=== PATIENT | female | born 1945 | race Caucasian/White ===

== ENCOUNTER 2020-09-12 11:38 | Observation (INO) | payer MEDICARE, SELFPAY ==
[2020-09-12] VITALS (39 sets, daily range): BP systolic 146–207; BP diastolic 48–81; PULSE 54–68; RESP 14–31; TEMP 36.2–36.6; O2SAT 92–100; BMI 24.4
--- NOTE | ~2020-09-12 | XR_ITS ---
EXAMINATION: XR chest 2V DATE: 09/12/2020 12:24 INDICATION: Dizziness. TECHNIQUE: Frontal and lateral views of the chest were obtained. COMPARISON: None. FINDINGS: The chest demonstrates clear lungs without pneumonia, pleural effusion, or pneumothorax. Th e heart size is normal. IMPRESSION: 1. No acute cardiopulmonary disease. Reviewed, dictated and finalized at location A. NE MONITOR
--- NOTE | 2020-09-12 12:01 | ECG_ITS ---
Measurements Intervals [place] Rate: 52 P: 42 PA: 177 QRS: 32 QRSD: 92 T: 125 QT: 430 QTc: 402 Interpretive Statements SINUS BRADYCARDIA ST-T WAVE ABNORMALITY IN HIGH LATERAL LEADS- CONSIDER ISCHEMIA BASELINE ARTIFACT- I, II, III, AVR, AVL, AVF, V2, V4-V6 ABNORMAL ECG Electronically Signed On 09-12-2020 12:40:43 HEARING AID DISPENSER by Petr Cole D.O.
[2020-09-12] MEDS: MECLIZINE HCL 25 MG TABLET PO (12:11)
--- NOTE | 2020-09-12 12:59 | ED.DIZZY ---
HPI - Dizziness General Chief Complaint: Dizziness Stated Complaint: DIZZY Time Seen by Provider: 09/12/20 11:46 History of Present Illness HPI Narrative: Patient is a 75-year-old female who presents ER with dizziness. Reports she woke from a nap and felt very hot and flushed. She left her living room and was walking. She reports she felt very dizzy and nauseated. She then had an episode of emesis. Because of her dizziness/unsteadiness her daughter helped her to the couch. Patient reports symptoms are resolved at this point. She reports chronic sinus issues but they are not particularly worse than usual. No ear pain. She had no functional weakness or numbness to an arm or leg when this is occurring. Blood pressure noted to be elevated upon arrival. Patient reports compliance with medications. She reports she is still mildly nauseated. Related Data Home Medications Medication Instructions Recorded Confirmed clonidine HCl 0.2 mg PO BID 09/12/20 09/12/20 glipizide 5 mg PO DAILY 09/12/20 09/12/20 hydrochlorothiazide 12.5 mg PO DAILY 09/12/20 09/12/20 insulin glargine [Lantus U-100 40 unit SUBCUT HS 09/12/20 09/12/20 Insulin] lisinopril 10 mg PO DAILY 09/12/20 09/12/20 prednisone 10 mg PO DAILY 09/12/20 09/12/20 sitagliptin [Januvia] 100 mg PO DAILY 09/12/20 09/12/20 zolpidem 10 mg PO HS PRN 09/12/20 09/12/20 Allergies Allergy/AdvReac Type Severity Reaction Status Date / Time codeine Allergy Unknown Verified 09/12/20 18:47 Review of Systems Review of Systems: All systems reviewed & are unremarkable except as noted in HPI and below Constitutional: Constitutional: Denies chills, Reports fatigue, Denies fever(s) and Reports weakness ENT: Denies nasal congestion and Denies sore throat Cardiovascular: Cardiovascular: Denies chest pain and Denies radiating jaw, neck or arm pain Respiratory: Respiratory: Denies cough, Denies dyspnea and Denies wheezing Gastrointestinal: Gastrointestinal: Denies abdominal pain, Reports nausea and Denies vomiting Neurologic: Reports dizziness, Denies syncope, Denies focal weakness and Denies numbness PMFSH Past Medical History Medical History (Updated 09/12/20 @ 21:15 by Brian Metzger MD) Diabetes Hypertension Family History Family History (Updated 09/12/20 @ 17:24 by Michaelle Evans RN) Mother Cerebrovascular accident Social History Social History Years smoked: 30 Alcohol intake: never Substance use: never Substance use type: does not use Gender identity (if verbalized by the patient): Female Spiritual care concerns: No Exam Narrative: Exam Narrative: GENERAL: Well-appearing, well-nourished, and in no acute distress. HEAD: Normocephalic, atraumatic. EYES: PERRL and EOMI. CHEST: Clear to auscultation. No respiratory distress. HEART: Regular rate and rhythm. Normal peripheral pulses. ABDOMEN: Soft, nontender, nondistended. EXTREMITIES: Normal range of motion. No edema. SKIN: Warm, dry, no rash. NEURO: No focal deficits. Alert and oriented x3. PSYCH: Normal mood and affect. Course Course Emergency Course: Patient with difficulty ambulating. Significant leukocytosis with UTI. Ceftriaxone ordered. Admit to hospitalist service. Vital Signs Vital signs: Vital Signs Pulse Rate 56 L 09/12/20 11:42 Respiratory Rate 23 H 09/12/20 11:42 Blood Pressure 207/56 H 09/12/20 11:42 Pulse Oximetry 97 09/12/20 11:42 Temperature 97.7 F 09/12/20 18:00 Pulse Rate 68 09/12/20 18:00 Respiratory Rate 20 09/12/20 18:00 Blood Pressure 196/51 H 09/12/20 18:00 Pulse Oximetry 97 09/12/20 18:00 MDM - Dizziness Lab Data Result diagrams: 09/12/20 12:59 09/12/20 12:59 Labs: Lab Results 09/12/20 09/12/20 09/12/20 Range/Units 12:43 12:59 12:59 WBC 22.2 H (4.5-10.0) K/mm3 RBC 5.31 (4.2-5.4) M/mm3 Hgb 15.6 H (12.0-15.0) g/dL Hct 47.0 (37.0-47.0) % MCV 88.5 (80-100) fl
[2020-09-12 13:04] LABS: Add Urine Microscopic? YES; Appearance Urine Clear (Clear); Bacteria Urine Trace /hpf; Bilirubin Urine Negative (Negative); Blood Urine 1+ (Negative); Color Urine Yellow (Yellow); Glucose Urine UA Negative (Negative); Ketones Urine Negative (Negative); Leukocyte Esterase Ur Trace LEU/UL (Negative); Mucus Urine Rare /lpf; Nitrate Urine Positive (Negative); Protein Urine 1+ mg/dL (Negative); RBC Urine 0-2 /hpf (0-2); Specific Grav Ur 1.025 (1.001-1.035); Squamous Epithelial Cell Urine Few /hpf (Few); Urobilinogen Urine Negative mg/dL (<2.0); WBC Urine 31-50 /hpf
[2020-09-12 13:06] LABS: Hemoglobin 15.6 g/dL (12.0-15.0); Mean Corpuscular HGB Conc 33.2 g/dl (32-36); Mean Corpuscular Hemoglobin 29.4 pg (26-34); Mean Corpuscular Volume 88.5 fl (80-100); Mean Platelet Volume 10.5 fl (7.4-10.4); Platelet Count Result 300 k/mm3 (150-375); Red Blood Count 5.31 M/mm3 (4.2-5.4); Red Cell Distribution Width 14.2 % (11.5-14.5); White Blood Count 22.2 K/mm3 (4.5-10.0)
[2020-09-12 13:13] LABS: Band Neutrophils Percent 3 % (0-6); Lymphocytes Absolute Manual 3.55 K/mm3 (1.1-4.5); Monocytes Absolute Manual 1.33 K/mm3 (0.1-0.90); Monocytes Percent Manual 6 % (3-9); Neutrophils Absolute Manual 17.31 K/mm3 (1.7-7.2); Neutrophils Percent Manual 75 % (46-73); Total Cells Counted 100
[2020-09-12 13:14] LABS: Platelet Estimate Adequate (Adequate)
[2020-09-12 13:17] LABS: Anion Gap 7 mmol/L (8-16); Blood Urea Nitrogen 17 mg/dL (7-17); Calcium 9.8 mg/dL (8.4-10.2); Carbon Dioxide 32 mmol/L (22-30); Chloride 98 mmol/L (98-107); Estimated CRCL calculation 52 ml/min; Estimated Glomerular Filt Rate > 60; Glucose 198 mg/dL (65-105); Potassium 3.5 mmol/L (3.4-5.0); Sodium 137 mmol/L (137-145)
[2020-09-12 15:02] LABS: Lactic Acid Reflex 1.2 mmol/L (0.7-2.1)
--- NOTE | 2020-09-12 17:05 | ADMGEN ---
This patient, Trudi Veliz, was admitted to Medical Room 257-01. Patient/family oriented to hospital policies and general routines including ID bracelet, bed and alarms, visiting hours, pain management, procedures, bathroom and other care routines, personal items, smoking policy, room service/diet, and visiting hours. Information on how to activate the Rapid Response Team has been discussed. Patient/Family are encouraged to report perceived risks to care and to ask questions if they do not understand what they are told or what they should do.
[2020-09-12] MEDS: SODIUM CHLORIDE 0.9% IV 1,000 ML 125 ML IV CONT (17:10)
[2020-09-12] MEDS: HYDROcodone/acetaminophen (*CRX) 5-325 MG TABLET 1 TAB PO (18:45)
[2020-09-12 20:45] LABS: Glucose Point of Care 287 (65-105)
--- NOTE | 2020-09-12 21:15 | PM.IMHP ---
H&P: HPI History of Present Illness Date/Time: 09/12/20 21:15 Chief Complaint: Dizziness Narrative: Trudi Veliz is a 75 year old female who lives with her daughter. She came to the emergency room with complaints of dizziness. The patient has hypertension and stated she did take her clonidine today because it makes her feel sleepy. The patient got up from a nap today and felt very dizzy and nauseated. She had 1 episode of emesis there was no blood noted in the emesis. She felt dizzy and unsteady for just a minute. The daughter helped her get back to the couch. This resolved quickly. She also has history of sinus drainage and sinus issues. In her sinuses have been worse than normal recently. With the drainage. She has no weakness or numbness no focal weakness. The patient was mildly nauseated when she came to the emergency room. She had not taken her blood pressure medicine this morning. She was found have a slight UTI and was started on Rocephin. She was given Antivert 1 time and was feeling better. Neutrophils 75%. Blood sugar 198 and then 287. Blood pressure was noted to be 196/51. Patient is being admitted observation overnight on the date of service of 09/12/2020. Review of Systems Review of Systems: All systems reviewed & are unremarkable except as noted in HPI and below Constitutional: Constitutional: Reports as per HPI and Reports no additional constitutional complaints Eyes: Eyes: Reports as per HPI and Reports no additional eye complaints ENT: Reports system reviewed and no additional complaints, except as documented and Reports Normal hearing present Cardiovascular: Cardiovascular: Reports no additional cardiovascular complaints Respiratory: Respiratory: Reports no additional respiratory complaints and Reports no additional respiratory complaints Gastrointestinal: Gastrointestinal: Reports as per HPI and Reports no additional gastrointestinal complaints Musculoskeletal: Musculoskeletal: Reports no additional musculoskeletal complaints Integumentary/Breasts: Skin/Breast: Reports system reviewed and no additional complaints, except as docu and Reports as per HPI Neurologic: Reports system reviewed and no additional complaints, except as documented, Reports as per HPI and Reports Normal hearing present Psychiatric: Psychiatric: Reports no additional psychiatric complaints and Reports as per HPI Endocrine: Endocrine: Reports no additional endocrine complaints Hematologic/Lymphatic: Hematologic/Lymphatic: Reports no additional hematologic/lymphatic complaints Allergic/Immunologic: Allergic/Immunologic: Reports no additional allergic/immunologic complaints [facility] Past Medical History Medical History (Updated 09/12/20 @ 21:25 by Michelle Cordova NP) Diabetes Hypertension Lipoma Left thigh Rheumatoid arthritis Surgical History Surgical History (Updated 09/12/20 @ 21:21 by Michelle Cordova NP) H/O tubal ligation History of appendectomy History of back surgery L4-L5 Hx of cholecystectomy Total knee replacement status Family History Family History (Updated 09/12/20 @ 21:21 by Michelle Cordova NP) Mother Cerebrovascular accident Sibling Diabetes mellitus Social History Social History (Updated 09/12/20 @ 21:23 by Michelle Cordova NP) Social History: The patient still smokes about 6 or 7 cigarettes a day. 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 She has 3 daughters. She is . She desires to be a full code does not have any durable power traffic law attorney for healthcare. She denies any alcohol because it makes her sick and no illicit drugs. She likes wine but it makes her sick when she drinks it. Years smoked: 30 Alcohol intake: never Substance use: never Substance use type: does not use Gender identity (if verbalized by the patient): Female Spiritual care concerns: No Meds Home Medications and Allergies Home Medications Med
[2020-09-12] MEDS: ZOLPIDEM TARTRATE (*CRX) 5 MG TABLET 10 MG PO (21:54)
[2020-09-12] MEDS: INSULIN GLARGINE (*BKC) 100 UNITS/ML 40 UNITS SUB-Q (21:54)
[2020-09-13 00:42] VITALS: BP 156/60; PULSE 60; RESP 16; TEMP 36.1; O2SAT 97
[2020-09-13] MEDS: SODIUM CHLORIDE 0.9% IV 1,000 ML 125 ML IV CONT (03:35)
[2020-09-13 04:29] LABS: Glucose Point of Care 74 (65-105)
[2020-09-13] MEDS: hydrALAZINE HCL 20 MG/ML VIAL 10 MG IV PUSH (04:48)
[2020-09-13 06:00] VITALS: BP 189/70; PULSE 60; RESP 20; TEMP 36.2; O2SAT 97
[2020-09-13 06:20] LABS: Alanine Aminotransferase 17 U/L (4-35); Albumin Level 3.7 g/dL (3.5-5.1); Alkaline Phosphatase 71 U/L (38-126); Anion Gap 4 mmol/L (8-16); Aspartate Amino Transferase 18 U/L (14-36); Bilirubin,Total 0.4 mg/dL (0.2-1.3); Blood Urea Nitrogen 16 mg/dL (7-17); Calcium 9.1 mg/dL (8.4-10.2); Carbon Dioxide 34 mmol/L (22-30); Chloride 102 mmol/L (98-107); Estimated CRCL calculation 52 ml/min; Estimated Glomerular Filt Rate > 60; Glucose 118 mg/dL (65-105); Magnesium 1.8 mg/dL (1.6-2.3); Potassium 3.5 mmol/L (3.4-5.0); Sodium 140 mmol/L (137-145)
[2020-09-13 06:32] LABS: Basophils Percent Auto 0.3 % (0.2-1.2); Eosinophils Absolute Auto 0.1 K/mm3 (0-0.3); Eosinophils Percent Auto 0.7 % (0-4.4); Hematocrit 45.1 % (37.0-47.0); Immature Granulocyte Absolute 0.09 K/mm3 (0.00-0.031); Immature Granulocyte Percent A 0.8 % (0-0.5); Lymphocytes Absolute Auto 2.11 K/mm3 (0.9-3.2); Lymphocytes Percent Auto 19.2 % (18.3-44.2); Mean Corpuscular HGB Conc 33.3 g/dl (32-36); Mean Corpuscular Hemoglobin 29.1 pg (26-34); Mean Corpuscular Volume 87.4 fl (80-100); Mean Platelet Volume 11.1 fl (7.4-10.4); Monocytes Absolute Auto 0.6 K/mm3 (0.1-0.6); Monocytes Percent Auto 5.2 % (2.6-8.5); Neutrophils Absolute Auto 8.1 K/mm3 (1.3-6.7); Neutrophils Percent Auto 73.8 % (45.5-73.1); Platelet Count Result 281 k/mm3 (150-375); Red Blood Count 5.16 M/mm3 (4.2-5.4); Red Cell Distribution Width 14.2 % (11.5-14.5)
[2020-09-13 06:34] LABS: Hemoglobin A1C 8.4 % (<5.7)
[2020-09-13 07:29] LABS: Glucose Point of Care 141 (65-105)
[2020-09-13] MEDS: hydroCHLOROthiazide 12.5 MG CAPSULE PO (08:13)
[2020-09-13] MEDS: glipiZIDE 5 MG TABLET PO (08:13)
[2020-09-13] MEDS: lisinopriL 10 MG TABLET PO (08:13)
[2020-09-13] MEDS: cloNIDine HCL 0.2 MG TABLET PO (08:13)
[2020-09-13] MEDS: predniSONE 10 MG TABLET PO (08:14)
[2020-09-13] MEDS: HYDROcodone/acetaminophen (*CRX) 5-325 MG TABLET 1 TAB PO (08:30)
[2020-09-13 09:37] LABS: Free T4 Free Thyroxine Reflex 1.36 ng/dL (0.78-2.19)
[2020-09-13 10:05] VITALS: BP 147/40; PULSE 64; RESP 17; TEMP 36.6; O2SAT 98
[2020-09-13 10:31] VITALS: BP 170/78; BP 192/68; PULSE 61; PULSE 70; RESP 15; RESP 17; O2SAT 98; O2SAT 99
--- NOTE | 2020-09-13 11:16 | PM.DS ---
DS: Admitting Diagnosis Admitting Diagnosis Admitting Diagnosis: dizziness DS: Discharge Diagnosis Discharge Diagnosis (1) UTI (urinary tract infection): Code(s): N39.0 - Urinary tract infection, site not specified Status: Acute Assessment and Plan: Urinalysis was grossly abnormal upon presentation. She had marked leukocytosis. She was afebrile and denied urinary symptoms. She did have some nausea. She was started on IV Rocephin and her leukocytosis significantly improved. Urine culture grew >100,000 CFU E coli. she will continue p.o. cefdinir to complete a total of 7 days antibiotic therapy. Preliminary blood culture showed NGTD and final cultures will be monitored. (2) Vertigo: Code(s): R42 - Dizziness and giddiness Status: Acute Assessment and Plan: patient reports waking up from a nap and feeling very dizzy as if the room was spinning. She denied unsteadiness, lightheadedness, weakness, numbness, or tingling. she had associated nausea and 1 episode of emesis. The episode resolved, however she reported her daughter wanted her to be evaluated. she noted that she had not really drink any water that day And has had similar episodes to this when she has been dehydrated. She was not orthostatic. She was rehydrated with IV fluids. She received 1 dose of meclizine. I encouraged her to stay well hydrated. She will continue p.r.n. meclizine And follow-up with PCP. She may benefit from neurology referral if episodes persist. (3) Hypertension: Code(s): I10 - Essential (primary) hypertension Status: Chronic Assessment and Plan: Blood pressure was elevated above target in the 160-170s. She was not orthostatic. Continue with her hydrochlorothiazide, clonidine and lisinopril. I encouraged her to monitor her blood pressure at home and record readings were review by PCP. (4) Diabetes: Code(s): E11.9 - Type 2 diabetes mellitus without complications Status: Chronic Assessment and Plan: A1c was 8.4 (09/13/2020). she did not have any episodes of hypoglycemia. Continue glipizide, Lantus, and Januvia. (5) Rheumatoid arthritis: Code(s): M06.9 - Rheumatoid arthritis, unspecified Status: Chronic Assessment and Plan: Managed on daily low-dose prednisone. She was asymptomatic. DS: Summary Hospital Course Reason for hospitalization: dizziness Hospital Course: date of admission: 09/12/2020 date of discharge: 09/13/2020 Trudi Veliz is a 75-year-old female with a history of diabetes, hypertension, and rheumatoid arthritis who presented to the emergency department on on 09/12/2020 after having episode of dizziness upon waking from a nap. The episode resolved, however her daughter encouraged her to seek medical evaluation although the patient did not really want to. Upon presentation to the emergency department , her blood pressure was elevated with additional vital signs stable, she had marked leukocytosis, electrolytes stable, glucose 198, lactic acid 1.2, urinalysis grossly abnormal, and chest x-ray showed no acute cardiopulmonary disease. She was admitted to the hospitalist service for further evaluation management. Please see above for further details. She was treated for urinary tract infection will continue p.o. antibiotics as an outpatient. Her dizziness resolved entirely. She will continue meclizine as needed. I suspect most of her symptoms were due to dehydration and I discussed with her the importance of proper oral intake. She was evaluated by PT /OT and no ongoing therapy requirements were identified. She will need to follow-up with her primary care provider, which was discussed with her and she agrees. She was extremely eager for discharge home. Given her overall improvement, she was determined to no longer require inpatient care and was felt to be stable for discharge. We discussed worrisome signs and symptoms for wh
[2020-09-13 11:32] LABS: Glucose Point of Care 176 (65-105)
[2020-09-13 11:33] LABS: Total Triiodothyronine (T3) 1.23 NG/ML (0.97-1.69)
== END 2020-09-13 11:54 | disposition home or self-care (01) ==
LOC: ANHED 11:46 → ANH2MED 15:56
PROVIDERS: Nurse Practitioner; Physician Assistant; Admitting Provider Internal Medicine; Emergency Provider Emergency Medicine; PCP Nurse Practitioner Family; Visit Provider Family Medicine
DX: N39.0 Urinary tract infection, site not specified (principal); R42 Dizziness and giddiness; R11.2 Nausea with vomiting, unspecified; I10 Essential (primary) hypertension; E11.9 Type 2 diabetes mellitus without complications; D17.24 Benign lipomatous neoplasm of skin and subcutaneous tissue of left leg; M06.9 Rheumatoid arthritis, unspecified; Z79.4 Long term (current) use of insulin
CPT/HCPCS: 36415; 71046; 80048; 80053; 81001; 82728; 83036; 83605; 83735; 84439; 84443; 84480; 85025; 87040; 87077; 87086; 87088; 87186; 93005; 96361; 96365; 96366; 96375; 96376; 97161; 97165; 99285; A9270; G0378; J0360; J0696; J1815; J7030; J7512

== ENCOUNTER 2020-10-25 14:24 | Outpatient (CLI) | payer MEDICARE, SELFPAY ==
--- NOTE | ~2020-10-25 | MR_ITS ---
EXAMINATION: MR brain/brain stem wo con DATE: 10/25/2020 16:29 INDICATION: Memory deficits. Dizziness. Confusion. TECHNIQUE: Magnetic resonance imaging (MRI) of the brain and brainstem was performed without intraven ous contrast. Sequences included sagittal and axial T1-weighted FSE, axial diffusion-weighted FS EPI, axial T2*-weighted GRE, axial T2-weighted FLAIR Propeller, and axial T2-weighted Propeller. Apparent diffusion coefficient (ADC) maps were created. COMPARISON: None. 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 There is no intracranial hemorrhage, acute infarction, or abnormal intracranial mass lesion. There are sca ttered areas of nonspecific increased T2-weighted signal intensity in the cerebral white matter, whic h is within normal limits for the patient's age. There is ex vacuo dilatation of body of right latera l ventricle. There is mucosal thickening in the paranasal sinuses. There is an old blowout fracture o f medial wall of right orbit. There are likely changes of ocular lens replacement surgeries. The mast oid air cells are normal. IMPRESSION: 1. 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 Reviewed, dictated and finalized at location A. OL CHILDCARE ATTENDANT
== END 2020-10-25 14:25 | disposition home or self-care (01) ==
PROVIDERS: PCP Nurse Practitioner Family; Visit Provider Nurse Practitioner Family
DX: Z78.0 Asymptomatic menopausal state (principal); R41.3 Other amnesia; R42 Dizziness and giddiness; R53.1 Weakness
CPT/HCPCS: 70551

== ENCOUNTER 2020-12-01 15:36 | Observation (INO) | payer MEDICARE, SELFPAY ==
[2020-12-01] VITALS (7 sets, daily range): BP systolic 148–173; BP diastolic 53–95; PULSE 75–88; RESP 16–20; TEMP 36.2–37.3; O2SAT 94–99; BMI 24.0
--- NOTE | ~2020-12-01 | CT_ITS ---
EXAMINATION: CT abdomen pelvis w con DATE: 12/01/2020 17:04 INDICATION: Generalized abdominal pain TECHNIQUE: Computed tomography (CT) of the abdomen and pelvis was performed with 100 cc Omnipaque 350 intravenous contrast. The dose-length product was 367.31 mGy-cm. Automated exposure control and iter ative reconstruction technique were employed. COMPARISON: None. FINDINGS: There is dependent atelectasis. Heart size is normal. There is atherosclerosis of the aorta . No aneurysm. No lymphadenopathy. There is a 12 mm low-density lesion right hepatic lobe inferiorly extending to the capsular surface. Gallbladder not identified, likely surgically absent. Mild dilation of the common bile duct, likely r elated to prior cholecystectomy and patient's age. The spleen, pancreas, adrenal glands and right kid magaly are unremarkable. There are low-density lesions in the left kidney, likely cysts. No free air or free fluid. Nonobstructive bowel gas pattern. Uterus is atrophic. Small fat-containing umbilical brittney ia. Severe lumbar spondylosis. Moderate osteoarthritis of the hips. Levoscoliosis of the lumbar spine . IMPRESSION: 1. Low-density lesion right hepatic lobe inferiorly measuring 12 mm, likely benign cyst or hemangioma . Follow-up CT abdomen in 6 months recommended. 2: No acute abdominal abnormality. Reviewed, dictated and finalized at location A. TR[employer] [address] IMPRESSION: 1. Low-density lesion right hepatic lobe inferiorly measuring 12 mm, likely paul ign cyst or hemangioma. Follow-up CT abdomen in 6 months recommended. 2: No acute abdominal abnormality.
--- NOTE | ~2020-12-01 | XR_ITS ---
EXAMINATION: XR chest 2V 12/01/2020 16:12 INDICATION: Nausea and vomiting PROCEDURE: 2 view chest COMPARISON: 09/12/2020 FINDINGS: The lungs are clear. The cardiomediastinal silhouette is within normal limits. There are no pleural effusions. There is no pneumothorax suspected. Mild dextroscoliosis of the thoracic spin e. Osteopenia. IMPRESSION: 1: NO ACUTE CARDIOPULMONARY DISEASE. Reviewed, dictated and finalized at location A. [employer]ROPOLOGY DIRECTOR
--- NOTE | ~2020-12-01 | XR_ITS ---
EXAMINATION: XR hip RT 2V w AP pelvis DATE: 12/02/2020 10:03 INDICATION: Right hip pain. TECHNIQUE: An anteroposterior view pelvis and 2 views of right hip were obtained. COMPARISON: CT abdomen and pelvis 12/01/2020 FINDINGS: There is lumbar levoscoliosis and severe spondylosis. No fracture. There is mild osteoarthr itis of hips. IMPRESSION: 1. Mild osteoarthritis of the hips. Reviewed, dictated and finalized at location A.
--- NOTE | ~2020-12-01 | XR_ITS ---
EXAMINATION: XR lumbar spine 2-3V DATE: 12/02/2020 10:03 INDICATION: Low back pain. TECHNIQUE: 3 views of lumbar spine were obtained. COMPARISON: None. FINDINGS: There is 18 degrees levoscoliosis of lumbar spine. There is 5 mm retrolisthesis of L2 on L3 and L3 on L4. Vertebral body heights are normal. There is severely decreased disc height from L2-L3 through L4-L5. There is multilevel severe facet joint osteoarthritis. IMPRESSION: 1. Severe lumbar spondylosis. 2. Lumbar levoscoliosis. Reviewed, dictated and finalized at location A.
--- NOTE | ~2020-12-01 | US_ITS ---
EXAMINATION: US venous doppler [facility] DATE: 12/02/2020 14:23 INDICATION: Lower limb swelling. TECHNIQUE: Grayscale ultrasound images without and with compression and Doppler ultrasound images of the bilateral lower extremity veins were obtained. COMPARISON: None. FINDINGS: The visualized portions of right common femoral vein, profunda (deep) femoral vein, femoral vein, pop liteal vein, peroneal veins, posterior tibial veins, and greater saphenous vein outflow are patent. The visualized portions of left common femoral vein, profunda femoral vein, femoral vein, popliteal v ein, peroneal veins, posterior tibial veins, and greater saphenous vein outflow are patent. IMPRESSION: 1. No deep venous thrombosis. Reviewed, dictated and finalized at location A.
--- NOTE | 2020-12-01 15:53 | ECG_ITS ---
Measurements Intervals [place] Rate: 89 P: 48 ME: 162 QRS: 26 QRSD: 89 T: 118 QT: 340 QTc: 415 Interpretive Statements SINUS RHYTHM BORDERLINE ST-T WAVE ABNORMALITY- LAT/HIGH LAT LEADS BASELINE WANDER- I, II, III, AVR, AVL, AVF, V1 BORDERLINE ECG Electronically Signed On 12-01-2020 18:05:36 DOSIER OPERATOR by Petr Cole D.O.
--- NOTE | 2020-12-01 15:56 | ED.WEAKNESS ---
HPI - Weakness General Chief complaint: Weakness Stated complaint: i am very weak Time Seen by Provider: 12/01/20 15:56 History of Present Illness HPI Narrative: Generalized weakness for the past weak. Associated with nausea and dizziness on standing. Daughter noted dark urine a few days ago and PCP started antibiotic for UTI. SInce then she has begun vomiting. Daughter also noticed that the skin on all of her extremities appeared red and warm. No fever, CP, SOB, cough. Related Data Home Medications Medication Instructions Recorded Confirmed Januvia 100 mg PO DAILY 09/12/20 09/12/20 Lantus U-100 Insulin 40 unit SUBCUT HS 09/12/20 09/12/20 clonidine HCl 0.2 mg PO BID 09/12/20 09/12/20 glipizide 5 mg PO DAILY 09/12/20 09/12/20 hydrochlorothiazide 12.5 mg PO DAILY 09/12/20 09/12/20 lisinopril 10 mg PO DAILY 09/12/20 09/12/20 prednisone 10 mg PO DAILY 09/12/20 09/12/20 zolpidem 10 mg PO HS PRN 09/12/20 09/12/20 Allergies Allergy/AdvReac Type Severity Reaction Status Date / Time codeine Allergy Unknown Verified 09/12/20 18:47 Review of Systems Review of Systems: All systems reviewed & are unremarkable except as noted in HPI and below Constitutional: Constitutional: Reports fatigue, Denies fever(s) and Reports weakness ENT: Reports system reviewed and no additional complaints, except as documented Cardiovascular: Cardiovascular: Denies chest pain Respiratory: Respiratory: Denies dyspnea Gastrointestinal: Gastrointestinal: Denies abdominal pain, Reports nausea and Reports vomiting Genitourinary: Genitourinary: Reports nocturia and Denies dysuria Musculoskeletal: Musculoskeletal: Denies back pain Neurologic: Reports dizziness and Reports weakness [facility] Past Medical History Medical History Diabetes Hypertension Lipoma Left thigh Rheumatoid arthritis Surgical History Surgical History H/O tubal ligation History of appendectomy History of back surgery L4-L5 Hx of cholecystectomy Total knee replacement status Family History Family History Mother Cerebrovascular accident Sibling Diabetes mellitus Social History Social History Social History: The patient still smokes about 6 or 7 cigarettes a day. 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 She has 3 daughters. She is . She desires to be a full code does not have any durable power fill manager for healthcare. She denies any alcohol because it makes her sick and no illicit drugs. She likes wine but it makes her sick when she drinks it. Years smoked: 30 Alcohol intake: never Substance use: never Substance use type: does not use Gender identity (if verbalized by the patient): Female Spiritual care concerns: No Exam Const: General: no acute distress and alert Nutritional Appearance: well nourished Orientation/consciousness: patient oriented x3 HENMT: Mouth: Yes dry mucous membranes Resp: Effort & Inspection: normal respiratory effort Auscultation: clear to auscultation bilaterally Cardio: Rate: regular rate Rhythm: regular rhythm GI: GI Palp: Yes Soft to palpation and No Tenderness to palpation present (GI) Skin: Other: Extremities hyperemic and warm to touch, nontender. Neuro: General: patient oriented x3, moves all extremities, no focal motor deficits and CN's II-XI intact bilaterally Speech: normal speech Extrem: General: edema bilateral (mild) Course Vital Signs Vital signs: Vital Signs Temperature 36.2 C L 12/01/20 15:42 Pulse Rate 85 12/01/20 15:42 Respiratory Rate 18 12/01/20 15:42 Blood Pressure 148/53 H 12/01/20 15:42 Pulse Oximetry 94 12/01/20 15:42 Temperature 36.2 C L 12/01/20 15:48 Pulse Rate 78 12/01/20 17:22
[2020-12-01 16:07] LABS: Basophils Percent Auto 0.2 % (0.2-1.2); Eosinophils Absolute Auto 0.2 K/mm3 (0-0.3); Eosinophils Percent Auto 1.3 % (0-4.4); Hematocrit 41.7 % (37.0-47.0); Hemoglobin 14.1 g/dL (12.0-15.0); Immature Granulocyte Absolute 0.11 K/mm3 (0.00-0.031); Immature Granulocyte Percent A 0.6 % (0-0.5); Lymphocytes Absolute Auto 0.58 K/mm3 (0.9-3.2); Mean Corpuscular HGB Conc 33.8 g/dl (32-36); Mean Corpuscular Hemoglobin 28.7 pg (26-34); Mean Corpuscular Volume 84.8 fl (80-100); Mean Platelet Volume 10.1 fl (7.4-10.4); Monocytes Absolute Auto 0.7 K/mm3 (0.1-0.6); Monocytes Percent Auto 3.8 % (2.6-8.5); Neutrophils Absolute Auto 17.4 K/mm3 (1.3-6.7); Neutrophils Percent Auto 91.1 % (45.5-73.1); Platelet Count Result 487 k/mm3 (150-375); Red Blood Count 4.92 M/mm3 (4.2-5.4); Red Cell Distribution Width 12.9 % (11.5-14.5); White Blood Count 19.1 K/mm3 (4.5-10.0)
[2020-12-01 16:18] LABS: Add Urine Microscopic? YES; Appearance Urine Cloudy (Clear); Bacteria Urine Trace /hpf; Bilirubin Urine Negative (Negative); Blood Urine 1+ (Negative); Color Urine Yellow (Yellow); Glucose Urine UA 3+ mg/dL (Negative); Hyaline Casts Urine 20-29 /lpf; Ketones Urine 2+ mg/dL (Negative); Leukocyte Esterase Ur Trace LEU/UL (Negative); Mucus Urine Rare /lpf; Nitrate Urine Negative (Negative); Protein Urine 2+ mg/dL (Negative); Specific Grav Ur 1.017 (1.001-1.035); Squamous Epithelial Cell Urine Occasional /hpf (Few); Urobilinogen Urine Negative mg/dL (<2.0)
[2020-12-01 16:20] LABS: Alanine Aminotransferase 13 U/L (4-35); Albumin Level 3.9 g/dL (3.5-5.1); Alkaline Phosphatase 107 U/L (38-126); Anion Gap 7 mmol/L (8-16); Aspartate Amino Transferase 21 U/L (14-36); Bilirubin,Total 0.6 mg/dL (0.2-1.3); Blood Urea Nitrogen 21 mg/dL (7-17); Calcium 9.8 mg/dL (8.4-10.2); Carbon Dioxide 29 mmol/L (22-30); Chloride 92 mmol/L (98-107); Estimated CRCL calculation 44 ml/min; Estimated Glomerular Filt Rate > 60; Glucose 412 mg/dL (65-105); Potassium 4.2 mmol/L (3.4-5.0); Sodium 128 mmol/L (137-145)
[2020-12-01] MEDS: ONDANSETRON INJ 4 MG/2 ML VIAL IV PUSH ×2 (17:07→22:58)
--- NOTE | 2020-12-01 21:20 | ADMGEN ---
12/01/2020 @ 2100 This patient, Trudi Veliz, was admitted to 3 Med Surg Room 322-01. Patient/family oriented to hospital policies and general routines including ID bracelet, bed and alarms, visiting hours, pain management, procedures, bathroom and other care routines, personal items, smoking policy, room service/diet, and visiting hours. Information on how to activate the Rapid Response Team has been discussed. Patient/Family are encouraged to report perceived risks to care and to ask questions if they do not understand what they are told or what they should do.
[2020-12-01] MEDS: LACTATED RINGERS 1,000 ML 100 ML IV CONT (22:58)
--- NOTE | 2020-12-01 23:30 | PM.IMHP ---
H&P: HPI History of Present Illness Date/Time: 12/01/20 23:30 this is a 75-year-old female patient who is also diabetic. She lives with her daughter now since she has been weak. The patient tells me that she has been weak this past several days. She denies any peripheral neuropathy. She states that her blood sugars have been high recently. She states that she will walk and her legs will start to give out. Has not been on any antibiotics recently. Sodium 128. Her blood sugar was found to be 412. Patient's leukocyte esterase was trace in her urine and wbc's 4-6. Trace of bacteria. Patient was started on antibiotics for UTI. And she was started on ceftriaxone and vancomycin. The patient has rheumatoid arthritis and has stopped taking her prednisone. The patient was complaining of some right hip pain but has not had any falls. Walking short distances. The patient did have a lipoma removed on 09/25/2020 to the left thigh. As low density lesion right hepatic lobe inferiorly [facility] room is likely benign cyst or hemangioma. Follow-up CT abdomen in 6 months is recommended. Nothing acute. Chest x-ray was read as no acute cardiopulmonary disease. The patient is being admitted as observation status on 12/01/2020. Chief Complaint: Weakness Review of Systems Review of Systems: All systems reviewed & are unremarkable except as noted in HPI and below Constitutional: Constitutional: Reports as per HPI and Reports no additional constitutional complaints Eyes: Eyes: Reports as per HPI and Reports no additional eye complaints ENT: Reports system reviewed and no additional complaints, except as documented and Reports Normal hearing present Cardiovascular: Cardiovascular: Reports no additional cardiovascular complaints Respiratory: Respiratory: Reports no additional respiratory complaints and Reports no additional respiratory complaints Gastrointestinal: Gastrointestinal: Reports as per HPI and Reports no additional gastrointestinal complaints Musculoskeletal: Musculoskeletal: Reports no additional musculoskeletal complaints Integumentary/Breasts: Skin/Breast: Reports system reviewed and no additional complaints, except as docu and Reports as per HPI Neurologic: Reports system reviewed and no additional complaints, except as documented, Reports as per HPI and Reports Normal hearing present Psychiatric: Psychiatric: Reports no additional psychiatric complaints and Reports as per HPI Endocrine: Endocrine: Reports no additional endocrine complaints Hematologic/Lymphatic: Hematologic/Lymphatic: Reports no additional hematologic/lymphatic complaints Allergic/Immunologic: Allergic/Immunologic: Reports no additional allergic/immunologic complaints [facility] Past Medical History Medical History (Updated 12/01/20 @ 23:56 by Michelle Cordova NP) Diabetes Hypertension Lipoma Left thigh Rheumatoid arthritis Surgical History Surgical History Cataract extraction status Bilaterally H/O tubal ligation History of appendectomy History of back surgery L4-L5 Hx of cholecystectomy Total knee replacement status Left knee Family History Family History Mother Cerebrovascular accident Sibling Diabetes mellitus Social History Social History (Updated 12/01/20 @ 23:47 by Michelle Cordova NP) Social History: The patient still smokes about 6 or 7 cigarettes a day. 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 She has 3 daughters. She is . She denies any alcohol because it makes her sick and no illicit drugs. She likes wine but it makes her sick when she drinks it. The patient tells me that she is a DNR. Smoking packs per day: 0.3 Smoking cigarettes per day: 6.0 Years smoked: 30 Smoking pack-years: 9.00 Smoking status: Current every day smoker Tobacco type: cigarettes [place]
[2020-12-02] VITALS (8 sets, daily range): BP systolic 129–206; BP diastolic 36–62; PULSE 53–83; RESP 16–18; TEMP 36.2–37.1; O2SAT 94–96
[2020-12-02 00:15] LABS: Hemoglobin A1C 8.9 % (<5.7)
[2020-12-02 00:48] LABS: Anion Gap 3 mmol/L (8-16); Blood Urea Nitrogen 22 mg/dL (7-17); Calcium 9.3 mg/dL (8.4-10.2); Carbon Dioxide 34 mmol/L (22-30); Chloride 92 mmol/L (98-107); Estimated CRCL calculation 46 ml/min; Estimated Glomerular Filt Rate > 60; Glucose 437 mg/dL (65-105); Potassium 3.9 mmol/L (3.4-5.0); Sodium 129 mmol/L (137-145)
--- NOTE | 2020-12-02 03:20 | PC.NURSE ---
Daylight Savings Time For Daylight Savings Time Ending in the Fall - Clocks are moved back. For Daylight Savings Time Beginning in the Spring - Clocks are moved ahead. For [facility], the time of change occurs at 0200 hrs. Time is taken from the linux server engineer. This entry on the patient's chart recognizes the change in time reflected during documentation. Example: 2 entries for vital signs may be charted for 0200 hrs.
[2020-12-02 06:32] LABS: Alanine Aminotransferase 14 U/L (4-35); Albumin Level 3.4 g/dL (3.5-5.1); Alkaline Phosphatase 88 U/L (38-126); Anion Gap 2 mmol/L (8-16); Aspartate Amino Transferase 23 U/L (14-36); Bilirubin,Total 0.3 mg/dL (0.2-1.3); Blood Urea Nitrogen 21 mg/dL (7-17); Calcium 9.1 mg/dL (8.4-10.2); Carbon Dioxide 33 mmol/L (22-30); Chloride 95 mmol/L (98-107); Estimated CRCL calculation 46 ml/min; Estimated Glomerular Filt Rate > 60; Glucose 337 mg/dL (65-105); Magnesium 1.5 mg/dL (1.6-2.3); Potassium 3.8 mmol/L (3.4-5.0); Sodium 130 mmol/L (137-145)
[2020-12-02] MEDS: NAPROXEN SODIUM 220 MG TABLET 440 MG PO ×2 (06:40→16:53)
[2020-12-02] MEDS: cloNIDine HCL 0.2 MG TABLET PO ×2 (06:40→16:54)
[2020-12-02 06:46] LABS: Basophils Percent Auto 0.2 % (0.2-1.2); Eosinophils Absolute Auto 0.6 K/mm3 (0-0.3); Eosinophils Percent Auto 4.8 % (0-4.4); Hematocrit 39.4 % (37.0-47.0); Hemoglobin 13.4 g/dL (12.0-15.0); Immature Granulocyte Absolute 0.05 K/mm3 (0.00-0.031); Immature Granulocyte Percent A 0.4 % (0-0.5); Lymphocytes Absolute Auto 0.94 K/mm3 (0.9-3.2); Lymphocytes Percent Auto 8.3 % (18.3-44.2); Mean Corpuscular Hemoglobin 28.8 pg (26-34); Mean Corpuscular Volume 84.7 fl (80-100); Mean Platelet Volume 10.4 fl (7.4-10.4); Monocytes Absolute Auto 0.6 K/mm3 (0.1-0.6); Monocytes Percent Auto 5.3 % (2.6-8.5); Neutrophils Absolute Auto 9.2 K/mm3 (1.3-6.7); Platelet Count Result 420 k/mm3 (150-375); Red Blood Count 4.65 M/mm3 (4.2-5.4); White Blood Count 11.4 K/mm3 (4.5-10.0)
[2020-12-02 08:14] LABS: Glucose Point of Care 360 (65-105)
[2020-12-02] MEDS: glipiZIDE 5 MG TABLET PO (08:36)
[2020-12-02] MEDS: amLODIPine BESYLATE 5 MG TABLET PO (08:38)
[2020-12-02] MEDS: ENOXAPARIN 40 MG/0.4 ML SYRINGE SUB-Q (08:39)
[2020-12-02] MEDS: CEFDINIR 300 MG CAPSULE PO ×2 (08:39→20:44)
[2020-12-02] MEDS: lisinopriL 10 MG TABLET PO (08:40)
[2020-12-02] MEDS: INSULIN ASPART (*BKC) 100 UNITS/ML SUB-Q ×3 (08:50→17:24)
[2020-12-02] MEDS: LACTATED RINGERS 1,000 ML 100 ML IV CONT (10:58)
[2020-12-02 12:19] LABS: Glucose Point of Care 239 (65-105)
--- NOTE | 2020-12-02 12:29 | P.PNIM_ITS ---
Progress Note: A&P Assessment and Plan (1) UTI (urinary tract infection): Code(s): N39.0 - Urinary tract infection, site not specified Status: Acute Assessment and Plan: Patient started on Macrobid as an outpatient on 11/29. UA suspicious of possible UTI, although not entirely suggestive but this is likely due to partial treatment. No UCx obtained and will not attempt to obtain as this is likely going to be negative due to initiation of antibiotics. Macrobid may be causing recent rash? (see below); this has been held. She was started on Rocephin in ED; transitioned to PO cefdinir today as she has grown E. coli sensitive to this in the past. * Obtain records from PCP * Stop Macrobid * Monitor CBC * Monitor for clinical improvement (2) Hypertension: Code(s): I10 - Essential (primary) hypertension Status: Chronic Assessment and Plan: BP uncontrolled. BP 160s sys * Continue with clonidine; will resume at BID dosing to help with rebound HTN (recently decreased to just taking clinidine in the evening) * HCTZ held given hyponatremia * Continue lisinopril for now, but will consider d/c if continued rash * Added amlodipine 5 mg for now; consider increasing * PRN hydralazine with parameters * Will consider adding beta nia but would have to monitor for bradycardia (3) Diabetes: Code(s): E11.9 - Type 2 diabetes mellitus without complications Status: Chronic Assessment and Plan: A1c 8.9. Poorly controlled. BGL better today but still in 200s * Accuchecks ACHS, hypoglycemia protocol, correctional insulin, diabetic diet * Continue home sitagliptin and glipizide * Continue home lantus * May consider meal time bolus * Consult DM educator * Monitor (4) Rheumatoid arthritis: Code(s): M06.9 - Rheumatoid arthritis, unspecified Status: Chronic Assessment and Plan: The patient is no longer on prednisone per daughter * F/u with PCP (5) Hyponatremia: Code(s): E87.1 - Hypo-osmolality and hyponatremia Status: Acute Assessment and Plan: Na improved to 130. Possibly 2/2 HCTZ * Continue hold HCTZ and/or d/c this med] * Monitor (6) Weakness: Code(s): R53.1 - Weakness Status: Acute Assessment and Plan: Possibly secondary to hyponatremia vs UTI or multifactorial * PT/OT eval appreciated * Monitor (7) Rash: Code(s): R21 - Rash and other nonspecific skin eruption Status: Acute Assessment and Plan: As above, erythematous, nonpalpable rash on distal extremities. Possibly medication induced. Macrobid is the most recent medication initiated. Lisinopril and HCTZ also possible meds. She has had cephalosporins from previous hospitalization without issue * Will do prednisone 40 mg PO now * Benadryl 50 mg PO now * Stop Macrobid * Monitor * will consider prednisone burst Subjective Date/time seen: 12/02/20 12:29 Interval history: Patient is a 75 yo F with poorly controlled DMII, uncontrolled HTN, RA (recently d/c prednisone), chornic back pain, among other comorbid conditions who is seen in follow up for evaluation for generalized weakness, possible UTI, and rash. Patient states she feels okay today. Weakness is about the same if not a bit better. She denies any orthopnea. Patient also note her SONG has been
--- NOTE | 2020-12-02 12:29 | PM.IMPN ---
Progress Note: A&P Assessment and Plan (1) UTI (urinary tract infection): Code(s): N39.0 - Urinary tract infection, site not specified Status: Acute Assessment and Plan: Patient started on Macrobid as an outpatient on 11/29. UA suspicious of possible UTI, although not entirely suggestive but this is likely due to partial treatment. No UCx obtained and will not attempt to obtain as this is likely going to be negative due to initiation of antibiotics. Macrobid may be causing recent rash? (see below); this has been held. She was started on Rocephin in ED; transitioned to PO cefdinir today as she has grown E. coli sensitive to this in the past. Obtain records from PCP Stop Macrobid Monitor CBC Monitor for clinical improvement (2) Hypertension: Code(s): I10 - Essential (primary) hypertension Status: Chronic Assessment and Plan: BP uncontrolled. BP 160s sys Continue with clonidine; will resume at BID dosing to help with rebound HTN (recently decreased to just taking clinidine in the evening) HCTZ held given hyponatremia Continue lisinopril for now, but will consider d/c if continued rash Added amlodipine 5 mg for now; consider increasing PRN hydralazine with parameters Will consider adding beta nia but would have to monitor for bradycardia (3) Diabetes: Code(s): E11.9 - Type 2 diabetes mellitus without complications Status: Chronic Assessment and Plan: A1c 8.9. Poorly controlled. BGL better today but still in 200s Accuchecks ACHS, hypoglycemia protocol, correctional insulin, diabetic diet Continue home sitagliptin and glipizide Continue home lantus May consider meal time bolus Consult DM educator Monitor (4) Rheumatoid arthritis: Code(s): M06.9 - Rheumatoid arthritis, unspecified Status: Chronic Assessment and Plan: The patient is no longer on prednisone per daughter F/u with PCP (5) Hyponatremia: Code(s): E87.1 - Hypo-osmolality and hyponatremia Status: Acute Assessment and Plan: Na improved to 130. Possibly 2/2 HCTZ Continue hold HCTZ and/or d/c this med] Monitor (6) Weakness: Code(s): R53.1 - Weakness Status: Acute Assessment and Plan: Possibly secondary to hyponatremia vs UTI or multifactorial PT/OT eval appreciated Monitor (7) Rash: Code(s): R21 - Rash and other nonspecific skin eruption Status: Acute Assessment and Plan: As above, erythematous, nonpalpable rash on distal extremities. Possibly medication induced. Macrobid is the most recent medication initiated. Lisinopril and HCTZ also possible meds. She has had cephalosporins from previous hospitalization without issue Will do prednisone 40 mg PO now Benadryl 50 mg PO now Stop Macrobid Monitor will consider prednisone burst Subjective Date/time seen: 12/02/20 12:29 Interval history: Patient is a 75 yo F with poorly controlled DMII, uncontrolled HTN, RA (recently d/c prednisone), chornic back pain, among other comorbid conditions who is seen in follow up for evaluation for generalized weakness, possible UTI, and rash. Patient states she feels okay today. Weakness is about the same if not a bit better. She denies any orthopnea. Patient also note her SONG has been going on for several weeks and her PCP is aware. She does note LE swelling. Her back pain is chronic and plans to follow up with her PCP for possible referral. No other complaints at the moment. Notes her N/V has improved and dizziness a bit better. Denies f/c/s, cp/palpitations particularly when ambulating, current sob/cough, abd pain, changes in BMs, dysuria, hematuria, cloudy urine, calf
[2020-12-02] MEDS: predniSONE 20 MG TABLET 40 MG PO (12:49)
[2020-12-02] MEDS: diphenhydrAMINE HCl CAP 25 MG CAPSULE 50 MG PO (12:49)
[2020-12-02 17:13] LABS: Glucose Point of Care 350 (65-105)
[2020-12-02] MEDS: INSULIN GLARGINE (*BKC) 100 UNITS/ML 40 UNITS SUB-Q (22:03)
[2020-12-02 22:27] LABS: Glucose Point of Care 421 (65-105)
[2020-12-02 23:51] LABS: Glucose Point of Care 482 (65-105)
--- NOTE | 2020-12-03 | ECHO_ITS ---
Patient Info Name: Trudi Veliz Age: 75 years : 1945 Gender: Female Ht: 64 in Wt: 140 lbs BSA: 1.70 m2 HR: 53 bpm BP: 124 / 52 mmHg Heart Rhythm: Bradycardia Technical Quality: Good Exam Date: 12/03/2020 10:33 AM Exam Location: [facility] Patient Status: Outpatient Admit Date: 12/01/2020 Staff Ordering Physician: Michelle Cordova NP Chief Medical Physicist: Walter Gil RDCS, RT Attending Provider: Jose Valentin PA-C Referring Physician: Tasha JEAN BAPTISTE; Exam Type: CA echo doppler color flow Study Info Indications R06.02 - Shortness of breath Complete two-dimensional, color flow and Doppler transthoracic echocardiogram is performed. Strain analysis performed. Summary 1. Complete two-dimensional, color flow and Doppler transthoracic echocardiogram is performed. 2. Left ventricular systolic function is normal, estimated at 65-70%. 3. There is mildly increased left ventricular wall thickness. 4. The left ventricular diastolic function is grade I diastolic dysfunction. 5. Aneurysmal septal motion. 6. There is no aortic valve stenosis. 7. There is trace mitral valve regurgitation. 8. There is mild tricuspid valve regurgitation. 9. No pulmonary hypertension, estimated pulmonary arterial systolic pressure is 23 mmHg. 10. There is small pericardial effusion. Left Ventricle Left ventricular chamber dimension is normal. Left ventricular systolic function is normal, estimated at 65-70%. There is mildly increased left ventricular wall thickness. The left ventricular diastolic function is grade I diastolic dysfunction. Global longitudinal strain is mildly elevated at -17 %. Right Ventricle Right ventricular chamber dimension is normal. Right ventricular systolic function is normal. Left Atria Left atrial chamber dimension is mildly enlarged. Right Atria Right atrial chamber dimension is normal. Atrial Septum Aneurysmal septal motion. Aortic Valve The aortic valve is trileaflet. There is no aortic valve stenosis. There is no aortic valve regurgitation. Pulmonic Valve The pulmonic valve is normal. There is trace pulmonic regurgitation. Mitral Valve The mitral valve has normal leaflets. There is trace mitral valve regurgitation. The mitral valve annulus is mildly calcified. Tricuspid Valve The tricuspid valve leaflets are normal. There is mild tricuspid valve regurgitation. No pulmonary hypertension, estimated pulmonary arterial systolic pressure is 23 mmHg. Pericardium/Pleural The pericardium appears normal. There is small pericardial effusion. Inferior Vena Cava Normal inferior vena cava with >50% collapse upon inspiration consistent with normal right atrial pressure, 5 mmHg. Aorta The aortic root size at the sinus of Valsalva is normal. There is mild aortic atherosclerosis. Left Ventricular Outflow Tract Name Value Normal LVOT 2D LVOT Diameter 1.9 cm LVOT Doppler LVOT Peak Gradient 5 mmHg LVOT Mean Gradient 3 mmHg LVOT VTI 27 cm LVOT VTI/AV V
[2020-12-03] MEDS: INSULIN ASPART (*BKC) 100 UNITS/ML 11 UNITS SUB-Q (00:14)
[2020-12-03 02:11] LABS: Glucose Point of Care 316 (65-105)
[2020-12-03 05:44] LABS: Basophils Percent Auto 0.1 % (0.2-1.2); Eosinophils Percent Auto 0.1 % (0-4.4); Hematocrit 34.3 % (37.0-47.0); Hemoglobin 11.7 g/dL (12.0-15.0); Immature Granulocyte Absolute 0.07 K/mm3 (0.00-0.031); Immature Granulocyte Percent A 0.6 % (0-0.5); Lymphocytes Absolute Auto 1.08 K/mm3 (0.9-3.2); Lymphocytes Percent Auto 9.2 % (18.3-44.2); Mean Corpuscular HGB Conc 34.1 g/dl (32-36); Mean Corpuscular Hemoglobin 28.5 pg (26-34); Mean Corpuscular Volume 83.5 fl (80-100); Monocytes Absolute Auto 0.4 K/mm3 (0.1-0.6); Monocytes Percent Auto 3.1 % (2.6-8.5); Neutrophils Absolute Auto 10.2 K/mm3 (1.3-6.7); Neutrophils Percent Auto 86.9 % (45.5-73.1); Platelet Count Result 384 k/mm3 (150-375); Red Blood Count 4.11 M/mm3 (4.2-5.4); Red Cell Distribution Width 12.7 % (11.5-14.5); White Blood Count 11.7 K/mm3 (4.5-10.0)
[2020-12-03 05:55] LABS: Anion Gap 4 mmol/L (8-16); Blood Urea Nitrogen 30 mg/dL (7-17); Calcium 9.4 mg/dL (8.4-10.2); Carbon Dioxide 32 mmol/L (22-30); Chloride 97 mmol/L (98-107); Estimated CRCL calculation 46 ml/min; Estimated Glomerular Filt Rate > 60; Glucose 265 mg/dL (65-105); Magnesium 1.7 mg/dL (1.6-2.3); Sodium 133 mmol/L (137-145)
[2020-12-03 06:00] VITALS: BP 124/52; PULSE 56; RESP 16; TEMP 36.6; O2SAT 94
[2020-12-03] MEDS: glipiZIDE 5 MG TABLET PO (06:44)
[2020-12-03 07:10] LABS: Folic Acid 6.2 ng/mL (2.76->20); Vitamin B12 > 1000.0 pg/mL (239-931)
[2020-12-03 07:52] LABS: Glucose Point of Care 259 (65-105)
[2020-12-03 08:36] LABS: Eosinophil Urine None Seen % (None Seen)
--- NOTE | 2020-12-03 08:39 | P.PNIM_ITS ---
Progress Note: A&P Assessment and Plan (1) UTI (urinary tract infection): Code(s): N39.0 - Urinary tract infection, site not specified Status: Acute Assessment and Plan: Patient started on Macrobid as an outpatient on evening of 11/29. UA suspicious of possible UTI, although not entirely suggestive but this is likely due to partial treatment. No UCx reflexed in ED and will not attempt to obtain as this is likely going to be negative due several days of antibiotics. Macrobid may be causing recent rash? (see below); this has been held. She was started on Rocephin in ED (1 dose); transitioned to PO cefdinir on 12/02 as she has grown E. coli sensitive to this in the past. She has no symptoms for me today. Afebrile, VSS, leukocytosis improved * Obtain records from PCP * Stop Macrobid * Continue cefdinir, likely through 12/04 or 12/06 to treat 5-7 days total of antibiotics * Monitor CBC * Monitor for clinical improvement (2) Rash: Code(s): R21 - Rash and other nonspecific skin eruption Status: Acute Assessment and Plan: As above, erythematous, nonpalpable rash on distal extremities. This has clinically improved, although still significant on left hand/forearm. Possibly medication induced. Macrobid is the most recent medication initiated. Lisinopril and HCTZ also possible meds. She has had cephalosporins from previous hospitalization without issue. Only allergy is to codeine; no other known allergies * Prednisone 40 mg started on 12/02; will consider prednisone burst * Benadryl 50 mg PO now * Stop Macrobid * Monitor * will consider prednisone burst (3) Diabetes: Code(s): E11.9 - Type 2 diabetes mellitus without complications Status: Chronic Assessment and Plan: A1c 8.9. Poorly controlled. BGL elevated yesterday evening into 400s; more reasonable today at 200s * Accuchecks ACHS, hypoglycemia protocol, correctional insulin, diabetic diet * Continue home sitagliptin and glipizide * Continue home lantus 40 u Qhs; consider lowering dose if sugars improve * Add mealtime bolus with 6 u Novolog TIDWM today but will need to watch for hypoglycemia as she reports this has happened in the past * Consult DM educator * Will need f/u with PCP * Monitor (4) Hypertension: Code(s): I10 - Essential (primary) hypertension Status: Chronic Assessment and Plan: BP more reasonable today. BP 120s sys. Patient now tells me she has been taking amlodipine at home, as well. * Continue with clonidine; will continue at BID dosing to help prevent rebound HTN (recently decreased clonidine in the evening by her PCP due to side effects) * HCTZ held given hyponatremia; will likely d/c * Continue lisinopril for now, but will consider d/c if rash worsens * Continue amlodipine 10 mg * PRN hydralazine with parameters (5) Hyponatremia: Code(s): E87.1 - Hypo-osmolality and hyponatremia Status: Acute Assessment and Plan: Na improved to 133. Possibly 2/2 HCTZ. Possibly contributing to her weakness * Continue hold HCTZ and/or d/c this med] * Monitor (6) Weakness: Code(s): R53.1 - Weakness Status: Acute Assessment and Plan: Possibly secondary to hyponatremia vs UTI or multifactorial * PT/OT eval appreciated * Monitor (7) Leukocytosis: Code(s): D72.829 - Elevated white blood cell count, unspecified
--- NOTE | 2020-12-03 08:39 | PM.IMPN ---
Progress Note: A&P Assessment and Plan (1) UTI (urinary tract infection): Code(s): N39.0 - Urinary tract infection, site not specified Status: Acute Assessment and Plan: Patient started on Macrobid as an outpatient on evening of 11/29. UA suspicious of possible UTI, although not entirely suggestive but this is likely due to partial treatment. No UCx reflexed in ED and will not attempt to obtain as this is likely going to be negative due several days of antibiotics. Macrobid may be causing recent rash? (see below); this has been held. She was started on Rocephin in ED (1 dose); transitioned to PO cefdinir on 12/02 as she has grown E. coli sensitive to this in the past. She has no symptoms for me today. Afebrile, VSS, leukocytosis improved Obtain records from PCP Stop Macrobid Continue cefdinir, likely through 12/04 or 12/06 to treat 5-7 days total of antibiotics Monitor CBC Monitor for clinical improvement (2) Rash: Code(s): R21 - Rash and other nonspecific skin eruption Status: Acute Assessment and Plan: As above, erythematous, nonpalpable rash on distal extremities. This has clinically improved, although still significant on left hand/forearm. Possibly medication induced. Macrobid is the most recent medication initiated. Lisinopril and HCTZ also possible meds. She has had cephalosporins from previous hospitalization without issue. Only allergy is to codeine; no other known allergies Prednisone 40 mg started on 12/02; will consider prednisone burst Benadryl 50 mg PO now Stop Macrobid Monitor will consider prednisone burst (3) Diabetes: Code(s): E11.9 - Type 2 diabetes mellitus without complications Status: Chronic Assessment and Plan: A1c 8.9. Poorly controlled. BGL elevated yesterday evening into 400s; more reasonable today at 200s Accuchecks ACHS, hypoglycemia protocol, correctional insulin, diabetic diet Continue home sitagliptin and glipizide Continue home lantus 40 u Qhs; consider lowering dose if sugars improve Add mealtime bolus with 6 u Novolog TIDWM today but will need to watch for hypoglycemia as she reports this has happened in the past Consult DM educator Will need f/u with PCP Monitor (4) Hypertension: Code(s): I10 - Essential (primary) hypertension Status: Chronic Assessment and Plan: BP more reasonable today. BP 120s sys. Patient now tells me she has been taking amlodipine at home, as well. Continue with clonidine; will continue at BID dosing to help prevent rebound HTN (recently decreased clonidine in the evening by her PCP due to side effects) HCTZ held given hyponatremia; will likely d/c Continue lisinopril for now, but will consider d/c if rash worsens Continue amlodipine 10 mg PRN hydralazine with parameters (5) Hyponatremia: Code(s): E87.1 - Hypo-osmolality and hyponatremia Status: Acute Assessment and Plan: Na improved to 133. Possibly 2/2 HCTZ. Possibly contributing to her weakness Continue hold HCTZ and/or d/c this med] Monitor (6) Weakness: Code(s): R53.1 - Weakness Status: Acute Assessment and Plan: Possibly secondary to hyponatremia vs UTI or multifactorial PT/OT eval appreciated Monitor (7) Leukocytosis: Code(s): D72.829 - Elevated white blood cell count, unspecified Status: Acute Assessment and Plan: May be multifactorial; possibly secondary to UTI vs reactive from N/V and now likely elevated due to steroid use. Continue treatment of UTI as noted above Trend tomorrow (8) SONG (dyspnea on exertion): Code(s): R06.00 - Dyspnea, unspecified Status: Acute Assessment and
[2020-12-03] MEDS: cloNIDine HCL 0.2 MG TABLET PO (08:44)
[2020-12-03] MEDS: lisinopriL 10 MG TABLET PO (08:44)
[2020-12-03] MEDS: amLODIPine BESYLATE 5 MG TABLET 10 MG PO (08:44)
[2020-12-03] MEDS: NAPROXEN SODIUM 220 MG TABLET 440 MG PO (08:44)
[2020-12-03] MEDS: CEFDINIR 300 MG CAPSULE PO (08:44)
[2020-12-03] MEDS: ENOXAPARIN 40 MG/0.4 ML SYRINGE SUB-Q (08:44)
[2020-12-03] MEDS: INSULIN ASPART (*BKC) 100 UNITS/ML SUB-Q (08:44)
[2020-12-03] MEDS: predniSONE 20 MG TABLET 40 MG PO (08:44)
[2020-12-03] MEDS: INSULIN ASPART (*BKC) 100 UNITS/ML 6 UNITS SUB-Q ×2 (08:46→11:47)
--- NOTE | 2020-12-03 09:41 | PM.DS ---
DS: Admitting Diagnosis Admitting Diagnosis Admitting Diagnosis: UTI, hyponatremia, weakness DS: Discharge Diagnosis Discharge Diagnosis (1) UTI (urinary tract infection): Code(s): N39.0 - Urinary tract infection, site not specified Status: Acute Assessment and Plan: Patient started on Macrobid as an outpatient on evening of 11/29. UA suspicious of possible UTI, although not entirely suggestive but this is likely due to partial treatment. No UCx reflexed in ED and will not attempt to obtain as this is likely going to be negative due several days of antibiotics. Macrobid may be causing recent rash? (see below); this has been d/c. She was started on Rocephin in ED (1 dose); transitioned to PO cefdinir on 12/02 as she has grown E. coli sensitive to this in the past. She has no symptoms for me today. Afebrile, VSS, leukocytosis improved Attempted to obtain records from PCP Stop Macrobid Continue cefdinir, likely through 12/06 to treat 7 days total of antibiotics Monitor CBC later this week f/u with PCP (2) Rash: Code(s): R21 - Rash and other nonspecific skin eruption Status: Acute Assessment and Plan: As above, erythematous, nonpalpable rash on distal extremities. This has clinically improved, although still significant on left hand/forearm. Discussed with my supervising physician who visited patient at bedside with me today; patient has thrombocytosis and past elevated Hgb - possibly secondary to thrombocythemia? Medication induced is on differential but less likely. Suspect this is chronic in nature. In any regard, Macrobid is the most recent medication initiated and has been held. Lisinopril and HCTZ also possible meds. She has had cephalosporins from previous hospitalization without issue. Only allergy is to codeine; no other known allergies. Patient notes improvement when revisited this afternoon Prednisone 40 mg started on 12/02 (received two doses). will d/c on discharge Benadryl 50 mg PO on 12/02 Stop Macrobid F/u with PCP (3) Diabetes: Code(s): E11.9 - Type 2 diabetes mellitus without complications Status: Chronic Assessment and Plan: A1c 8.9. Poorly controlled. BGL elevated yesterday evening into 400s; more reasonable today at 200s Accuchecks ACHS, hypoglycemia protocol, correctional insulin, diabetic diet during stay Continue home sitagliptin. Will increase glipizide to 7.5 mg daily Continue home lantus 40 u Qhs Consult DM educator; information provided Instructed patient to follow check sugars 4-5 times daily for next PCP appointment; she understands Will need prompt f/u with PCP (4) Hypertension: Code(s): I10 - Essential (primary) hypertension Status: Chronic Assessment and Plan: BP more reasonable today. BP 120s sys. Patient now tells me she has been taking amlodipine at home, as well. Continue with clonidine; will continue at BID dosing to help prevent rebound HTN (recently decreased clonidine in the evening by her PCP due to side effects) HCTZ held given hyponatremia; will likely d/c given hyponatremia Continue lisinopril Continue amlodipine 10 mg PRN hydralazine with parameters (5) Hyponatremia: Code(s): E87.1 - Hypo-osmolality and hyponatremia Status: Acute Assessment and Plan: Na improved to 133. Possibly 2/2 HCTZ. Possibly contributing to her weakness Hold HCTZ at discharge Monitor (6) Weakness: Code(s): R53.1 - Weakness Status: Acute Assessment and Plan: Possibly secondary to hyponatremia vs UTI or multifactorial. Improved today PT/OT eval appreciated Monitor (7) Leukocytosis: Code(s): D72.829 - Elevated white blood cell count, unspecified Status
[2020-12-03 11:55] LABS: Glucose Point of Care 186 (65-105)
[2020-12-03 14:00] VITALS: BP 139/47; PULSE 63; RESP 18; TEMP 37.1; O2SAT 97
== END 2020-12-03 16:20 | disposition home health service (06) ==
LOC: ANHED 16:08 → ANH3MEDSUR 19:10
PROVIDERS: Nurse Practitioner; Physician Assistant; Admitting Provider Internal Medicine; Emergency Provider Emergency Medicine; PCP Nurse Practitioner Family; Visit Provider Internal Medicine
DX: N39.0 Urinary tract infection, site not specified (principal); R53.1 Weakness; E87.1 Hypo-osmolality and hyponatremia; R21 Rash and other nonspecific skin eruption; E11.65 Type 2 diabetes mellitus with hyperglycemia; I10 Essential (primary) hypertension; D72.829 Elevated white blood cell count, unspecified; F17.210 Nicotine dependence, cigarettes, uncomplicated; R06.00 Dyspnea, unspecified; M06.9 Rheumatoid arthritis, unspecified; M79.89 Other specified soft tissue disorders; Z96.652 Presence of left artificial knee joint; Z66 Do not resuscitate; Z79.4 Long term (current) use of insulin
CPT/HCPCS: 36415; 51701; 71046; 72100; 73502; 74177; 80048; 80053; 81001; 82607; 82746; 82948; 83036; 83735; 84443; 85025; 85999; 93005; 93306; 93970; 96361; 96365; 96367; 96372; 96375; 96376; 97110; 97116; 97161; 97165; 97530; 99285; A9270; G0378; G0379; J0696; J1650; J1815; J2405; J3370; J7120; J7512; Q9967

== ENCOUNTER 2020-12-06 12:08 | Outpatient (NON) | payer MEDICARE, SELFPAY ==
[2020-12-06 12:18] LABS: Basophils Absolute Auto 0.1 K/mm3 (0.0-0.1); Basophils Percent Auto 0.3 % (0.2-1.2); Eosinophils Absolute Auto 0.4 K/mm3 (0-0.3); Eosinophils Percent Auto 2.6 % (0-4.4); Hematocrit 40.1 % (37.0-47.0); Hemoglobin 13.3 g/dL (12.0-15.0); Immature Granulocyte Percent A 0.7 % (0-0.5); Lymphocytes Absolute Auto 2.43 K/mm3 (0.9-3.2); Mean Corpuscular HGB Conc 33.2 g/dl (32-36); Mean Corpuscular Hemoglobin 28.2 pg (26-34); Mean Corpuscular Volume 85.1 fl (80-100); Monocytes Percent Auto 6.7 % (2.6-8.5); Neutrophils Absolute Auto 10.4 K/mm3 (1.3-6.7); Neutrophils Percent Auto 72.7 % (45.5-73.1); Platelet Count Result 458 k/mm3 (150-375); Red Blood Count 4.71 M/mm3 (4.2-5.4); White Blood Count 14.3 K/mm3 (4.5-10.0)
[2020-12-06 12:33] LABS: Anion Gap 3 mmol/L (8-16); Blood Urea Nitrogen 18 mg/dL (7-17); Calcium 9.1 mg/dL (8.4-10.2); Carbon Dioxide 33 mmol/L (22-30); Chloride 95 mmol/L (98-107); Estimated Glomerular Filt Rate > 60; Glucose 269 mg/dL (65-105); Potassium 3.8 mmol/L (3.4-5.0); Sodium 131 mmol/L (137-145)
== END 2020-12-06 12:09 ==
PROVIDERS: PCP Nurse Practitioner Family; Visit Provider Nurse Practitioner Family
DX: N39.0 Urinary tract infection, site not specified (principal); E11.9 Type 2 diabetes mellitus without complications; I10 Essential (primary) hypertension; R21 Rash and other nonspecific skin eruption
CPT/HCPCS: 80048; 85025

== ENCOUNTER 2021-09-27 11:36 | Inpatient (IN) | payer MEDICARE, SELFPAY ==
[2021-09-27] VITALS (8 sets, daily range): BP systolic 117–152; BP diastolic 54–100; PULSE 63–82; RESP 18–21; TEMP 36.1–37.2; O2SAT 91–99; BMI 26.9
--- NOTE | ~2021-09-27 | CT_ITS ---
EXAMINATION: CTA chest PE protocol DATE: 09/27/2021 15:29 INDICATION: COVID-19 pneumonia. Hypoxia. TECHNIQUE: Computed tomography angiography (CTA) of the chest was performed with 100 mL Omnipaque-350 intravenous contrast timed to evaluate the pulmonary arteries. Coronal maximum intensity projection 3D-reconstructions were created by the technologist. Automated exposure control and iterative reconst ruction technique were employed. The dose-length product was 511.02 mGy-cm. COMPARISON: CT abdomen and pelvis 09/27/21 FINDINGS: There are patchy airspace and groundglass opacities in all lobes with a posterior and lower lobe predominance with volume loss in the lower lobes. No pleural effusion. The heart size is normal . There are coronary artery calcifications. No pericardial effusion. There is no pulmonary embolus. T here is a small sliding hiatal hernia. There is mild thoracic spondylosis. There is a benign bone isl and in T6 vertebral body. IMPRESSION: 1. No pulmonary embolus. 2. Multifocal lung disease with a posterior and lower lung predominance, consistent with pneumonia. 3. Small sliding hiatal hernia. Reviewed, dictated and finalized at location A. [employer] IMPRESSION: 1. No pulmonary embolus. 2. Multifocal lung disease with a posterior and lower lung predominance, consis tent with pneumonia. 3. Small sliding hiatal hernia.
--- NOTE | ~2021-09-27 | XR_ITS ---
EXAMINATION: XR chest 1V portable INDICATION: Cough, near syncope TECHNIQUE: Portable AP chest at 1243 hours COMPARISON: 12/01/2020 FINDINGS: The lungs are free of acute opacities. There is no pleural effusion or pneumothorax. The ca rdiomediastinal silhouette is normal. IMPRESSION: 1. No acute cardiopulmonary abnormality. Reviewed, dictated and finalized at location A. ER OPERATOR
--- NOTE | 2021-09-27 12:12 | PC.NURSE ---
pt sating 89-90% on room air. placed pt on 2L via nasal cannula pt now at 98%. pt states she does not wear oxygen at home.
--- NOTE | 2021-09-27 12:37 | ECG_ITS ---
Measurements Intervals [place] Rate: 67 P: 33 IN: 165 QRS: 57 QRSD: 98 T: 111 QT: 362 QTc: 384 Interpretive Statements SINUS RHYTHM ST-T WAVE ABNORMALITY IN HIGH LATERAL LEADS- CONSIDER ISCHEMIA BASELINE ARTIFACT- I, II, III, AVR, AVL, AVF, V1-V6 ABNORMAL ECG Electronically Signed On 09-27-2021 13:11:02 [employer] SALESPERSON by Petr Cole D.O.
--- NOTE | 2021-09-27 12:37 | ED.GENADULT ---
HPI - General Adult General Chief complaint: Weakness Stated complaint: WEAKNESS Time Seen by Provider: 09/27/21 12:12 Source: patient Mode of arrival: ambulatory Limitations: no limitations History of Present Illness HPI narrative: Patient is a 76-year-old female complaining of not feeling well described as loss of appetite, fatigue, generalized weakness, nausea, diarrhea for the past 3 to 4 days. Per EMS patient's family tested positive for Covid. Patient denies any chest pain, shortness of breath, abdominal pain, urinary symptoms, fever or chills. Related Data Home Medications Medication Instructions Recorded Confirmed Januvia 100 mg PO DAILY 09/12/20 12/01/20 Lantus U-100 Insulin 40 unit SUBCUT HS 09/12/20 12/01/20 clonidine HCl 0.2 mg PO BID 09/12/20 12/01/20 hydrochlorothiazide 12.5 mg PO DAILY 09/12/20 12/01/20 lisinopril 10 mg PO DAILY 09/12/20 12/01/20 naproxen sodium [Aleve] 440 mg PO BID 12/01/20 12/01/20 amlodipine [Norvasc] 10 mg PO DAILY 12/02/20 12/02/20 tramadol 50 mg PO Q6H PRN 12/02/20 12/02/20 Allergies Allergy/AdvReac Type Severity Reaction Status Date / Time codeine Allergy Unknown Verified 09/27/21 11:58 Review of Systems Review of Systems: All systems reviewed & are unremarkable except as noted in HPI and below Constitutional: Constitutional: Denies body ache(s), Denies chills, Denies excessive sweating, Denies fever(s), Denies headache(s), Denies lethargy and Denies weight loss Eyes: Eyes: Denies blurry vision, Denies change in vision and Denies loss of vision ENT: Denies dizziness, Denies ear discharge, Denies headache(s), Denies lip swelling, Denies epistaxis, Denies nasal congestion, Denies neck pain, Denies throat swelling and Denies tongue swelling Cardiovascular: Cardiovascular: Denies chest pain, Denies chest pain at rest, Denies chest pain with activity, Denies diaphoresis, Denies rapid heart rate, Denies edema, Denies irregular heart rhythm, Denies lightheadedness, Denies palpitations, Denies dyspnea and Denies dyspnea on exertion Respiratory: Respiratory: Denies chest congestion, Denies cough, Denies hemoptysis, Denies dyspnea and Denies dyspnea on exertion Gastrointestinal: Gastrointestinal: Denies abdominal pain, Denies melena, Denies hematochezia, Denies vomiting and Denies hematemesis Musculoskeletal: Musculoskeletal: Denies abnormal gait, Denies deformity, Denies joint swelling, Denies limited range of motion, Denies neck pain and Denies numbness Neurologic: Denies Abnormal speech present, Denies abnormal gait, Denies confusion, Denies dizziness, Denies headache(s), Denies focal weakness, Denies loss of vision, Denies numbness, Denies Other visual disturbances and Denies Sensory deficit (Neuro) Psychiatric: Psychiatric: Denies confusion, Denies depression, Denies auditory hallucinations, Denies homicidal ideation and Denies suicidal ideation Endocrine: Endocrine: Denies cold intolerance, Denies excessive sweating, Denies fatigue, Denies heat intolerance and Denies palpitations Hematologic/Lymphatic: Hematologic/Lymphatic: Denies easy bleeding and Denies easy bruising Allergic/Immunologic: Allergic/Immunologic: Denies lip swelling, Denies throat swelling and Denies tongue swelling PMFSH Past Medical History Medical History Diabetes Hypertension Lipoma Left thigh Rheumatoid arthritis Surgical History Surgical History Cataract extraction status Bilaterally H/O tubal ligation History of appendectomy History of back surgery L4-L5 Hx of cholecystectomy Total knee replacement status Left knee Family History Family History Mother Cerebrovascular accident Sibling Diabetes mellitus Social History Social History Social History: The patient still sm
[2021-09-27] MEDS: LACTATED RINGERS 1,000 ML 999 ML IV CONT (13:26)
--- NOTE | 2021-09-27 13:31 | PC.NURSE ---
multiple attempts tried for blood draw with no success. [facility] coming to draw blood from pt.
[2021-09-27 14:00] LABS: Basophils Percent Auto 0.2 % (0.2-1.2); Hematocrit 41.6 % (37.0-47.0); Hemoglobin 13.8 g/dL (12.0-15.0); Immature Granulocyte Absolute 0.07 K/mm3 (0.00-0.031); Immature Granulocyte Percent A 0.6 % (0-0.5); Lymphocytes Absolute Auto 1.19 K/mm3 (0.9-3.2); Lymphocytes Percent Auto 10.7 % (18.3-44.2); Mean Corpuscular HGB Conc 33.2 g/dl (32-36); Mean Corpuscular Hemoglobin 29.6 pg (26-34); Mean Corpuscular Volume 89.1 fl (80-100); Mean Platelet Volume 10.2 fl (7.4-10.4); Monocytes Absolute Auto 0.7 K/mm3 (0.1-0.6); Monocytes Percent Auto 6.1 % (2.6-8.5); Neutrophils Absolute Auto 9.1 K/mm3 (1.3-6.7); Neutrophils Percent Auto 82.4 % (45.5-73.1); Platelet Count Result 245 k/mm3 (150-375); Red Blood Count 4.67 M/mm3 (4.2-5.4); Red Cell Distribution Width 13.6 % (11.5-14.5); White Blood Count 11.1 K/mm3 (4.5-10.0)
[2021-09-27 14:13] LABS: Prothrombin Time 12.6 Seconds (11.1-14.7)
[2021-09-27 14:14] LABS: Partial Thromboplastin Time 26.8 SECONDS (22.3-36.8)
[2021-09-27 14:16] LABS: D Dimer 0.77 ug/mL (<0.48)
[2021-09-27 14:20] LABS: Alanine Aminotransferase 18 U/L (4-35); Alkaline Phosphatase 78 U/L (38-126); Anion Gap 6 mmol/L (8-16); Aspartate Amino Transferase 26 U/L (14-36); Bilirubin,Total 0.5 mg/dL (0.2-1.3); Blood Urea Nitrogen 21 mg/dL (7-17); Calcium 9.5 mg/dL (8.4-10.2); Carbon Dioxide 32 mmol/L (22-30); Chloride 94 mmol/L (98-107); Estimated CRCL calculation 39 ml/min; Estimated Glomerular Filt Rate > 60; Glucose 142 mg/dL (65-110); Lipase 129 U/L (23-300); Sodium 132 mmol/L (137-145)
[2021-09-27 14:31] LABS: Troponin I 0.015 ng/mL (0.000-0.034)
[2021-09-27 16:50] LABS: EDCOVIDSCREEN Positive (Negative)
[2021-09-27] MEDS: DEXAMETHASONE SOD PHOS INJ 4 MG/ML VIAL 10 MG IV PUSH (17:01)
--- NOTE | 2021-09-27 17:25 | PM.IMHP ---
H&P: HPI History of Present Illness Date/Time: 09/27/21 17:25 Chief Complaint: Weakness. Narrative: This is a pleasant 76-year-old smoker with diabetes, hypertension, and rheumatoid arthritis who presented to the emergency department earlier today from home for evaluation of weakness. She has not been feeling well since Sebastian with numerous symptoms including sinus congestion, weakness, fatigue, nausea, decreased taste, decreased appetite, diarrhea, sore throat, and cough occasionally productive of clear to wick colored phlegm. She has been taking ibuprofen at home for generalized aches but she has not tried taking any other medications. Over the past couple of days she has gotten progressively more weak and today she felt as though she might fall due to her weakness and her daughter made her come in for evaluation. On arrival to the emergency department her pulse ox was in the low 90s however she did desaturate into the 80s with ambulation. Her COVID test did come back positive and a chest CT showed evidence of multifocal lung consistent with pneumonia. She is being admitted in this setting. She has no specific complaints at the time my evaluation and she is resting comfortably. She did not receive a COVID vaccination. Review of Systems Review of Systems: Twelve systems were reviewed. No headache or neck ache. She denies fever. No chest pain or pleuritic pain. She denies syncope and near-syncope. No vomiting. Glucose has been reasonable. She denies blurry vision, polydipsia, and polyuria. Except as documented, all other systems were reviewed and are negative. [facility] Past Medical History Medical History (Updated 09/27/21 @ 23:19 by Eli Dillard PA-C) Hypertension Rheumatoid arthritis Type 2 diabetes mellitus Surgical History Surgical History (Updated 09/27/21 @ 23:15 by Eli Dillard PA-C) History of appendectomy History of arthroplasty of left knee History of bilateral cataract extraction History of cholecystectomy History of lumbar surgery History of tubal ligation Family History Family History Mother Cerebrovascular accident Sibling Diabetes mellitus Social History Social History (Updated 09/27/21 @ 23:16 by Eli Dillard PA-C) Social History: The patient is originally from [facility]. She lives with her daughter, son-in-law, and grandchildren. 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 She has smoked for many years though has typically smokes less than half a pack a day. No alcohol or illicit substance abuse. She designates her daughter Surekha Camara as her surrogate decision maker. Code status: Full code. Meds Home Medications and Allergies Home Medications Medication Instructions Recorded Confirmed Type Januvia 100 mg PO DAILY 09/12/20 09/27/21 History Lantus U-100 Insulin 40 unit SUBCUT HS 09/12/20 09/27/21 History clonidine HCl 0.2 mg PO BID 09/12/20 09/27/21 History hydrochlorothiazide 12.5 mg PO DAILY 09/12/20 09/27/21 History lisinopril 10 mg PO DAILY 09/12/20 09/27/21 History meclizine 6.25 mg PO BID PRN #20 tablet 09/13/20 09/27/21 Rx naproxen sodium [Aleve] 440 mg PO BID 12/01/20 09/27/21 History amlodipine [Norvasc] 10 mg PO DAILY 12/02/20 09/27/21 History tramadol 50 mg PO Q6H PRN 12/02/20 09/27/21 History glipizide 7.5 mg PO DAILY #60 tablet 12/03/20 09/27/21 Rx Allergies Allergy/AdvReac Type Severity Reaction Status Date / Time codeine Allergy Unknown Verified 09/27/21 17:54 Vital Signs Vital Signs - 24 hr 09/27/21 11:50 09/27/21 12:12 09/27/21 13:25 Temperature 99 F Pulse Rate 81 74 Respiratory Rate 20 19 Blood Pressure 138/73 141/100 H Pulse Oximetry 91 99 99 09/27/21 15:18 Temperature Pulse Rate 78 Respiratory Rate 21 H Blood Pressure 137/82 Pulse Oximetry 98 Exam Narrative: General: Mildly ill-appearing elderly female supine in bed. Weight: 69 kg. BMI: 26.9
[2021-09-27] MEDS: LACTATED RINGERS 1,000 ML 100 ML IV CONT (18:42)
[2021-09-28] VITALS: BP 126/64; PULSE 78; RESP 18; TEMP 35.8; O2SAT 100
[2021-09-28 00:03] LABS: Glucose Point of Care 420 mg/dl (65-105)
[2021-09-28] MEDS: INSULIN GLARGINE (*BKC) 100 UNITS/ML 40 UNITS SUB-Q ×2 (00:04→20:44)
[2021-09-28] MEDS: INSULIN ASPART (*BKC) 100 UNITS/ML 12 UNITS SUB-Q (00:37)
[2021-09-28] MEDS: REMDESIVIR 200 MG/NS 250 ML 200 MG/250 ML BAG 250 MG IVPB (02:10)
[2021-09-28 04:00] VITALS: BP 152/48; PULSE 70; RESP 20; TEMP 36.1; O2SAT 97
[2021-09-28 08:00] VITALS: BP 155/82; PULSE 64; RESP 16; TEMP 36.3; O2SAT 97
[2021-09-28 09:08] LABS: Hematocrit 40.6 % (37.0-47.0); Hemoglobin 13.9 g/dL (12.0-15.0); Mean Corpuscular HGB Conc 34.2 g/dl (32-36); Mean Corpuscular Hemoglobin 29.5 pg (26-34); Mean Corpuscular Volume 86.2 fl (80-100); Platelet Count Result 270 k/mm3 (150-375); Red Blood Count 4.71 M/mm3 (4.2-5.4); Red Cell Distribution Width 13.2 % (11.5-14.5)
[2021-09-28 09:24] LABS: Prothrombin Time 12.6 Seconds (11.1-14.7)
[2021-09-28 09:28] LABS: Alanine Aminotransferase 22 U/L (4-35); Albumin Level 4.2 g/dL (3.5-5.1); Alkaline Phosphatase 73 U/L (38-126); Anion Gap 7 mmol/L (8-16); Aspartate Amino Transferase 28 U/L (14-36); Bilirubin,Total 0.4 mg/dL (0.2-1.3); Blood Urea Nitrogen 17 mg/dL (7-17); Calcium 9.1 mg/dL (8.4-10.2); Carbon Dioxide 31 mmol/L (22-30); Chloride 96 mmol/L (98-107); Estimated CRCL calculation 56 ml/min; Estimated Glomerular Filt Rate > 60; Glucose 232 mg/dL (65-110); Lactate Dehydrogenase 409 U/L (313-618); Magnesium 1.8 mg/dL (1.6-2.3); Sodium 134 mmol/L (137-145)
[2021-09-28 09:55] LABS: Procalcitonin 0.3 ng/mL
--- NOTE | 2021-09-28 10:08 | WPDPN ---
Progress Note: A&P Assessment and Plan (1) Pneumonia due to COVID-19 virus: Code(s): U07.1 - COVID-19; J12.82 - Pneumonia due to coronavirus disease 2019 Status: Acute Assessment and Plan: Continue remdesivir and dexamethasone day 2 Continue Rocephin and azithromycin day 2 Sputum culture pending WBCs 8.0 pending sputum culture and procalcitonin. CTA indicates pneumonia Lactic acid for the a.m. CRP 14.0 elevated (2) Acute respiratory failure with hypoxia: Code(s): J96.01 - Acute respiratory failure with hypoxia Status: Acute Assessment and Plan: Refer to COVID pneumonia Secondary to pneumonia. Wean oxygen as tolerated. (3) Type 2 diabetes mellitus: Code(s): E11.9 - Type 2 diabetes mellitus without complications Status: Acute Assessment and Plan: Continue basal insulin. Hold Januvia and glipizide given poor oral intake. Continue sliding scale insulin, Accu-Cheks, and hypoglycemic protocol. Increase sliding scale from low to moderate hemoglobin A1c 9.0 232 (4) Hypertension: Code(s): I10 - Essential (primary) hypertension Status: Chronic Assessment and Plan: Blood pressures elevated. Continue amlodipine 10 mg daily, lisinopril 10 mg daily Vital signs is ordered Will adjust medication as needed (5) Rheumatoid arthritis: Code(s): M06.9 - Rheumatoid arthritis, unspecified Status: Chronic Assessment and Plan: Prednisone 10 mg daily discontinue for now (6) Mild dehydration: Code(s): E86.0 - Dehydration Status: Acute Assessment and Plan: IV fluid received and discontinue Patient consuming fluids (7) Elevated d-dimer: Code(s): R79.89 - Other specified abnormal findings of blood chemistry Status: Acute Assessment and Plan: Elevated D-dimer CTA does not indicate PE Subjective Date/time seen: 09/28/21 10:08 Patient states that her situation is improved she still is experiencing fatigue and weakness. Will do a PT OT consult. Will also complete a home O2 eval to determine whether she needs oxygen with activity. Patient denies cp, sob, palpitation, diarrhea, constipation, lightheadness, headache, dizziness or chills and fevers. Patient does not feel strong enough to return home. Patient will discharged tomorrow in the a.m. Review of Systems Review of Systems: A 14 organ system Review of Systems was performed and pertinent positives included in the HPI, otherwise Exam Narrative: GENERAL: This is a well-nourished, well-developed patient, in no apparent distress. HEAD: normocephalic, atraumatic. EYES: PERRL. Sclera clear/white. Vision is grossly intact. EARS: External ears normal, auditory canals clear and without drainage, TMs normal without perforation. Hearing grossly intact. NOSE: External nose normal with no obvious nasal discharge, nares without redness, no rhinorrhea. THROAT: Mucous membranes moist, posterior pharynx clear. NECK: Neck supple, non-tender without lymphadenopathy, masses or thyromegaly. CARDIOVASCULAR: Regular rate and rhythm without murmurs, gallops, or rubs. RESPIRATORY: Coarse throughout GASTROINTESTINAL: Abdomen soft, non-tender, nondistended. Bowel sounds are active. No hepato-splenomegaly, or palpable masses. No guarding. SKIN: warm, intact with no suspicious lesions or rash, good texture and turgor. NEURO: awake, alert, and oriented to person, place and time. There were no obvious focal neurologic abnormalities. EXTREMITIES: Normal range of motion. No edema. No calf tenderness. Negative Homans sign bilaterally. BACK: Nontender without deformity or crepitance. No flank tenderness. Objective Data Vital Signs Vital Signs: Vital Signs - 24 hr 09/27/21 11:50 09/27/21 12:12 09/27/21 13:25 Temperature 99 F Pulse Rate 81 74 Respiratory Rate 20 19 Blood Pressure 138/73 141/100 H Pulse Oximetry 91 99 99 09/27/21 15:18 01
[2021-09-28 10:09] LABS: Thyroid Stimulating Hormone Reflex 0.411 uIU/mL (0.465-4.68)
[2021-09-28] MEDS: lisinopriL 10 MG TABLET PO (10:20)
[2021-09-28] MEDS: amLODIPine BESYLATE 5 MG TABLET 10 MG PO (10:20)
[2021-09-28] MEDS: cloNIDine HCL 0.2 MG TABLET PO ×2 (10:20→16:32)
[2021-09-28 10:22] LABS: Glucose Point of Care 310 mg/dl (65-105)
[2021-09-28] MEDS: LACTATED RINGERS 1,000 ML 100 ML IV CONT (10:23)
[2021-09-28 11:25] LABS: Free T4 Free Thyroxine Reflex 1.26 ng/dL (0.78-2.19)
[2021-09-28 11:48] LABS: Glucose Point of Care 330 mg/dl (65-105)
[2021-09-28 12:00] VITALS: BP 151/58; PULSE 63; RESP 14; TEMP 36.6; O2SAT 97
[2021-09-28] MEDS: INSULIN ASPART (*BKC) 100 UNITS/ML SUB-Q ×2 (13:01→16:33)
[2021-09-28 16:00] VITALS: BP 162/71; PULSE 65; RESP 16; TEMP 36.5; O2SAT 97
[2021-09-28 16:43] LABS: Glucose Point of Care 305 mg/dl (65-105)
[2021-09-28 20:00] VITALS: BP 131/58; PULSE 55; RESP 22; TEMP 36.2; O2SAT 94
[2021-09-28 20:32] LABS: Total Triiodothyronine (T3) 0.64 NG/ML (0.97-1.69)
[2021-09-28 20:42] LABS: Glucose Point of Care 255 mg/dl (65-105)
[2021-09-28] MEDS: ZOLPIDEM TARTRATE (*CRX) 5 MG TABLET PO (20:44)
[2021-09-28] MEDS: REMDESIVIR 100 MG/NS 250 ML 100 MG/250 ML BAG 250 MG IVPB (22:30)
[2021-09-29] VITALS: BP 134/8; PULSE 61; RESP 22; TEMP 36.4; O2SAT 99
[2021-09-29 04:00] VITALS: BP 147/67; PULSE 72; RESP 24; TEMP 37.6; O2SAT 94
[2021-09-29 07:23] LABS: Hematocrit 39.8 % (37.0-47.0); Hemoglobin 13.4 g/dL (12.0-15.0); Mean Corpuscular HGB Conc 33.7 g/dl (32-36); Mean Corpuscular Hemoglobin 30.5 pg (26-34); Mean Corpuscular Volume 90.5 fl (80-100); Mean Platelet Volume 10.1 fl (7.4-10.4); Platelet Count Result 269 k/mm3 (150-375); Red Cell Distribution Width 13.3 % (11.5-14.5)
[2021-09-29 08:00] VITALS: BP 137/66; PULSE 70; RESP 16; TEMP 36.9; O2SAT 91
[2021-09-29] MEDS: DEXTROSE 50% 25 GM/50 ML SYRINGE IV PUSH ×3 (08:15→17:01)
[2021-09-29 08:42] LABS: Glucose Point of Care 104 mg/dl (65-105)
[2021-09-29 08:42] LABS: Glucose Point of Care 42 mg/dl (65-105)
--- NOTE | 2021-09-29 10:44 | PCOTNOTE ---
Attempted OT evaluation, pt refused. Pt stated that she was feeling weak and tired and would participate at a later date. Will re-attempt evaluation at later time.
--- NOTE | 2021-09-29 10:49 | PM.DS ---
DS: Admitting Diagnosis Discharge Date 09/29/2021 Admitting Diagnosis COVID pneumonia DS: Discharge Diagnosis Discharge Diagnosis (1) Pneumonia due to COVID-19 virus: Code(s): U07.1 - COVID-19; J12.82 - Pneumonia due to coronavirus disease 2018 Status: Acute Assessment and Plan: remdesivir and dexamethasone day 3, will continue dexamethasone for an additional 7 days Rocephin and azithromycin day 3. Will discharge with cefdinir and azithromycin for 7 days Sputum culture pending WBCs 8.0>15, possibly secondary to steroid use Sputum sample collected on day of discharge CTA indicates pneumonia Lactic acid still pending CRP 14.0 elevated (2) Acute respiratory failure with hypoxia: Code(s): J96.01 - Acute respiratory failure with hypoxia Status: Acute Assessment and Plan: Refer to COVID pneumonia Secondary to pneumonia. Wean oxygen as tolerated. (3) Type 2 diabetes mellitus: Code(s): E11.9 - Type 2 diabetes mellitus without complications Status: Acute Assessment and Plan: Continue basal insulin. Hold Januvia and glipizide given poor oral intake. Continue sliding scale insulin, Accu-Cheks, and hypoglycemic protocol. Increase sliding scale from low to moderate hemoglobin A1c 9.0 232 Patient was hypoglycemic episode this a.m. hypoglycemic protocol implemented (4) Hypertension: Code(s): I10 - Essential (primary) hypertension Status: Chronic Assessment and Plan: Blood pressures elevated. Continue amlodipine 10 mg daily, lisinopril 10 mg daily Vital signs is ordered Will adjust medication as needed (5) Rheumatoid arthritis: Code(s): M06.9 - Rheumatoid arthritis, unspecified Status: Chronic Assessment and Plan: Prednisone 10 mg daily discontinue for now (6) Mild dehydration: Code(s): E86.0 - Dehydration Status: Acute Assessment and Plan: IV fluid received and discontinue Patient consuming fluids (7) Elevated d-dimer: Code(s): R79.89 - Other specified abnormal findings of blood chemistry Status: Acute Assessment and Plan: Elevated D-dimer CTA does not indicate PE (8) Weakness: Code(s): R53.1 - Weakness Status: Acute Assessment and Plan: PT as outpatient (9) Hypoglycemia: Code(s): E16.2 - Hypoglycemia, unspecified Status: Acute Assessment and Plan: Patient with 2 hypoglycemic episodes this hospital stay Patient admits to not being diabetic possible cause hypoglycemic episode is change in diet Patient instructed to records blood sugar readings give results to care physician for possible medication adjustment. DS: Summary Hospital Course Reason for hospitalization: Weakness Hospital Course: This is a 76-year-old smoker with diabetes, hypertension, and rheumatoid arthritis who presented to the emergency department earlier today from home for evaluation of weakness. She has not been feeling well since Sebastian with numerous symptoms including sinus congestion, weakness, fatigue, nausea, decreased taste, decreased appetite, diarrhea, sore throat, and cough occasionally productive of clear to wick colored phlegm. She has been taking ibuprofen at home for generalized aches but she has not tried taking any other medications. Over the past couple of days she has gotten progressively more weak and she felt as though she might fall due to her weakness and her daughter made her come in for evaluation. On arrival to the emergency department her pulse ox was in the low 90s however she did desaturate into the 80s with ambulation. Her COVID test did come back positive and a chest CT showed evidence of multifocal lung consistent with pneumonia. During this hospital stay patient was treated with remdesivir and dex along with daptomycin Rocephin. Home O2 evaluation will be completed on discharge along a PT evaluation. PT has determined patient
[2021-09-29] MEDS: lisinopriL 10 MG TABLET PO (11:13)
[2021-09-29] MEDS: cloNIDine HCL 0.2 MG TABLET PO ×2 (11:13→17:52)
[2021-09-29] MEDS: amLODIPine BESYLATE 5 MG TABLET 10 MG PO (11:13)
[2021-09-29] MEDS: GLUCOSE ORAL GEL 15 GM OF GLUCSE IN 37.5 GM TUBE PO ×2 (11:28→21:43)
[2021-09-29 11:50] LABS: Glucose Point of Care 57 mg/dl (65-105)
[2021-09-29 11:50] LABS: Glucose Point of Care 64 mg/dl (65-105)
[2021-09-29 12:20] LABS: Glucose Point of Care 131 mg/dl (65-105)
[2021-09-29 12:20] LABS: Glucose Point of Care 69 mg/dl (65-105)
[2021-09-29 17:32] LABS: Glucose Point of Care 140 mg/dl (65-105)
[2021-09-29 18:39] LABS: Glucose Point of Care 54 mg/dl (65-105)
[2021-09-29 20:00] VITALS: BP 114/47; PULSE 54; RESP 18; TEMP 37.7; O2SAT 89
[2021-09-29 22:53] LABS: Glucose Point of Care 40 mg/dl (65-105)
[2021-09-29 22:53] LABS: Glucose Point of Care 42 mg/dl (65-105)
[2021-09-29 22:53] LABS: Glucose Point of Care 115 mg/dl (65-105)
[2021-09-30] VITALS (8 sets, daily range): BP systolic 104–143; BP diastolic 38–70; PULSE 46–88; RESP 16–22; TEMP 36.1–37.1; O2SAT 91–100; BMI 27.8
[2021-09-30] MEDS: REMDESIVIR 100 MG/NS 250 ML 100 MG/250 ML BAG 250 MG IVPB ×2 (03:33→22:07)
[2021-09-30 08:28] LABS: Glucose Point of Care 115 mg/dl (65-105)
[2021-09-30] MEDS: lisinopriL 10 MG TABLET PO (09:09)
[2021-09-30] MEDS: cloNIDine HCL 0.2 MG TABLET PO ×2 (09:09→16:59)
[2021-09-30] MEDS: amLODIPine BESYLATE 5 MG TABLET 10 MG PO (09:09)
--- NOTE | 2021-09-30 09:32 | PCOTNOTE ---
Attempted to see pt for evaluation. Pt. currently desat in low 80s, nurse present and attempting to increase O2 sat
[2021-09-30 10:48] LABS: Hematocrit 35.4 % (37.0-47.0); Hemoglobin 12.1 g/dL (12.0-15.0); Mean Corpuscular HGB Conc 34.2 g/dl (32-36); Mean Corpuscular Hemoglobin 29.7 pg (26-34); Mean Platelet Volume 10.2 fl (7.4-10.4); Platelet Count Result 252 k/mm3 (150-375); Red Blood Count 4.07 M/mm3 (4.2-5.4); Red Cell Distribution Width 13.7 % (11.5-14.5); White Blood Count 10.6 K/mm3 (4.5-10.0)
--- NOTE | 2021-09-30 10:49 | PC.NURSE ---
updated Vero Sticm on pt condition this morning, found on 84% ra, placed on 2 L NC 93%.
[2021-09-30 11:00] LABS: INR 1.1; Prothrombin Time 14.3 Seconds (11.1-14.7)
[2021-09-30 11:02] LABS: Alanine Aminotransferase 15 U/L (4-35); Alkaline Phosphatase 62 U/L (38-126); Anion Gap 4 mmol/L (8-16); Aspartate Amino Transferase 30 U/L (14-36); Bilirubin,Total 0.3 mg/dL (0.2-1.3); Blood Urea Nitrogen 13 mg/dL (7-17); Carbon Dioxide 29 mmol/L (22-30); Chloride 97 mmol/L (98-107); Estimated CRCL calculation 57 ml/min; Estimated Glomerular Filt Rate > 60; Glucose 153 mg/dL (65-110); Potassium 3.7 mmol/L (3.4-5.0); Sodium 130 mmol/L (137-145)
--- NOTE | 2021-09-30 11:51 | PC.NURSE ---
Addendum entered by Stacy Moreira RN 09/30/21 11:53: called and reported bc result for Vero Finley, coagulase negative staphylcoccus species in aerobic bottle only verified 09/30/21, sample obtained 09/27/2021. Original Note: called and reported bc result for Vero Finley, coagulase negative staphylcoccus species in anaerobic bottle only verified 09/30/21, sample obtained 09/27/2021.
[2021-09-30 12:00] LABS: Glucose Point of Care 166 mg/dl (65-105)
[2021-09-30] MEDS: DEXAMETHASONE 2 MG TABLET 6 MG PO (13:11)
[2021-09-30 15:55] LABS: Glucose Point of Care 328 mg/dl (65-105)
--- NOTE | 2021-09-30 16:17 | P.PNIM_ITS ---
Progress Note: A&P Assessment and Plan (1) Pneumonia due to COVID-19 virus: Code(s): U07.1 - COVID-19; J12.82 - Pneumonia due to coronavirus disease 2019 Status: Acute Assessment and Plan: Positive COVID test on 09/27/21. CTA showed multifocal lung disease consistent with pneumonia * Continue isolation precautions * Continue dexamethasone and remdesivir #4. ALT is normal * Supportive care to include bronchodilators, expectorants, antipyretics, incentive spirometry * Will discontinue ceftriaxone and azithromycin at this time as no signs/symptoms to indicate secondary bacterial pneumonia * Monitor inflammatory markers * She has not been vaccinated for COVID-19 (2) Acute respiratory failure with hypoxia: Code(s): J96.01 - Acute respiratory failure with hypoxia Status: Acute Assessment and Plan: Secondary to COVID pneumonia. Today she was found on room air by RN and noted to be hypoxic at 85% * O2 sats improved with 2 L supplemental O2 * Continue oxygen per nasal cannula * Goal saturations 92% or above * CTA negative for PE (3) Type 2 diabetes mellitus with hypoglycemia: Code(s): E11.649 - Type 2 diabetes mellitus with hypoglycemia without coma Status: Acute Assessment and Plan: A1c is 9.0. Hypoglycemic last night in the 40s * Continue Accu-Cheks, sliding scale insulin, and hypoglycemic protocol * Acute hypoglycemia secondary to poor oral intake. Patient states she has not been eating and has been receiving long-acting insulin * Blood sugars now elevated today with last glucose >300. Likely due to steroids. * Will add on mealtime insulin and resume long-acting insulin with dose reduction * Difficult to balance hypoglycemia vs hyperglycemia. Monitor glucose trends closely. Anticipate resolution of hypoglycemia as oral intake has improved today. * Diabetic consistent diet (4) Hypertension: Code(s): I10 - Essential (primary) hypertension Status: Chronic Assessment and Plan: Blood pressures reviewed and have been reasonable. Last BP 143/70 * Continue home amlodipine and lisinopril * Monitor blood pressure trends (5) Rheumatoid arthritis: Code(s): M06.9 - Rheumatoid arthritis, unspecified Status: Chronic Assessment and Plan: Maintained on daily prednisone * Prednisone on hold while patient is on dexamethasone (6) Weakness: Code(s): R53.1 - Weakness Status: Acute Assessment and Plan: Patient endorses weakness, likely secondary to acute viral illness * Appreciate PT/OT eval (7) Positive blood culture: Code(s): R78.81 - Bacteremia Status: Acute Assessment and Plan: Blood cultures collected on presentation 09/27/21 with growth of coag-negative Staphylococcus in 2/2 bottles * Suspect contaminant. Patient is afebrile. Mild leukocytosis has improved without intervention. No signs/symptoms to suggest acute bacteremia. Patient is not septic. * Repeat blood cultures collected 09/29 are pending. Continue to monitor Subjective Date/time seen: 09/30/21 16:17 Interval history: Date of service: 09/30/2021 Trudi Veliz is a 76-year-old female with a history hypertension, type 2 diabetes mellitus, and rheumatoid arthritis who is seen in follow-up for COVID- 19 pneumonia. She is feeling well today. Her main complaint is that she can not sleep and she would like a pill to help her sleep. She denies shortness of breath. She denies cough but then later adds that when she has increased
--- NOTE | 2021-09-30 16:17 | PM.IMPN ---
Progress Note: A&P Assessment and Plan (1) Pneumonia due to COVID-19 virus: Code(s): U07.1 - COVID-19; J12.82 - Pneumonia due to coronavirus disease 2019 Status: Acute Assessment and Plan: Positive COVID test on 09/27/21. CTA showed multifocal lung disease consistent with pneumonia Continue isolation precautions Continue dexamethasone and remdesivir #4. ALT is normal Supportive care to include bronchodilators, expectorants, antipyretics, incentive spirometry Will discontinue ceftriaxone and azithromycin at this time as no signs/symptoms to indicate secondary bacterial pneumonia Monitor inflammatory markers She has not been vaccinated for COVID-19 (2) Acute respiratory failure with hypoxia: Code(s): J96.01 - Acute respiratory failure with hypoxia Status: Acute Assessment and Plan: Secondary to COVID pneumonia. Today she was found on room air by RN and noted to be hypoxic at 85% O2 sats improved with 2 L supplemental O2 Continue oxygen per nasal cannula Goal saturations 92% or above CTA negative for PE (3) Type 2 diabetes mellitus with hypoglycemia: Code(s): E11.649 - Type 2 diabetes mellitus with hypoglycemia without coma Status: Acute Assessment and Plan: A1c is 9.0. Hypoglycemic last night in the 40s Continue Accu-Cheks, sliding scale insulin, and hypoglycemic protocol Acute hypoglycemia secondary to poor oral intake. Patient states she has not been eating and has been receiving long-acting insulin Blood sugars now elevated today with last glucose >300. Likely due to steroids. Will add on mealtime insulin and resume long-acting insulin with dose reduction Difficult to balance hypoglycemia vs hyperglycemia. Monitor glucose trends closely. Anticipate resolution of hypoglycemia as oral intake has improved today. Diabetic consistent diet (4) Hypertension: Code(s): I10 - Essential (primary) hypertension Status: Chronic Assessment and Plan: Blood pressures reviewed and have been reasonable. Last BP 143/70 Continue home amlodipine and lisinopril Monitor blood pressure trends (5) Rheumatoid arthritis: Code(s): M06.9 - Rheumatoid arthritis, unspecified Status: Chronic Assessment and Plan: Maintained on daily prednisone Prednisone on hold while patient is on dexamethasone (6) Weakness: Code(s): R53.1 - Weakness Status: Acute Assessment and Plan: Patient endorses weakness, likely secondary to acute viral illness Appreciate PT/OT eval (7) Positive blood culture: Code(s): R78.81 - Bacteremia Status: Acute Assessment and Plan: Blood cultures collected on presentation 09/27/21 with growth of coag-negative Staphylococcus in 2/2 bottles Suspect contaminant. Patient is afebrile. Mild leukocytosis has improved without intervention. No signs/symptoms to suggest acute bacteremia. Patient is not septic. Repeat blood cultures collected 09/29 are pending. Continue to monitor Subjective Date/time seen: 09/30/21 16:17 Interval history: Date of service: 09/30/2021 Trudi Veliz is a 76-year-old female with a history hypertension, type 2 diabetes mellitus, and rheumatoid arthritis who is seen in follow-up for COVID-19 pneumonia. She is feeling well today. Her main complaint is that she can not sleep and she would like a pill to help her sleep. She denies shortness of breath. She denies cough but then later adds that when she has increased activity this triggers her to cough. She feels very weak but she has been able to get up walk around the room and is able to get to the bathroom. She denies nausea, vomiting, or diarrhea. Denies fevers or chills. She has been having episodes of hypoglycemia in which times she states that she feels very bad, stating ?it was like I was in a coma . She says that she has not been eating hardly at all because COVID has changed her sense
[2021-09-30] MEDS: INSULIN ASPART (*BKC) 100 UNITS/ML SUB-Q ×2 (16:59)
[2021-09-30 20:54] LABS: Glucose Point of Care 404 mg/dl (65-105)
[2021-09-30] MEDS: INSULIN GLARGINE (*BKC) 100 UNITS/ML 20 UNITS SUB-Q (22:06)
[2021-09-30] MEDS: ZOLPIDEM TARTRATE (*CRX) 2.5 MG TABLET PO (22:34)
[2021-10-01] VITALS (7 sets, daily range): BP systolic 139–148; BP diastolic 48–74; PULSE 51–60; RESP 16–20; TEMP 36.7–36.9; O2SAT 92–100
[2021-10-01] MEDS: INSULIN ASPART (*BKC) 100 UNITS/ML 6 UNITS SUB-Q (00:20)
[2021-10-01 00:24] LABS: Glucose Point of Care 348 mg/dl (65-105)
[2021-10-01 06:50] LABS: Hematocrit 42.5 % (37.0-47.0); Hemoglobin 14.4 g/dL (12.0-15.0); Mean Corpuscular HGB Conc 33.9 g/dl (32-36); Mean Corpuscular Hemoglobin 29.4 pg (26-34); Mean Corpuscular Volume 86.9 fl (80-100); Mean Platelet Volume 10.2 fl (7.4-10.4); Platelet Count Result 314 k/mm3 (150-375); Red Blood Count 4.89 M/mm3 (4.2-5.4); Red Cell Distribution Width 13.3 % (11.5-14.5); White Blood Count 10.6 K/mm3 (4.5-10.0)
[2021-10-01 07:03] LABS: INR 1.1; Prothrombin Time 13.8 Seconds (11.1-14.7)
[2021-10-01 07:10] LABS: Alanine Aminotransferase 20 U/L (4-35); Albumin Level 3.8 g/dL (3.5-5.1); Alkaline Phosphatase 86 U/L (38-126); Anion Gap 11 mmol/L (8-16); Aspartate Amino Transferase 26 U/L (14-36); Bilirubin,Total 0.4 mg/dL (0.2-1.3); Blood Urea Nitrogen 20 mg/dL (7-17); Calcium 9.1 mg/dL (8.4-10.2); Carbon Dioxide 24 mmol/L (22-30); Chloride 100 mmol/L (98-107); Estimated CRCL calculation 57 ml/min; Estimated Glomerular Filt Rate > 60; Glucose 293 mg/dL (65-110); Lactate Dehydrogenase 532 U/L (313-618); Potassium 4.3 mmol/L (3.4-5.0); Sodium 135 mmol/L (137-145)
[2021-10-01 07:20] LABS: CRP 18.6 mg/dL (<1.0)
[2021-10-01 08:18] LABS: Glucose Point of Care 301 mg/dl (65-105)
[2021-10-01] MEDS: INSULIN ASPART (*BKC) 100 UNITS/ML SUB-Q ×4 (08:20→17:08)
[2021-10-01] MEDS: lisinopriL 10 MG TABLET PO (08:22)
[2021-10-01] MEDS: ENOXAPARIN 40 MG/0.4 ML SYRINGE SUB-Q (08:22)
[2021-10-01] MEDS: amLODIPine BESYLATE 5 MG TABLET 10 MG PO (08:22)
[2021-10-01] MEDS: cloNIDine HCL 0.2 MG TABLET PO ×2 (08:22→17:09)
[2021-10-01] MEDS: DEXAMETHASONE 2 MG TABLET 6 MG PO (08:22)
--- NOTE | 2021-10-01 11:52 | HOMEO2EVAL ---
Evaluation was performed at [facility] Home Oxygen Evaluation RC: Home Oxygen (O2) Evaluation Start: 10/01/21 10:10 Freq: ONCE Status: Active Protocol: RPE Activity Type Activity Date Activity User E-Sign Co-Sign Detail Recorded Client Recorded Date Recorded By Document 10/01/21 11:45 KRM [id number] 10/01/21 11:52 KRM Document 10/01/21 11:51 KRM [id number] 10/01/21 11:52 KRM Document 10/01/21 11:52 KRM [id number] 10/01/21 11:52 KRM 10/01/21 10/01/21 10/01/21 11:45 11:51 11:52 Home O2 Evaluation Test Phase Resting Exercise Exercise Oxygen Delivery Room Air Room Air Room Air Pulse Oximetry (90-100 %) 92 94 93 Pulse Rate (60-100 beats/min) 55 L 60 59 L Activity Tolerance Good Good Ambulation Distance (feet) 40 Ambulation Distance (meters) 12.19 Treatment Charges O2 Evaluation - Inpatient
--- NOTE | 2021-10-01 11:52 | PCRCNOTE ---
HOME O2 EVALUATION COMPLETED. NO OXYGEN NEEDED IN THE HOME.
[2021-10-01 12:06] LABS: Glucose Point of Care 374 mg/dl (65-105)
[2021-10-01] MEDS: INSULIN ASPART (*BKC) 100 UNITS/ML 7 UNITS SUB-Q ×2 (12:07→17:09)
--- NOTE | 2021-10-01 13:20 | PM.DS ---
DS: Admitting Diagnosis Discharge Date 10/01/2021 Admitting Diagnosis COVID-19 pneumonia DS: Discharge Diagnosis Discharge Diagnosis (1) Pneumonia due to COVID-19 virus: Code(s): U07.1 - COVID-19; J12.82 - Pneumonia due to coronavirus disease 2019 Status: Acute Assessment and Plan: Positive COVID test on 09/27/21. CTA showed multifocal lung disease consistent with pneumonia. She completed 5 days of dexamethasone and remdesivir. LFTs monitored and were normal. Supportive care provided including bronchodilators, expectorants, antipyretics, incentive spirometry. She had symptomatic improvement. She did not receive vaccination for COVID-19 and should follow-up with PCP to discuss this. (2) Acute respiratory failure with hypoxia: Code(s): J96.01 - Acute respiratory failure with hypoxia Status: Acute Assessment and Plan: Secondary to COVID pneumonia. CTA negative for PE She required up to 2 L supplemental O2 per nasal cannula but was able to be weaned to room air. Home oxygen evaluation completed prior to discharge and had no ongoing oxygen requirements. (3) Type 2 diabetes mellitus with hypoglycemia: Code(s): E11.649 - Type 2 diabetes mellitus with hypoglycemia without coma Status: Acute Assessment and Plan: A1c is 9.0. She was hypoglycemic in the 40s during her admission. Acute hypoglycemia was secondary to lack of oral intake. Patient stated she was not eating as nothing tasted good due to taste changes from COVID. Her long-acting insulin was held. Subsequently, patient developed hyperglycemia which was felt to be secondary to steroids. Patient's oral intake improved and long-acting insulin was resumed at decreased dose. Blood sugars improved and expect further improvement with discontinuation of steroids. Patient was instructed on importance of routine meals schedule. Her home glipizide was held to prevent hypoglycemia. Additional home regimen including Januvia and Lantus 40 units qHS continued. She was educated about monitoring her blood sugars with meals and at bedtime and recording for review by PCP. Also instructed at length about hypoglycemia management. Follow-up with PCP promptly (4) Hypertension: Code(s): I10 - Essential (primary) hypertension Status: Chronic Assessment and Plan: Blood pressures reviewed daily.Continue home amlodipine and lisinopril (5) Rheumatoid arthritis: Code(s): M06.9 - Rheumatoid arthritis, unspecified Status: Chronic Assessment and Plan: Maintained on daily prednisone. Prednisone was held while patient was on dexamethasone. Resumed on discharge (6) Weakness: Code(s): R53.1 - Weakness Status: Acute Assessment and Plan: Patient endorsed weakness felt to be secondary to acute viral illness. She participated in PT/OT and had no ongoing therapy requirements. Weakness improved and patient was ambulating independently (7) Positive blood culture: Code(s): R78.81 - Bacteremia Status: Acute Assessment and Plan: Blood cultures collected on presentation 09/27/21 with growth of coag-negative Staphylococcus in 2/2 bottles. Suspect contaminant. Patient remained afebrile. Mild leukocytosis improved without intervention. No signs/symptoms to suggest acute bacteremia. Patient was not septic. Repeat blood cultures collected 09/29/2021 negative after 48 hours. Final cultures will be monitored closely. DS: Summary Hospital Course Hospital Course: Date of admission: 09/27/2021 Date of discharge: 10/01/2021 Trudi Veliz is a 76-year-old female with a history hypertension, type 2 diabetes mellitus, and rheumatoid arthritis who presented to the emergency department on 09/27/2021 with loss of appetite, fatigue, weakness ongoing for 3-4 days. Also endorsed recent COVID positive contacts. On presentation to the emergency department, her vital signs were
[2021-10-01] MEDS: REMDESIVIR 100 MG/NS 250 ML 100 MG/250 ML BAG 250 MG IVPB (14:34)
--- NOTE | 2021-10-01 17:02 | PC.NURSE ---
x2 attempts to call pt contact for ride home, pt discharged, awaiting ride home.
[2021-10-01 17:09] LABS: Glucose Point of Care 342 mg/dl (65-105)
[2021-10-03 02:40] LABS: Legionella pneumophila Ag Ur Not Detected (Not Detected)
[2021-10-03 20:37] LABS: Pneumococcal Antigen Urine Not Detected (Not Detected)
--- NOTE | 2021-10-09 14:25 | PC.NURSE ---
Blood cx are negative.
== END 2021-10-01 18:25 | disposition home or self-care (01) | DRG 177 ==
LOC: ANHED 16:07 → ANH3MEDSUR 17:02
PROVIDERS: Internal Medicine; Nurse Practitioner; Physician Assistant; Admitting Provider Family Medicine; Emergency Provider Emergency Medicine; PCP Nurse Practitioner Family; Visit Provider Physician Assistant
DX: U07.1 COVID-19 (principal); J12.82 Pneumonia due to coronavirus disease 2019; J96.01 Acute respiratory failure with hypoxia; E11.649 Type 2 diabetes mellitus with hypoglycemia without coma; I10 Essential (primary) hypertension; M06.9 Rheumatoid arthritis, unspecified; E11.9 Type 2 diabetes mellitus without complications; Z96.652 Presence of left artificial knee joint; E86.0 Dehydration; F17.210 Nicotine dependence, cigarettes, uncomplicated; Z66 Do not resuscitate; Z98.42 Cataract extraction status, left eye; Z98.41 Cataract extraction status, right eye; Z90.49 Acquired absence of other specified parts of digestive tract; Z79.4 Long term (current) use of insulin; Z79.84 Long term (current) use of oral hypoglycemic drugs
CPT/HCPCS: 36415; 71045; 71275; 80053; 82728; 82948; 83036; 83615; 83690; 83735; 84145; 84439; 84443; 84480; 84484; 85025; 85027; 85380; 85610; 85730; 86140; 87040; 87077; 87186; 87426; 87449; 87899; 93005; 94618; 96361; 96365; 96367; 97110; 97161; 97165; 97530; 99285; A9270; C9803; G0378; J0456; J0696; J1100; J1650; J1815; J3370; J7120; J8540; Q9967

== ENCOUNTER 2022-06-02 13:44 | Inpatient (IN) | payer MEDICARE, SELFPAY ==
[2022-06-02] VITALS (15 sets, daily range): BP systolic 96–148; BP diastolic 39–80; PULSE 78–110; RESP 17–22; TEMP 36.1–37.8; O2SAT 89–98
--- NOTE | ~2022-06-02 | CT_ITS ---
EXAMINATION: CT abdomen pelvis w con DATE: 06/02/2022 16:53 INDICATION: abdominal pain, nausea and vomiting TECHNIQUE: Computed tomography (CT) of the abdomen and pelvis was performed with 100 mL Omnipaque-350 intravenous contrast. Automated exposure control and iterative reconstruction technique were employe d. The dose-length product was 773.66 mGy-cm. COMPARISON: 12/01/2020. FINDINGS: Lower thorax: Coronary artery calcification. Bibasilar dependent atelectasis and scarring. Moderate h iatal hernia. Liver: Unchanged low density right hepatic lobe lesion, likely cyst or hemangioma. Biliary/Gallbladder: Gallbladder is absent. Presumably cholecystectomy related intra and extrahepatic biliary duct dilatation, stable Pancreas: No mass or duct dilation. Spleen: Normal. Adrenals:No mass. Kidneys: Multiple left renal cysts. Delayed right nephrogram, moderate right hydronephrosis, and monica re right perinephric stranding. Multiple subcentimeter right renal hypodensities, too small to charac terize. GI tract: Esophagitis/gastritis. No small or large bowel dilation. Appendix not visualized. Short seg ment wall thickening and pericolonic inflammatory change of the proximal descending colon, just dista l to the hepatic flexure. Diverticulosis. The rectum is dilated to 5 cm by formed stool. Mesentery/Peritoneum: No ascites, mass, or free air. Retroperitoneum: No mass. Atherosclerotic abdominal aortic and/or arterial calcifications. Pelvis: 6 mm right UPJ stone. Soft Tissues: Small, gated fat-containing umbilical and inguinal hernias. Fatty atrophy of the right rectus muscle. Bones: No acute osseous finding. IMPRESSION: 6 mm right UPJ stone causing severe obstructive uropathy. Short segment pericolonic inflammation prox imal descending colon as can be seen with diverticulitis. Possible mild fecal impaction. Reviewed, dictated and finalized at location K. IMPRESSION: 6 mm right UPJ stone causing severe obstructive uropathy. Short segment pericol onic inflammation proximal descending colon as can be seen with diverticulitis. Possible mild fecal impaction.
--- NOTE | ~2022-06-02 | US_ITS ---
EXAMINATION: US renal BI DATE: 06/04/2022 14:30 INDICATION: Acute kidney injury. TECHNIQUE: Multiple ultrasound grayscale images of the kidneys were obtained. COMPARISON: CT abdomen and pelvis 06/02/2022 FINDINGS: The right kidney measures 11.4 x 5.7 x 4.7 cm. The left kidney measures 10.2 x 5.6 x 4.7 cm. The kidn eys demonstrate normal parenchymal echogenicity. There is a 1.4 cm cyst in left kidney. There is no h ydronephrosis. The bladder is decompressed by a Mcknight catheter. IMPRESSION: 1. Normal kidney sizes. No hydronephrosis. Reviewed, dictated and finalized at location A.
--- NOTE | ~2022-06-02 | XR_ITS ---
EXAMINATION: XR chest 2V Exam Date/Time: 06/02/2022 16:50 CDT HISTORY: weakness, n/v; hx of HTN, type 2 DM Comparison: 09/27/2021. RESULT: Lines, tubes, and devices: None. Lungs and pleura: Bibasilar atelectasis and scarring. Senescent change. Cardiomediastinal silhouette: Stable. Other: No acute osseous or upper abdominal finding. IMPRESSION: No acute cardiopulmonary process. Reviewed, dictated and finalized at location K.
--- NOTE | ~2022-06-02 | XR_ITS ---
EXAMINATION: XR abdomen/kub 1V DATE: 06/03/2022 09:23 INDICATION: Surgical planning TECHNIQUE: A supine view of the abdomen on 2 radiographs was obtained. COMPARISON: 06/02/2022 FINDINGS: Right internal ureteral stent with loops formed at the right renal pelvis and in the bladder. Mcknight c atheter is also seen within the bladder. No dilated gas-filled bowel to suggest obstruction. Opacitie s at the bilateral lung bases and favor atelectasis over pneumonia. Heart size is normal. Mild lumbar levocurvature with severe spondylosis. IMPRESSION: 1. Mcknight catheter and right internal ureteral stent in expected positions. 2. Mild bibasilar opacities and favor atelectasis over pneumonia. Reviewed, dictated and finalized at location A.
--- NOTE | ~2022-06-02 | CT_ITS ---
EXAMINATION: CT brain wo con INDICATION: Headache COMPARISON: None TECHNIQUE: Standard unenhanced head CT. The dose-length product (DLP) was 605.33 mGy-cm. The mA was a djusted according to patient size. Iterative reconstruction technique was employed. FINDINGS: There is no acute intraparenchymal hemorrhage. No evidence of mass lesion. No evidence of a cute infarction. There are areas of prior infarction in the right basal ganglia and right internal ca psule. There is mild periventricular and subcortical hypodensity probably related to small vessel isc hemic disease. There is mild prominence of the sulci and ventricles related to cerebral atrophy. Intr acranial calcified cerebral atherosclerosis is noted. There are no extra-axial collections. There is no mass effect or midline shift. Changes in the globes are likely from ocular lens surgery. There is mild mucosal thickening of the paranasal sinuses. IMPRESSION: 1. Areas of prior infarction without acute intracranial abnormality. 2. Age related findings. Reviewed, dictated and finalized at location B.
--- NOTE | ~2022-06-02 | XR_ITS ---
XR chest 2V 06/10/2022 09:26 Indication: Evaluate of leukocytosis. Procedure: 2 view chest Comparison: Comparison to multiple prior studies sequentially, with oldest reviewed study dated 08/22. Findings: Cardiomegaly. Small bilateral pleural effusions. Bibasilar airspace disease which may repre sent atelectasis and/or pneumonia. No acute osseous abnormality. Impression: 1: Bibasilar airspace disease which may represent atelectasis or pneumonia. 2: Small pleural effusions. 3: Cardiomegaly. Reviewed, dictated and finalized at location A. Impression: 1: Bibasilar airspace disease which may represent atelectasis or pneumonia. 2: Small pleural effusions. 3: Cardiomegaly.
--- NOTE | ~2022-06-02 | CT_ITS ---
EXAMINATION: CT abdomen pelvis w con DATE: 06/11/2022 13:15 INDICATION: Possible renal abscess TECHNIQUE: Computed tomography (CT) of the abdomen and pelvis was performed with 100 cc Omnipaque 350 intravenous contrast. The dose-length product was 793.47 mGy-cm. Automated exposure control and ite rative reconstruction technique were employed. COMPARISON: CT dated 06/02/2022 FINDINGS: There is bilateral lower lobe airspace disease which may represent atelectasis and/or pneum onia. Heart size normal. Small pericardial effusion. Small bilateral pleural effusions. There is mild atherosclerosis of the aorta. No lymphadenopathy. Small fat-containing umbilical hernia. Small amoun t of fluid in the paracolic gutters and perirectal space. There is right internal ureteral stent in e xpected position. There are small subcentimeter hypodensities of the left kidney, most likely benign cysts. No evidence for renal abscess. Stable low density cleft in the posterior margin of the right hepatic lobe otherwise, possibly sloan ioma or cyst. Otherwise, the liver is unremarkable. The spleen, pancreas, adrenal glands are unremark able. Severe lumbar spondylosis. There is levoscoliosis of the lumbar spine. Symmetric degenerative c hanges of the hips. There is a small amount of nondependent gas in the bladder lumen consistent with recent instrumentation. IMPRESSION: 1. No evidence for renal abscess. Right internal ureteral stent in expected position. 2: Bilateral lower lobe airspace disease which may represent atelectasis and/or pneumonia. 3: Small pleural effusions. 4: Small pericardial effusion. 5: Small amount of fluid in the paracolic gutters and perirectal space. Reviewed, dictated and finalized at location A. IMPRESSION: 1. No evidence for renal abscess. Right internal ureteral stent in expected pos ition. 2: Bilateral lower lobe airspace disease which may represent atelectasis and/or pneumonia. 3: Small pleural effusions. 4: Small pericardial effusion. 5: Small amount of fluid in the paracolic gutters and perirectal space.
--- NOTE | ~2022-06-02 | XR_ITS ---
EXAMINATION: XR retrograde pyelo w/stent RT DATE: 06/02/2022 19:35 CDT INDICATION: RT SIDE special retrograde w/ rt stent . Right UPJ stone. TECHNIQUE: 9 fluoroscopic images of the abdomen were obtained during right retrograde pyelography wit h stent placement performed by the surgeon. I was not present in the operating room. Fluoroscopy expo sure time was 27.2 seconds. Cumulative dose was 0.84859 mGy2. COMPARISON: CT abdomen and pelvis, same date. FINDINGS: Contrast fills a moderately dilated right proximal collecting system. Wire access into the upper myriam ecting system, followed by stent deployment. IMPRESSION: Fluoroscopic documentation of right retrograde pyelography with stent placement. Please refer to the operative note for complete procedural details . Reviewed, dictated and finalized at location K. IMPRESSION: Fluoroscopic documentation of right retrograde pyelography with stent placement . Please refer to the operative note for complete procedural details .
[2022-06-02 14:42] LABS: Hematocrit 46.8 % (37.0-47.0); Hemoglobin 14.9 g/dL (12.0-15.0); Mean Corpuscular HGB Conc 31.8 g/dl (32-36); Mean Corpuscular Hemoglobin 29.4 pg (26-34); Mean Corpuscular Volume 92.3 fl (80-100); Mean Platelet Volume 10.3 fl (7.4-10.4); Platelet Count Result 326 k/mm3 (150-375); Red Blood Count 5.07 M/mm3 (4.2-5.4); Red Cell Distribution Width 14.3 % (11.5-14.5); White Blood Count 27.8 K/mm3 (4.5-10.0)
[2022-06-02 14:55] LABS: Alanine Aminotransferase 21 U/L (6-35); Albumin Level 4.2 g/dL (3.5-5.1); Alkaline Phosphatase 120 U/L (38-126); Anion Gap 12 mmol/L (8-16); Aspartate Amino Transferase 27 U/L (14-36); Bilirubin,Total 1.1 mg/dL (0.2-1.3); Blood Urea Nitrogen 21 mg/dL (7-17); Calcium 9.7 mg/dL (8.4-10.2); Carbon Dioxide 25 mmol/L (22-30); Chloride 94 mmol/L (98-107); Estimated CRCL calculation 39 ml/min; Estimated Glomerular Filt Rate > 60; Glucose 362 mg/dL (65-110); Lipase 84 U/L (23-300); Sodium 131 mmol/L (137-145)
[2022-06-02 15:16] LABS: Band Neutrophils Percent 9 % (0-6); Monocytes Absolute Manual 0.27 K/mm3 (0.1-0.90); Monocytes Percent Manual 1 % (3-9); Neutrophils Absolute Manual 25.02 K/mm3 (1.7-7.2); Neutrophils Percent Manual 81 % (46-73); Platelet Estimate Adequate (Adequate); Total Cells Counted 100
--- NOTE | 2022-06-02 15:56 | ED.NAVMDI ---
HPI - Nausea/Vomiting/Diarrhea General Chief complaint: Nausea/Vomiting/Diarrhea Stated complaint: n/v Time Seen by Provider: 06/02/22 15:56 Source: patient and family Mode of arrival: wheelchair Limitations: no limitations History of Present Illness HPI Narrative: The patient is a 76-year-old female with a history of hypertension, hyperlipidemia, type 2 diabetes, rheumatoid arthritis, recurrent urinary tract infections, presenting to the emergency department for evaluation of nausea, vomiting, weakness. Patient states that she has felt unwell over the past 24 hours with several episodes of nonbloody, nonbilious emesis overnight. Patient denies any significant abdominal pain but states that she has been constipated and unable to have a bowel movement. She denies any significant abdominal distention. She denies fever, chills. Patient reports dysuria without significant hematuria. Patient's daughter at bedside states that she seems foggy compared to baseline, more sleepy than normal and is not her normal self. Also states that she seems diffusely weak. Patient has a daughter and family. She has history of admission for COVID-pneumonia and urinary tract infection in September 2021 Related Data Home Medications Medication Instructions Recorded Confirmed clonidine HCl 0.2 mg tablet 0.2 mg PO BID 09/12/20 09/27/21 hydrochlorothiazide 12.5 mg tablet 12.5 mg PO DAILY 09/12/20 09/27/21 insulin glargine 100 unit/mL 40 unit subcut HS 09/12/20 09/27/21 subcutaneous solution (Lantus U-100 Insulin) lisinopril 10 mg tablet 10 mg PO DAILY 09/12/20 09/27/21 sitagliptin 100 mg tablet (Januvia) 100 mg PO DAILY 09/12/20 09/27/21 amlodipine 10 mg tablet (Norvasc) 10 mg PO DAILY 12/02/20 09/27/21 tramadol 50 mg tablet 50 mg PO Q6H PRN Sleep 12/02/20 09/27/21 prednisone 10 mg tablet 10 mg PO DAILY 09/27/21 09/27/21 Allergies Allergy/AdvReac Type Severity Reaction Status Date / Time codeine Allergy Unknown Verified 09/27/21 17:54 Review of Systems Review of Systems: CONSTITUTIONAL: Denies fever, reports chills ENT: Denies rhinorrhea, congestion, sore throat, or otalgia. CARDIOVASCULAR: Denies chest pain, palpitations, or edema. RESPIRATORY: Denies cough or dyspnea. GASTROINTESTINAL: Denies abdominal pain, reports nausea, vomiting, constipation GENITOURINARY: Denies dysuria or hematuria. SKIN: Denies rash or itching. MUSCULOSKELETAL: Denies back pain, joint pain, or myalgia. NEUROLOGIC: Denies headache, numbness, reports feeling diffusely weak PMFSH Past Medical History Medical History Diabetes Hypertension Leukocytosis Obstructed, uropathy Rheumatoid arthritis Type 2 diabetes mellitus Surgical History Surgical History History of appendectomy History of arthroplasty of left knee History of bilateral cataract extraction History of cholecystectomy History of lumbar surgery History of tubal ligation Family History Family History Mother Cerebrovascular accident Sibling Diabetes mellitus Social History Social History Social History: The patient is originally from [facility]. She lives with her daughter, son-in-law, and grandchildren. 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 She has smoked for many years though has typically smokes less than half a pack a day. No alcohol or illicit substance abuse. She designates her daughter Surekha Camara as her surrogate decision maker. Code status: Full code. Spiritual care concerns: No Exam Narrative: GENERAL: Awake, alert, conversant HEAD: Normocephalic, atraumatic. EYES: PERRLA and EOMI. ENT: Nares clear, no rhinorrhea or epistaxis. Mucous membranes dry NECK: Supple. CHEST: No respiratory distress, breathing even and non labored HEART: Regular r
[2022-06-02] MEDS: SODIUM CHLORIDE 0.9% IV 1,000 ML 999 ML IV CONT (17:01)
[2022-06-02] MEDS: ONDANSETRON INJ 4 MG/2 ML VIAL IV PUSH ×2 (17:02→23:13)
[2022-06-02 17:28] LABS: Appearance Urine Slightly Cloudy (Clear); Bilirubin Urine 1+ (Negative); Blood Urine 2+ (Negative); Color Urine Yellow (Yellow); Glucose Urine UA Trace mg/dL (Negative); Ketones Urine Trace mg/dL (Negative); Leukocyte Esterase Ur 2+ LEU/UL (Negative); Nitrate Urine Positive (Negative); Protein Urine 1+ mg/dL (Negative); Specific Grav Ur <= 1.005 (1.001-1.035)
[2022-06-02 17:44] LABS: Bacteria Urine Trace /hpf; Mucus Urine Rare /lpf; RBC Urine 21-50 /hpf (0-2); Squamous Epithelial Cell Urine Rare /hpf (Few); WBC Urine >75 /hpf
[2022-06-02 17:45] LABS: Add Urine Microscopic? YES
--- NOTE | 2022-06-02 18:33 | WPDANESEPP ---
Anes - Eval Pre Procedure Procedure: Cysto with stent placement Date/Time: 06/02/22 18:33 Surgeon: Angie Preop Diagnosis: 6 mm right UPJ stone causing severe obstructive uropathy Pre Op Diagnosis: n/v Patient Data Age: 76 Gender: F Height: 1.6 m Weight: 65 kg Last Vital Signs Temp 97.0 F L 06/02/22 14:20 Pulse 83 06/02/22 17:07 Resp 19 06/02/22 17:07 BP 119/80 06/02/22 17:07 Pulse Ox 98 06/02/22 17:07 O2 Del Method Nasal Cannula 06/02/22 15:56 O2 Flow Rate 2 06/02/22 15:56 Allergies Allergy/AdvReac Type Severity Reaction Status Date / Time codeine Allergy Unknown Verified 09/27/21 17:54 Home Medications Medication Instructions Recorded Confirmed Type clonidine HCl 0.2 mg tablet 0.2 mg PO BID 09/12/20 09/27/21 History hydrochlorothiazide 12.5 mg tablet 12.5 mg PO DAILY 09/12/20 09/27/21 History insulin glargine 100 unit/mL 40 unit subcut HS 09/12/20 09/27/21 History subcutaneous solution (Lantus U-100 Insulin) lisinopril 10 mg tablet 10 mg PO DAILY 09/12/20 09/27/21 History sitagliptin 100 mg tablet (Januvia) 100 mg PO DAILY 09/12/20 09/27/21 History meclizine 12.5 mg tablet 6.25 mg PO BID PRN dizziness #20 09/13/20 09/27/21 Rx tabs amlodipine 10 mg tablet (Norvasc) 10 mg PO DAILY 12/02/20 09/27/21 History tramadol 50 mg tablet 50 mg PO Q6H PRN Sleep 12/02/20 09/27/21 History glipizide 5 mg tablet 7.5 mg PO DAILY #60 tabs 12/03/20 09/27/21 Rx prednisone 10 mg tablet 10 mg PO DAILY 09/27/21 09/27/21 History albuterol sulfate 90 mcg/actuation 2 puff inhalation QIDRT PRN 09/29/21 Rx aerosol inhaler (Proventil HFA) Shortness Of Breath #1 g glucose 4 gram chewable tablet 4 g PO Q15M PRN hypoglycemia #30 09/29/21 Rx (Dex4 Glucose) tabs naproxen sodium 220 mg tablet 440 mg PO BID PRN Pain #0 tabs 10/01/21 09/27/21 Rx (Aleve) Laboratory Tests 06/02/22 06/02/22 06/02/22 14:35 14:35 17:21 WBC 27.8 K/mm3 H K/mm3 (4.5-10.0) RBC 5.07 M/mm3 M/mm3 (4.2-5.4) Hgb 14.9 g/dL g/dL (12.0-15.0) Hct 46.8 % % (37.0-47.0) MCV 92.3 fl fl (80-100) MCH 29.4 pg pg (26-34) MCHC 31.8 g/dl L g/dl (32-36) RDW 14.3 % % (11.5-14.5) Plt Count 326 k/mm3 k/mm3 (150-375) MPV 10.3 fl fl (7.4-10.4) Immature Gran % (Auto) Not Reportable Neut % (Auto) Not Reportable Lymph % (Auto) Not Reportable [place] % (Auto) Not Reportable Eos % (Auto) Not Reportable Baso % (Auto) Not Reportable Lymph # (Auto) Not Reportable [place] # (Auto) Not Reportable Eos # (Auto) Not Reportable Baso # (Auto) Not Reportable Abs Immat Gran (auto) Not Reportable Absolute Neuts (auto) Not Reportable Absolute Nucleated RBC Not Reportable Total Counted 100 Neutrophils % (Manual) 81 % H % (46-73) Band Neutrophils % 9 % H % (0-6) Lymphocytes % (Manual) 9.0 % L % (18-44) Monocytes % (Manual) 1 % L % (3-9) Nucleated RBC % Not Reportable Abs Neuts (Manual) 25.02 K/mm3 H K/mm3 (1.7-7.2) Abs Lymphs (Manual) 2.50 K/mm3 K/mm3 (1.1-4.5) Abs Monocytes (Manual) 0.27 K/mm3 K/mm3 (0.1-0.90) Platelet Estimate Adequate (Adequate) Sodium 131 mmol/L L mmol/L (137-145) Potassium 4.0 mmol/L mmol/L (3.4-5.0) Chloride 94 mmol/L L mmol/L (98-107) Carbon Dioxide 25 mmol/L mmol/L (22-30) Anion Gap 12 mmol/L mmol/L (8-16) BUN 21 mg/dL H mg/dL (7-17) Creatinine 0.90 mg/dL mg/dL (0.7-1.0) Estim Creat Clear Calc 39 ml/min ml/min Estimated GFR > 60 (59 - ) Glucose 362 mg/dL H mg/dL (65-110) Calcium 9.7 mg/dL mg/dL (8.4-10.2) Total Bilirub
[2022-06-02 18:41] LABS: SARS-CoV-2 RNA PCR Negative
[2022-06-02 19:15] LABS: Lactic Acid Reflex 5.8 mmol/L (0.7-2.0)
[2022-06-02 19:18] LABS: Glucose Point of Care 375 mg/dl (65-105)
--- NOTE | 2022-06-02 19:20 | P.PNAN_ITS ---
Anes - Eval Final PreProcedure Day of Procedure 06/02/22 19:20 Patient weight: overweight Heart: regular rate and rhythm Lungs: decreased breath sounds Airway: Mallampati scale class II Neurological: lethargic Last oral intake: >/= 8 hours ASA classification: III Emergent: yes Anesthetic plan: proceed Anesthesia type and monitoring: general and standard monitoring Results Review: All pre-operative results and documents have been reviewed as part of the pre- operative evaluation. Informed Consent: The patient's anesthetic plan and its attendant risks and benefits were discussed with the patient/family/POA. Questions were solicited and answers provided to the satisfaction of the patient/family/POA.
--- NOTE | 2022-06-02 19:37 | WPDURCON ---
Assessment and Plan Assessment and plan (1) Obstructed, uropathy: Code(s): N13.9 - Obstructive and reflux uropathy, unspecified Status: Acute Assessment and Plan: Right obstructive pyelonephritis secondary to 5 mm distal right ureteral stone - proceed with cysto, right ureteral stent placement urgently - will need delayed stone management in a few weeks - would anticipate hospitalization of 3-4 days [facility] Consult Note HPI Date Seen: 06/02/22 Primary Care Provider: DAPHNE PAUL, DIRECTOR OF WOMEN'S SERVICES Consult Narrative Reason for consult: sepsis from obstructive pyelo Narrative: Trudi Veliz is a 76 year old female here for left flank pain. CT shows a 5 mm distal right ureteral stone and no other stones with moderate hydro. CT from 2020 showed no stones and no hydro. She has RA. Her BG is 350+. Her urine is nit+. Her WBC is 27. Consent obtained from family. Review of Systems Review of Systems: ROS unobtainable: Yes unobtainable due to mental status PMFSH Past Medical History Medical History Anemia CVA (cerebral vascular accident) Diabetes GERD (gastroesophageal reflux disease) Hypertension Leukocytosis Obstructed, uropathy Rheumatoid arthritis Type 2 diabetes mellitus Surgical History Surgical History History of appendectomy History of arthroplasty of left knee History of bilateral cataract extraction History of cholecystectomy History of lumbar surgery History of tubal ligation Family History Family History Mother Cerebrovascular accident Sibling Diabetes mellitus Social History Social History Social History: The patient is originally from [facility]. She lives with her daughter, son-in-law, and grandchildren. 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 She has smoked for many years though has typically smokes less than half a pack a day. No alcohol or illicit substance abuse. She designates her daughter Surekha Camara as her surrogate decision maker. Code status: Full code. Spiritual care concerns: No Meds Home Medications and Allergies Home Medications Medication Instructions Recorded Confirmed Type clonidine HCl 0.2 mg tablet 0.2 mg PO BID 12/23/20 01/07/22 History hydrochlorothiazide 12.5 mg tablet 12.5 mg PO DAILY 09/12/20 09/27/21 History insulin glargine 100 unit/mL 40 unit subcut HS 09/12/20 09/27/21 History subcutaneous solution (Lantus U-100 Insulin) lisinopril 10 mg tablet 10 mg PO DAILY 09/12/20 09/27/21 History sitagliptin 100 mg tablet (Januvia) 100 mg PO DAILY 09/12/20 09/27/21 History meclizine 12.5 mg tablet 6.25 mg PO BID PRN dizziness #20 09/13/20 09/27/21 Rx tabs amlodipine 10 mg tablet (Norvasc) 10 mg PO DAILY 12/02/20 09/27/21 History tramadol 50 mg tablet 50 mg PO Q6H PRN Sleep 12/02/20 09/27/21 History glipizide 5 mg tablet 7.5 mg PO DAILY #60 tabs 12/03/20 09/27/21 Rx prednisone 10 mg tablet 10 mg PO DAILY 09/27/21 09/27/21 History albuterol sulfate 90 mcg/actuation 2 puff inhalation QIDRT PRN 09/29/21 Rx aerosol inhaler (Proventil HFA) Shortness Of Breath #1 g glucose 4 gram chewable tablet 4 g PO Q15M PRN hypoglycemia #30 09/29/21 Rx (Dex4 Glucose) tabs naproxen sodium 220 mg tablet 440 mg PO BID PRN Pain #0 tabs 10/01/21 09/27/21 Rx (Aleve) Allergies Allergy/AdvReac Type Severity Reaction Status Date / Time codeine Allergy Unknown Verified 09/27/21 17:54 Vital Signs Vital Signs - 24 hr 06/02/22 14:20 06/02/22 15:56 06/02/22 15:56 Temperature 36.1 C L Pulse Rate 87 Respiratory Rate 18 Blood Pressure 136/44 L Pulse Oximetry 94 89 L 96 Oxygen Delivery Room Air Room Air Nasal Cannula Oxygen Flow Rate 2 06/02/22 17:07 06/02/22 18:41 06/02/22 19:1
[2022-06-02] MEDS: metroNIDAZOLE 500 MG/ISO 100ML 500 MG/100 ML BAG 100 MG IVPB (19:38)
[2022-06-02] MEDS: LIDOCAINE HCL 2% GEL UROJET 10 ML PKG MUCOUS MEM (19:56)
--- NOTE | 2022-06-02 20:00 | PM.IMHP ---
H&P: HPI History of Present Illness Date/Time: 06/02/22 20:00 Chief Complaint: Nausea, vomiting. Narrative: This is a 76-year-old smoker with diabetes, hypertension, kidney stones, and rheumatoid arthritis who presented to the emergency department via EMS for evaluation of nausea and vomiting. She is confused and does not answer all questions appropriately and as such majority of the following history is obtained via a review of her electronic medical records as well as discussions with her daughter. She has also been confused over the last day and is not acting like herself, according to the daughter. She has not felt great for about 24 hours with generalized malaise, right-sided back and shoulder pain, and dysuria. At around midnight she developed nausea and she had multiple episodes of nonbloody, nonbilious emesis overnight. Her vital signs were stable on arrival to the emergency department. Workup in the ED was significant for white blood cell count of 27.8 with a bandemia, lactic acid 5.8, sodium 131, and a UA with positive nitrates, blood, greater than 75 wbc's, and bacteria. CT of the abdomen and pelvis showed a 6 millimeter right UPJ stone causing severe obstructive uropathy and a short-segment of pericolic inflammation which can be seen with diverticulitis. She has since been taken to the OR where she had a cystoscopy with right retrograde pyelogram and right ureteral stent placement. Postoperatively her blood pressures have been running at the low end of normal. She did spike a low-grade temperature to about 100? Fahrenheit. At this time her pain is a bit better but she continues to feel generally unwell with mild nausea. Review of Systems Review of Systems: Twelve systems were reviewed. No cold or flu symptoms. No sick contacts. No chest pain. Reports mild shortness of breath. No cough. Denies diarrhea. Except as documented, all other systems were reviewed and are negative. [facility] Past Medical History Medical History (Updated 06/02/22 @ 23:32 by Eli Dillard PA-C) Anemia Cerebrovascular accident Gastroesophageal reflux disease Hypertension Rheumatoid arthritis Type 2 diabetes mellitus Surgical History Surgical History History of appendectomy History of arthroplasty of left knee History of bilateral cataract extraction History of cholecystectomy History of lumbar surgery History of tubal ligation Family History Family History Mother Cerebrovascular accident Sibling Diabetes mellitus Social History Social History Social History: The patient is originally from [place]. She lives with her daughter, son-in-law, and grandchildren. 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 She has smoked for many years though has typically smokes less than half a pack a day. No alcohol or illicit substance abuse. She designates her daughter Surekha Camara as her surrogate decision maker. Code status: Full code. Spiritual care concerns: No Meds Home Medications and Allergies Home Medications Medication Instructions Recorded Confirmed Type clonidine HCl 0.2 mg tablet 0.2 mg PO BID 09/12/20 06/02/22 History hydrochlorothiazide 12.5 mg tablet 12.5 mg PO DAILY 09/12/20 06/02/22 History insulin glargine 100 unit/mL 40 unit subcut HS 09/12/20 06/02/22 History subcutaneous solution (Lantus U-100 Insulin) lisinopril 10 mg tablet 20 mg PO DAILY 09/12/20 06/02/22 History sitagliptin 100 mg tablet (Januvia) 100 mg PO DAILY 09/12/20 06/02/22 History amlodipine 10 mg tablet (Norvasc) 10 mg PO DAILY 12/02/20 06/02/22 History tramadol 50 mg tablet 50 mg PO Q6H PRN Pain (Scale Score 12/02/20 06/02/22 History 4-6) prednisone 10 mg tablet 10 mg PO DAILY 09/27/21 06/02/22 History albuterol sulfate 90 mcg/actuation 2 puff inhalation QIDRT
--- NOTE | 2022-06-02 20:01 | W.PM.PROC2 ---
Procedure Note - Detailed Date of Procedure 06/02/22 Pre-op Diagnosis obstructive pyelonephritis Post-op Diagnosis Same Procedure Performed cysto, right retrograde pyelogram, right ureteral stent placement Surgeon Sridhar Jones MD Findings pus poured out of a clearly obstructed right kidney Description of Procedure patient was brought to OR. intubated because of the preop n/v. had received ceftriaxone. bladder entered with blunt obturator. cystitis apparent. right UO identified. guidewire able to be manipulated past a distal stone with some difficulty. wire to proximal ureter, open ended with retrograde pyelogram to confirm anatomy. wire replaced, 6F variable length stent advanced with good curl noted proximally and good curl seen in bladder. newman placed for maximum drainage.
[2022-06-02] MEDS: LACTATED RINGERS 1,000 ML 30 ML IV CONT (20:06)
[2022-06-02 20:10] LABS: Glucose Point of Care 274 mg/dl (65-105)
--- NOTE | 2022-06-02 21:05 | ADMGEN ---
This patient, Trudi Veliz, was admitted to [facility] Room 306-01. Patient/family oriented to hospital policies and general routines including ID bracelet, bed and alarms, visiting hours, pain management, procedures, bathroom and other care routines, personal items, smoking policy, room service/diet, and visiting hours. Information on how to activate the Rapid Response Team has been discussed. Patient/Family are encouraged to report perceived risks to care and to ask questions if they do not understand what they are told or what they should do.
[2022-06-02 21:37] LABS: Reflex Lactic Acid Yes or No Add Lactic
[2022-06-02 22:19] LABS: Lactic Acid 4.4 mmol/L (0.7-2.0)
[2022-06-02] MEDS: SODIUM CHLORIDE 0.9% IV 2,000 ML/1,000 ML BAG 999 ML IV CONT (23:56)
[2022-06-03] VITALS (13 sets, daily range): BP systolic 100–137; BP diastolic 43–70; PULSE 79–93; RESP 16–20; TEMP 36.1–37.1; O2SAT 90–100
--- NOTE | 2022-06-03 00:17 | PC.NURSE ---
per label instructions for bolus: total volume infused was 1 liter prior to starting maintenance fluids as ordered.
[2022-06-03] MEDS: SODIUM CHLORIDE 0.9% IV 1,000 ML 65 ML IV CONT ×2 (01:02→15:30)
[2022-06-03 02:26] LABS: Hemoglobin A1C 8.8 % (<5.7)
[2022-06-03 02:32] LABS: Alanine Aminotransferase 20 U/L (6-35); Albumin Level 3.1 g/dL (3.5-5.1); Alkaline Phosphatase 91 U/L (38-126); Anion Gap 10 mmol/L (8-16); Aspartate Amino Transferase 36 U/L (14-36); Bilirubin,Total 0.5 mg/dL (0.2-1.3); Blood Urea Nitrogen 27 mg/dL (7-17); Calcium 8.6 mg/dL (8.4-10.2); Carbon Dioxide 19 mmol/L (22-30); Chloride 102 mmol/L (98-107); Estimated CRCL calculation 28 ml/min; Estimated Glomerular Filt Rate 40; Glucose 248 mg/dL (65-110); Magnesium 2.1 mg/dL (1.6-2.3); Sodium 131 mmol/L (137-145)
[2022-06-03 02:33] LABS: Lactic Acid Reflex 3.5 mmol/L (0.7-2.0)
[2022-06-03 04:11] LABS: CRP 16.8 mg/dL (<1.0)
[2022-06-03] MEDS: metroNIDAZOLE 500 MG/ISO 100ML 500 MG/100 ML BAG 100 MG IVPB (05:36)
[2022-06-03 06:55] LABS: Hematocrit 38.4 % (37.0-47.0); Hemoglobin 12.5 g/dL (12.0-15.0); Mean Corpuscular HGB Conc 32.6 g/dl (32-36); Mean Corpuscular Hemoglobin 29.8 pg (26-34); Mean Corpuscular Volume 91.4 fl (80-100); Mean Platelet Volume 10.7 fl (7.4-10.4); Platelet Count Result 236 k/mm3 (150-375); Red Cell Distribution Width 14.6 % (11.5-14.5)
[2022-06-03 07:15] LABS: Band Neutrophils Percent 39 % (0-6); Monocytes Absolute Manual 0.81 K/mm3 (0.1-0.90); Monocytes Percent Manual 3 % (3-9); Neutrophils Absolute Manual 23.49 K/mm3 (1.7-7.2); Neutrophils Percent Manual 48 % (46-73); Total Cells Counted 100
[2022-06-03 07:16] LABS: Platelet Estimate Adequate (Adequate)
[2022-06-03 08:47] LABS: Glucose Point of Care 226 mg/dl (65-105)
[2022-06-03] MEDS: INSULIN ASPART (*BKC) 100 UNITS/ML SUB-Q ×3 (09:28→17:20)
[2022-06-03] MEDS: ENOXAPARIN 40 MG/0.4 ML SYRINGE SUB-Q (09:28)
[2022-06-03] MEDS: predniSONE 10 MG TABLET PO (09:28)
--- NOTE | 2022-06-03 10:15 | PM.IMPN ---
Progress Note: A&P Assessment and Plan (1) Sepsis: Code(s): A41.9 - Sepsis, unspecified organism Status: Acute Assessment and Plan: Mets SIRS criteria for leukocytosis, tachypnea, hypotension, and elevated lactic Source of infection is diverticulitis and/or UTI UA indicates infection Blood cultures preliminary grew gram neg bacilli in both bottles Lactic acid upon arrival 5.8, currently 3.5 IV fluids given in ED CT of the abd/pel UPJ stone and infection of the bowel WBC elevated at 27.0 C. Diff ordered Continue to trend labs Continue IV fluids Flagyl and Levaquin in the ed, changed to Zosyn at this time Will adjust antibiotics per culture results (2) Obstructive uropathy: Code(s): N13.9 - Obstructive and reflux uropathy, unspecified Status: Acute Assessment and Plan: CT indicated a 6mm UPJ stone Urology consulted Stents placed on 06/02/22 Trend urine output Continue antibiotic therapy (3) Right ureteral stone: Code(s): N20.1 - Calculus of ureter Status: Acute Assessment and Plan: See above (4) Urinary tract infection: Code(s): N39.0 - Urinary tract infection, site not specified Status: Acute Assessment and Plan: UA appears infectious Urine culture pending Continue Zosyn for now Adjust antibiotics with culture results (5) Type 2 diabetes mellitus with hyperglycemia: Code(s): E11.65 - Type 2 diabetes mellitus with hyperglycemia Status: Acute Assessment and Plan: Current glucose 248 Accu Cheks ac/hs Continue home medications Lantus 40 units, and Januvia Trend glucose hypoglycemia protocol ISS A1c 8.8 Adjust therapy as indicated (6) Hypertension: Code(s): I10 - Essential (primary) hypertension Status: Chronic Assessment and Plan: Current Blood pressure is a little low at 100/49 Hold lisinopril, HCTZ, Clonidine, and amlodipine for now Hypotensive from infection Resume as appropriate trend blood pressure adjust therapy as indicated (7) Acute metabolic encephalopathy: Code(s): G93.41 - Metabolic encephalopathy Status: Acute Assessment and Plan: Head CT shows old infarcts, with no acute findings Probably related to infection Trend mental status Antibiotics on board Cultures pending (8) Bacteremia: Code(s): R78.81 - Bacteremia Status: Acute Assessment and Plan: Blood culture grew gram negative bacilli in both bottles ID pharm to help Continue zosyn for now Probably will need to broaden for GI, , and now Heme findings WBC elevated at 27.0 Continue to trend adjust therapy to sensitivites (9) Leukocytosis: Code(s): D72.829 - Elevated white blood cell count, unspecified Status: Acute Assessment and Plan: WBC elevated at 27.0 C. Diff ordered Stone, UTI, and diverticulitis probably all contributing Continue to trend all cultures pending blood cultures positive continue current antibiotics (10) CARMEN (acute kidney injury): Code(s): N17.9 - Acute kidney failure, unspecified Status: Acute Assessment and Plan: Creatine is elevated at 1.30 Baseline Cr appears to be 0.7-0.9 IV fluids on board Seems to be related to dehydration Continue to trend labs Time Spent With Patient Time with patient: Greater than 35 minutes Subjective Date/time seen: 06/03/22 1015 Interval history: 06/03/22 101 Patient seems to be lethargic and tired. She denies any pain, however, she would doze off as she was talking. She did say that she has pain and burning with urination. She did not seem really reliable with her review of systems due to the drowsiness. Urinary catheter is in place draining urine with sediment in it. She denied any chest pain, shortness of br
--- NOTE | 2022-06-03 10:15 | P.PNIM_ITS ---
Progress Note: A&P Assessment and Plan (1) Sepsis: Code(s): A41.9 - Sepsis, unspecified organism Status: Acute Assessment and Plan: * Mets SIRS criteria for leukocytosis, tachypnea, hypotension, and elevated lac tic * Source of infection is diverticulitis and/or UTI * UA indicates infection * Blood cultures preliminary grew gram neg bacilli in both bottles * Lactic acid upon arrival 5.8, currently 3.5 * IV fluids given in ED * CT of the abd/pel UPJ stone and infection of the bowel * WBC elevated at 27.0 * C. Diff ordered * Continue to trend labs * Continue IV fluids * Flagyl and Levaquin in the ed, changed to Zosyn at this time * Will adjust antibiotics per culture results (2) Obstructive uropathy: Code(s): N13.9 - Obstructive and reflux uropathy, unspecified Status: Acute Assessment and Plan: * CT indicated a 6mm UPJ stone * Urology consulted * Stents placed on 06/02/22 * Trend urine output * Continue antibiotic therapy (3) Right ureteral stone: Code(s): N20.1 - Calculus of ureter Status: Acute Assessment and Plan: * See above (4) Urinary tract infection: Code(s): N39.0 - Urinary tract infection, site not specified Status: Acute Assessment and Plan: * UA appears infectious * Urine culture pending * Continue Zosyn for now * Adjust antibiotics with culture results (5) Type 2 diabetes mellitus with hyperglycemia: Code(s): E11.65 - Type 2 diabetes mellitus with hyperglycemia Status: Acute Assessment and Plan: * Current glucose 248 * Accu Cheks ac/hs * Continue home medications Lantus 40 units, and Januvia * Trend glucose * hypoglycemia protocol * ISS * A1c 8.8 * Adjust therapy as indicated (6) Hypertension: Code(s): I10 - Essential (primary) hypertension Status: Chronic Assessment and Plan: * Current Blood pressure is a little low at 100/49 * Hold lisinopril, HCTZ, Clonidine, and amlodipine for now * Hypotensive from infection * Resume as appropriate * trend blood pressure * adjust therapy as indicated (7) Acute metabolic encephalopathy: Code(s): G93.41 - Metabolic encephalopathy Status: Acute Assessment and Plan: * Head CT shows old infarcts, with no acute findings * Probably related to infection * Trend mental status * Antibiotics on board * Cultures pending (8) Bacteremia: Code(s): R78.81 - Bacteremia Status: Acute Assessment and Plan: * Blood culture grew gram negative bacilli in both bottles * ID pharm to help * Continue zosyn for now * Probably will need to broaden for GI, , and now Heme findings * WBC elevated at 27.0 * Continue to trend * adjust therapy to sensitivites (9) Leukocytosis: Code(s): D72.829 - Elevated white blood cell count, unspecified Status: Acute Assessment and Plan: * WBC elevated at 27.0 * C. Diff ordered * Stone, UTI, and diverticulitis probably all contributing * Continue to trend * all cultures pending * blood cultures positive * continue current antibiotics (10) CARMEN (acute kidney injury): Code(s): N17.9 - Acute kidney failure, unspecified Status: Acute Assessment and P
[2022-06-03 11:05] LABS: Glucose Point of Care 271 mg/dl (65-105)
--- NOTE | 2022-06-03 11:16 | WPDGICN ---
Assessment and Plan Assessment and plan (1) Abnormal CT scan, colon: Code(s): R93.3 - Abnormal findings on diagnostic imaging of other parts of digestive tract Status: Acute Assessment and Plan: CT CT scan on presentation primarily showed obstruction to the right kidney. This has now been treated with ureteral stenting. Additionally there was a question of possible diverticulitis. This is somewhat uncertain as or history fails to support this. Because she will be on antibiotics for narrowing narrowing tract infection suggest using antibiotics that would also cover possible diverticulitis. No additional workup indicated at this time. Would suggest considering elective colonoscopy in 1-2 months after resolution of infection. Should any concerns remain. (2) Altered mental status: Code(s): R41.82 - Altered mental status, unspecified Status: Acute Assessment and Plan: Patient with altered mental status felt likely related to sepsis and infection from the right kidney. (3) Acute metabolic encephalopathy: Code(s): G93.41 - Metabolic encephalopathy Status: Acute (4) Obstructive uropathy: Code(s): N13.9 - Obstructive and reflux uropathy, unspecified Status: Acute Assessment and Plan: Patient with right ureteral obstruction now followed by Urology status post stenting last evening. (5) Urinary tract infection: Code(s): N39.0 - Urinary tract infection, site not specified Status: Acute Assessment and Plan: Patient with UTI. Suggest broad-spectrum antibiotics that may cover possible diverticulitis. Although diverticulitis considered fairly unlikely given current setting. (6) Rheumatoid arthritis: Code(s): M06.9 - Rheumatoid arthritis, unspecified Status: Chronic GI Consult Note Consult date/time: 06/03/22 11:16 Reason for consult: Abnormal CT scan. HPI: Trudi Veliz is a 76 year old female I am asked to see at the request of the hospitalist service. Patient apparently had some decline in physical ability in mentation is an outpatient. She developed abdominal pain and presented to the emergency room yesterday. CT scan imaging suggested obstruction to the right ureter and less likely diverticulitis was entertained. Last evening patient underwent cystoscopy with stent placed into the right kidney area through the ureter. She was found to have complete obstruction in this area. Patient has had several bowel movements subsequently. She does notice some discomfort in the right abdomen this morning. She denies any difficulty with bowel movements on questioning at this time. Review of Systems Review of Systems: Review of systems noncontributory. Patient is somewhat difficult historian currently. [facility] Past Medical History Medical History (Updated 06/03/22 @ 11:19 by Aramis Cooney MD) Anemia Cerebrovascular accident Gastroesophageal reflux disease Hypertension Rheumatoid arthritis Type 2 diabetes mellitus Surgical History Surgical History History of appendectomy History of arthroplasty of left knee History of bilateral cataract extraction History of cholecystectomy History of lumbar surgery History of tubal ligation Family History Family History Mother Cerebrovascular accident Sibling Diabetes mellitus Social History Social History Social History: The patient is originally from [facility]. She lives with her daughter, son-in-law, and grandchildren. 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 She has smoked for many years though has typically smokes less than half a pack a day. No alcohol or illicit substance abuse. She designates her daughter Surekha Camara as her surrogate decision maker. Code status: Full code. Smoking status:
--- NOTE | 2022-06-03 11:54 | WPDUROPN2 ---
Progress Note: A&P Assessment and Plan (1) Bacteremia: Code(s): R78.81 - Bacteremia Status: Acute Assessment and Plan: Blood cultures are preliminarily growing Gram Negative Bacilli, urine cultures are still pending. She continues to remain on Zosyn, but will likely be changed to something else once sensitivities are resulted. WBC is 27,000 at this time and the patient represents lethargy and feeling anxious at the bedside. She is restless and not easily aroused d/t her infection and fatigue. (2) Right ureteral stone: Code(s): N20.1 - Calculus of ureter Status: Acute Assessment and Plan: KUB doesnt' show her stone s/p right stent placement. Will plan to do a ureteroscopy with stone removal and stent exchange in a few weeks once her infection is better and she is discharged home. We will repeat a urine in the office and schedule her procedure after discharge. No further surgery at this time needed. KUB shows stent in place and draining as well as catheter. Subjective Subjective Date/Time Seen: 06/03/22 11:54 Cystoscopy, right retrograde pyelogram, right stent placement with Dr. Jones last night. The patient is quite lethargic at the bedside and anxious today, she is alert but has a difficult time staying awake during our visit. Her catheter is draining to gravity with dark michael colored urine, she denies stent pain, but states she is nauseated and is unable to sit still, she is uncomfortable. Post Op day: 1 Review of Systems Constitutional: Constitutional: Reports daytime sleepiness, Reports difficulty sleeping, Reports fatigue, Reports malaise and Reports weakness Cardiovascular: Cardiovascular: Denies chest pain Respiratory: Respiratory: Reports no additional respiratory complaints Gastrointestinal: Gastrointestinal: Denies abdominal pain, Reports nausea and Denies vomiting Genitourinary: Genitourinary: Denies hematuria, Denies dysuria, Denies pelvic pain, Denies flank pain, Denies urinary hesitancy and Denies urinary urgency Exam Const: General: anxious, ill appearing, lethargic and uncomfortable Resp: Effort & Inspection: normal respiratory effort Cardio: Rate: regular rate GI: GI Palp: Yes Soft to palpation and No Tenderness to palpation present (GI) : General: Yes no CVA tenderness Urinary Catheter: Urinary Catheter: patent and draining and urine dark Back/Spine/Pelvis: Back: no CVA tenderness Extrem: Right upper extremity: no edema Left upper extremity: no edema Objective Data Vital Signs Vital Signs: Vital Signs - 24 hr 06/02/22 14:20 06/02/22 15:56 06/02/22 15:56 Temperature 97.0 F L Pulse Rate 87 Respiratory Rate 18 Blood Pressure 136/44 L Pulse Oximetry 94 89 L 96 Oxygen Delivery Room Air Room Air Nasal Cannula Oxygen Flow Rate 2 06/02/22 17:07 06/02/22 18:41 06/02/22 19:19 Temperature Pulse Rate 83 110 H 109 H Respiratory Rate 19 22 H 20 Blood Pressure 119/80 125/62 122/62 Pulse Oximetry 98 95 98 Oxygen Delivery Oxygen Flow Rate 06/02/22 20:06 06/02/22 20:15 06/02/22 20:30 Temperature 100.0 F H Pulse Rate 91 85 85 Respiratory Rate 17 20 20 Blood Pressure 130/46 L 105/40 L 102/50 L Pulse Oximetry 98 96 96 Oxygen Delivery Simple Face Mask Room Air Nasal Cannula Oxygen Flow Rate 8 2 06/02/22 20:45 06/02/22 20:54 06/02/22 21:15 Temperature Pulse Rate 83 86 Respiratory Rate 20 20 Blood Pressure 96/39 L 105/45 L Pulse Oximetry 95 95 95 Oxygen Delivery Nasal Cannula Nasal Cannula Nasal Cannula Oxygen Flow Rate 2 2 2 06/02/22 21:05 06/02/22 21:05 06/02/22 21:35 Temperature 97.2 F L 97.2 F L 97.1 F L Pulse Rate 84 84 89 Respiratory Rate 18 18 20 Blood Pressure 100/39 L 100/39 L 101/40 L Pulse Oximetry 91 91 95 Oxygen Delivery Oxygen Flow Rate 06/02/22 22:35 06/02/22 23:35 06/03/22 00:00 Temperature 97 F L 98 F Pulse Rate 87 78 92 Respiratory Rate 20 20 Blood Pressure 101/40 L 1
--- NOTE | 2022-06-03 12:52 | PC.NURSE ---
Spoke with the patient's daughter, Surekha, on 06/03/22 at 1215 to verify that the patient is a full code.
--- NOTE | 2022-06-03 13:11 | WPDANESPN ---
Anes - Prog Note Post-Op Date/Time: 06/03/22 10:49 Cardiovascular status: normal Respiratory status: normal Airway patency: baseline Mental status: other (pt confused) Vital Signs: Last Vital Signs Temp 97.8 F 06/03/22 09:35 Pulse 93 06/03/22 09:35 Resp 18 06/03/22 09:35 BP 122/70 06/03/22 09:35 Pulse Ox 100 06/03/22 09:35 O2 Del Method Nasal Cannula 06/02/22 21:15 O2 Flow Rate 2 06/02/22 21:15 Pain Score (VAS): 3 I/O: Intake & Output 06/02/22 06/03/22 06/03/22 23:59 07:59 15:59 Intake Total 1650 1150 50 Output Total 60 200 Balance 1590 950 50 Laboratory Tests 06/03/22 06:31 06/03/22 02:06 06/02/22 06/02/22 06/02/22 14:35 14:35 17:21 WBC 27.8 H RBC 5.07 Hgb 14.9 Hct 46.8 MCV 92.3 MCH 29.4 MCHC 31.8 L RDW 14.3 Plt Count 326 MPV 10.3 Immature Gran % (Auto) Not Reportable Neut % (Auto) Not Reportable Lymph % (Auto) Not Reportable [place] % (Auto) Not Reportable Eos % (Auto) Not Reportable Baso % (Auto) Not Reportable Lymph # (Auto) Not Reportable [place] # (Auto) Not Reportable Eos # (Auto) Not Reportable Baso # (Auto) Not Reportable Abs Immat Gran (auto) Not Reportable Absolute Neuts (auto) Not Reportable Absolute Nucleated RBC Not Reportable Total Counted 100 Neutrophils % (Manual) 81 H Band Neutrophils % 9 H Lymphocytes % (Manual) 9.0 L Monocytes % (Manual) 1 L Nucleated RBC % Not Reportable Abs Neuts (Manual) 25.02 H Abs Lymphs (Manual) 2.50 Abs Monocytes (Manual) 0.27 Platelet Estimate Adequate Sodium 131 L Potassium 4.0 Chloride 94 L Carbon Dioxide 25 Anion Gap 12 BUN 21 H Creatinine 0.90 Estim Creat Clear Calc 39 Estimated GFR > 60 Glucose 362 H POC Capillary Glucose Hemoglobin A1c Lactic Acid Calcium 9.7 Magnesium Total Bilirubin 1.1 AST 27 ALT 21 Alkaline Phosphatase 120 C-Reactive Protein Total Protein 7.0 Albumin 4.2 Lipase 84 TSH (Reflex) Urine Color Yellow Urine Appearance Slightly cloudy Urine pH 6.0 Ur Specific [place] <= 1.005 Urine Protein 1+ H Urine Glucose (UA) Trace H Urine Ketones Trace Ur Blood (Man) 2+ H Urine Nitrate Positive H Urine Bilirubin 1+ H Urine Urobilinogen 1.0 Leukocyte Esterase Rfl 2+ H Urine RBC 21-50 H Urine WBC >75 H Ur Squamous Epith Cells Rare Urine Bacteria Trace Urine Mucus Rare SARS-CoV-2 RNA (RT-PCR) 06/02/22 06/02/22 06/02/22 17:21 18:33 19:15 WBC RBC Hgb Hct MCV MCH MCHC RDW Plt Count MPV Immature Gran % (Auto) Neut % (Auto) Lymph % (Auto) Tucker % (Auto) Eos % (Auto) Baso % (Auto) Lymph # (Auto) Tucker # (Auto) Eos # (Auto) Baso # (Auto) Abs Immat Gran (auto) Absolute Neuts (auto) Absolute Nucleated RBC Total Counted Neutrophils % (Manual) Band Neutrophils % Lymphocytes % (Manual) Monocytes % (Manual) Nucleated RBC % Abs Neuts (Manual) Abs Lymphs (Manual) Abs Monocytes (Manual) Platelet Estimate Sodium Potassium Chloride Carbon Dioxide Anion Gap BUN Creatinine Estim Creat Clear Calc Estimated GFR Glucose POC Capillary Glucose 375 H Hemoglobin A1c Lactic Acid 5.8 H* Calcium Magnesium Total Bilirubin AST ALT Alkaline Phosphatase C-Reactive Protein Total Protein Albumin Lipase TSH (Reflex) Urine Color Urine Appearance Urine pH Ur Specific [place] Urine Protein Urine Glucose (UA) Urine Ketones Ur Blood (Man) Urine Nitrate Urine Bilirubin Urine Urobilinogen Leukocyte Esterase Rfl Urine RBC Urine WBC Ur Squamous Epith Cells Urine Bacteria Urine Mucus SARS-CoV-2 RNA (RT-PCR) Negative 06/02/22 06/02/22
[2022-06-03 16:11] LABS: Glucose Point of Care 219 mg/dl (65-105)
[2022-06-03] MEDS: INSULIN GLARGINE (*BKC) 100 UNITS/ML 40 UNITS SUB-Q (21:06)
[2022-06-03 21:35] LABS: Glucose Point of Care 242 mg/dl (65-105)
[2022-06-04] VITALS (7 sets, daily range): BP systolic 132–148; BP diastolic 47–68; PULSE 68–92; RESP 18–20; TEMP 36.1–36.5; O2SAT 91–96
[2022-06-04 06:42] LABS: Hematocrit 34.8 % (37.0-47.0); Hemoglobin 11.4 g/dL (12.0-15.0); Mean Corpuscular HGB Conc 32.8 g/dl (32-36); Mean Corpuscular Hemoglobin 29.4 pg (26-34); Mean Corpuscular Volume 89.7 fl (80-100); Platelet Count Result 225 k/mm3 (150-375); Red Blood Count 3.88 M/mm3 (4.2-5.4); Red Cell Distribution Width 14.8 % (11.5-14.5); White Blood Count 24.8 K/mm3 (4.5-10.0)
[2022-06-04 07:02] LABS: Alanine Aminotransferase 19 U/L (6-35); Albumin Level 3.1 g/dL (3.5-5.1); Alkaline Phosphatase 92 U/L (38-126); Anion Gap 11 mmol/L (8-16); Aspartate Amino Transferase 33 U/L (14-36); Bilirubin,Total 0.5 mg/dL (0.2-1.3); Blood Urea Nitrogen 28 mg/dL (7-17); Calcium 7.9 mg/dL (8.4-10.2); Carbon Dioxide 23 mmol/L (22-30); Chloride 104 mmol/L (98-107); Estimated CRCL calculation 27 ml/min; Estimated Glomerular Filt Rate 34; Glucose 145 mg/dL (65-110); Potassium 3.2 mmol/L (3.4-5.0); Sodium 138 mmol/L (137-145)
[2022-06-04 07:47] LABS: Glucose Point of Care 131 mg/dl (65-105)
[2022-06-04 08:09] LABS: Band Neutrophils Percent 5 % (0-6); Dohle Bodies Present (NORMAL); Lymphocytes Absolute Manual 1.24 K/mm3 (1.1-4.5); Monocytes Absolute Manual 0.49 K/mm3 (0.1-0.90); Monocytes Percent Manual 2 % (3-9); Neutrophils Absolute Manual 23.06 K/mm3 (1.7-7.2); Neutrophils Percent Manual 88 % (46-73); Platelet Estimate Adequate (Adequate); Total Cells Counted 100
[2022-06-04] MEDS: ENOXAPARIN 40 MG/0.4 ML SYRINGE SUB-Q (09:02)
[2022-06-04] MEDS: predniSONE 10 MG TABLET PO (09:02)
[2022-06-04] MEDS: SODIUM CHLORIDE 0.9% IV 1,000 ML 65 ML IV CONT (09:02)
[2022-06-04 11:04] LABS: Glucose Point of Care 127 mg/dl (65-105)
--- NOTE | 2022-06-04 12:48 | P.PNIM_ITS ---
Progress Note: A&P Assessment and Plan (1) Septicemia: Code(s): A41.9 - Sepsis, unspecified organism Status: Acute Assessment and Plan: Patient septic, evident by leukocytosis, tachypnea, hypotension, and lactic acidosis. Source of infection felt to be due to urinary source * 1/2 blood cultures with Klebsiella pneumoniae * 1/2 blood culture with Gram-negative bacilli, additional identification pending * preliminary urine culture with growth of Gram-negative bacilli, additional identification pending * continue IV Zosyn, started on 06/03 * lactic acid improving, will repeat today * WBC remains markedly elevated, however slightly improved today at 24.8 * await culture results and tailor antibiotics accordingly (2) Urinary tract infection: Code(s): N39.0 - Urinary tract infection, site not specified Status: Acute Assessment and Plan: UA grossly abnormal. urine culture with preliminary growth of Gram-negative bacilli * see plan above * continue IV Zosyn (3) Obstructive uropathy: Code(s): N13.9 - Obstructive and reflux uropathy, unspecified Status: Acute Assessment and Plan: CT indicated a 6mm UPJ stone * s/p right ureteral stent placement on 06/02/2022 * urology following * will need outpatient follow-up upon resolution of acute infection for ureteroscopy with stone removal and stent exchange (4) CARMEN (acute kidney injury): Code(s): N17.9 - Acute kidney failure, unspecified Status: Acute Assessment and Plan: baseline creatinine appears to be 0.7-0.9 * creatinine elevated to 1.5 today * likely due to acute infection * continue newman catheter * continue IV fluids * obtain renal ultrasound * monitor renal function closely (5) Acute metabolic encephalopathy: Code(s): G93.41 - Metabolic encephalopathy Status: Acute Assessment and Plan: resolved. Patient A&O x4 today * Head CT shows old infarcts with no acute findings * [place] to be secondary to acute UTI (6) Type 2 diabetes mellitus with hyperglycemia: Code(s): E11.65 - Type 2 diabetes mellitus with hyperglycemia Status: Acute Assessment and Plan: A1c is 8.8. Blood sugars have been well controlled today. * continue Accu-Cheks, sliding scale insulin, hypoglycemic protocol * continue home Lantus 40 units daily * home Januvia is on hold * monitor glucose trends and adjust insulin regimen as needed (7) Hypertension: Code(s): I10 - Essential (primary) hypertension Status: Chronic Assessment and Plan: blood pressure reviewed and Had been slightly soft, appears to be improving today. Last BP 132/47 * p.o. antihypertensives on hold due to soft BP * continue to monitor BP trends. Resume antihypertensives when clinically appropriate Subjective Date/time seen: 06/04/22 12:48 Interval history: Date of service: 06/04/2022 Trudi Veliz is a 76-year-old female with a history of type 2 diabetes mellitus, hypertension, rheumatoid arthritis, CVA, GERD, chronic anemia who is seen in follow-up for septicemia secondary to UTI. She is feeling very fatigued today. She endorses suprapubic discomfort. Denies abdominal pain, fever, or chills. Denies shortness of breath or chest pain. Not able to provide any additional history. Review of Systems Review of Systems: All systems reviewed & are unremarkable except as noted in HPI and below Exam
--- NOTE | 2022-06-04 12:48 | PM.IMPN ---
Progress Note: A&P Assessment and Plan (1) Septicemia: Code(s): A41.9 - Sepsis, unspecified organism Status: Acute Assessment and Plan: Patient septic, evident by leukocytosis, tachypnea, hypotension, and lactic acidosis. Source of infection felt to be due to urinary source 1/2 blood cultures with Klebsiella pneumoniae 1/2 blood culture with Gram-negative bacilli, additional identification pending preliminary urine culture with growth of Gram-negative bacilli, additional identification pending continue IV Zosyn, started on 06/03 lactic acid improving, will repeat today WBC remains markedly elevated, however slightly improved today at 24.8 await culture results and tailor antibiotics accordingly (2) Urinary tract infection: Code(s): N39.0 - Urinary tract infection, site not specified Status: Acute Assessment and Plan: UA grossly abnormal. urine culture with preliminary growth of Gram-negative bacilli see plan above continue IV Zosyn (3) Obstructive uropathy: Code(s): N13.9 - Obstructive and reflux uropathy, unspecified Status: Acute Assessment and Plan: CT indicated a 6mm UPJ stone s/p right ureteral stent placement on 06/02/2022 urology following will need outpatient follow-up upon resolution of acute infection for ureteroscopy with stone removal and stent exchange (4) CARMEN (acute kidney injury): Code(s): N17.9 - Acute kidney failure, unspecified Status: Acute Assessment and Plan: baseline creatinine appears to be 0.7-0.9 creatinine elevated to 1.5 today likely due to acute infection continue newman catheter continue IV fluids obtain renal ultrasound monitor renal function closely (5) Acute metabolic encephalopathy: Code(s): G93.41 - Metabolic encephalopathy Status: Acute Assessment and Plan: resolved. Patient A&O x4 today Head CT shows old infarcts with no acute findings [place] to be secondary to acute UTI (6) Type 2 diabetes mellitus with hyperglycemia: Code(s): E11.65 - Type 2 diabetes mellitus with hyperglycemia Status: Acute Assessment and Plan: A1c is 8.8. Blood sugars have been well controlled today. continue Accu-Cheks, sliding scale insulin, hypoglycemic protocol continue home Lantus 40 units daily home Januvia is on hold monitor glucose trends and adjust insulin regimen as needed (7) Hypertension: Code(s): I10 - Essential (primary) hypertension Status: Chronic Assessment and Plan: blood pressure reviewed and Had been slightly soft, appears to be improving today. Last BP 132/47 p.o. antihypertensives on hold due to soft BP continue to monitor BP trends. Resume antihypertensives when clinically appropriate Subjective Date/time seen: 06/04/22 12:48 Interval history: Date of service: 06/04/2022 Trudi Veliz is a 76-year-old female with a history of type 2 diabetes mellitus, hypertension, rheumatoid arthritis, CVA, GERD, chronic anemia who is seen in follow-up for septicemia secondary to UTI. She is feeling very fatigued today. She endorses suprapubic discomfort. Denies abdominal pain, fever, or chills. Denies shortness of breath or chest pain. Not able to provide any additional history. Review of Systems Review of Systems: All systems reviewed & are unremarkable except as noted in HPI and below Exam Narrative: General: Well-nourished, ill-appearing 76-year-old female, supine in bed, comfortable, NARD Neuro: awake but appears fatigued, alert and oriented x4, speech clear, no focal neuro deficits noted HEENMT: normocephalic, atraumatic, EOMI, sclerae anicteric Respiratory: clear to auscultation bilaterally, nonlabored breathing Cardio: regular rate, regular rhythm with S1-S2 Abdomen: nondistended, normoactive bowel sounds, soft, slightly tender to palpation right quadrant Extremities: n
[2022-06-04] MEDS: POTASSIUM CHLORIDE 20 MEQ TABLET PO (14:53)
[2022-06-04 16:05] LABS: Glucose Point of Care 145 mg/dl (65-105)
--- NOTE | 2022-06-04 16:23 | WPDUROPN2 ---
Progress Note: A&P Assessment and Plan (1) Septicemia: Code(s): A41.9 - Sepsis, unspecified organism Status: Acute Assessment and Plan: Improving with Zosyn, continue IV antibiotics, WBC is trending down, ok to discharge home when stable with culture sensitive antibiotics. (2) CARMEN (acute kidney injury): Code(s): N17.9 - Acute kidney failure, unspecified Status: Acute Assessment and Plan: Improving with stent placement. (3) Obstructive uropathy: Code(s): N13.9 - Obstructive and reflux uropathy, unspecified Status: Acute Assessment and Plan: Patient will need a Ureteroscopy with stent exchange and right ureteral stone removal when infection resolves in a few weeks. Ok to remove newman for a voiding trial when patient is ambulatory. She will follow up in our office in 1-2 weeks for a repeat urine culture and surgical planning visit. No further evaluation needed at this time. Subjective Subjective Date/Time Seen: 06/04/22 16:23 Patient is much more alert today and sitting up in bed. She denies flank pain and urine is clear in her newman catheter. Her urine culture is positive for Klebsiella and sensitive to Zosyn. Post Op day: 2 Review of Systems Constitutional: Constitutional: Reports fatigue and Reports malaise Cardiovascular: Cardiovascular: Denies chest pain Respiratory: Respiratory: Reports no additional respiratory complaints Gastrointestinal: Gastrointestinal: Denies abdominal pain, Denies nausea and Denies vomiting Genitourinary: Genitourinary: Denies hematuria Exam Const: General: cooperative and comfortable Resp: Effort & Inspection: normal respiratory effort Cardio: Rate: regular rate GI: GI Palp: Yes Soft to palpation and No Tenderness to palpation present (GI) : General: Yes no CVA tenderness Urinary Catheter: Urinary Catheter: patent and draining and urine clear Extrem: Right lower extremity: no edema Left lower extremity: no edema Objective Data Vital Signs Vital Signs: Vital Signs - 24 hr 06/03/22 17:35 06/03/22 20:49 06/03/22 20:49 Temperature 97 F L Pulse Rate 80 89 Respiratory Rate 16 Blood Pressure 120/48 L Pulse Oximetry 97 97 Oxygen Delivery Nasal Cannula Oxygen Flow Rate 2 06/03/22 21:35 06/04/22 00:00 06/04/22 04:00 Temperature 98.7 F Pulse Rate 87 91 75 Respiratory Rate 20 Blood Pressure 137/51 L Pulse Oximetry 90 Oxygen Delivery Oxygen Flow Rate 06/04/22 05:29 06/04/22 04:00 06/04/22 08:00 Temperature 97.7 F Pulse Rate 81 81 Respiratory Rate 18 Blood Pressure 132/47 L Pulse Oximetry 96 Oxygen Delivery Room Air Oxygen Flow Rate 06/04/22 08:00 06/04/22 12:00 Temperature Pulse Rate 81 81 Respiratory Rate 18 Blood Pressure Pulse Oximetry 96 Oxygen Delivery Room Air Oxygen Flow Rate Intake/Output Intake/Output: Intake & Output 06/01/22 06/02/22 06/03/22 06/04/22 23:59 23:59 23:59 23:59 Intake Total 1650 3520 1510 Output Total 60 650 350 Balance 1590 2870 1160 Meds/Results Medications: Active Medications Generic Name Dose Route Start Last Admin Trade Name Freq PRN Reason Stop Dose Admin Albuterol 2 puff 06/02/22 23:38 Albuterol Sulfate (*Sp) Aerosol 1 Puff INHALATION QIDRT PRN Shortness Of Breath Dextrose 12.5 gm 06/02/22 23:36 Dextrose 50% 25 Gm/50 Ml Syringe IV PUSH PRN PRN Hypoglycemia Protocol Enoxaparin Sodium 40 mg 06/03/22 09:00 06/04/22 09:02 Enoxaparin 40 Mg/0.4 Ml Syringe SUB-Q 40 mg DAILY LINH Administration Glucagon 1 mg 06/02/22 23:36 Glucagon For Inj 1 Mg Vial IM PRN PRN Hypoglycemia Protocol Glucose 15 gm 06/02/22 23:36 Glucose Oral Gel 15 Gm Of Glucse In 37.5 Gm Tube PO PRN PRN Hypoglycemia Protocol Dextrose 1,000 mls @ 100 mls/hr 06/02/22 23:36 Dextrose 5% 1,000 Ml IVPB PRN PRN Hypoglyce
[2022-06-04 17:03] LABS: Lactic Acid Reflex 0.7 mmol/L (0.7-2.0)
[2022-06-04] MEDS: ONDANSETRON INJ 4 MG/2 ML VIAL IV PUSH (19:32)
[2022-06-04] MEDS: INSULIN GLARGINE (*BKC) 100 UNITS/ML 40 UNITS SUB-Q (20:22)
[2022-06-04 20:37] LABS: Glucose Point of Care 128 mg/dl (65-105)
[2022-06-05] VITALS (9 sets, daily range): BP systolic 104–190; BP diastolic 49–90; PULSE 55–83; RESP 16–20; TEMP 36.2–36.8; O2SAT 90–98
[2022-06-05] MEDS: SODIUM CHLORIDE 0.9% IV 1,000 ML 65 ML IV CONT (00:28)
[2022-06-05] MEDS: ONDANSETRON INJ 4 MG/2 ML VIAL IV PUSH ×3 (02:34→17:39)
[2022-06-05 06:34] LABS: Hematocrit 37.8 % (37.0-47.0); Hemoglobin 12.3 g/dL (12.0-15.0); Mean Corpuscular HGB Conc 32.5 g/dl (32-36); Mean Corpuscular Volume 89.2 fl (80-100); Mean Platelet Volume 11.1 fl (7.4-10.4); Platelet Count Result 203 k/mm3 (150-375); Red Blood Count 4.24 M/mm3 (4.2-5.4); Red Cell Distribution Width 14.6 % (11.5-14.5); White Blood Count 27.6 K/mm3 (4.5-10.0)
[2022-06-05] MEDS: DEXTROSE 50% 25 GM/50 ML SYRINGE IV PUSH (06:43)
[2022-06-05 06:44] LABS: Anion Gap 11 mmol/L (8-16); Blood Urea Nitrogen 24 mg/dL (7-17); Calcium 8.3 mg/dL (8.4-10.2); Carbon Dioxide 24 mmol/L (22-30); Chloride 104 mmol/L (98-107); Estimated CRCL calculation 32 ml/min; Estimated Glomerular Filt Rate 40; Glucose 54 mg/dL (65-110); Potassium 2.9 mmol/L (3.4-5.0); Sodium 139 mmol/L (137-145)
[2022-06-05 07:10] LABS: Glucose Point of Care 49 mg/dl (65-105)
[2022-06-05 07:10] LABS: Glucose Point of Care 116 mg/dl (65-105)
[2022-06-05] MEDS: SODIUM CHLORIDE 0.9% IV 1,000 ML 80 ML IV CONT ×2 (09:31→20:40)
[2022-06-05] MEDS: ERTAPENEM 1 GM/NS 50 ML 1 GM/50 ML BAG IVPB (09:32)
[2022-06-05] MEDS: ENOXAPARIN 40 MG/0.4 ML SYRINGE SUB-Q (09:33)
[2022-06-05] MEDS: predniSONE 10 MG TABLET PO (09:34)
[2022-06-05] MEDS: POTASSIUM CHLORIDE INJ 40 MEQ in SODIUM CHLORIDE 0.9% IV 500 ML 130 MEQ IVPB (09:34)
[2022-06-05] MEDS: POTASSIUM CHLORIDE 20 MEQ TABLET PO (09:36)
--- NOTE | 2022-06-05 10:44 | P.PNIM_ITS ---
Progress Note: A&P Assessment and Plan (1) Septicemia: Code(s): A41.9 - Sepsis, unspecified organism Status: Acute Assessment and Plan: Patient septic, evident by leukocytosis, tachypnea, hypotension, and lactic acidosis. Source of infection felt to be due to urinary source * 2/2 blood cultures with Klebsiella pneumoniae ESBL * preliminary urine culture also demonstrates ESBL Klebsiella * Stop IV Zosyn (started 06/03) * Begin IV Ertapenem 1 g q24h based on susceptibility reports * lactic acid normalized * WBC remains markedly elevated * patient afebrile, tachypnea resolved (2) Urinary tract infection: Code(s): N39.0 - Urinary tract infection, site not specified Status: Acute Assessment and Plan: UA grossly abnormal. urine culture with >100k Klebsiella ESBL * see plan above * continue IV Ertapenem (3) Obstructive uropathy: Code(s): N13.9 - Obstructive and reflux uropathy, unspecified Status: Acute Assessment and Plan: CT indicated a 6mm UPJ stone * s/p right ureteral stent placement on 06/02/2022 * urology following * will need outpatient follow-up upon resolution of acute infection for ureteroscopy with stone removal and stent exchange (4) CARMEN (acute kidney injury): Code(s): N17.9 - Acute kidney failure, unspecified Status: Acute Assessment and Plan: baseline creatinine appears to be 0.7-0.9 * creatinine elevated to 1.3 today * likely due to acute infection * continue newman catheter * continue IV fluids * renal ultrasound showed normal kidneys, no hydronephrosis. * monitor renal function closely (5) Acute metabolic encephalopathy: Code(s): G93.41 - Metabolic encephalopathy Status: Acute Assessment and Plan: resolved. Patient A&O x4 today * Head CT shows old infarcts with no acute findings * [place] to be secondary to acute UTI (6) Type 2 diabetes mellitus with hyperglycemia: Code(s): E11.65 - Type 2 diabetes mellitus with hyperglycemia Status: Acute Assessment and Plan: A1c is 8.8. Blood sugars have been well controlled. Pt with episode of hypoglycemia this AM at 54 * continue Accu-Cheks, sliding scale insulin (decrease to low dose), hypoglycemic protocol * decrease Lantus to 30 units qHS * home Januvia is on hold * hypoglycemia likely related to poor PO intake. Consider holding lantus if PO intake remains decreased * monitor glucose trends and adjust insulin regimen as needed (7) Hypertension: Code(s): I10 - Essential (primary) hypertension Status: Chronic Assessment and Plan: blood pressure reviewed and has been slightly soft but remaining stable. Last BP 104/49 * p.o. antihypertensives on hold due to soft BP * continue to monitor BP trends. Resume antihypertensives when clinically appropriate * consider stress dosing steroids if necessary based on BP trends. Subjective Date/time seen: 06/05/22 10:44 Interval history: Date of service: 06/05/2022 Trudi Veliz is a 76-year-old female with a history of type 2 diabetes mellitus, hypertension, rheumatoid arthritis, CVA, GERD, chronic anemia who is seen in follow-up for septicemia secondary to UTI. she endorses nausea but no episodes of emesis. Denies fevers, chills, sweats. Endorses very poor appetite. Upon my entrance to the room, she was holding liquid in her mouth and would not speak at first because her mouth was full of liquid. After being instructed to swallow an
--- NOTE | 2022-06-05 10:44 | PM.IMPN ---
Progress Note: A&P Assessment and Plan (1) Septicemia: Code(s): A41.9 - Sepsis, unspecified organism Status: Acute Assessment and Plan: Patient septic, evident by leukocytosis, tachypnea, hypotension, and lactic acidosis. Source of infection felt to be due to urinary source 2/2 blood cultures with Klebsiella pneumoniae ESBL preliminary urine culture also demonstrates ESBL Klebsiella Stop IV Zosyn (started 06/03) Begin IV Ertapenem 1 g q24h based on susceptibility reports lactic acid normalized WBC remains markedly elevated patient afebrile, tachypnea resolved (2) Urinary tract infection: Code(s): N39.0 - Urinary tract infection, site not specified Status: Acute Assessment and Plan: UA grossly abnormal. urine culture with >100k Klebsiella ESBL see plan above continue IV Ertapenem (3) Obstructive uropathy: Code(s): N13.9 - Obstructive and reflux uropathy, unspecified Status: Acute Assessment and Plan: CT indicated a 6mm UPJ stone s/p right ureteral stent placement on 06/02/2022 urology following will need outpatient follow-up upon resolution of acute infection for ureteroscopy with stone removal and stent exchange (4) CARMEN (acute kidney injury): Code(s): N17.9 - Acute kidney failure, unspecified Status: Acute Assessment and Plan: baseline creatinine appears to be 0.7-0.9 creatinine elevated to 1.3 today likely due to acute infection continue newman catheter continue IV fluids renal ultrasound showed normal kidneys, no hydronephrosis. monitor renal function closely (5) Acute metabolic encephalopathy: Code(s): G93.41 - Metabolic encephalopathy Status: Acute Assessment and Plan: resolved. Patient A&O x4 today Head CT shows old infarcts with no acute findings [place] to be secondary to acute UTI (6) Type 2 diabetes mellitus with hyperglycemia: Code(s): E11.65 - Type 2 diabetes mellitus with hyperglycemia Status: Acute Assessment and Plan: A1c is 8.8. Blood sugars have been well controlled. Pt with episode of hypoglycemia this AM at 54 continue Accu-Cheks, sliding scale insulin (decrease to low dose), hypoglycemic protocol decrease Lantus to 30 units qHS home Januvia is on hold hypoglycemia likely related to poor PO intake. Consider holding lantus if PO intake remains decreased monitor glucose trends and adjust insulin regimen as needed (7) Hypertension: Code(s): I10 - Essential (primary) hypertension Status: Chronic Assessment and Plan: blood pressure reviewed and has been slightly soft but remaining stable. Last BP 104/49 p.o. antihypertensives on hold due to soft BP continue to monitor BP trends. Resume antihypertensives when clinically appropriate consider stress dosing steroids if necessary based on BP trends. Subjective Date/time seen: 06/05/22 10:44 Interval history: Date of service: 06/05/2022 Trudi Veliz is a 76-year-old female with a history of type 2 diabetes mellitus, hypertension, rheumatoid arthritis, CVA, GERD, chronic anemia who is seen in follow-up for septicemia secondary to UTI. she endorses nausea but no episodes of emesis. Denies fevers, chills, sweats. Endorses very poor appetite. Upon my entrance to the room, she was holding liquid in her mouth and would not speak at first because her mouth was full of liquid. After being instructed to swallow and offered water, she was able to get it down. She states that she was simply holding it in her mouth and denies any dysphagia. denies odynophagia. states this is something she has always done. she is agreeable however to a swallow study. She denies shortness breath, cough, chest pain. No abdominal pain, flank pain, suprapubic pain. She feels fatigued and overall feels poorly. Review of Systems Review of Systems: All systems reviewed &
--- NOTE | 2022-06-05 12:23 | PCSTNOTE ---
Speech therapist attempted to see patient for swallowing evaluation, patient is nauseated and has emesis bag. She states she would prefer not to have a swallowing evaluation at this time. Will be seen tomorrow.
[2022-06-05 12:49] LABS: Glucose Point of Care 97 mg/dl (65-105)
[2022-06-05 16:39] LABS: Glucose Point of Care 122 mg/dl (65-105)
--- NOTE | 2022-06-05 17:00 | PC.NURSE ---
Tube feeding initiated per orders. Pt tolerating well.
[2022-06-05 20:31] LABS: Glucose Point of Care 142 mg/dl (65-105)
[2022-06-05] MEDS: cloNIDine HCL 0.2 MG TABLET PO (22:48)
[2022-06-06 06:00] VITALS: BP 168/57; PULSE 64; RESP 18; TEMP 36.8; O2SAT 94
[2022-06-06 07:49] LABS: Basophils Percent Auto 0.2 % (0.2-1.2); Eosinophils Percent Auto 0.2 % (0-4.4); Hematocrit 35.7 % (37.0-47.0); Hemoglobin 11.5 g/dL (12.0-15.0); Immature Granulocyte Absolute 0.15 K/mm3 (0.00-0.031); Immature Granulocyte Percent A 0.9 % (0-0.5); Lymphocytes Absolute Auto 1.29 K/mm3 (0.9-3.2); Lymphocytes Percent Auto 7.6 % (18.3-44.2); Mean Corpuscular HGB Conc 32.2 g/dl (32-36); Mean Corpuscular Hemoglobin 29.2 pg (26-34); Mean Corpuscular Volume 90.6 fl (80-100); Mean Platelet Volume 10.8 fl (7.4-10.4); Monocytes Absolute Auto 1.2 K/mm3 (0.1-0.6); Neutrophils Absolute Auto 14.3 K/mm3 (1.3-6.7); Neutrophils Percent Auto 84.1 % (45.5-73.1); Platelet Count Result 203 k/mm3 (150-375); Red Blood Count 3.94 M/mm3 (4.2-5.4); Red Cell Distribution Width 14.6 % (11.5-14.5); White Blood Count 17.1 K/mm3 (4.5-10.0)
[2022-06-06 07:56] LABS: Glucose Point of Care 60 mg/dl (65-105)
[2022-06-06 08:17] LABS: Alanine Aminotransferase 17 U/L (6-35); Alkaline Phosphatase 85 U/L (38-126); Anion Gap 10 mmol/L (8-16); Aspartate Amino Transferase 27 U/L (14-36); Bilirubin,Total 0.6 mg/dL (0.2-1.3); Blood Urea Nitrogen 20 mg/dL (7-17); Calcium 8.1 mg/dL (8.4-10.2); Carbon Dioxide 22 mmol/L (22-30); Chloride 105 mmol/L (98-107); Estimated CRCL calculation 40 ml/min; Estimated Glomerular Filt Rate 54; Glucose 53 mg/dL (65-110); Potassium 3.5 mmol/L (3.4-5.0); Sodium 137 mmol/L (137-145)
[2022-06-06 08:18] LABS: Glucose Point of Care 81 mg/dl (65-105)
[2022-06-06] MEDS: ENOXAPARIN 40 MG/0.4 ML SYRINGE SUB-Q (09:03)
[2022-06-06] MEDS: cloNIDine HCL 0.2 MG TABLET PO ×2 (09:03→21:22)
[2022-06-06] MEDS: SODIUM CHLORIDE 0.9% IV 1,000 ML 80 ML IV CONT (09:03)
[2022-06-06] MEDS: ONDANSETRON INJ 4 MG/2 ML VIAL IV PUSH (09:03)
[2022-06-06] MEDS: ERTAPENEM 1 GM/NS 50 ML 1 GM/50 ML BAG IVPB (09:03)
[2022-06-06] MEDS: predniSONE 10 MG TABLET PO (09:12)
[2022-06-06 09:34] VITALS: O2SAT 94
[2022-06-06] MEDS: DOCUSATE SODIUM 100 MG CAPSULE PO (10:41)
[2022-06-06 11:22] LABS: Glucose Point of Care 119 mg/dl (65-105)
--- NOTE | 2022-06-06 13:29 | PCSTNOTE ---
Please refer to the Bedside Swallow Evaluation in the EMR. Please note, silent aspiration cannot be ruled out at bedside.
--- NOTE | 2022-06-06 14:17 | P.PNIM_ITS ---
Progress Note: A&P Assessment and Plan (1) Septicemia: Code(s): A41.9 - Sepsis, unspecified organism Status: Acute Assessment and Plan: Patient septic, evident by leukocytosis, tachypnea, hypotension, and lactic acidosis. Source of infection is UTI * 2/2 blood cultures with Klebsiella pneumoniae ESBL * urine culture also demonstrates ESBL Klebsiella * continue IV Ertapenem 1 g q24h based on susceptibility reports. started on 06/05 * will need 7-10 days of IV antibiotic therapy. Care coordination following to arrange for outpatient infusions * lactic acid normalized * WBC with marked improvement following 1 dose of ertapenem. Continue to trend * patient afebrile, tachypnea resolved (2) Urinary tract infection: Code(s): N39.0 - Urinary tract infection, site not specified Status: Acute Assessment and Plan: UA grossly abnormal. urine culture with >100k Klebsiella ESBL * see plan above * continue IV Ertapenem (3) Obstructive uropathy: Code(s): N13.9 - Obstructive and reflux uropathy, unspecified Status: Acute Assessment and Plan: CT indicated a 6mm UPJ stone * s/p right ureteral stent placement on 06/02/2022 * urology following * will need outpatient follow-up upon resolution of acute infection for ureteroscopy with stone removal and stent exchange (4) CARMEN (acute kidney injury): Code(s): N17.9 - Acute kidney failure, unspecified Status: Acute Assessment and Plan: baseline creatinine appears to be 0.7-0.9. creatinine increased up to 1.3 * likely due to acute infection * renal function improved, appears closer to baseline at this time * renal ultrasound showed normal kidneys, no hydronephrosis. * will discontinue IV fluids at this time as patient is tolerating p.o. intake * remove Mcknight catheter and plan for voiding trial today * monitor renal function closely (5) Acute metabolic encephalopathy: Code(s): G93.41 - Metabolic encephalopathy Status: Resolved Assessment and Plan: resolved. 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 Blood sugars have been well controlled. Pt with 2nd episode of a.m. hypoglycemia * continue Accu-Cheks, sliding scale insulin (decrease to low dose), hypoglycemic protocol * home Dulce is on hold * hypoglycemia likely related to poor PO intake. * hold Lantus tonight and re-evaluate fasting glucose * monitor glucose trends and adjust insulin regimen as needed (7) Hypertension: Code(s): I10 - Essential (primary) hypertension Status: Chronic Assessment and Plan: blood pressure reviewed and had been running on low end but now increasing. Last BP 168/57 * resume p.o. amlodipine. Will hold clonidine and HCTZ at this time to avoid hypotension. Hold lisinopril and monitor renal function. * monitor BP trends Subjective Date/time seen: 06/06/22 14:17 Interval history: Date of service: 06/06/2022 Trudi Veliz is a 76-year-old female with a history of type 2 diabetes mellitus, hypertension, rheumatoid arthritis, CVA, GERD, chronic anemia who is seen in follow-up for septicemia secondary to UTI. She is feeling better today. Nausea and vomiting has resolved. She is tolerating her diet. She reports
--- NOTE | 2022-06-06 14:17 | PM.IMPN ---
Progress Note: A&P Assessment and Plan (1) Septicemia: Code(s): A41.9 - Sepsis, unspecified organism Status: Acute Assessment and Plan: Patient septic, evident by leukocytosis, tachypnea, hypotension, and lactic acidosis. Source of infection is UTI 2/2 blood cultures with Klebsiella pneumoniae ESBL urine culture also demonstrates ESBL Klebsiella continue IV Ertapenem 1 g q24h based on susceptibility reports. started on 06/05 will need 7-10 days of IV antibiotic therapy. Care coordination following to arrange for outpatient infusions lactic acid normalized WBC with marked improvement following 1 dose of ertapenem. Continue to trend patient afebrile, tachypnea resolved (2) Urinary tract infection: Code(s): N39.0 - Urinary tract infection, site not specified Status: Acute Assessment and Plan: UA grossly abnormal. urine culture with >100k Klebsiella ESBL see plan above continue IV Ertapenem (3) Obstructive uropathy: Code(s): N13.9 - Obstructive and reflux uropathy, unspecified Status: Acute Assessment and Plan: CT indicated a 6mm UPJ stone s/p right ureteral stent placement on 06/02/2022 urology following will need outpatient follow-up upon resolution of acute infection for ureteroscopy with stone removal and stent exchange (4) CARMEN (acute kidney injury): Code(s): N17.9 - Acute kidney failure, unspecified Status: Acute Assessment and Plan: baseline creatinine appears to be 0.7-0.9. creatinine increased up to 1.3 likely due to acute infection renal function improved, appears closer to baseline at this time renal ultrasound showed normal kidneys, no hydronephrosis. will discontinue IV fluids at this time as patient is tolerating p.o. intake remove Mcknight catheter and plan for voiding trial today monitor renal function closely (5) Acute metabolic encephalopathy: Code(s): G93.41 - Metabolic encephalopathy Status: Resolved Assessment and Plan: resolved. Patient A&O x4 today Head CT shows old infarcts with no acute findings [place] to be secondary to acute UTI (6) Type 2 diabetes mellitus with hyperglycemia: Code(s): E11.65 - Type 2 diabetes mellitus with hyperglycemia Status: Acute Assessment and Plan: A1c is 8.8. Blood sugars have been well controlled. Pt with 2nd episode of a.m. hypoglycemia continue Accu-Cheks, sliding scale insulin (decrease to low dose), hypoglycemic protocol home Dulce is on hold hypoglycemia likely related to poor PO intake. hold Lantus tonight and re-evaluate fasting glucose monitor glucose trends and adjust insulin regimen as needed (7) Hypertension: Code(s): I10 - Essential (primary) hypertension Status: Chronic Assessment and Plan: blood pressure reviewed and had been running on low end but now increasing. Last BP 168/57 resume p.o. amlodipine. Will hold clonidine and HCTZ at this time to avoid hypotension. Hold lisinopril and monitor renal function. monitor BP trends Subjective Date/time seen: 06/06/22 14:17 Interval history: Date of service: 06/06/2022 Trudi Veliz is a 76-year-old female with a history of type 2 diabetes mellitus, hypertension, rheumatoid arthritis, CVA, GERD, chronic anemia who is seen in follow-up for septicemia secondary to UTI. She is feeling better today. Nausea and vomiting has resolved. She is tolerating her diet. She reports 2 episodes of diarrhea today. No issues with her Mcknight catheter. She does endorse some mild right flank pain. No abdominal pain. Denies fever or chills. No shortness breath, cough, chest pain. No dysphagia. Review of Systems Review of Systems: All systems reviewed & are unremarkable except as noted in HPI and below Exam Narrative: General: Well-nourished, well-appearing 76-year-old female, sitting up in bed, comfortable,
[2022-06-06 14:37] VITALS: BP 159/58; PULSE 65; RESP 16; TEMP 36.2; O2SAT 98
[2022-06-06 16:11] LABS: Glucose Point of Care 203 mg/dl (65-105)
[2022-06-06] MEDS: INSULIN ASPART (*BKC) 100 UNITS/ML SUB-Q (16:22)
[2022-06-06 22:23] LABS: Glucose Point of Care 237 mg/dl (65-105)
[2022-06-06 22:37] VITALS: BP 175/51; PULSE 66; RESP 18; TEMP 36.7; O2SAT 92
[2022-06-07] MEDS: ACETAMINOPHEN 325 MG TABLET 650 MG PO (05:36)
[2022-06-07 06:53] LABS: Basophils Absolute Auto 0.1 K/mm3 (0.0-0.1); Basophils Percent Auto 0.5 % (0.2-1.2); Eosinophils Absolute Auto 0.1 K/mm3 (0-0.3); Eosinophils Percent Auto 0.4 % (0-4.4); Hematocrit 32.8 % (37.0-47.0); Hemoglobin 10.7 g/dL (12.0-15.0); Immature Granulocyte Absolute 0.17 K/mm3 (0.00-0.031); Immature Granulocyte Percent A 1.2 % (0-0.5); Lymphocytes Absolute Auto 1.52 K/mm3 (0.9-3.2); Lymphocytes Percent Auto 10.6 % (18.3-44.2); Mean Corpuscular HGB Conc 32.6 g/dl (32-36); Mean Corpuscular Hemoglobin 29.4 pg (26-34); Mean Corpuscular Volume 90.1 fl (80-100); Mean Platelet Volume 10.8 fl (7.4-10.4); Monocytes Absolute Auto 1.4 K/mm3 (0.1-0.6); Monocytes Percent Auto 9.8 % (2.6-8.5); Neutrophils Absolute Auto 11.2 K/mm3 (1.3-6.7); Neutrophils Percent Auto 77.5 % (45.5-73.1); Platelet Count Result 217 k/mm3 (150-375); Red Blood Count 3.64 M/mm3 (4.2-5.4); Red Cell Distribution Width 14.4 % (11.5-14.5); White Blood Count 14.4 K/mm3 (4.5-10.0)
[2022-06-07 07:04] LABS: Anion Gap 7 mmol/L (8-16); Blood Urea Nitrogen 21 mg/dL (7-17); Calcium 7.9 mg/dL (8.4-10.2); Carbon Dioxide 23 mmol/L (22-30); Chloride 103 mmol/L (98-107); Estimated CRCL calculation 42 ml/min; Estimated Glomerular Filt Rate 54; Glucose 105 mg/dL (65-110); Potassium 3.2 mmol/L (3.4-5.0); Sodium 133 mmol/L (137-145)
[2022-06-07 07:27] LABS: Glucose Point of Care 83 mg/dl (65-105)
[2022-06-07] MEDS: amLODIPine BESYLATE 5 MG TABLET 10 MG PO (08:36)
[2022-06-07] MEDS: POTASSIUM CHLORIDE 20 MEQ TABLET PO (08:36)
[2022-06-07] MEDS: ENOXAPARIN 40 MG/0.4 ML SYRINGE SUB-Q (08:36)
[2022-06-07] MEDS: cloNIDine HCL 0.2 MG TABLET PO ×2 (08:36→20:48)
[2022-06-07] MEDS: predniSONE 10 MG TABLET PO (08:36)
[2022-06-07] MEDS: ERTAPENEM 1 GM/NS 50 ML 1 GM/50 ML BAG IVPB (08:37)
[2022-06-07 11:10] LABS: Glucose Point of Care 135 mg/dl (65-105)
[2022-06-07 14:13] VITALS: BP 140/51; PULSE 68; RESP 18; TEMP 35.8; O2SAT 94
--- NOTE | 2022-06-07 14:54 | P.PNIM_ITS ---
Progress Note: A&P Assessment and Plan (1) Septicemia: Code(s): A41.9 - Sepsis, unspecified organism Status: Acute Assessment and Plan: Patient septic, evident by leukocytosis, tachypnea, hypotension, and lactic acidosis. Source of infection is UTI * 2/2 blood cultures with Klebsiella pneumoniae ESBL * urine culture also demonstrates ESBL Klebsiella * continue IV Ertapenem 1 g q24h based on susceptibility reports. started on 06/05. * will need 7-10 days of IV antibiotic therapy. Care coordination following to arrange for outpatient infusions. Spoke with PCP office today via phone who agrees to follow outpatient abx. * stop date for ertapenem will be 06/12 * WBC with marked improvement following transition to ertapenem. Continue to trend * patient afebrile, tachypnea resolved, lactic acid normalized (2) Urinary tract infection: Code(s): N39.0 - Urinary tract infection, site not specified Status: Acute Assessment and Plan: UA grossly abnormal. Urine culture with >100k Klebsiella ESBL * see plan above * continue IV Ertapenem (3) Obstructive uropathy: Code(s): N13.9 - Obstructive and reflux uropathy, unspecified Status: Acute Assessment and Plan: CT indicated a 6mm UPJ stone * s/p right ureteral stent placement on 06/02/2022 * urology following * will need outpatient follow-up upon resolution of acute infection for ureteroscopy with stone removal and stent exchange (4) CARMEN (acute kidney injury): Code(s): N17.9 - Acute kidney failure, unspecified Status: Acute Assessment and Plan: Resolved. baseline creatinine appears to be 0.7-0.9. creatinine increased up to 1.3 * likely due to acute infection * renal ultrasound showed normal kidneys, no hydronephrosis. * creatinine 1.0 today, back to baseline * monitor renal function closely (5) Type 2 diabetes mellitus with hyperglycemia: Code(s): E11.65 - Type 2 diabetes mellitus with hyperglycemia Status: Acute Assessment and Plan: A1c is 8.8. two episodes of AM hypoglycemia during admission. Otherwise, blood sugars well controlled. * continue Accu-Cheks, sliding scale insulin (low dose), hypoglycemic protocol * home Januvia and glipizide on hold * hypoglycemia likely related to poor PO intake. * Lantus held 9/16 and fasting glucosethis am is 105. Continue to hold Lantus. * monitor glucose trends and adjust insulin regimen as needed (6) Hypertension: Code(s): I10 - Essential (primary) hypertension Status: Chronic Assessment and Plan: blood pressure reviewed and is stable. * Continue PO antihypertensives. Resume lisinopril. Will hold clonidine and HCTZ at this time to avoid hypotension. * monitor BP trends (7) Acute metabolic encephalopathy: Code(s): G93.41 - Metabolic encephalopathy Status: Resolved Assessment and Plan: resolved. Patient A&O x4 today * Head CT shows old infarcts with no acute findings * [place] to be secondary to acute UTI Subjective Date/time seen: 06/07/22 14:54 Interval history: Date of service: 06/07/2022 Trudi Veliz is a 76-year-old female with a history of type 2 diabetes mellitus, hypertension, rheumatoid arthritis, CVA, GERD, chronic anemia who is seen in follow-up for septicemia secondary to UTI. she feels much better today. Her F oley was removed and she has been able to void independently. She denies dysuria, hematuria, urgency, or frequency. She denies suprapubic p
--- NOTE | 2022-06-07 14:54 | PM.IMPN ---
Progress Note: A&P Assessment and Plan (1) Septicemia: Code(s): A41.9 - Sepsis, unspecified organism Status: Acute Assessment and Plan: Patient septic, evident by leukocytosis, tachypnea, hypotension, and lactic acidosis. Source of infection is UTI 2/2 blood cultures with Klebsiella pneumoniae ESBL urine culture also demonstrates ESBL Klebsiella continue IV Ertapenem 1 g q24h based on susceptibility reports. started on 06/05. will need 7-10 days of IV antibiotic therapy. Care coordination following to arrange for outpatient infusions. Spoke with PCP office today via phone who agrees to follow outpatient abx. stop date for ertapenem will be 06/12 WBC with marked improvement following transition to ertapenem. Continue to trend patient afebrile, tachypnea resolved, lactic acid normalized (2) Urinary tract infection: Code(s): N39.0 - Urinary tract infection, site not specified Status: Acute Assessment and Plan: UA grossly abnormal. Urine culture with >100k Klebsiella ESBL see plan above continue IV Ertapenem (3) Obstructive uropathy: Code(s): N13.9 - Obstructive and reflux uropathy, unspecified Status: Acute Assessment and Plan: CT indicated a 6mm UPJ stone s/p right ureteral stent placement on 06/02/2022 urology following will need outpatient follow-up upon resolution of acute infection for ureteroscopy with stone removal and stent exchange (4) CARMEN (acute kidney injury): Code(s): N17.9 - Acute kidney failure, unspecified Status: Acute Assessment and Plan: Resolved. baseline creatinine appears to be 0.7-0.9. creatinine increased up to 1.3 likely due to acute infection renal ultrasound showed normal kidneys, no hydronephrosis. creatinine 1.0 today, back to baseline monitor renal function closely (5) Type 2 diabetes mellitus with hyperglycemia: Code(s): E11.65 - Type 2 diabetes mellitus with hyperglycemia Status: Acute Assessment and Plan: A1c is 8.8. two episodes of AM hypoglycemia during admission. Otherwise, blood sugars well controlled. continue Accu-Cheks, sliding scale insulin (low dose), hypoglycemic protocol home Januvia and glipizide on hold hypoglycemia likely related to poor PO intake. Lantus held 06/06 and fasting glucosethis am is 105. Continue to hold Lantus. monitor glucose trends and adjust insulin regimen as needed (6) Hypertension: Code(s): I10 - Essential (primary) hypertension Status: Chronic Assessment and Plan: blood pressure reviewed and is stable. Continue PO antihypertensives. Resume lisinopril. Will hold clonidine and HCTZ at this time to avoid hypotension. monitor BP trends (7) Acute metabolic encephalopathy: Code(s): G93.41 - Metabolic encephalopathy Status: Resolved Assessment and Plan: resolved. Patient A&O x4 today Head CT shows old infarcts with no acute findings [place] to be secondary to acute UTI Subjective Date/time seen: 06/07/22 14:54 Interval history: Date of service: 06/07/2022 Trudi Veliz is a 76-year-old female with a history of type 2 diabetes mellitus, hypertension, rheumatoid arthritis, CVA, GERD, chronic anemia who is seen in follow-up for septicemia secondary to UTI. she feels much better today. Her Mcknight was removed and she has been able to void independently. She denies dysuria, hematuria, urgency, or frequency. She denies suprapubic pain, flank pain, back pain. She endorsed diarrhea yesterday but states she has not had any bowel movements today. She denies fevers or chills. No shortness breath, cough, chest pain, nausea, vomiting, dizziness, lightheadedness. She has no additional concerns at this time. Her daughter is present at the bedside today. Review of Systems Review of Systems: All systems reviewed & are unremarkable except as noted in HPI and below
[2022-06-07 16:15] LABS: Glucose Point of Care 289 mg/dl (65-105)
[2022-06-07] MEDS: INSULIN ASPART (*BKC) 100 UNITS/ML SUB-Q (16:57)
[2022-06-08 06:37] LABS: Hemoglobin 10.8 g/dL (12.0-15.0); Mean Corpuscular HGB Conc 32.7 g/dl (32-36); Mean Corpuscular Hemoglobin 28.9 pg (26-34); Mean Corpuscular Volume 88.2 fl (80-100); Mean Platelet Volume 10.5 fl (7.4-10.4); Platelet Count Result 300 k/mm3 (150-375); Red Blood Count 3.74 M/mm3 (4.2-5.4); Red Cell Distribution Width 14.2 % (11.5-14.5); White Blood Count 13.8 K/mm3 (4.5-10.0)
[2022-06-08 06:45] LABS: Anion Gap 6 mmol/L (8-16); Blood Urea Nitrogen 20 mg/dL (7-17); Calcium 8.2 mg/dL (8.4-10.2); Carbon Dioxide 24 mmol/L (22-30); Chloride 101 mmol/L (98-107); Estimated CRCL calculation 46 ml/min; Estimated Glomerular Filt Rate > 60; Glucose 186 mg/dL (65-110); Potassium 3.6 mmol/L (3.4-5.0); Sodium 131 mmol/L (137-145)
[2022-06-08 07:31] LABS: Glucose Point of Care 185 mg/dl (65-105)
[2022-06-08] MEDS: ERTAPENEM 1 GM/NS 50 ML 1 GM/50 ML BAG IVPB (09:06)
[2022-06-08] MEDS: amLODIPine BESYLATE 5 MG TABLET 10 MG PO (09:08)
[2022-06-08] MEDS: ENOXAPARIN 40 MG/0.4 ML SYRINGE SUB-Q (09:08)
[2022-06-08] MEDS: predniSONE 10 MG TABLET PO (09:08)
[2022-06-08] MEDS: lisinopriL 20 MG TABLET PO (09:08)
[2022-06-08] MEDS: cloNIDine HCL 0.2 MG TABLET PO ×2 (09:08→19:47)
--- NOTE | 2022-06-08 10:27 | P.PNIM_ITS ---
Progress Note: A&P Assessment and Plan (1) Septicemia: Code(s): A41.9 - Sepsis, unspecified organism Status: Acute Assessment and Plan: Patient septic, evident by leukocytosis, tachypnea, hypotension, and lactic acidosis. Source of infection is UTI * 2/2 blood cultures with Klebsiella pneumoniae ESBL * urine culture also demonstrates ESBL Klebsiella * continue IV Ertapenem 1 g q24h based on susceptibility reports. started on 06/05. * will need 7-10 days of IV antibiotic therapy. Care coordination following to arrange for outpatient infusions. Spoke with PCP office 06/07 via phone who agrees to follow outpatient abx. * stop date for ertapenem will be 06/12 * WBC with marked improvement following transition to ertapenem. Continue to trend * patient afebrile, tachypnea resolved, lactic acid normalized (2) Urinary tract infection: Code(s): N39.0 - Urinary tract infection, site not specified Status: Acute Assessment and Plan: UA grossly abnormal. Urine culture with >100k Klebsiella ESBL * see plan above * continue IV Ertapenem (3) Obstructive uropathy: Code(s): N13.9 - Obstructive and reflux uropathy, unspecified Status: Acute Assessment and Plan: CT indicated a 6mm UPJ stone * s/p right ureteral stent placement on 06/02/2022 * urology following * will need outpatient follow-up upon resolution of acute infection for ureteroscopy with stone removal and stent exchange (4) CARMEN (acute kidney injury): Code(s): N17.9 - Acute kidney failure, unspecified Status: Acute Assessment and Plan: Resolved. baseline creatinine appears to be 0.7-0.9. creatinine increased up to 1.3 * likely due to acute infection * renal ultrasound showed normal kidneys, no hydronephrosis. * creatinine 0.9 today, back to baseline * monitor renal function closely (5) Type 2 diabetes mellitus with hyperglycemia: Code(s): E11.65 - Type 2 diabetes mellitus with hyperglycemia Status: Acute Assessment and Plan: A1c is 8.8. two episodes of AM hypoglycemia during admission. Otherwise, blood sugars well controlled. * continue Accu-Cheks, sliding scale insulin (low dose), hypoglycemic protocol * home Januvia and glipizide on hold * hypoglycemia likely related to poor PO intake. * Lantus on hold. Fasting glucose this AM 185. * monitor glucose trends and adjust insulin regimen as needed (6) Hypertension: Code(s): I10 - Essential (primary) hypertension Status: Chronic Assessment and Plan: blood pressure reviewed and is stable. BP soft earlier in admission secondary to sepsis * Continue amlodipine and lisinopril. Will hold clonidine and HCTZ at this time to avoid hypotension. * monitor BP trends (7) Acute metabolic encephalopathy: Code(s): G93.41 - Metabolic encephalopathy Status: Resolved Assessment and Plan: resolved. * Head CT shows old infarcts with no acute findings * [place] to be secondary to acute UTI Subjective Date/time seen: 06/08/22 10:27 Interval history: Date of service: 06/08/2022 Trudi Veliz is a 76-year-old female with a history of type 2 diabetes mellitus, hypertension, rheumatoid arthritis, CVA, GERD, chronic anemia who is seen in follow-up for septicemia secondary to UTI. she is feeling well today. She is sitting up in a chair and is happy to be out of bed. She denies urinary symptoms. No abdominal pain or flank pain. Denies nausea or vomiting. No s
--- NOTE | 2022-06-08 10:27 | PM.IMPN ---
Progress Note: A&P Assessment and Plan (1) Septicemia: Code(s): A41.9 - Sepsis, unspecified organism Status: Acute Assessment and Plan: Patient septic, evident by leukocytosis, tachypnea, hypotension, and lactic acidosis. Source of infection is UTI 2/2 blood cultures with Klebsiella pneumoniae ESBL urine culture also demonstrates ESBL Klebsiella continue IV Ertapenem 1 g q24h based on susceptibility reports. started on 06/05. will need 7-10 days of IV antibiotic therapy. Care coordination following to arrange for outpatient infusions. Spoke with PCP office 06/07 via phone who agrees to follow outpatient abx. stop date for ertapenem will be 06/12 WBC with marked improvement following transition to ertapenem. Continue to trend patient afebrile, tachypnea resolved, lactic acid normalized (2) Urinary tract infection: Code(s): N39.0 - Urinary tract infection, site not specified Status: Acute Assessment and Plan: UA grossly abnormal. Urine culture with >100k Klebsiella ESBL see plan above continue IV Ertapenem (3) Obstructive uropathy: Code(s): N13.9 - Obstructive and reflux uropathy, unspecified Status: Acute Assessment and Plan: CT indicated a 6mm UPJ stone s/p right ureteral stent placement on 06/02/2022 urology following will need outpatient follow-up upon resolution of acute infection for ureteroscopy with stone removal and stent exchange (4) CARMEN (acute kidney injury): Code(s): N17.9 - Acute kidney failure, unspecified Status: Acute Assessment and Plan: Resolved. baseline creatinine appears to be 0.7-0.9. creatinine increased up to 1.3 likely due to acute infection renal ultrasound showed normal kidneys, no hydronephrosis. creatinine 0.9 today, back to baseline monitor renal function closely (5) Type 2 diabetes mellitus with hyperglycemia: Code(s): E11.65 - Type 2 diabetes mellitus with hyperglycemia Status: Acute Assessment and Plan: A1c is 8.8. two episodes of AM hypoglycemia during admission. Otherwise, blood sugars well controlled. continue Accu-Cheks, sliding scale insulin (low dose), hypoglycemic protocol home Januvia and glipizide on hold hypoglycemia likely related to poor PO intake. Lantus on hold. Fasting glucose this AM 185. monitor glucose trends and adjust insulin regimen as needed (6) Hypertension: Code(s): I10 - Essential (primary) hypertension Status: Chronic Assessment and Plan: blood pressure reviewed and is stable. BP soft earlier in admission secondary to sepsis Continue amlodipine and lisinopril. Will hold clonidine and HCTZ at this time to avoid hypotension. monitor BP trends (7) Acute metabolic encephalopathy: Code(s): G93.41 - Metabolic encephalopathy Status: Resolved Assessment and Plan: resolved. 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 she is feeling well today. She is sitting up in a chair and is happy to be out of bed. She denies urinary symptoms. No abdominal pain or flank pain. Denies nausea or vomiting. No shortness of breath or chest pain. She is eager for discharge home. Exam Narrative: General: Well-nourished, well-appearing 76-year-old female, sitting up in a chair, comfortable, NARD Neuro: awake, alert and oriented x4, speech clear, no focal neuro deficits noted HEENMT: normocephalic, atraumatic, EOMI, sclerae anicteric Respiratory: clear to auscultation bilaterally, nonlabored breathing Cardio: regular rate, regular rhythm with S1-S2
[2022-06-08 11:14] LABS: Glucose Point of Care 260 mg/dl (65-105)
[2022-06-08] MEDS: INSULIN ASPART (*BKC) 100 UNITS/ML SUB-Q ×2 (12:10→16:39)
[2022-06-08 14:00] VITALS: BP 129/44; PULSE 63; RESP 18; TEMP 36.3; O2SAT 96
[2022-06-08 16:21] LABS: Glucose Point of Care 339 mg/dl (65-105)
[2022-06-08 21:57] LABS: Glucose Point of Care 350 mg/dl (65-105)
[2022-06-08 22:07] VITALS: BP 148/42; PULSE 58; RESP 16; TEMP 36.6; O2SAT 94
[2022-06-09] MEDS: ACETAMINOPHEN 325 MG TABLET 650 MG PO ×2 (04:14→09:07)
[2022-06-09 07:26] LABS: Hematocrit 31.2 % (37.0-47.0); Hemoglobin 10.1 g/dL (12.0-15.0); Mean Corpuscular HGB Conc 32.4 g/dl (32-36); Mean Corpuscular Hemoglobin 28.7 pg (26-34); Mean Corpuscular Volume 88.6 fl (80-100); Mean Platelet Volume 10.3 fl (7.4-10.4); Platelet Count Result 389 k/mm3 (150-375); Red Blood Count 3.52 M/mm3 (4.2-5.4); Red Cell Distribution Width 14.1 % (11.5-14.5); White Blood Count 14.6 K/mm3 (4.5-10.0)
[2022-06-09 07:35] LABS: Glucose Point of Care 236 mg/dl (65-105)
[2022-06-09 08:30] LABS: Anion Gap 8 mmol/L (8-16); Blood Urea Nitrogen 16 mg/dL (7-17); Calcium 8.5 mg/dL (8.4-10.2); Carbon Dioxide 25 mmol/L (22-30); Chloride 99 mmol/L (98-107); Estimated CRCL calculation 46 ml/min; Estimated Glomerular Filt Rate > 60; Glucose 246 mg/dL (65-110); Potassium 3.7 mmol/L (3.4-5.0); Sodium 132 mmol/L (137-145)
[2022-06-09] MEDS: INSULIN ASPART (*BKC) 100 UNITS/ML SUB-Q ×3 (09:05→17:17)
[2022-06-09] MEDS: lisinopriL 20 MG TABLET PO (09:06)
[2022-06-09] MEDS: ENOXAPARIN 40 MG/0.4 ML SYRINGE SUB-Q (09:06)
[2022-06-09] MEDS: predniSONE 10 MG TABLET PO (09:06)
[2022-06-09] MEDS: ERTAPENEM 1 GM/NS 50 ML 1 GM/50 ML BAG IVPB (09:06)
[2022-06-09] MEDS: amLODIPine BESYLATE 5 MG TABLET 10 MG PO (09:06)
[2022-06-09] MEDS: cloNIDine HCL 0.2 MG TABLET PO ×2 (09:06→20:41)
[2022-06-09] MEDS: LIDOCAINE HCL 1% LOCAL INJ 2 ML AMPUL 5 ML INFILTRATE (10:40)
[2022-06-09 11:20] LABS: Glucose Point of Care 248 mg/dl (65-105)
[2022-06-09] MEDS: SALINE LOCK FLUSH 10 ML IV PUSH ×3 (12:42→21:18)
--- NOTE | 2022-06-09 13:05 | P.PNIM_ITS ---
Progress Note: A&P Assessment and Plan (1) Septicemia: Code(s): A41.9 - Sepsis, unspecified organism Status: Acute Assessment and Plan: Patient septic, evident by leukocytosis, tachypnea, hypotension, and lactic acidosis. Source of infection is UTI * 2/2 blood cultures with Klebsiella pneumoniae ESBL * urine culture also demonstrates ESBL Klebsiella * continue IV Ertapenem 1 g q24h based on susceptibility reports. started on 06/05. * will need 7-10 days of IV antibiotic therapy. Care coordination following to arrange for outpatient infusions. Spoke with PCP office 06/07 via phone who agrees to follow outpatient abx. * stop date for ertapenem will be 06/12 * patient afebrile, tachypnea resolved, lactic acid normalized * slight increase in WBC today, however overall markedly improved. Continue to monitor CBC (2) Urinary tract infection: Code(s): N39.0 - Urinary tract infection, site not specified Status: Acute Assessment and Plan: UA grossly abnormal. Urine culture with >100k Klebsiella ESBL * see plan above * continue IV Ertapenem (3) Obstructive uropathy: Code(s): N13.9 - Obstructive and reflux uropathy, unspecified Status: Acute Assessment and Plan: CT indicated a 6mm UPJ stone * s/p right ureteral stent placement on 06/02/2022 * urology following * will need outpatient follow-up upon resolution of acute infection for ureteroscopy with stone removal and stent exchange (4) CARMEN (acute kidney injury): Code(s): N17.9 - Acute kidney failure, unspecified Status: Acute Assessment and Plan: Resolved. baseline creatinine appears to be 0.7-0.9. creatinine increased up to 1.3 * likely due to acute infection * renal ultrasound showed normal kidneys, no hydronephrosis. * creatinine 0.9 today, back to baseline * monitor renal function closely (5) Type 2 diabetes mellitus with hyperglycemia: Code(s): E11.65 - Type 2 diabetes mellitus with hyperglycemia Status: Acute Assessment and Plan: A1c is 8.8. two episodes of AM hypoglycemia during admission. Otherwise, blood sugars well controlled. * continue Accu-Cheks, sliding scale insulin (low dose), hypoglycemic protocol * home Januvia and glipizide on hold * hypoglycemia likely related to poor PO intake. * Lantus on hold. Fasting glucose this AM 248. will resume Lantus at reduced dose as p.o. intake has increased. * monitor glucose trends and adjust insulin regimen as needed (6) Hypertension: Code(s): I10 - Essential (primary) hypertension Status: Chronic Assessment and Plan: blood pressure reviewed and is stable. BP soft earlier in admission secondary to sepsis * Continue amlodipine and lisinopril. Will hold clonidine and HCTZ at this time to avoid hypotension. * monitor BP trends (7) Acute metabolic encephalopathy: Code(s): G93.41 - Metabolic encephalopathy Status: Resolved Assessment and Plan: resolved. 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 She feels okay today. States she trouble sleeping last night.
--- NOTE | 2022-06-09 13:05 | PM.IMPN ---
Progress Note: A&P Assessment and Plan (1) Septicemia: Code(s): A41.9 - Sepsis, unspecified organism Status: Acute Assessment and Plan: Patient septic, evident by leukocytosis, tachypnea, hypotension, and lactic acidosis. Source of infection is UTI 2/2 blood cultures with Klebsiella pneumoniae ESBL urine culture also demonstrates ESBL Klebsiella continue IV Ertapenem 1 g q24h based on susceptibility reports. started on 06/05. will need 7-10 days of IV antibiotic therapy. Care coordination following to arrange for outpatient infusions. Spoke with PCP office 06/07 via phone who agrees to follow outpatient abx. stop date for ertapenem will be 06/12 patient afebrile, tachypnea resolved, lactic acid normalized slight increase in WBC today, however overall markedly improved. Continue to monitor CBC (2) Urinary tract infection: Code(s): N39.0 - Urinary tract infection, site not specified Status: Acute Assessment and Plan: UA grossly abnormal. Urine culture with >100k Klebsiella ESBL see plan above continue IV Ertapenem (3) Obstructive uropathy: Code(s): N13.9 - Obstructive and reflux uropathy, unspecified Status: Acute Assessment and Plan: CT indicated a 6mm UPJ stone s/p right ureteral stent placement on 06/02/2022 urology following will need outpatient follow-up upon resolution of acute infection for ureteroscopy with stone removal and stent exchange (4) CARMEN (acute kidney injury): Code(s): N17.9 - Acute kidney failure, unspecified Status: Acute Assessment and Plan: Resolved. baseline creatinine appears to be 0.7-0.9. creatinine increased up to 1.3 likely due to acute infection renal ultrasound showed normal kidneys, no hydronephrosis. creatinine 0.9 today, back to baseline monitor renal function closely (5) Type 2 diabetes mellitus with hyperglycemia: Code(s): E11.65 - Type 2 diabetes mellitus with hyperglycemia Status: Acute Assessment and Plan: A1c is 8.8. two episodes of AM hypoglycemia during admission. Otherwise, blood sugars well controlled. continue Accu-Cheks, sliding scale insulin (low dose), hypoglycemic protocol home Januvia and glipizide on hold hypoglycemia likely related to poor PO intake. Lantus on hold. Fasting glucose this AM 248. will resume Lantus at reduced dose as p.o. intake has increased. monitor glucose trends and adjust insulin regimen as needed (6) Hypertension: Code(s): I10 - Essential (primary) hypertension Status: Chronic Assessment and Plan: blood pressure reviewed and is stable. BP soft earlier in admission secondary to sepsis Continue amlodipine and lisinopril. Will hold clonidine and HCTZ at this time to avoid hypotension. monitor BP trends (7) Acute metabolic encephalopathy: Code(s): G93.41 - Metabolic encephalopathy Status: Resolved Assessment and Plan: resolved. 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 She feels okay today. States she trouble sleeping last night. She woke up with mild benign was not able to fall back asleep, she is a little bit tired today. She denies dysuria, hematuria, urgency, frequency, suprapubic pain, flank pain, back pain. No fevers or chills. No abdominal pain. No nausea or vomiting. No chest pain. Review of Systems Review of Systems: All systems reviewed & are unremarkable except as noted in HPI and below Exam Narrative: General: Well-nourished, well-appearing 76-year-old
--- NOTE | 2022-06-09 13:15 | PCNWS ---
Weekly nutritional screen. Patient is tolerating current diet with adequate intake. No weight loss reported. No nutritional needs at this time.
[2022-06-09 14:00] VITALS: BP 144/59; PULSE 58; RESP 17; TEMP 35.7; O2SAT 99
[2022-06-09 16:18] LABS: Glucose Point of Care 320 mg/dl (65-105)
[2022-06-09 20:00] VITALS: PULSE 66; RESP 14; O2SAT 95
[2022-06-09] MEDS: INSULIN GLARGINE (*BKC) 100 UNITS/ML 20 UNITS SUB-Q (20:42)
[2022-06-09 20:51] LABS: Glucose Point of Care 414 mg/dl (65-105)
[2022-06-09 20:51] LABS: Glucose Point of Care > 500 mg/dl (65-105)
[2022-06-09] MEDS: INSULIN ASPART (*BKC) 100 UNITS/ML 8 UNITS SUB-Q (21:17)
[2022-06-09 21:54] VITALS: BP 157/51; PULSE 66; RESP 14; TEMP 36.3; O2SAT 95
[2022-06-10 01:02] LABS: Glucose Point of Care 189 mg/dl (65-105)
[2022-06-10 04:06] LABS: Basophils Percent Auto 0.3 % (0.2-1.2); Eosinophils Absolute Auto 0.1 K/mm3 (0-0.3); Eosinophils Percent Auto 0.4 % (0-4.4); Hemoglobin 10.5 g/dL (12.0-15.0); Immature Granulocyte Absolute 0.16 K/mm3 (0.00-0.031); Lymphocytes Absolute Auto 2.29 K/mm3 (0.9-3.2); Lymphocytes Percent Auto 14.5 % (18.3-44.2); Mean Corpuscular HGB Conc 32.8 g/dl (32-36); Mean Corpuscular Hemoglobin 29.2 pg (26-34); Mean Corpuscular Volume 88.9 fl (80-100); Mean Platelet Volume 9.7 fl (7.4-10.4); Monocytes Absolute Auto 0.9 K/mm3 (0.1-0.6); Monocytes Percent Auto 5.4 % (2.6-8.5); Neutrophils Absolute Auto 12.4 K/mm3 (1.3-6.7); Neutrophils Percent Auto 78.4 % (45.5-73.1); Platelet Count Result 506 k/mm3 (150-375); Red Cell Distribution Width 14.1 % (11.5-14.5); White Blood Count 15.8 K/mm3 (4.5-10.0)
[2022-06-10 04:16] LABS: Anion Gap 5 mmol/L (8-16); Blood Urea Nitrogen 16 mg/dL (7-17); Calcium 8.4 mg/dL (8.4-10.2); Carbon Dioxide 29 mmol/L (22-30); Chloride 100 mmol/L (98-107); Estimated CRCL calculation 46 ml/min; Estimated Glomerular Filt Rate > 60; Glucose 79 mg/dL (65-110); Potassium 3.5 mmol/L (3.4-5.0); Sodium 134 mmol/L (137-145)
[2022-06-10] MEDS: traMADol HCL (*CRX) 50 MG TABLET PO (04:26)
[2022-06-10 07:55] LABS: Glucose Point of Care 63 mg/dl (65-105)
[2022-06-10] MEDS: ERTAPENEM 1 GM/NS 50 ML 1 GM/50 ML BAG IVPB (08:28)
[2022-06-10] MEDS: predniSONE 10 MG TABLET PO (08:29)
[2022-06-10] MEDS: amLODIPine BESYLATE 5 MG TABLET 10 MG PO (08:29)
[2022-06-10] MEDS: cloNIDine HCL 0.2 MG TABLET PO ×2 (08:29→20:33)
[2022-06-10] MEDS: ENOXAPARIN 40 MG/0.4 ML SYRINGE SUB-Q (08:29)
[2022-06-10] MEDS: lisinopriL 20 MG TABLET PO (08:29)
--- NOTE | 2022-06-10 09:22 | PCOTNOTE ---
patient unavailable, in x-ray. Will continue OT plan of care.
[2022-06-10 11:42] LABS: Glucose Point of Care 133 mg/dl (65-105)
[2022-06-10 13:43] VITALS: BP 128/40; PULSE 52; RESP 15; TEMP 36.1; O2SAT 93
[2022-06-10] MEDS: SALINE LOCK FLUSH 10 ML IV PUSH ×2 (14:15→22:00)
--- NOTE | 2022-06-10 15:22 | P.PNIM_ITS ---
Progress Note: A&P Assessment and Plan (1) Septicemia: Code(s): A41.9 - Sepsis, unspecified organism Status: Acute Assessment and Plan: Patient septic, evident by leukocytosis, tachypnea, hypotension, and lactic acidosis. Source of infection is UTI * 2/2 blood cultures with Klebsiella pneumoniae ESBL * urine culture also demonstrates ESBL Klebsiella * continue IV Ertapenem 1 g q24h based on susceptibility reports. started on 06/05. * will need 7-10 days of IV antibiotic therapy. Care coordination following to arrange for outpatient infusions. Spoke with PCP office 06/07 via phone who agrees to follow outpatient abx. * stop date for ertapenem will be 06/12 * patient afebrile, tachypnea resolved, lactic acid normalized * WBC trending up again, 15.8 today. Patient feels worse today and endorses sweats. Will repeat urine culture and blood culture. recheck CBC with differential tomorrow. Given onset of right back/flank discomfort, renal abscess is considered. Consider repeat CT of the abdomen/pelvis if worsening leukocytosis or worsening clinical condition. CXR reviewed, suggests atelectasis versus pneumonia. Patient without clinical signs/symptoms of pneumonia, however HAP is a possibility. Would need to consider escalation of antibiotics to imipenem if worsening. * Appreciate ID PharmD assistance. (2) Urinary tract infection: Code(s): N39.0 - Urinary tract infection, site not specified Status: Acute Assessment and Plan: UA grossly abnormal. Urine culture with >100k Klebsiella ESBL * see plan above * continue IV Ertapenem (3) Obstructive uropathy: Code(s): N13.9 - Obstructive and reflux uropathy, unspecified Status: Acute Assessment and Plan: CT indicated a 6mm UPJ stone * s/p right ureteral stent placement on 06/02/2022 * urology following * will need outpatient follow-up upon resolution of acute infection for ureteroscopy with stone removal and stent exchange (4) CARMEN (acute kidney injury): Code(s): N17.9 - Acute kidney failure, unspecified Status: Acute Assessment and Plan: Resolved. renal function is back to baseline * likely due to acute infection * renal ultrasound showed normal kidneys, no hydronephrosis. * monitor renal function closely (5) Type 2 diabetes mellitus with hyperglycemia: Code(s): E11.65 - Type 2 diabetes mellitus with hyperglycemia Status: Acute Assessment and Plan: A1c is 8.8. two episodes of AM hypoglycemia during admission. Hyperglycemic last night with glucose >500 (likely due to holding insulin given hypoglycemia). Most recent blood sugar 133. * continue Accu-Cheks, sliding scale insulin (low dose), hypoglycemic protocol * home Januvia and glipizide on hold * continue Lantus at reduced dose * monitor glucose trends and adjust insulin regimen as needed (6) Hypertension: Code(s): I10 - Essential (primary) hypertension Status: Chronic Assessment and Plan: blood pressure reviewed and is stable. BP soft earlier in admission secondary to sepsis * Continue amlodipine,, lisinopril, clonidine. HCTZ on hold * monitor BP trends (7) Acute metabolic encephalopathy: Code(s): G93.41 - Metabolic encephalopathy Status: Resolved Assessment and Plan: resolved. 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
--- NOTE | 2022-06-10 15:22 | PM.IMPN ---
Progress Note: A&P Assessment and Plan (1) Septicemia: Code(s): A41.9 - Sepsis, unspecified organism Status: Acute Assessment and Plan: Patient septic, evident by leukocytosis, tachypnea, hypotension, and lactic acidosis. Source of infection is UTI 2/2 blood cultures with Klebsiella pneumoniae ESBL urine culture also demonstrates ESBL Klebsiella continue IV Ertapenem 1 g q24h based on susceptibility reports. started on 06/05. will need 7-10 days of IV antibiotic therapy. Care coordination following to arrange for outpatient infusions. Spoke with PCP office 06/07 via phone who agrees to follow outpatient abx. stop date for ertapenem will be 06/12 patient afebrile, tachypnea resolved, lactic acid normalized WBC trending up again, 15.8 today. Patient feels worse today and endorses sweats. Will repeat urine culture and blood culture. recheck CBC with differential tomorrow. Given onset of right back/flank discomfort, renal abscess is considered. Consider repeat CT of the abdomen/pelvis if worsening leukocytosis or worsening clinical condition. CXR reviewed, suggests atelectasis versus pneumonia. Patient without clinical signs/symptoms of pneumonia, however HAP is a possibility. Would need to consider escalation of antibiotics to imipenem if worsening. Appreciate ID PharmD assistance. (2) Urinary tract infection: Code(s): N39.0 - Urinary tract infection, site not specified Status: Acute Assessment and Plan: UA grossly abnormal. Urine culture with >100k Klebsiella ESBL see plan above continue IV Ertapenem (3) Obstructive uropathy: Code(s): N13.9 - Obstructive and reflux uropathy, unspecified Status: Acute Assessment and Plan: CT indicated a 6mm UPJ stone s/p right ureteral stent placement on 06/02/2022 urology following will need outpatient follow-up upon resolution of acute infection for ureteroscopy with stone removal and stent exchange (4) CARMEN (acute kidney injury): Code(s): N17.9 - Acute kidney failure, unspecified Status: Acute Assessment and Plan: Resolved. renal function is back to baseline likely due to acute infection renal ultrasound showed normal kidneys, no hydronephrosis. monitor renal function closely (5) Type 2 diabetes mellitus with hyperglycemia: Code(s): E11.65 - Type 2 diabetes mellitus with hyperglycemia Status: Acute Assessment and Plan: A1c is 8.8. two episodes of AM hypoglycemia during admission. Hyperglycemic last night with glucose >500 (likely due to holding insulin given hypoglycemia). Most recent blood sugar 133. continue Accu-Cheks, sliding scale insulin (low dose), hypoglycemic protocol home Januvia and glipizide on hold continue Lantus at reduced dose monitor glucose trends and adjust insulin regimen as needed (6) Hypertension: Code(s): I10 - Essential (primary) hypertension Status: Chronic Assessment and Plan: blood pressure reviewed and is stable. BP soft earlier in admission secondary to sepsis Continue amlodipine,, lisinopril, clonidine. HCTZ on hold monitor BP trends (7) Acute metabolic encephalopathy: Code(s): G93.41 - Metabolic encephalopathy Status: Resolved Assessment and Plan: resolved. Head CT shows old infarcts with no acute findings [place] to be secondary to acute UTI (8) Rheumatoid arthritis: Code(s): M06.9 - Rheumatoid arthritis, unspecified Status: Chronic Assessment and Plan: Maintained on low dose prednisone 10 mg daily Continue prednisone Pt may have elevated baseline WBC due to chronic steroid use. Subjective Date/time seen: 06/10/22 15:22 Interval history: Date of service: 06/10/2022 Trudi Veliz is a 76-year-old female with a history of type 2 diabetes mellitus, hypertension, rheumatoid arthritis, CVA, GERD, chronic anemia who is se
[2022-06-10 17:03] LABS: Glucose Point of Care 279 mg/dl (65-105)
[2022-06-10] MEDS: INSULIN ASPART (*BKC) 100 UNITS/ML SUB-Q (17:14)
[2022-06-10 20:07] LABS: Glucose Point of Care 330 mg/dl (65-105)
[2022-06-10] MEDS: INSULIN GLARGINE (*BKC) 100 UNITS/ML 20 UNITS SUB-Q (20:34)
[2022-06-10 21:57] VITALS: BP 138/46; PULSE 50; RESP 17; TEMP 36.9; O2SAT 96
[2022-06-10 23:02] LABS: Glucose Point of Care 280 mg/dl (65-105)
[2022-06-11 05:44] VITALS: BP 155/53; PULSE 58; RESP 18; TEMP 37.8; O2SAT 93
[2022-06-11] MEDS: ACETAMINOPHEN 325 MG TABLET 650 MG PO ×2 (06:14→21:41)
[2022-06-11] MEDS: SALINE LOCK FLUSH 10 ML IV PUSH ×3 (06:15→21:41)
[2022-06-11 07:05] LABS: Basophils Percent Auto 0.2 % (0.2-1.2); Eosinophils Absolute Auto 0.1 K/mm3 (0-0.3); Eosinophils Percent Auto 0.4 % (0-4.4); Hematocrit 30.4 % (37.0-47.0); Hemoglobin 9.9 g/dL (12.0-15.0); Immature Granulocyte Absolute 0.13 K/mm3 (0.00-0.031); Immature Granulocyte Percent A 0.8 % (0-0.5); Lymphocytes Absolute Auto 1.77 K/mm3 (0.9-3.2); Lymphocytes Percent Auto 10.6 % (18.3-44.2); Mean Corpuscular HGB Conc 32.6 g/dl (32-36); Mean Corpuscular Volume 89.1 fl (80-100); Mean Platelet Volume 9.5 fl (7.4-10.4); Monocytes Absolute Auto 0.8 K/mm3 (0.1-0.6); Neutrophils Absolute Auto 13.9 K/mm3 (1.3-6.7); Platelet Count Result 555 k/mm3 (150-375); Red Blood Count 3.41 M/mm3 (4.2-5.4); Red Cell Distribution Width 14.2 % (11.5-14.5); White Blood Count 16.7 K/mm3 (4.5-10.0)
[2022-06-11 07:15] LABS: Anion Gap 4 mmol/L (8-16); Blood Urea Nitrogen 14 mg/dL (7-17); Calcium 8.1 mg/dL (8.4-10.2); Carbon Dioxide 29 mmol/L (22-30); Chloride 100 mmol/L (98-107); Estimated CRCL calculation 45 ml/min; Estimated Glomerular Filt Rate > 60; Glucose 108 mg/dL (65-110); Potassium 3.2 mmol/L (3.4-5.0); Sodium 133 mmol/L (137-145)
[2022-06-11 07:32] LABS: Glucose Point of Care 98 mg/dl (65-105)
[2022-06-11] MEDS: predniSONE 10 MG TABLET PO (09:10)
[2022-06-11] MEDS: ENOXAPARIN 40 MG/0.4 ML SYRINGE SUB-Q (09:10)
[2022-06-11] MEDS: lisinopriL 20 MG TABLET PO (09:10)
[2022-06-11] MEDS: amLODIPine BESYLATE 5 MG TABLET 10 MG PO (09:10)
[2022-06-11] MEDS: cloNIDine HCL 0.2 MG TABLET PO ×2 (09:11→20:00)
[2022-06-11] MEDS: ERTAPENEM 1 GM/NS 50 ML 1 GM/50 ML BAG IVPB (09:11)
[2022-06-11 11:02] LABS: Appearance Urine Cloudy (Clear); Bilirubin Urine Negative (Negative); Blood Urine 1+ (Negative); Glucose Urine UA Negative (Negative); Ketones Urine Negative (Negative); Leukocyte Esterase Ur 2+ LEU/UL (NEGATIVE); Nitrate Urine Negative (Negative); Protein Urine Negative (Negative); Urobilinogen Urine 0.2 mg/dL (<2.0)
[2022-06-11 11:07] LABS: Add Urine Microscopic? YES; Color Urine Light Yellow (Yellow)
[2022-06-11 11:12] LABS: Budding Yeast Urine Present /hpf; RBC Urine >75 /hpf (0-2); WBC Clumps Urine Present /HPF; WBC Urine >75 /hpf (0-3)
[2022-06-11 11:14] LABS: Glucose Point of Care 152 mg/dl (65-105)
--- NOTE | 2022-06-11 12:37 | P.PNIM_ITS ---
Progress Note: A&P Assessment and Plan (1) Septicemia: Code(s): A41.9 - Sepsis, unspecified organism Status: Acute Assessment and Plan: Patient septic, evident by leukocytosis, tachypnea, hypotension, and lactic acidosis. Source of infection is UTI * 2/2 blood cultures with Klebsiella pneumoniae ESBL * urine culture also demonstrates ESBL Klebsiella * continue IV Ertapenem 1 g q24h based on susceptibility reports. started on 06/05. * will need 7-10 days of IV antibiotic therapy. Care coordination following to arrange for outpatient infusions. Spoke with PCP office 06/07 via phone who agrees to follow outpatient abx. * stop date for ertapenem will be 06/12 * patient afebrile, tachypnea resolved, lactic acid normalized * WBC trending up again, 15.8 today. Patient feels worse today and endorses sweats. Will repeat urine culture and blood culture. recheck CBC with differential tomorrow. Given onset of right back/flank discomfort, renal abscess is considered. Consider repeat CT of the abdomen/pelvis if worsening leukocytosis or worsening clinical condition. CXR reviewed, suggests atelectasis versus pneumonia. Patient without clinical signs/symptoms of pneumonia, however HAP is a possibility. Would need to consider escalation of antibiotics to imipenem if worsening. * Appreciate ID PharmD assistance. * WBC with further increase today to 16.7, I spoke with ID pharmacist and abx were ramped up to Imipenem from Ertapenem. UA was checked and does demonstrate UTI. Culture is pending. Blood cultures are also pending. In addition CT of abdomen and pelvis with contrast is ordered to rule out abscess. (2) Urinary tract infection: Code(s): N39.0 - Urinary tract infection, site not specified Status: Acute Assessment and Plan: * UA today continues to exhibit a UTI despite the several days of Ertapenem given. * Ertapenem was changed to Imipenem. * Urine culture is pending as is blood culture. (3) Obstructive uropathy: Code(s): N13.9 - Obstructive and reflux uropathy, unspecified Status: Acute Assessment and Plan: CT indicated a 6mm UPJ stone * s/p right ureteral stent placement on 06/02/2022 * urology following * will need outpatient follow-up upon resolution of acute infection for ureteroscopy with stone removal and stent exchange (4) CARMEN (acute kidney injury): Code(s): N17.9 - Acute kidney failure, unspecified Status: Resolved Assessment and Plan: Resolved. renal function is back to normal. (5) Type 2 diabetes mellitus with hyperglycemia: Code(s): E11.65 - Type 2 diabetes mellitus with hyperglycemia Status: Acute Assessment and Plan: A1c is 8.8. two episodes of AM hypoglycemia during admission. Hyperglycemic last night with glucose >500 (likely due to holding insulin given hypoglycemia). Most recent blood sugar 133. * continue Accu-Cheks, sliding scale insulin (low dose), hypoglycemic protocol * home Januvia and glipizide on hold * continue Lantus at reduced dose * monitor glucose trends and adjust insulin regimen as needed (6) Hypertension: Code(s): I10 - Essential (primary) hypertension Status: Chronic Assessment and Plan: blood pressure reviewed and is stable. BP soft earlier in admission secondary to sepsis * Continue amlodipine,, lisinopril, clonidine. HCTZ on hold * monitor BP trends (7) Acute metabolic encephalopathy: Code(s): G93.41 - Metabolic encephalopathy Status: Resolved Assessmen
--- NOTE | 2022-06-11 12:37 | PM.IMPN ---
Progress Note: A&P Assessment and Plan (1) Septicemia: Code(s): A41.9 - Sepsis, unspecified organism Status: Acute Assessment and Plan: Patient septic, evident by leukocytosis, tachypnea, hypotension, and lactic acidosis. Source of infection is UTI 2/2 blood cultures with Klebsiella pneumoniae ESBL urine culture also demonstrates ESBL Klebsiella continue IV Ertapenem 1 g q24h based on susceptibility reports. started on 06/05. will need 7-10 days of IV antibiotic therapy. Care coordination following to arrange for outpatient infusions. Spoke with PCP office 06/07 via phone who agrees to follow outpatient abx. stop date for ertapenem will be 06/12 patient afebrile, tachypnea resolved, lactic acid normalized WBC trending up again, 15.8 today. Patient feels worse today and endorses sweats. Will repeat urine culture and blood culture. recheck CBC with differential tomorrow. Given onset of right back/flank discomfort, renal abscess is considered. Consider repeat CT of the abdomen/pelvis if worsening leukocytosis or worsening clinical condition. CXR reviewed, suggests atelectasis versus pneumonia. Patient without clinical signs/symptoms of pneumonia, however HAP is a possibility. Would need to consider escalation of antibiotics to imipenem if worsening. Appreciate ID PharmD assistance. WBC with further increase today to 16.7, I spoke with ID pharmacist and abx were ramped up to Imipenem from Ertapenem. UA was checked and does demonstrate UTI. Culture is pending. Blood cultures are also pending. In addition CT of abdomen and pelvis with contrast is ordered to rule out abscess. (2) Urinary tract infection: Code(s): N39.0 - Urinary tract infection, site not specified Status: Acute Assessment and Plan: UA today continues to exhibit a UTI despite the several days of Ertapenem given. Ertapenem was changed to Imipenem. Urine culture is pending as is blood culture. (3) Obstructive uropathy: Code(s): N13.9 - Obstructive and reflux uropathy, unspecified Status: Acute Assessment and Plan: CT indicated a 6mm UPJ stone s/p right ureteral stent placement on 06/02/2022 urology following will need outpatient follow-up upon resolution of acute infection for ureteroscopy with stone removal and stent exchange (4) CARMEN (acute kidney injury): Code(s): N17.9 - Acute kidney failure, unspecified Status: Resolved Assessment and Plan: Resolved. renal function is back to normal. (5) Type 2 diabetes mellitus with hyperglycemia: Code(s): E11.65 - Type 2 diabetes mellitus with hyperglycemia Status: Acute Assessment and Plan: A1c is 8.8. two episodes of AM hypoglycemia during admission. Hyperglycemic last night with glucose >500 (likely due to holding insulin given hypoglycemia). Most recent blood sugar 133. continue Accu-Cheks, sliding scale insulin (low dose), hypoglycemic protocol home Januvia and glipizide on hold continue Lantus at reduced dose monitor glucose trends and adjust insulin regimen as needed (6) Hypertension: Code(s): I10 - Essential (primary) hypertension Status: Chronic Assessment and Plan: blood pressure reviewed and is stable. BP soft earlier in admission secondary to sepsis Continue amlodipine,, lisinopril, clonidine. HCTZ on hold monitor BP trends (7) Acute metabolic encephalopathy: Code(s): G93.41 - Metabolic encephalopathy Status: Resolved Assessment and Plan: resolved. 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 Time Spent With Nusrat
[2022-06-11 14:00] VITALS: BP 145/48; PULSE 58; RESP 18; TEMP 36.1; O2SAT 95
--- NOTE | 2022-06-11 14:53 | PCOTNOTE ---
Patient unable to be seen this date for OT. Will continue per plan of care.
[2022-06-11 16:18] LABS: Glucose Point of Care 301 mg/dl (65-105)
[2022-06-11] MEDS: INSULIN ASPART (*BKC) 100 UNITS/ML SUB-Q (17:08)
[2022-06-11] MEDS: INSULIN GLARGINE (*BKC) 100 UNITS/ML 20 UNITS SUB-Q (20:00)
[2022-06-11 20:42] LABS: Glucose Point of Care 322 mg/dl (65-105)
[2022-06-11 21:41] VITALS: TEMP 37.3
[2022-06-11 22:05] VITALS: BP 159/48; PULSE 56; RESP 17; TEMP 37.3; O2SAT 92
[2022-06-11 22:33] VITALS: TEMP 36.9
[2022-06-12] MEDS: SALINE LOCK FLUSH 20 ML IV PUSH (05:09)
[2022-06-12] MEDS: SALINE LOCK FLUSH 10 ML IV PUSH ×3 (05:09→21:01)
[2022-06-12 05:42] LABS: Basophils Percent Auto 0.2 % (0.2-1.2); Eosinophils Absolute Auto 0.1 K/mm3 (0-0.3); Eosinophils Percent Auto 0.4 % (0-4.4); Hematocrit 32.6 % (37.0-47.0); Hemoglobin 10.4 g/dL (12.0-15.0); Immature Granulocyte Absolute 0.14 K/mm3 (0.00-0.031); Immature Granulocyte Percent A 0.9 % (0-0.5); Lymphocytes Absolute Auto 2.06 K/mm3 (0.9-3.2); Lymphocytes Percent Auto 12.9 % (18.3-44.2); Mean Corpuscular HGB Conc 31.9 g/dl (32-36); Mean Corpuscular Hemoglobin 28.9 pg (26-34); Mean Corpuscular Volume 90.6 fl (80-100); Mean Platelet Volume 9.5 fl (7.4-10.4); Monocytes Absolute Auto 0.7 K/mm3 (0.1-0.6); Monocytes Percent Auto 4.3 % (2.6-8.5); Neutrophils Percent Auto 81.3 % (45.5-73.1); Platelet Count Result 660 k/mm3 (150-375); Red Cell Distribution Width 14.1 % (11.5-14.5)
[2022-06-12 05:54] LABS: Alanine Aminotransferase 30 U/L (6-35); Albumin Level 2.9 g/dL (3.5-5.1); Alkaline Phosphatase 93 U/L (38-126); Anion Gap 6 mmol/L (8-16); Aspartate Amino Transferase 33 U/L (14-36); Bilirubin,Total 0.3 mg/dL (0.2-1.3); Blood Urea Nitrogen 14 mg/dL (7-17); Calcium 8.5 mg/dL (8.4-10.2); Carbon Dioxide 30 mmol/L (22-30); Chloride 101 mmol/L (98-107); Estimated CRCL calculation 45 ml/min; Estimated Glomerular Filt Rate > 60; Glucose 136 mg/dL (65-110); Magnesium 1.9 mg/dL (1.6-2.3); Potassium 3.6 mmol/L (3.4-5.0); Sodium 137 mmol/L (137-145)
[2022-06-12 06:00] VITALS: BP 166/55; PULSE 58; RESP 18; TEMP 37.2; O2SAT 91
[2022-06-12 08:07] LABS: Glucose Point of Care 99 mg/dl (65-105)
[2022-06-12] MEDS: amLODIPine BESYLATE 5 MG TABLET 10 MG PO (09:20)
[2022-06-12] MEDS: ACETAMINOPHEN 325 MG TABLET 650 MG PO (09:21)
[2022-06-12] MEDS: lisinopriL 20 MG TABLET PO (09:21)
[2022-06-12] MEDS: ENOXAPARIN 40 MG/0.4 ML SYRINGE SUB-Q (09:22)
[2022-06-12] MEDS: cloNIDine HCL 0.2 MG TABLET PO ×2 (09:22→20:03)
[2022-06-12] MEDS: predniSONE 10 MG TABLET PO (09:22)
[2022-06-12 11:41] LABS: Glucose Point of Care 161 mg/dl (65-105)
--- NOTE | 2022-06-12 13:34 | PM.IMPN ---
Progress Note: A&P Assessment and Plan (1) Septicemia: Code(s): A41.9 - Sepsis, unspecified organism Status: Acute Assessment and Plan: Patient septic, evident by leukocytosis, tachypnea, hypotension, and lactic acidosis. Source of infection is UTI 2/2 blood cultures with Klebsiella pneumoniae ESBL urine culture also demonstrates ESBL Klebsiella continue IV Ertapenem 1 g q24h based on susceptibility reports. started on 06/05. will need 7-10 days of IV antibiotic therapy. Care coordination following to arrange for outpatient infusions. Spoke with PCP office 06/07 via phone who agrees to follow outpatient abx. stop date for ertapenem will be 06/12 patient afebrile, tachypnea resolved, lactic acid normalized WBC trending up again, 15.8 today. Patient feels worse today and endorses sweats. Will repeat urine culture and blood culture. recheck CBC with differential tomorrow. Given onset of right back/flank discomfort, renal abscess is considered. Consider repeat CT of the abdomen/pelvis if worsening leukocytosis or worsening clinical condition. CXR reviewed, suggests atelectasis versus pneumonia. Patient without clinical signs/symptoms of pneumonia, however HAP is a possibility. Would need to consider escalation of antibiotics to imipenem if worsening. Appreciate ID PharmD assistance. WBC with further increase today to 16.7, I spoke with ID pharmacist and abx were ramped up to Imipenem from Ertapenem. UA was checked and does demonstrate UTI. Culture is pending. Blood cultures are also pending. In addition CT of abdomen and pelvis with contrast is ordered to rule out abscess. 06/12: CT ruled out any acute abdominal finding. There was no rise in the WBC count today after starting the Imipenem yesterday in place of Ertapenem. We are still awaiting results of UTI. VSS. Not currently meeting Sepsis criteria. (2) Urinary tract infection: Code(s): N39.0 - Urinary tract infection, site not specified Status: Acute Assessment and Plan: UA today continues to exhibit a UTI despite the several days of Ertapenem given, so it was changed to Imipenem. Ertapenem was changed to Imipenem. Urine culture is pending as is blood culture. Preliminary Blood culture is negative. (3) Obstructive uropathy: Code(s): N13.9 - Obstructive and reflux uropathy, unspecified Status: Acute Assessment and Plan: CT indicated a 6mm UPJ stone s/p right ureteral stent placement on 06/02/2022 urology following will need outpatient follow-up upon resolution of acute infection for ureteroscopy with stone removal and stent exchange (4) CARMEN (acute kidney injury): Code(s): N17.9 - Acute kidney failure, unspecified Status: Resolved Assessment and Plan: Resolved. renal function is back to normal. (5) Type 2 diabetes mellitus with hyperglycemia: Code(s): E11.65 - Type 2 diabetes mellitus with hyperglycemia Status: Acute Assessment and Plan: A1c is 8.8. two episodes of AM hypoglycemia during admission. Hyperglycemic last night with glucose >500 (likely due to holding insulin given hypoglycemia). Most recent blood sugar 133. continue Accu-Cheks, sliding scale insulin (low dose), hypoglycemic protocol home Januvia and glipizide on hold continue Lantus at reduced dose monitor glucose trends and adjust insulin regimen as needed (6) Hypertension: Code(s): I10 - Essential (primary) hypertension Status: Chronic Assessment and Plan: blood pressure reviewed and is stable. BP soft earlier in admission secondary to sepsis Continue amlodipine,, lisinopril, clonidine. HCTZ on hold monitor BP trends (7) Acute metabolic encephalopathy: Code(s): G93.41 - Metabolic encephalopathy Status: Resolved Assessment and Plan: resolved. (8) Rheumatoid arthritis: Code(s): M06.9 - Rheumatoid arthritis, unspe
[2022-06-12 14:30] VITALS: BP 155/50; PULSE 60; RESP 16; TEMP 35.6; O2SAT 98
[2022-06-12 16:27] LABS: Glucose Point of Care 416 mg/dl (65-105)
[2022-06-12] MEDS: INSULIN ASPART (*BKC) 100 UNITS/ML 7 UNITS SUB-Q (17:23)
[2022-06-12] MEDS: INSULIN GLARGINE (*BKC) 100 UNITS/ML 20 UNITS SUB-Q (20:03)
[2022-06-12 20:46] LABS: Glucose Point of Care 326 mg/dl (65-105)
[2022-06-12 22:00] VITALS: BP 166/57; PULSE 54; RESP 18; TEMP 37.1; O2SAT 93
[2022-06-13] MEDS: SALINE LOCK FLUSH 10 ML IV PUSH ×3 (05:16→21:30)
[2022-06-13] MEDS: SALINE LOCK FLUSH 20 ML IV PUSH (05:16)
[2022-06-13 05:32] LABS: Basophils Percent Auto 0.2 % (0.2-1.2); Eosinophils Percent Auto 0.3 % (0-4.4); Hematocrit 30.6 % (37.0-47.0); Immature Granulocyte Absolute 0.14 K/mm3 (0.00-0.031); Immature Granulocyte Percent A 0.9 % (0-0.5); Lymphocytes Absolute Auto 2.24 K/mm3 (0.9-3.2); Lymphocytes Percent Auto 14.1 % (18.3-44.2); Mean Corpuscular HGB Conc 32.7 g/dl (32-36); Mean Corpuscular Hemoglobin 29.2 pg (26-34); Mean Corpuscular Volume 89.2 fl (80-100); Mean Platelet Volume 9.3 fl (7.4-10.4); Monocytes Absolute Auto 0.7 K/mm3 (0.1-0.6); Monocytes Percent Auto 4.4 % (2.6-8.5); Neutrophils Absolute Auto 12.7 K/mm3 (1.3-6.7); Neutrophils Percent Auto 80.1 % (45.5-73.1); Platelet Count Result 677 k/mm3 (150-375); Red Blood Count 3.43 M/mm3 (4.2-5.4); Red Cell Distribution Width 14.2 % (11.5-14.5); White Blood Count 15.9 K/mm3 (4.5-10.0)
[2022-06-13 05:45] VITALS: BP 137/79; PULSE 56; RESP 19; TEMP 37.2; O2SAT 92
[2022-06-13 05:46] LABS: Alanine Aminotransferase 28 U/L (6-35); Albumin Level 2.8 g/dL (3.5-5.1); Alkaline Phosphatase 96 U/L (38-126); Anion Gap 6 mmol/L (8-16); Aspartate Amino Transferase 22 U/L (14-36); Bilirubin,Total 0.2 mg/dL (0.2-1.3); Blood Urea Nitrogen 12 mg/dL (7-17); Calcium 8.4 mg/dL (8.4-10.2); Carbon Dioxide 30 mmol/L (22-30); Chloride 101 mmol/L (98-107); Estimated CRCL calculation 45 ml/min; Estimated Glomerular Filt Rate > 60; Glucose 130 mg/dL (65-110); Magnesium 1.8 mg/dL (1.6-2.3); Potassium 3.5 mmol/L (3.4-5.0); Sodium 137 mmol/L (137-145)
[2022-06-13 07:49] LABS: Glucose Point of Care 106 mg/dl (65-105)
[2022-06-13] MEDS: lisinopriL 20 MG TABLET PO (09:13)
[2022-06-13] MEDS: ENOXAPARIN 40 MG/0.4 ML SYRINGE SUB-Q (09:13)
[2022-06-13] MEDS: ACETAMINOPHEN 325 MG TABLET 650 MG PO (09:13)
[2022-06-13] MEDS: predniSONE 10 MG TABLET PO (09:13)
[2022-06-13] MEDS: cloNIDine HCL 0.2 MG TABLET PO ×2 (09:13→21:29)
[2022-06-13] MEDS: amLODIPine BESYLATE 5 MG TABLET 10 MG PO (09:13)
--- NOTE | 2022-06-13 11:05 | PCOTNOTE ---
Attempted to see patient twice this am. First attempt, patient declined reporting 9/10 pain in kidney. RN notified for pain medicine. Second attempt, patient declined stating Not right now. I'm feeling drowsy from the blood pressure medicine. Let me rest right now.
[2022-06-13 11:19] LABS: Glucose Point of Care 138 mg/dl (65-105)
--- NOTE | 2022-06-13 11:36 | PM.IMPN ---
Progress Note: A&P Assessment and Plan (1) Septicemia: Code(s): A41.9 - Sepsis, unspecified organism Status: Acute Assessment and Plan: Patient septic, evident by leukocytosis, tachypnea, hypotension, and lactic acidosis. Source of infection is UTI 2/2 blood cultures with Klebsiella pneumoniae ESBL urine culture also demonstrates ESBL Klebsiella continue IV Ertapenem 1 g q24h based on susceptibility reports. started on 06/05. will need 7-10 days of IV antibiotic therapy. Care coordination following to arrange for outpatient infusions. Spoke with PCP office 06/07 via phone who agrees to follow outpatient abx. stop date for ertapenem will be 06/12 patient afebrile, tachypnea resolved, lactic acid normalized WBC trending up again, 15.8 today. Patient feels worse today and endorses sweats. Will repeat urine culture and blood culture. recheck CBC with differential tomorrow. Given onset of right back/flank discomfort, renal abscess is considered. Consider repeat CT of the abdomen/pelvis if worsening leukocytosis or worsening clinical condition. CXR reviewed, suggests atelectasis versus pneumonia. Patient without clinical signs/symptoms of pneumonia, however HAP is a possibility. Would need to consider escalation of antibiotics to imipenem if worsening. Appreciate ID PharmD assistance. WBC with further increase today to 16.7, I spoke with ID pharmacist and abx were ramped up to Imipenem from Ertapenem. UA was checked and does demonstrate UTI. Culture is pending. Blood cultures are also pending. In addition CT of abdomen and pelvis with contrast is ordered to rule out abscess. 06/12: CT ruled out any acute abdominal finding. There was no rise in the WBC count today after starting the Imipenem yesterday in place of Ertapenem. We are still awaiting results of UTI. VSS. Not currently meeting Sepsis criteria. 06/13: Pt. still receiving Imipenem. Awaiting final results of Blood cultures which have negative preliminaries, and awaiting urine culture results. Pt stable VS. WBC still elevated, but also receiving steroids. Suspect they are playing a role in elevation. (2) Urinary tract infection: Code(s): N39.0 - Urinary tract infection, site not specified Status: Acute Assessment and Plan: UA today continues to exhibit a UTI despite the several days of Ertapenem given, so it was changed to Imipenem. Ertapenem was changed to Imipenem. Urine culture is pending as is blood culture. Preliminary Blood culture is negative. (3) Obstructive uropathy: Code(s): N13.9 - Obstructive and reflux uropathy, unspecified Status: Acute Assessment and Plan: CT indicated a 6mm UPJ stone s/p right ureteral stent placement on 06/02/2022 urology following will need outpatient follow-up upon resolution of acute infection for ureteroscopy with stone removal and stent exchange (4) CARMEN (acute kidney injury): Code(s): N17.9 - Acute kidney failure, unspecified Status: Resolved Assessment and Plan: Resolved. renal function is back to normal. (5) Type 2 diabetes mellitus with hyperglycemia: Code(s): E11.65 - Type 2 diabetes mellitus with hyperglycemia Status: Acute Assessment and Plan: A1c is 8.8. two episodes of AM hypoglycemia during admission. Hyperglycemic last night with glucose >500 (likely due to holding insulin given hypoglycemia). Most recent blood sugar 133. continue Accu-Cheks, sliding scale insulin (low dose), hypoglycemic protocol home Januvia and glipizide on hold continue Lantus at reduced dose monitor glucose trends and adjust insulin regimen as needed (6) Hypertension: Code(s): I10 - Essential (primary) hypertension Status: Chronic Assessment and Plan: blood pressure reviewed and is stable. BP soft earlier in admission secondary to sepsis Continue amlodipine,, lisinopril, clonidine. HCTZ on hold mon
[2022-06-13 14:00] VITALS: BP 110/58; PULSE 55; RESP 16; TEMP 36.3; O2SAT 95
[2022-06-13 16:16] LABS: Glucose Point of Care 303 mg/dl (65-105)
[2022-06-13] MEDS: INSULIN ASPART (*BKC) 100 UNITS/ML SUB-Q (16:41)
[2022-06-13 21:30] LABS: Glucose Point of Care 312 mg/dl (65-105)
[2022-06-13] MEDS: INSULIN GLARGINE (*BKC) 100 UNITS/ML 20 UNITS SUB-Q (21:30)
[2022-06-13 22:00] VITALS: BP 160/80; PULSE 54; RESP 17; TEMP 36.4; O2SAT 95
[2022-06-14 05:36] LABS: Basophils Absolute Auto 0.1 K/mm3 (0.0-0.1); Basophils Percent Auto 0.3 % (0.2-1.2); Eosinophils Absolute Auto 0.1 K/mm3 (0-0.3); Eosinophils Percent Auto 0.4 % (0-4.4); Hematocrit 31.5 % (37.0-47.0); Hemoglobin 10.2 g/dL (12.0-15.0); Immature Granulocyte Absolute 0.12 K/mm3 (0.00-0.031); Immature Granulocyte Percent A 0.8 % (0-0.5); Lymphocytes Absolute Auto 2.06 K/mm3 (0.9-3.2); Lymphocytes Percent Auto 14.2 % (18.3-44.2); Mean Corpuscular HGB Conc 32.4 g/dl (32-36); Mean Corpuscular Hemoglobin 29.2 pg (26-34); Mean Corpuscular Volume 90.3 fl (80-100); Mean Platelet Volume 9.2 fl (7.4-10.4); Monocytes Absolute Auto 0.9 K/mm3 (0.1-0.6); Monocytes Percent Auto 5.9 % (2.6-8.5); Neutrophils Absolute Auto 11.4 K/mm3 (1.3-6.7); Neutrophils Percent Auto 78.4 % (45.5-73.1); Platelet Count Result 726 k/mm3 (150-375); Red Blood Count 3.49 M/mm3 (4.2-5.4); Red Cell Distribution Width 14.2 % (11.5-14.5); White Blood Count 14.5 K/mm3 (4.5-10.0)
[2022-06-14] MEDS: SALINE LOCK FLUSH 10 ML IV PUSH ×3 (05:50→21:19)
[2022-06-14 05:56] LABS: Alanine Aminotransferase 27 U/L (6-35); Albumin Level 2.9 g/dL (3.5-5.1); Alkaline Phosphatase 88 U/L (38-126); Anion Gap 6 mmol/L (8-16); Aspartate Amino Transferase 22 U/L (14-36); Bilirubin,Total 0.3 mg/dL (0.2-1.3); Blood Urea Nitrogen 15 mg/dL (7-17); Calcium 8.4 mg/dL (8.4-10.2); Carbon Dioxide 29 mmol/L (22-30); Chloride 99 mmol/L (98-107); Estimated CRCL calculation 45 ml/min; Estimated Glomerular Filt Rate > 60; Glucose 149 mg/dL (65-110); Magnesium 1.9 mg/dL (1.6-2.3); Potassium 3.9 mmol/L (3.4-5.0); Sodium 134 mmol/L (137-145)
[2022-06-14 06:00] VITALS: BP 146/46; PULSE 56; RESP 17; TEMP 36.4; O2SAT 93
[2022-06-14 08:09] LABS: Glucose Point of Care 100 mg/dl (65-105)
[2022-06-14] MEDS: ENOXAPARIN 40 MG/0.4 ML SYRINGE SUB-Q (08:43)
[2022-06-14] MEDS: lisinopriL 20 MG TABLET PO (08:44)
[2022-06-14] MEDS: amLODIPine BESYLATE 5 MG TABLET 10 MG PO (08:44)
[2022-06-14] MEDS: cloNIDine HCL 0.2 MG TABLET PO ×2 (08:44→20:18)
[2022-06-14] MEDS: ACETAMINOPHEN 325 MG TABLET 650 MG PO ×2 (08:56→20:24)
[2022-06-14 11:37] LABS: Glucose Point of Care 188 mg/dl (65-105)
--- NOTE | 2022-06-14 12:49 | PM.IMPN ---
Progress Note: A&P Assessment and Plan (1) Septicemia: Code(s): A41.9 - Sepsis, unspecified organism Status: Resolved Assessment and Plan: Patient septic, evident by leukocytosis, tachypnea, hypotension, and lactic acidosis. Source of infection is UTI 2/2 blood cultures with Klebsiella pneumoniae ESBL urine culture also demonstrates ESBL Klebsiella continue IV Ertapenem 1 g q24h based on susceptibility reports. started on 06/05. will need 7-10 days of IV antibiotic therapy. Care coordination following to arrange for outpatient infusions. Spoke with PCP office 06/07 via phone who agrees to follow outpatient abx. stop date for ertapenem will be 06/12 patient afebrile, tachypnea resolved, lactic acid normalized WBC trending up again, 15.8 today. Patient feels worse today and endorses sweats. Will repeat urine culture and blood culture. recheck CBC with differential tomorrow. Given onset of right back/flank discomfort, renal abscess is considered. Consider repeat CT of the abdomen/pelvis if worsening leukocytosis or worsening clinical condition. CXR reviewed, suggests atelectasis versus pneumonia. Patient without clinical signs/symptoms of pneumonia, however HAP is a possibility. Would need to consider escalation of antibiotics to imipenem if worsening. Appreciate ID PharmD assistance. WBC with further increase today to 16.7, I spoke with ID pharmacist and abx were ramped up to Imipenem from Ertapenem. UA was checked and does demonstrate UTI. Culture is pending. Blood cultures are also pending. In addition CT of abdomen and pelvis with contrast is ordered to rule out abscess. 06/12: CT ruled out any acute abdominal finding. There was no rise in the WBC count today after starting the Imipenem yesterday in place of Ertapenem. We are still awaiting results of UTI. VSS. Not currently meeting Sepsis criteria. 06/13: Pt. still receiving Imipenem. Awaiting final results of Blood cultures which have negative preliminaries, a and awaiting urine culture results. Pt stable VS. WBC still elevated, but also receiving steroids. Suspect they are playing a role in elevation. 06/14: Pt. blood cultures negative on day 4. Tomorrow is the final day and she has already been covered with 12 days of IV abx. Urine culture final today shows a fungal infection, no bacterial. No longer meets sepsis criteria. (2) Urinary tract infection: Code(s): N39.0 - Urinary tract infection, site not specified Status: Acute Assessment and Plan: UA today continues to exhibit a UTI despite the several days of Ertapenem given, so it was changed to Imipenem. Ertapenem was changed to Imipenem. Urine culture is pending as is blood culture. Preliminary Blood culture is negative. Urine final culture grew out a fungus, Norah kefyr. Treatment is Fluconazole 100 mg po daily for 2 weeks. She was initial dosed today. (3) Obstructive uropathy: Code(s): N13.9 - Obstructive and reflux uropathy, unspecified Status: Acute Assessment and Plan: CT indicated a 6mm UPJ stone s/p right ureteral stent placement on 06/02/2022 urology following will need outpatient follow-up upon resolution of acute infection for ureteroscopy with stone removal and stent exchange (4) CARMEN (acute kidney injury): Code(s): N17.9 - Acute kidney failure, unspecified Status: Resolved Assessment and Plan: Resolved. renal function is back to normal. (5) Type 2 diabetes mellitus with hyperglycemia: Code(s): E11.65 - Type 2 diabetes mellitus with hyperglycemia Status: Acute Assessment and Plan: A1c is 8.8. two episodes of AM hypoglycemia during admission. Hyperglycemic last night with glucose >500 (likely due to holding insulin given hypoglycemia). Most recent blood sugar 133. continue Accu-Cheks, sliding scale insulin (low dose), hypoglycemic protocol home Januvia and glipizide on hold continue
[2022-06-14 14:00] VITALS: BP 135/41; PULSE 60; RESP 18; TEMP 36.1; O2SAT 95
[2022-06-14] MEDS: FLUCONAZOLE 100 MG TABLET PO (14:55)
[2022-06-14 16:10] LABS: Glucose Point of Care 248 mg/dl (65-105)
[2022-06-14] MEDS: INSULIN ASPART (*BKC) 100 UNITS/ML SUB-Q (17:08)
[2022-06-14 17:23] LABS: Glucose Point of Care 203 mg/dl (65-105)
[2022-06-14] MEDS: INSULIN GLARGINE (*BKC) 100 UNITS/ML 20 UNITS SUB-Q (20:23)
[2022-06-14 20:24] LABS: Glucose Point of Care 138 mg/dl (65-105)
[2022-06-14 22:00] VITALS: BP 150/52; PULSE 59; RESP 24; TEMP 37.2; O2SAT 91
[2022-06-15] MEDS: GLUCOSE ORAL GEL 15 GM OF GLUCSE IN 37.5 GM TUBE PO (05:38)
[2022-06-15 06:00] VITALS: BP 144/49; PULSE 62; RESP 23; TEMP 36.5; O2SAT 93
[2022-06-15 06:08] LABS: Glucose Point of Care 101 mg/dl (65-105)
[2022-06-15 06:08] LABS: Glucose Point of Care 60 mg/dl (65-105)
[2022-06-15] MEDS: SALINE LOCK FLUSH 10 ML IV PUSH (06:20)
[2022-06-15 06:36] LABS: Basophils Absolute Auto 0.1 K/mm3 (0.0-0.1); Basophils Percent Auto 0.4 % (0.2-1.2); Eosinophils Percent Auto 0.2 % (0-4.4); Hematocrit 31.3 % (37.0-47.0); Hemoglobin 9.9 g/dL (12.0-15.0); Immature Granulocyte Absolute 0.11 K/mm3 (0.00-0.031); Immature Granulocyte Percent A 0.6 % (0-0.5); Lymphocytes Absolute Auto 1.55 K/mm3 (0.9-3.2); Lymphocytes Percent Auto 9.2 % (18.3-44.2); Mean Corpuscular HGB Conc 31.6 g/dl (32-36); Mean Corpuscular Hemoglobin 28.9 pg (26-34); Mean Corpuscular Volume 91.5 fl (80-100); Mean Platelet Volume 9.3 fl (7.4-10.4); Monocytes Absolute Auto 0.8 K/mm3 (0.1-0.6); Monocytes Percent Auto 4.5 % (2.6-8.5); Neutrophils Absolute Auto 14.4 K/mm3 (1.3-6.7); Neutrophils Percent Auto 85.1 % (45.5-73.1); Platelet Count Result 776 k/mm3 (150-375); Red Blood Count 3.42 M/mm3 (4.2-5.4); Red Cell Distribution Width 14.3 % (11.5-14.5); White Blood Count 16.9 K/mm3 (4.5-10.0)
[2022-06-15 07:01] LABS: Alanine Aminotransferase 25 U/L (6-35); Albumin Level 2.5 g/dL (3.5-5.1); Alkaline Phosphatase 66 U/L (38-126); Anion Gap 6 mmol/L (8-16); Aspartate Amino Transferase 26 U/L (14-36); Bilirubin,Total 0.2 mg/dL (0.2-1.3); Blood Urea Nitrogen 13 mg/dL (7-17); Calcium 7.4 mg/dL (8.4-10.2); Carbon Dioxide 24 mmol/L (22-30); Chloride 107 mmol/L (98-107); Estimated CRCL calculation 44 ml/min; Estimated Glomerular Filt Rate > 60; Glucose 97 mg/dL (65-110); Magnesium 1.7 mg/dL (1.6-2.3); Potassium 3.5 mmol/L (3.4-5.0); Sodium 137 mmol/L (137-145)
--- NOTE | 2022-06-15 07:29 | PM.DS ---
DS: Admitting Diagnosis Discharge Date 06/15/2022 Admitting Diagnosis Sepsis, Dehydration, Obstructive Uropathy, UTI, Right ureteral stone, DM2, HTN, RA, AMS DS: Discharge Diagnosis Discharge Diagnosis (1) Septicemia: Code(s): A41.9 - Sepsis, unspecified organism Status: Resolved Assessment and Plan: Patient septic, evident by leukocytosis, tachypnea, hypotension, and lactic acidosis. Source of infection is UTI 2/2 blood cultures with Klebsiella pneumoniae ESBL urine culture also demonstrates ESBL Klebsiella continue IV Ertapenem 1 g q24h based on susceptibility reports. started on 06/05. will need 7-10 days of IV antibiotic therapy. Care coordination following to arrange for outpatient infusions. Spoke with PCP office 06/07 via phone who agrees to follow outpatient abx. stop date for ertapenem will be 06/12 patient afebrile, tachypnea resolved, lactic acid normalized WBC trending up again, 15.8 today. Patient feels worse today and endorses sweats. Will repeat urine culture and blood culture. recheck CBC with differential tomorrow. Given onset of right back/flank discomfort, renal abscess is considered. Consider repeat CT of the abdomen/pelvis if worsening leukocytosis or worsening clinical condition. CXR reviewed, suggests atelectasis versus pneumonia. Patient without clinical signs/symptoms of pneumonia, however HAP is a possibility. Would need to consider escalation of antibiotics to imipenem if worsening. Appreciate ID PharmD assistance. WBC with further increase today to 16.7, I spoke with ID pharmacist and abx were ramped up to Imipenem from Ertapenem. UA was checked and does demonstrate UTI. Culture is pending. Blood cultures are also pending. In addition CT of abdomen and pelvis with contrast is ordered to rule out abscess. 06/12: CT ruled out any acute abdominal finding. There was no rise in the WBC count today after starting the Imipenem yesterday in place of Ertapenem. We are still awaiting results of UTI. VSS. Not currently meeting Sepsis criteria. 06/13: Pt. still receiving Imipenem. Awaiting final results of Blood cultures which have negative preliminaries, a and awaiting urine culture results. Pt stable VS. WBC still elevated, but also receiving steroids. Suspect they are playing a role in elevation. 06/14: Pt. blood cultures negative on day 4. Tomorrow is the final day and she has already been covered with 12 days of IV abx. Urine culture final today shows a fungal infection, no bacterial. No longer meets sepsis criteria. (2) Urinary tract infection: Code(s): N39.0 - Urinary tract infection, site not specified Status: Acute Assessment and Plan: UA today continues to exhibit a UTI despite the several days of Ertapenem given, so it was changed to Imipenem. Ertapenem was changed to Imipenem. Urine culture is pending as is blood culture. Preliminary Blood culture is negative. Urine final culture grew out a fungus, Norah kefyr. Treatment is Fluconazole 100 mg po daily for 2 weeks. She was initial dosed today. (3) Obstructive uropathy: Code(s): N13.9 - Obstructive and reflux uropathy, unspecified Status: Acute Assessment and Plan: CT indicated a 6mm UPJ stone s/p right ureteral stent placement on 06/02/2022 urology following will need outpatient follow-up upon resolution of acute infection for ureteroscopy with stone removal and stent exchange (4) CARMEN (acute kidney injury): Code(s): N17.9 - Acute kidney failure, unspecified Status: Resolved Assessment and Plan: Resolved. renal function is back to normal. (5) Type 2 diabetes mellitus with hyperglycemia: Code(s): E11.65 - Type 2 diabetes mellitus with hyperglycemia Status: Acute Assessment and Plan: A1c is 8.8. two episodes of AM hypoglycemia during admission. Hyperglycemic last night with glucose >500 (likely due to holding insulin given hypogl
[2022-06-15] MEDS: ENOXAPARIN 40 MG/0.4 ML SYRINGE SUB-Q (08:25)
[2022-06-15] MEDS: cloNIDine HCL 0.2 MG TABLET PO (08:25)
[2022-06-15] MEDS: amLODIPine BESYLATE 5 MG TABLET 10 MG PO (08:25)
[2022-06-15] MEDS: lisinopriL 20 MG TABLET PO (08:26)
[2022-06-15] MEDS: FLUCONAZOLE 100 MG TABLET PO (08:26)
[2022-06-15 08:28] LABS: Glucose Point of Care 73 mg/dl (65-105)
[2022-06-15 10:02] LABS: EDCOVIDSCREEN Negative (Negative)
[2022-06-15 11:09] LABS: Glucose Point of Care 146 mg/dl (65-105)
== END 2022-06-15 14:10 | DRG 853 ==
LOC: ANHED 22:24 → ANHSURGERY 22:25 → ANH3MEDSUR 22:34
PROVIDERS: Emergency Medicine; Internal Medicine Gastroenterology; Nurse Practitioner; Physician Assistant; Urology; Admitting Provider Internal Medicine; Emergency Provider Emergency Medicine; PCP Nurse Practitioner Family; Visit Provider Nurse Practitioner Adult Health
PROC: 0T768DZ Dilation of Right Ureter with Intraluminal Device, Via Natural or Artificial Opening Endoscopic (ICD-10-PCS; CPT 52352; principal; 2022-06-02 20:00)
DX: A41.89 Other specified sepsis (principal); G93.41 Metabolic encephalopathy; N13.6 Pyonephrosis; Z16.12 Extended spectrum beta lactamase (ESBL) resistance; N13.8 Other obstructive and reflux uropathy; N17.9 Acute kidney failure, unspecified; B37.49 Other urogenital candidiasis; B96.1 Klebsiella pneumoniae [K. pneumoniae] as the cause of diseases classified elsewhere; E11.65 Type 2 diabetes mellitus with hyperglycemia; M06.9 Rheumatoid arthritis, unspecified; D72.829 Elevated white blood cell count, unspecified; D75.838 Other thrombocytosis; Z20.822 Contact with and (suspected) exposure to COVID-19; E78.5 Hyperlipidemia, unspecified; K21.9 Gastro-esophageal reflux disease without esophagitis; E86.0 Dehydration; D64.9 Anemia, unspecified; Z96.652 Presence of left artificial knee joint; Z79.4 Long term (current) use of insulin; Z86.16 Personal history of COVID-19; Z87.442 Personal history of urinary calculi; Z90.49 Acquired absence of other specified parts of digestive tract; Z98.42 Cataract extraction status, left eye; Z98.41 Cataract extraction status, right eye; Z86.73 Personal history of transient ischemic attack (TIA), and cerebral infarction without residual deficits; Z87.891 Personal history of nicotine dependence
CPT/HCPCS: 36415; 36569; 70450; 71046; 74018; 74177; 74420; 76775; 80048; 80053; 81001; 82728; 82948; 83036; 83605; 83690; 83735; 84443; 85025; 85027; 86140; 87040; 87077; 87086; 87088; 87106; 87186; 87426; 92610; 96361; 96365; 96375; 97110; 97116; 97161; 97165; 97530; 97535; 99285; A9270; C1751; C1758; C1769; C2617; C9803; J0330; J0696; J0743; J1335; J1650; J1815; J2405; J2543; J2704; J3010; J3480; J7030; J7040; J7120; J7512; Q9967; U0003; U0005

== ENCOUNTER 2023-12-09 13:42 | Outpatient (CLI) | payer MEDICARE, SELFPAY ==
--- NOTE | ~2023-12-09 | XR_ITS ---
XR hand LT 2V DATE: 12/09/2023 14:47 INDICATION: Multiple joint pain. Left hand pain. TECHNIQUE: AP and lateral views COMPARISON: None FINDINGS: Prominent osteopenia. Prominent radiocarpal joint space narrowing. Scapholunate dissociation. Triscaphe joint narrowing. No fracture or dislocation, periosteal reaction or bone destruction. IMPRESSION: Prominent osteopenia Scapholunate dissociation Polyarticular osteoarthritis Reviewed, dictated and finalized at location B.
--- NOTE | ~2023-12-09 | XR_ITS ---
XR_[id number]_CR DATE: 12/09/2023 14:48 INDICATION: Right knee pain TECHNIQUE: Standing AP and lateral views COMPARISON: None FINDINGS: Prominent diffuse osteopenia. No fracture, dislocation, periosteal reaction or bone destruction. Mild to moderate suprapatellar knee joint effusion is suggested. There is narrowing of the joint spaces, more prominent at the lateral compartment, and mild periartic ular spurring primarily at the patellofemoral joint. No radiopaque intra-articular loose body or hoa drocalcinosis is noted. IMPRESSION: Osteopenia Suprapatellar knee joint effusion Tricompartment osteophytes, most prominent at the lateral compartment Reviewed, dictated and finalized at [facility]. Reviewed, dictated and finalized at location [facility].
--- NOTE | ~2023-12-09 | XR_ITS ---
XR hip BI wo pelvis DATE: 12/09/2023 14:48 INDICATION: Right hip pain. Left hip pain. TECHNIQUE: AP and lateral views of each hip COMPARISON: None FINDINGS: Osteopenia. Severe degenerative disc disease at L4-5 and L5-S1. The pubic symphysis and sacroiliac joints are intact. No fracture, dislocation, avascular necrosis or bone destruction of either hip is detected. Mild bila teral hip osteoarthritis. IMPRESSION: Osteopenia Mild bilateral hip osteoarthritis Severe degenerative disc disease at L4-5 and L5-S1 Reviewed, dictated and finalized at location B.
--- NOTE | ~2023-12-09 | XR_ITS ---
XR shoulder LT min 2V DATE: 12/09/2023 14:48 INDICATION: Left shoulder pain TECHNIQUE: 4 views COMPARISON: None FINDINGS: Prominent osteopenia. The humeral head approximates the undersurface of the acromion process, consistent with chronic rotat or cuff atrophy. No fracture, dislocation, periosteal reaction or bone destruction. No abnormal soft tissue calcificat ion. IMPRESSION: Prominent osteopenia Chronic rotator cuff atrophy Reviewed, dictated and finalized at location B.
--- NOTE | ~2023-12-09 | XR_ITS ---
XR wrist LT 2V DATE: 12/09/2023 14:48 INDICATION: Left wrist pain TECHNIQUE: AP and lateral views COMPARISON: None FINDINGS: Prominent diffuse osteopenia. Severe radiocarpal joint space narrowing. Prominent scapholunate dissociation. Triscaphe osteoarthritis. No fracture or dislocation, periosteal reaction or bone destruction is noted otherwise. IMPRESSION: Prominent osteopenia Scapholunate dissociation Polyarticular osteoarthritis Reviewed, dictated and finalized at location B.
--- NOTE | ~2023-12-09 | XR_ITS ---
XR_KNEE1-2VLT_CR DATE: 12/09/2023 14:47 INDICATION: Left knee pain TECHNIQUE: Standing AP and lateral views COMPARISON: None FINDINGS: Prominent diffuse osteopenia. Status post left total knee arthroplasty with patellar resurfacing. No fracture or dislocation, periosteal reaction or bone destruction is detected. Mild suprapatellar k nee joint effusion is suggested. IMPRESSION: Prominent osteopenia Status post left total knee arthroplasty Suggestion of suprapatellar knee joint effusion Reviewed, dictated and finalized at [facility]. Reviewed, dictated and finalized at location [facility].
--- NOTE | ~2023-12-09 | XR_ITS ---
XR shoulder RT min 2V DATE: 12/09/2023 14:48 INDICATION: Right shoulder pain TECHNIQUE: 4 views COMPARISON: None FINDINGS: Osteopenia. The humeral head approximates the undersurface of the acromion process, consistent with right rotator cuff atrophy. No fracture, dislocation, periosteal reaction or bone destruction is detected. IMPRESSION: Right rotator cuff atrophy Osteopenia Reviewed, dictated and finalized at location B.
--- NOTE | ~2023-12-09 | XR_ITS ---
XR hand RT 2V DATE: 12/09/2023 14:47 INDICATION: Multiple joint pain. Right hand pain. TECHNIQUE: AP and lateral views COMPARISON: None FINDINGS: Prominent diffuse osteopenia. Radiocarpal joint space narrowing. Triscaphe joint space narrowing. Prominent scapholunate dissociation. Possible flexion deformity at the proximal interphalangeal joint of the fifth digit; recommend clinic al correlation. No fracture or dislocation, periosteal reaction or bone destruction is detected. IMPRESSION: Prominent osteopenia Polyarticular osteoarthritis Scapholunate dissociation Reviewed, dictated and finalized at location B.
--- NOTE | ~2023-12-09 | XR_ITS ---
XR wrist RT 2V DATE: 12/09/2023 14:48 INDICATION: Right wrist pain TECHNIQUE: AP and lateral views COMPARISON: None FINDINGS: Prominent osteopenia. There is prominent radiocarpal joint space narrowing. There is osteoarthritic changes also noted at t he triscaphe and first carpometacarpal joints. There is prominent scapholunate dissociation. No fracture or dislocation, periosteal reaction or bone destruction is evident. IMPRESSION: Prominent osteopenia Prominent scapholunate dissociation Polyarticular osteoarthritis Reviewed, dictated and finalized at location B.
== END 2023-12-09 13:43 ==
PROVIDERS: PCP Nurse Practitioner Family; Visit Provider Internal Medicine Rheumatology
DX: M19.041 Primary osteoarthritis, right hand (principal); M19.042 Primary osteoarthritis, left hand; M19.031 Primary osteoarthritis, right wrist; M19.032 Primary osteoarthritis, left wrist; M17.0 Bilateral primary osteoarthritis of knee; M25.461 Effusion, right knee; M25.462 Effusion, left knee; M16.0 Bilateral primary osteoarthritis of hip; M51.36 Other intervertebral disc degeneration, lumbar region; M51.37 Other intervertebral disc degeneration, lumbosacral region
CPT/HCPCS: 73030; 73100; 73120; 73521; 73560

== ENCOUNTER 2023-12-24 12:50 | Outpatient (CLI) | payer MEDICARE, SELFPAY ==
--- NOTE | ~2023-12-24 | MR_ITS ---
EXAMINATION: MR lumbar spine wo con DATE: 12/24/2023 13:36 INDICATION: Low back pain. TECHNIQUE: Magnetic resonance imaging (MRI) of the lumbar spine was performed without intravenous con trast. Sequences included sagittal T2-weighted FSE, sagittal T2-weighted FS FSE, sagittal T1-weighted FSE, and axial T2-weighted FSE. COMPARISON: None FINDINGS: There is 17 degrees levoscoliosis of lumbar spine. There is 4 mm retrolisthesis of L2 on L3 and L3 on L4. Vertebral body heights are normal. There is mildly decreased disc height at L1-L2 and severely decreased disc height from L2-L3 through L5-S1 with endplate remodeling. The distal spinal c ord signal intensity is normal. The conus medullaris is at T12-L1. The following disc levels are spec ifically discussed: L1-L2: The disc is bulging and has an annular fissure. There is severe right and moderate left facet joint osteoarthritis. There is mild bilateral neural foraminal stenosis. There is mild central canal stenosis. L2-L3: The disc is bulging and has an annular fissure. There is mild bilateral facet joint osteoarthr itis. There is mild bilateral neural foraminal stenosis. There is mild central canal stenosis. L3-L4: The disc is bulging. There is severe bilateral facet joint osteoarthritis. There is mild bilat eral neural foraminal stenosis. There is mild central canal stenosis. L4-L5: The disc is bulging and has an annular fissure. There is severe bilateral facet joint osteoart hritis. There is mild bilateral neural foraminal stenosis. There is mild central canal stenosis. L5-S1: The disc is bulging with superimposed right subarticular zone extrusion. There is severe bilat eral facet joint osteoarthritis. There is mild right and moderate left neural foraminal stenosis. The re is mild central canal stenosis. There is moderate stenosis of right lateral recess. IMPRESSION: 1. Severe lumbar spondylosis. 2. Lumbar levoscoliosis. Reviewed, dictated and finalized at location A.
== END 2023-12-24 12:51 ==
LOC: MICIMG 12:54
PROVIDERS: PCP Internal Medicine Rheumatology; Visit Provider Internal Medicine Rheumatology
DX: M47.896 Other spondylosis, lumbar region (principal)
CPT/HCPCS: 72148

== ENCOUNTER 2024-11-24 18:40 | Emergency (ER) | payer MEDICARE, SELFPAY ==
--- NOTE | ~2024-11-24 | XR_ITS ---
XR chest 2V Ordering provider: Mk Cornell MD History: 79 years Female with . SYNCOPE . Comparison: June 10, 2022 FINDINGS: MEDIASTINUM: The cardiac silhouette is not enlarged. LUNGS: No infiltrates, effusions or pneumothorax. OTHER: No free air under the diaphragm. 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 IMPRESSION: No acute cardiopulmonary pathology. Reviewed, dictated and finalized at location A. T HEADER
--- NOTE | 2024-11-24 18:43 | ECG_ITS ---
Test Date: 2024-11-24 18:48:18 Measurements Intervals [place] Rate: 65 P: 40 CO: 190 QRS: 3 QRSD: 86 T: 99 QT: 400 QTc: 417 Interpretive Statements SINUS RHYTHM LEFT VENTRICULAR HYPERTROPHY AND ST-T CHANGE [VOLTAGE CRITERIA PLUS ST/T ABNORMALITY] POSSIBLE SEPTAL MYOCARDIAL INFARCTION , PROBABLY OLD [30 ms Q WAVE IN V1/V2] No previous ECG available for comparison Electronically Signed On 11-25-2024 16:22:21 CUSTOMER COMPLAINT SERVICE SUPERVISOR by Jono Morel M.D.
--- OUTSIDE RECORDS SUMMARY | 2024-11-24 18:44 | XMS_ITS | Patient Health Summary ---
Author Organization [facility] Address [address] [place] [address] Care Team Providers Care Capacity Planning Engineer Name Role Phone Stacy Mcgee APRN-SUBSTATION DESIGN DRAFTSPERSON Primary Care Provider [phone] Note from [facility],non-owned Affiliates and Associated Physician Practices is amultiple site organization consisting of ambulatory clinics and hospital sitesin [place], [place], [place] and [place]. This disclosure is being madepursuant to the Care Everywhere program and may not contain all information available regarding this patient. Last updated 18.[facility] Allergies * Acetaminophen(Unknown) * Codeine(Unknown) * Oxytetracycline(Rash) -High Criticality * Sucralfate(Diarrhea) Medications Be aware that medications may not be up to date on this document. Always verify current medications with the patient. No known medications Active Problems Problem Noted Date Diagnosed Date Lacunar stroke 01/03/2021 Myelopathy 01/03/2021 Unsteadiness 01/03/2021 B12 deficiency 10/17/2020 Memory deficits 10/17/2020 Lumbar foraminal stenosis 08/17/2020 Spinal stenosis of lumbar region 08/17/2020 Hip pain, chronic, right 07/13/2020 History of lumbar fusion 06/21/2020 Oropharyngeal dysphagia 06/21/2020 Mixed hyperlipidemia 05/15/2019 Gastroesophageal reflux disease 10/31/2018 Hypertension 10/31/2018 Type 2 diabetes mellitus wit hout complication, without long-term current use of insulin 10/31/2018 Vitamin D deficiency 10/31/2018 Social History Tobacco Use Types Packs/Day Years Used Date Smoking Tobacco: Former Smokeless Tobacco: Never Alcohol Use Standard Drinks/Week Comments Not Currently 0 (1 standard drink = 0.6 oz pur e alcohol) Sex and Gender Information Value Date Recorded Sex Assigned at Not on file Gender Identity Not on file Sexual Orientation Not on file Care Teams Capacity Planning Engineer Relationship Specialty Start Date End Date Stacy Mcgee APRN-MECHELLE [address] [place] [id number] PCP - General 11/08/20
--- OUTSIDE RECORDS SUMMARY | 2024-11-24 18:44 | XMS_ITS | Clinical Summary ---
Author Organization [facility] Address [facility] [place] [address] Care Team Providers Care Telegraph Operator Name Role Phone Stacy Mcgee TOMEKA Primary Care Provider [phone] Allergies Active Allergy Reactions Criticality Noted Date Comments Alprazolam Dizziness 10/23/2023 Codeine GI Upset 05/09/2019 Oxytetracycline Rash High 05/04/2013 Sucralfate Diarrhea 06/08/2018 Abdominal cramping Tramadol GI Upset 08/07/2023 Medications Cholecalciferol (VITAMIN D) 2000 units TabIndications: Vitamin D deficiency Take 2,000 Int'l Units by mouth daily. 30 tablet 019 Active folic acid 1 MG tabletIndicatio ns:Supplement Take 1 tablet (1 mg total) by mouth daily. Indications: Supplement 016 Active SOFTCLIX LANCETS MiscIndications :Type 2 diabetes mellitus without complication, without long-term current use of insulin (CMS/HCC HHS/HCC) Use daily as directed DM , on insulin 100 each 3 021 Active Blood Glucose Monitoring Suppl (ACCU-CHEK GUIDE CA) w/Device KitIndications: Type 2 diabetes mellitus without complication, without long-term current use of insulin (CMS/HCC HHS/HCC) 1 each by Does not apply route daily. Type 2 DM on insulin 1 kit 021 Active Glucose Blood (ACCU-CHEK GUIDE) test stripIndication s:Type 2 diabetes mellitus without complication, without long-term current use of insulin (CMS/HCC HHS/HCC) 1 strip by Other route daily. Type 2 DM on insulin 100 strip 3 021 Active Insulin Syringe-Needle U-100 (BD INSULIN SYRINGE U/F) 31G X 16 1 ML MiscIndications :Type 2 diabetes mellitus without complication, without long-term current use of insulin ([facility]) Use twice a day with lantus 100 each 11 021 Active Multiple Vitamin (MULTIVITAMIN ADULT OR)Indications: Other vitamin deficiencies Take by mouth daily. Indications: Other vitamin deficiencies Active CRANBERRY FRUIT ORIndications:A bnormal Urinary Test Results (Inactive) Take 1 tablet by mouth daily. Indications: ABNORMAL URINARY TEST RESULTS (INACTIVE) Active melatonin 5 MG tablet Take 1 tablet (5 mg total) by mouth nightly as needed. Active hydroCHLOROthia zide (MICROZIDE) 12.5 MG capsuleIndicati ons:Altered Blood Pressure Take 1 capsule (12.5 mg total) by mouth every morning. Indications: Changes in Blood Pressure Active naproxen sodium (ANAPROX) 220 MG tabletIndicatio ns:Arthritis Take 1 tablet (220 mg total) by mouth 2 (two) times daily with meals. Indications: Arthritis Active cloNIDine (CATAPRES) 0.2 MG tabletIndicatio ns:Anxiety TAKE 1 TABLET (0.2 MG TOTAL) BY MOUTH 2 (TWO) TIMES DAILY. 180 tablet 1 023 Active Additional Information Patient not taking.Reported on 11/11/2024 amoxicillin (AMOXIL) 500 MG capsuleIndicati ons:Prophylacti c antibiotic Take 2 grams one hour prior to dental procedure 12 capsule 1 023 Active pantoprazole EC (PROTONIX) 40 MG tabletIndicatio ns:Epigastric pain,Gastroesop hageal reflux disease, unspecified whether esophagitis present TAKE 1 TABLET BY MOUTH EVERY DAY 90 tablet 3 023 Active HOVER ROUND CHAIR, DME,Indications :Disease of spinal cord ([facility]),Spinal stenosis of lumbar region, unspecified whether neurogenic claudication present,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 1 Device 023 Active insulin lispro, 1 Unit Dial, (HUMALOG KWIKPEN) 100 UNIT/ML injection (PEN)Indication s:Type 2 diabetes mellitus without complication, without long-term current use of insulin ([facility]) Administer 8 units subcutaneously three times daily as needed per sliding scale. 15 mL 3 024 Active JANUVIA 100 MG tabletIndicatio ns:Diabetes Mellitus TAKE 1 TABLET (100 MG TOTAL) BY MOUTH DAILY FOR DIABETES 90 tablet 3 024 Active methotrexate (TREXALL) 2.5 MG tablet Take 1 tablet (2.5 mg total) by mouth. 024 Active rosuvastatin (CRESTOR) 20 MG tablet TAKE 1 TABLET BY MOUTH EVERY DAY AT BEDTIME 30 tablet Active escitalopram (LEXAPRO) 5 MG tabletIndicatio ns:Generalized anxiety disorder TAKE 1 TABLET BY MOUTH EVERY DAY AT NIGHT 30 tablet Active tiZANidine (ZANAFLEX) 4 MG tabletIndicatio ns:Acute right-sided thoracic back pain TAKE 1 TABLET BY MOUTH EVERY 8 HOURS NEEDED 60 tablet 024 Active vitamin D2, ergocalciferol, (DRISDOL) 1.25 mg capsule TAKE 1 CAP WEEKLY X 3 MONTHS, THEN 1 EVERY OTHER WEEK FOR 3 MONTHS, THEN ONCE MONTHLY Active predniSONE (DELTASONE) 1 MG tablet PLEASE SEE ATTACHED FOR DETAILED DIRECTIONS Active metoprolol tartrate (LOPRESSOR) 100 MG tablet Take one tablet (100mg total) by mouth ONE HOUR PRIOR TO CORONARY CTA 1 tablet 024 Active amLODIPine (NORVASC) 5 MG tabletIndicatio ns:Hypertension , unspecified type TAKE 2 TABLETS BY MOUTH EVERY DAY. 60 tablet 025 Active lisinopril (PRINIVIL) 20 MG tabletIndicatio ns:Hypertension Take 1 tablet (20 mg total) by mouth daily. Indications: High Blood Pressure 30 tablet 025 Active glipiZIDE (GLUCOTROL) 5 MG tabletIndicatio ns:Diabetes Mellitus Take 1 tablet (5 mg total) by mouth every morning before breakfast. Indications: Diabetes 30 tablet 025 Active glipiZIDE (GLUCOTROL) 5 MG tabletIndicatio ns:Diabetes Mellitus TAKE 1 TABLET (5 MG TOTAL) BY MOUTH EVERY MORNING BEFORE BREAKFAST. INDICATIONS: DIABETES 90 tablet 3 024 2024 Discontinued amLODIPine (NORVASC) 5 MG tabletIndicatio ns:Hypertension , unspecified type take 2 tablets by mouth every day 180 tablet 1 024 2024 Discontinued lisinopril (PRINIVIL) 20 MG tabletIndicatio ns:Hypertension TAKE 1 TABLET (20 MG TOTAL) BY MOUTH DAILY. INDICATIONS: HIGH BLOOD PRESSURE DISORDER 90 tablet 1 024 2024 Discontinued glipiZIDE (GLUCOTROL) 5 MG tabletIndicatio ns:Diabetes Mellitus Take 1 tablet (5 mg total) by mouth every morning before breakfast. Indications: Diabetes CALL OFFICE FOR APPOINTMENT 14 tablet 025 2024 Discontinued(R eorder) lisinopril (PRINIVIL) 20 MG tabletIndicatio ns:Hypertension Take 1 tablet (20 mg total) by mouth daily. Indications: High Blood Pressure CALL OFFICE FOR APPOINTMENT 14 tablet 025 2024 Discontinued(R eorder) amLODIPine (NORVASC) 5 MG tabletIndicatio ns:Hypertension , unspecified type TAKE 2 TABLETS BY MOUTH EVERY DAY. CALL OFFICE FOR APPT 28 tablet 025 2024 Discontinued(R eorder) Active Problems Problem Noted Date Diagnosed Date Aortic heart murmur 01/08/2024 Abnormal EKG 01/08/2024 KATEY (obstructive sleep apnea) 01/08/2024 Type 2 diabetes mellitus with hyperglycemia 09/2022 UTI (urinary tract infection) 07/23/2022 Right ureteral stone 07/14/2022 Reactive thrombocytosis 06/24/2022 Leukocytosis (leucocytosis) 06/24/2022 Chronic anemia 06/24/2022 History of recurrent UTIs 12/17/2021 Primary insomnia 10/23/2021 Other fatigue 04/02/2021 Hearing loss of right ear due to cerumen impacti on 02/15/2021 Left ear impacted cerumen 02/15/2021 Lacunar stroke ([facility]) 01/03/2021 Disease of spinal cord ([facility]) 021 Unsteadiness 01/03/2021 UTI symptoms 12/03/2020 B12 deficiency 10/17/2020 Memory deficits 10/17/2020 Dizziness 10/17/2020 Ataxia 10/17/2020 Lumbar foraminal stenosis 08/17/2020 Spinal stenosis of lumbar re gion, unspecified whether neurogenic claudication present 08/17/2020 Hip pain, chronic, right 07/13/2020 Acute cystitis without hematuria 06/21/2020 History of lumbar fusion 06/21/2020 Chronic midline low back pain with bilateral sci atica 06/21/2020 Oropharyngeal dysphagia 06/21/2020 Diabetic eye exam ([facility]) 05/08/2020 Deformity of toenail 05/08/2020 Skin lump of leg, left 05/08/2020 Lipoma of left lower extremity 05/08/2020 Mixed hyperlipidemia 05/15/2019 Anemia, unspecified type 10/31/2018 Rheumatoid arthritis involvi ng multiple sites with positive rheumatoid factor ([facility]) 10/31/2018 Weakness 10/31/2018 Vitamin D deficiency 10/31/2018 Gastroesophageal reflux dise ase, esophagitis presence not specified 10/31/2018 Type 2 diabetes mellitus wit h diabetic polyneuropathy, with long-term current use of insulin ([facility]) 10/31/2018 Hypertension, unspecified type 10/31/2018 Toenail fungus 10/31/2018 Diverticulosis of large intestine 06/14/2018 Localized primary osteoarthritis of left lower l eg 11/15/2015 Primary osteoarthritis of left knee 11/14/2015 Resolved Problems Problem Noted Date Diagnosed Date Resolved Date Pneumonia due to COVID-19 virus 10/23/2021 11/11/2024 Encounters Date Type Department Care Team Description 11/24/2024 Telephone [facility] [place] [address] [address] [place], [place] [id number] Daphne Townsend, TURN LASTER Results 11/21/2024 Orders Only [facility] [place], [place] [id number] Sigifredo Rivas MD 11/16/2024 11:20 AM WASTE COLLECTOR - 11/16/2024 11:59 PM WASTE COLLECTOR Hospital Encounter [facility] [place] [address] Sigifredo Rivas MD Discharge Disposition: Home or Self Care (Routine Discharge) 11/16/2024 10:30 AM WASTE COLLECTOR - 11/16/2024 10:31 AM WASTE COLLECTOR Hospital Encounter [facility] [place] [address] Sigifredo Rivas MD Discharge Disposition: Home or Self Care (Routine Discharge) 11/16/2024 Telephone [facility] on [facility] [address] [address] Stacy Rodriguez PA-C Results 11/16/2024 Travel 11/11/2024 1:30 PM WASTE COLLECTOR Office Visit [facility] [phone] Sigifredo Rivas MD Hypertension (TESTING F/UP) 11/11/2024 Travel 11/04/2024 12:59 PM WASTE COLLECTOR - 11/04/2024 3:48 PM WASTE COLLECTOR Emergency [facility] [place] [address] Stephanie Cook MD Fall Discharge Disposition: Home or Self Care (Routine Discharge) 11/04/2024 Travel 11/01/2024 11:00 AM WASTE COLLECTOR - 11/01/2024 11:59 PM WASTE COLLECTOR Hospital [place] [address] Sigifredo Rivas MD Discharge Disposition: Home or Self Care (Routine Discharge) 11/01/2024 Travel 10/13/2024 12:50 PM WASTE COLLECTOR - 10/13/2024 11:59 PM WASTE COLLECTOR Hospital Encounter [facility] [address] [place] [address] Gaby Ortiz, PT Kilzer, Stacy, PSYCHOLOGICAL OPERATIONS OFFICER Generalized Weakness Discharge Disposition: Home or Self Care (Routine Discharge) 10/13/2024 Travel 10/10/2024 2:41 PM WASTE COLLECTOR - 10/10/2024 11:59 PM WASTE COLLECTOR Hospital Encounter [facility] [address] [place] [address] Gaby Ortiz, PT Everardo, Stacy, PSYCHOLOGICAL OPERATIONS OFFICER Generalized Weakness Discharge Disposition: Home or Self Care (Routine Discharge) 10/10/2024 Travel 10/07/2024 12:58 PM WASTE COLLECTOR - 10/07/2024 11:59 PM WASTE COLLECTOR Hospital Encounter [facility] [address] [place] [phone] Gaby Ortiz, PT Everardo, Stacy, PSYCHOLOGICAL OPERATIONS OFFICER Generalized Weakness Discharge Disposition: Home or Self Care (Routine Discharge) 10/07/2024 Travel 10/04/2024 Telephone [facility] [address] [phone] Stacy Mcgee, PSYCHOLOGICAL OPERATIONS OFFICER Diabetes 10/03/2024 3:15 PM WASTE COLLECTOR - 10/03/2024 11:59 PM WASTE COLLECTOR Hospital Encounter [facility] [address] [place] [phone] Gaby Ortiz, PT Everardo, Stacy, PSYCHOLOGICAL OPERATIONS OFFICER Generalized Weakness Discharge Disposition: Home or Self Care (Routine Discharge) 10/03/2024 Travel 09/23/2024 12:48 PM WASTE COLLECTOR - 09/23/2024 11:59 PM WASTE COLLECTOR Hospital Encounter [facility] [address] [place] [phone] Sylvia Tomlinson, PT Everardo, Stacy, PSYCHOLOGICAL OPERATIONS OFFICER Generalized Weakness Discharge Disposition: Home or Self Care (Routine Discharge) 09/23/2024 Travel 09/13/2024 9:00 AM WASTE COLLECTOR - 09/13/2024 11:59 PM WASTE COLLECTOR Hospital Encounter [facility] [address] [place] [phone] Sigifredo Rivas MD Obstructive Sleep Apnea Discharge Disposition: Home or Self Care (Routine Discharge) 09/13/2024 Travel 09/12/2024 Telephone [facility], [address] [address] Sigifredo Rivas MD Medication (metoprolol) 09/09/2024 1:00 PM WASTE COLLECTOR Office Visit [facility] [phone] Sigifredo Rivas MD Hypertension (1mo) 09/09/2024 Travel from Last 3 Months Immunizations Name Administration Dates Next Due Fluad influenza vaccine, Darrell drivalent (aIIV4), Inactivated, adjuvanted, preservative free, 0.5 mL,IM use 06/11/2018 Fluzone High Dose - >Age 65 (Prefilled Syringe) 06/21/2020 Pneumococcal (Pneumovax 23) 10/21/2021 Pneumococcal (Prevnar 13) 06/11/2018 Tdap (Boostrix) 11/04/2024 Family History Medical History Relation Comments Diabetes Brother 1 Heart Brother 1 Heart Disease Brother 1 Hypertension Brother 1 Stroke Brother 1 Cancer Brother 2 brain Heart Disease Brother 2 Hypertension Brother 2 Heart Disease Brother 4 Hypertension Brother 4 PONV Daughter Diabetes Father Arthritis Mother Hypertension Mother Stroke Mother Diabetes Sister Relation Status Comments Brother 1 Brother 2 Brother 3 Brother 4 Daughter Father Mother (Age 45) Sister Social History Tobacco Use Types Packs/Day Years Used Date Smoking Tobacco: Every Day Cigarettes 0.3 50 Smokeless Tobacco: Never Tobacco Cessation:Ready to Q uit: Not Asked; Counseling Given: Not Answered Comments:3-4 cigs per day Alcohol Use Standard Drinks/Week Comments No 0 (1 standard drink = 0.6 oz pur e alcohol) AUDIT-C Answer Date Recorded Frequency of Alcohol Consumption Never 10/28/2018 Average Number of Drinks Not on file 019 Frequency of Binge Drinking Not on file 03/2019 PHQ-2 Answer Date Recorded Patient Health Questionnaire-2 Score 0 11/13/2022 Education Answer Date Recorded What is the highest level of school you have completed or the highest degree you have received? Some college, no degree 12/27/2021 Comments No Sex and Gender Information Value Date Recorded Sex Assigned at Female 10/07/2024 12:57 PM WASTE COLLECTOR Legal Sex Female 11:50 AM WASTE COLLECTOR Gender Identity Not on file Sexual Orientation Not on file Last Filed Vital Signs Vital Sign Reading Time Taken Comments Blood Pressure 146/60 11/11/2024 1:16 PM WASTE COLLECTOR Pulse 80 11/11/2024 1:16 PM WASTE COLLECTOR Temperature 36.3 C (97.4 F) 11/04/2024 12:50 PM WASTE COLLECTOR Respiratory Rate 16 11/04/2024 3:00 PM WASTE COLLECTOR Oxygen Saturation 95% 11/11/2024 1:16 PM WASTE COLLECTOR Inhaled Oxygen Concentration - - Weight 58.4 kg (128 lb 12.8 oz) 11/11/2024 1:16 PM WASTE COLLECTOR Height 154.9 cm (5' 1 ) 11/11/2024 1:16 PM WASTE COLLECTOR Body Mass Index 24.34 11/11/2024 1:16 PM WASTE COLLECTOR Plan of Treatment Upcoming Encounters Date Type Department Care Team (Late st Contact Info) Description 12/14/2024 2:00 PM CDT Office Visit [facility] - [address] [phone] Stacy Mcgee [address] [address] 12/16/2024 10:00 AM CDT Appointment [facility] [place] [address] Sigifredo Rivas MD 3 [facility] [place] [address] [place] [phone] Jerrod Teague MD Three [facility]. [address] [place] [address] 03/10/2025 10:45 AM CDT Office Visit [facility] [phone] Sigifredo Rivas MD 3 [facility] [address] [place] [phone] Health Maintenance Due Date Last Done Comments Kidney Health Evaluation 1945 Diabetes: Retinopathy Eye Exam 1963 Hepatitis C 1963 Zoster Vaccines (1 of 2) 1996 Annual Medicare Wellness Visit 2011 Dexa Scan (General) 2011 RSV Immunization or 60+ Years (1 - 1-dose 75+ series) 2021 Hemoglobin A1C 01/21/2024 10/23/2023, 07/22, 04/14/2023, Additional history exists COVID-19 Vaccine ( season) 2024 Influenza Adult (#1) 2024 06/21/2020, 06/11/20 18 PHQ-2 (Physician [place]) 09/21/2024 ASCVD LDL 10/23/2024 10/23/2023, 02/0 10/2023, 04/15/2023, Additional history exists Lipid Panel 10/23/2024 10/23/2023, 02/0 10/2023, 04/15/2023, Additional history exists DTaP, Tdap and Td Vaccines (2 - Td or Tdap) 11/04/2034 11/04/2024 Pneumococcal Vaccine: 65+ Years Completed 10/21/2021, 06/11/2018 Meningococcal B Vaccine Aged Out No l onger eligible based on patient's age to complete this topic Meningococcal Vaccine Aged Out No raheel mauricio eligible based on patient's age to complete this topic RSV Immunizations Under 20 Months Aged Out No longer eligible based on patient's age to complete this topic Medical Devices Implanted Type Area Manager Clinical Informatics Device Identifier Shelf Expiration Date Model / Serial / Lot Stent Ureteral Pigtail 6fr 24cm Crv Taper Tip - [id number] Implanted:Qty : 1 on 07/14/2022 by Sridhar Jones MD at [facility] Stent Right: Ureter PASSNFLY HELEN [id number] 03/10/2025 [id number] / [id number] Left Knee Procedures Procedure Name Priority Date/Time Associated Diagnosis Comments THYROID STIM HORMONE TSH Routine 11/16/2024 11:30 AM WASTE COLLECTOR Hypertension, unspecified type USE ECHOCARDIOGRAM Routine 11/16/2024 11 :27 AM WASTE COLLECTOR Aortic heart murmur SOB (shortness of breath) BASIC METABOLIC PANEL STAT 11/04/2024 2:22 PM WASTE COLLECTOR LACERATION REPAIR Routine 11/04/2024 1:[address] CERV SPINE WO CON STAT 11/04/2024 1:[address] HEAD WO CON STAT 11/04/2024 1:24 PM WASTE COLLECTOR CTA CORONARY W SCORING Routine 12:32 PM WASTE COLLECTOR Aortic heart murmur CREATININE WHOLE BLOOD Routine 12:03 PM WASTE COLLECTOR HOME SLEEP STUDY - WATCHPAT Routine 09/13/2024 9:00 AM WASTE COLLECTOR KATEY (obstructive sleep apnea) Dyspnea on exertion SOB (shortness of breath) LIPOPROTEIN, LDL CHOL, DIRECT Routine 10/23/2023 3:07 PM WASTE COLLECTOR HEMOGLOBIN, GLYCOSYLATED Routine 10/23/2023 Type 2 diabetes mellitus with diabetic polyneuropathy, with long-term current use of insulin ([facility]) from Last 3 Months or Most Recently Relevant to Health Maintenance Results * (ABNORMAL) TSH (11/16/2024 11:30 AM WASTE COLLECTOR) TSH 3.940(H) 0.358 - 3.74 uIU/ML 11/16/2024 12:34 PM WASTE COLLECTOR [facility] Comment: HIGH DOSES OF BIOTIN MAY INTERFERE WITH THIS TEST RESULT. CORRELATION TO CLINICAL HISTORY AND PRESENTATION RECOMMENDED. 11/16/2024 11:3 0 AM WASTE COLLECTOR Sigifredo Rivas MD LABORATORY Final Result [facility] [address] [place] [address], [place] [phone] * USE ECHOCARDIOGRAM (11/16/2024 11:27 AM WASTE COLLECTOR) Anatomical Region Laterality Modality Cardiac Echocardiogram 11/16/2024 10:4 7 AM WASTE COLLECTOR Narrative 11/17/2024 8:39 AM WASTE COLLECTOR Echocardiography Report Pat.Name: MELISSA LINTON Pat.ID: [id number] .Date: 11/16/2024 Percy.: [id number] EVELYN Vasquez EWDPROV EWDPROV Exam Time: 10:47:00 AM Study Type:ECHO WITH CARDIAC DOPPLER COMP Height: 61 in Weight: 128 lb BSA: 1.56 m2 Age: 12 1945,79Y Sex: F BP: 146/47 HR: 53 bpm Sonogrphr: Meagan Kaur Pat. Stat.:Outpatient Reason for Study:Aortic stenosis Procedures: 2D, M-mode, Doppler, Color Flow, The study quality is technically good. Race: O ++++++++++++++++++++++++++++++++++++ SUMMARY: ++++++++++++++++++++++++++++++++++++ The left ventricular size is normal. Estimated left ventricular ejection fraction is 65-70%. Moderate concentric left ventricular hypertrophy. Left ventricular diastolic function is abnormal (grade 1 - impaired relaxation). LVOT obstruction noted, appears increased with valsalva. Peak LVOT gradient with valsalva 18 mm hg. Wall motion appears normal in all segments. The right ventricular size is normal. Right ventricular systolic function is mildly depressed. 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 The peak pulmonary artery systolic pressure is estimated to be approximately 29 mmHg. No evidence of aortic valve stenosis. No evidence of aortic regurgitation. No evidence of mitral regurgitation. ++++++++++++++++++++++++++++++++++++ FINDINGS: ++++++++++++++++++++++++++++++++++++ LV: The left ventricular size is normal. Estimated left ventricular ejection fraction is 65-70%. Moderate concentric left ventricular hypertrophy. Left ventricular diastolic function is abnormal (grade 1 - impaired relaxation). LVOT obstruction noted, appears increased with valsalva. WM: Wall motion appears normal in all segments. RV: The right ventricular size is normal. Right ventricular systolic function is mildly depressed. IVS: No evidence of ventricular septal defect. LA: The left atrial size is normal. RA: Right atrial size is normal. 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 CHUCHO: No evidence of pericardial effusion. AO: Normal aortic root. PA: The peak pulmonary artery systolic pressure is estimated to be approximately 29 mmHg. Estimated right atrial pressure of 3 mmHg. SVn: Inferior vena cava is normal. AV: No evidence of aortic valve stenosis. No evidence of aortic regurgitation. LVOT obstruction noted, appears increased with valsalva. MV: No evidence of mitral regurgitation. No evidence of mitral valve stenosis. PV: No evidence of pulmonic valve stenosis. No evidence of pulmonic regurgitation. TV: Mild tricuspid regurgitation. No evidence of tricuspid valve stenosis. ++++++++++++++++++++++++++++++++++++ MEASUREMENTS: ++++++++++++++++++++++++++++++++++++ DOPPLER LVOT LVOTpkPG 5 mmHg LVOTmnPG 3 mmHg LVOTpkVel 110 cm/s (70-110) LVOT SV 87 ml LVOT TVI 27.7 cm AV Forward Flow AV TVI 33.1 cm AV pkPG 8 mmHg AV pkVel 140 cm/s (100-170) Area (TVI) 2.63 cm2 (3-5)* AV mnPG 4 mmHg Area (Haroldo) 2.47 cm2 (3-5)* MV Forward Flow MV DeTm 384 msec MV E/A 0.6 MVA P1/2t 1.96 cm2 (4-6)* MV pkE 68.3 cm/s (60-130) MV P1/2t 112 msec (30-60)+* MV pkA 110 cm/s PV Forward Flow PV pkVel 118 cm/s (60-90)* PV AC 88 msec PV pkPG 6 mmHg RVOT RVOTpkV 93.4 cm/s TV Regurg Flow TV pkPG 26 mmHg TV pkVel 254 cm/s (30-70)* TV Forward Flow TV E/A 1.2 TV pkA 40.4 cm/s TV pkE 49.7 cm/s Lat E' Lat e 8.49 cm/s Lat E/E' Lat E/e 8 Med E' Med e 5.55 cm/s Med E/E' Med E/e 12.3 Aortic Valve Aortic Valve Ar 1.69 Aortic Valve Ve 0.79 PV Antegrade Flow Acceleration Sl 1072 cm/s2 Right Atrium Mathews's Disk 20 Right Ventricle Right Ventricle 10.7 cm/s 2D Left Ventricle LVIDd 3.7 cm (3.6-5.2) LV ESV 27 ml LVIDs 2.2 cm (2.3-3.9)* LV ESV 25.3 ml LngAxd 8.57 cm LVESV BP 26.3 ml LngAxd 8.43 cm LV EF 67.1 % LV EDV 81.6 ml LV EF 68.1 % LV EDV 79.2 ml LV EF BP 67.5 % LVEDV BP 80.9 ml LV SV 54.8 ml LngAxs 6.64 cm LV SV 54 ml LngAxs 6.54 cm LV SV BP 54.6 ml LVPW LVPWd 1.1 cm Ventricular Septum IVSd 1.4 cm Left Atrium LA VOLBP 36.9 ml Aorta Ao Rtd 3.2 cm (zsc 2.4)* Ao Asc 3.3 cm (zsc 4.2)* LVOT LVOT 2 cm LVOTArea 3.14 cm2 Ratios IVS LA Biplane LAVol I BP 23.7 ml/m2 RA Single Plane Right Atrium MO 8.14 mm Right Atrium Sy 29.5 ml Right Atrium Sy 55.3 mm Right Atrium Sy 18.9 ml/m2 Right Atrium Sy 13.8 cm2 Right Ventricle Right Ventricle 29 mm Right Ventricle 25 mm Major [place] 61 mm MMODE TA Tricuspid Annul 15.6 mm <Electronic Signature> 11/17/2024 08:39 AM Sigifredo Rivas M.D. Procedure Note Sigifredo Rivas MD - 11/17/2024 Echocardiography Report Pat.Name: MELISSA LINTON Pat.ID: [id number] St.Date: 11/16/2024 Refer.MD: [id number] EVELYN Vasquez EWDPROV EWDPROV Exam Time: 10:47:00 AM Study Type:ECHO WITH CARDIAC DOPPLER COMP Height: 61 in Weight: 128 lb BSA: 1.56 m2 Age: 12 1945,79Y Sex: F BP: 146/47 HR: 53 bpm Sonogrphr: Meagan Kaur Pat. Stat.:Outpatient Reason for Study:Aortic stenosis Procedures: 2D, M-mode, Doppler, Color Flow, The study quality is technically good. Race: O ++++++++++++++++++++++++++++++++++++ SUMMARY: ++++++++++++++++++++++++++++++++++++ The left ventricular size is normal. Estimated left ventricular ejection fraction is 65-70%. Moderate concentric left ventricular hypertrophy. Left ventricular diastolic function is abnormal (grade 1 - impaired relaxation). LVOT obstruction noted, appears increased with valsalva. Peak LVOT gradient with valsalva 18 mm hg. Wall motion appears normal in all segments. The right ventricular size is normal. Right ventricular systolic function is mildly depressed. 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 The peak pulmonary artery systolic pressure is estimated to be approximately 29 mmHg. No evidence of aortic valve stenosis. No evidence of aortic regurgitation. No evidence of mitral regurgitation. ++++++++++++++++++++++++++++++++++++ FINDINGS: ++++++++++++++++++++++++++++++++++++ LV: The left ventricular size is normal. Estimated left ventricular ejection fraction is 65-70%. Moderate concentric left ventricular hypertrophy. Left ventricular diastolic function is abnormal (grade 1 - impaired relaxation). LVOT obstruction noted, appears increased with valsalva. WM: Wall motion appears normal in all segments. RV: The right ventricular size is normal. Right ventricular systolic function is mildly depressed. IVS: No evidence of ventricular septal defect. LA: The left atrial size is normal. RA: Right atrial size is normal. 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 CHUCHO: No evidence of pericardial effusion. AO: Normal aortic root. PA: The peak pulmonary artery systolic pressure is estimated to be approximately 29 mmHg. Estimated right atrial pressure of 3 mmHg. SVn: Inferior vena cava is normal. AV: No evidence of aortic valve stenosis. No evidence of aortic regurgitation. LVOT obstruction noted, appears increased with valsalva. MV: No evidence of mitral regurgitation. No evidence of mitral valve stenosis. PV: No evidence of pulmonic valve stenosis. No evidence of pulmonic regurgitation. TV: Mild tricuspid regurgitation. No evidence of tricuspid valve stenosis. ++++++++++++++++++++++++++++++++++++ MEASUREMENTS: ++++++++++++++++++++++++++++++++++++ DOPPLER LVOT LVOTpkPG 5 mmHg LVOTmnPG 3 mmHg LVOTpkVel 110 cm/s (70-110) LVOT SV 87 ml LVOT TVI 27.7 cm AV Forward Flow AV TVI 33.1 cm AV pkPG 8 mmHg AV pkVel 140 cm/s (100-170) Area (TVI) 2.63 cm2 (3-5)* AV mnPG 4 mmHg Area (Haroldo) 2.47 cm2 (3-5)* MV Forward Flow MV DeTm 384 msec MV E/A 0.6 MVA P1/2t 1.96 cm2 (4-6)* MV pkE 68.3 cm/s (60-130) MV P1/2t 112 msec (30-60)+* MV pkA 110 cm/s PV Forward Flow PV pkVel 118 cm/s (60-90)* PV AC 88 msec PV pkPG 6 mmHg RVOT RVOTpkV 93.4 cm/s TV Regurg Flow TV pkPG 26 mmHg TV pkVel 254 cm/s (30-70)* TV Forward Flow TV E/A 1.2 TV pkA 40.4 cm/s TV pkE 49.7 cm/s Lat E' Lat e 8.49 cm/s Lat E/E' Lat E/e 8 Med E' Med e 5.55 cm/s Med E/E' Med E/e 12.3 Aortic Valve Aortic Valve Ar 1.69 Aortic Valve Ve 0.79 PV Antegrade Flow Acceleration Sl 1072 cm/s2 Right Atrium Mathews's Disk 20 Right Ventricle Right Ventricle 10.7 cm/s 2D Left Ventricle LVIDd 3.7 cm (3.6-5.2) LV ESV 27 ml LVIDs 2.2 cm (2.3-3.9)* LV ESV 25.3 ml LngAxd 8.57 cm LVESV BP 26.3 ml LngAxd 8.43 cm LV EF 67.1 % LV EDV 81.6 ml LV EF 68.1 % LV EDV 79.2 ml LV EF BP 67.5 % LVEDV BP 80.9 ml LV SV 54.8 ml LngAxs 6.64 cm LV SV 54 ml LngAxs 6.54 cm LV SV BP 54.6 ml LVPW LVPWd 1.1 cm Ventricular Septum IVSd 1.4 cm Left Atrium LA VOLBP 36.9 ml Aorta Ao Rtd 3.2 cm (zsc 2.4)* Ao Asc 3.3 cm (zsc 4.2)* LVOT LVOT 2 cm LVOTArea 3.14 cm2 Ratios IVS LA Biplane LAVol I BP 23.7 ml/m2 RA Single Plane Right Atrium MO 8.14 mm Right Atrium Sy 29.5 ml Right Atrium Sy 55.3 mm Right Atrium Sy 18.9 ml/m2 Right Atrium Sy 13.8 cm2 Right Ventricle Right Ventricle 29 mm Right Ventricle 25 mm Major [place] 61 mm MMODE TA Tricuspid Annul 15.6 mm <Electronic Signature> 11/17/2024 08:39 AM Sigifredo Rivas M.D. us Sigifredo Rivas MD ECHO Final Result * (ABNORMAL) BASIC METABOLIC PANEL (11/04/2024 2:22 PM WASTE COLLECTOR) [facility] GLUCOSE 311(H) 70 - 99 MG/DL 11/04/2024 2:53 PM [facility] BUN 12 7 - 18 MG/DL 11/04/2024 2:53 PM [facility] CREATININE S/P/B 0.81 0.55 - 1.02 MG/DL 11/04/2024 2:53 PM [facility] SODIUM S/P/B 135(L) 136 - 145 MMOL/L 11/04/2024 2:53 PM [facility] POTASSIUM S/P/B 4.2 3.5 - 5.1 MMOL/L 11/04/2024 2:53 PM [facility] CHLORIDE S/P/B 103 97 - 115 MMOL/L 11/04/2024 2:53 PM [facility] CO2 26.9 21 - 32 MMOL/L 11/04/2024 2:53 PM [facility] CALCIUM S/P/B 9.8 8.5 - 10.1 MG/DL 11/04/2024 2:53 PM [facility] ANION GAP 5.1 2 - 10 MMOL/L 11/04/2024 2:53 PM [facility] BUN CREATININE RATIO 14.8 6 - 26 11/04/2024 2:53 PM [facility] GFR ESTIMATE 74(L) >90 ML/MIN/1.7 3 M2 11/04/2024 2:53 PM [facility] Comment: NOTE: eGFR is not calculated for patients <18 years of age or gender unknown. This is an estimated GFR calculation using the new CKD EPI creatinine equation without race and so does not require a correction factor for race. This estimated GFR should not be used for calculating drug doses. 11/04/2024 2:22 PM WASTE COLLECTOR Stephanie Cook MD LABORATORY Final Result [facility] [address] [place] [address], [place] [phone] * Lac Repair (11/04/2024 1:57 PM WASTE COLLECTOR) Stephanie Houston MD - 11/04/2024 1:57 PM WASTE COLLECTOR Stephanie Cook MD 11/04/2024 3:09 PM Lac Repair Date/Time: 11/04/2024 1:57 PM Performed by: Stephanie Cook MD Authorized by: Stephanie Cook MD Anesthesia: Anesthesia method: None Laceration details: Location: Face Face location: R eyebrow Length (cm): 2 Exploration: Wound exploration: entire depth of wound visualized Treatment: Area cleansed with: Saline Amount of cleaning: Standard Irrigation solution: Sterile saline Irrigation method: Syringe Skin repair: Repair method: Tissue adhesive Approximation: Approximation: Close Repair type: Repair type: Simple Post-procedure details: Dressing: Open (no dressing) Procedure completion: Tolerated well, no immediate complications Stephanie Cook MD PROCEDURE/MINOR SURGICAL ORDE RABLES Final Result * CT HEAD WO CON (11/04/2024 1:24 PM WASTE COLLECTOR) Anatomical Region Laterality Modality Head Computed Tomogra phy 11/04/2024 1:40 PM WASTE COLLECTOR Impressions 11/04/2024 1:46 PM WASTE COLLECTOR IMPRESSION: CT HEAD: 1. No definite CT evidence of acute intracranial abnormality, as above. 2. Small vessel disease, old infarcts, and volume loss. CT CERVICAL SPINE: 1. No definite acute fractures identified in the cervical spine. 2. Degenerative changes. Ordered By: STEPHANIE COOK Interpreted By: Galen English MD, 11/04/2024 1:40 PM Narrative 11/04/2024 1:46 PM WASTE COLLECTOR [facility] [place] [address] DATE: 11/04/2024 1:15 PM EXAMINATION: CT of the head and cervical spine without contrast CLINICAL HISTORY: Fall. COMPARISON: None TECHNIQUE: CT examinations of the head and cervical spine were performed without contrast. Axial and multiplanar images obtained. A dose lowering technique was used for this procedure, which may include, but is not limited to, dose reduction technique, automated exposure control, the use of iterative reconstruction, and ALARA (As Low As Reasonably Achievable) / Image Gently techniques. FINDINGS: CT HEAD: No acute intracranial hemorrhage, extra-axial collections, intracranial mass effect, or midline shift. 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 Tiny old lacunar infarct left basal ganglia. Patchy foci of hypodensity noted in the hemispheric white matter, likely due to small vessel disease. Intracranial vascular calcifications. No definite CT evidence of acute territorial infarction, though MRI would be more sensitive. Mild to moderate volume loss with enlargement of the ventricles and extra-axial/subarachnoid spaces. No depressed calvarial fractures. Mastoid air cells clear. Old right lamina papyracea fracture/defect. Mucosal thickening noted in the sphenoid sinuses. Bilateral lens replacements. Bilateral temporal mandibular joint arthritis. Well-corticated ossific density posterior to the right mandibular condyle, probably dystrophic or related to old injury. CT CERVICAL SPINE: There is 2 mm anterolisthesis of C5 on C6. Rightward rotation of C1 relative to C2. Straightening of the cervical lordosis. Otherwise the cervical vertebral alignment, vertebral body heights, and facet alignment are maintained. No definite acute fractures identified in the cervical spine. Multilevel degenerative changes are evident in the cervical spine with disc degeneration, endplate/uncovertebral osteophytes, ligamentum flavum thickening/ossification, and facet hypertrophy noted. Imaged portions of the soft tissues reveal atherosclerotic vascular calcifications. Punctate right submandibular sialolith. Procedure Note Galen English MD - 11/04/[address] [address] DATE: 11/04/2024 1:15 PM EXAMINATION: CT of the head and cervical spine without contrast CLINICAL HISTORY: Fall. COMPARISON: None TECHNIQUE: CT examinations of the head and cervical spine were performedwithout contrast. Axial and multiplanar images obtained. A dose lowering technique was used for this procedure, which may include,but is not limited to, dose reduction technique, automated exposurecontrol, the use of iterative reconstruction, and ALARA (As Low AsReasonably Achievable) / Image Gently techniques. FINDINGS: CT HEAD: No acute intracranial hemorrhage, extra-axial collections, intracranialmass effect, or midline shift. Old right basal ganglia infarct withassociated encephalomalacia and ex vacuo enlargement of the adjacent rightlateral ventricle. Tiny old lacunar infarct left basal ganglia. Patchyfoci of hypodensity noted in the hemispheric white matter, likely due tosmall vessel disease. Intracranial vascular calcifications. No definite CTevidence of acute territorial infarction, though MRI would be moresensitive. Mild to moderate volume loss with enlargement of the ventriclesand extra-axial/subarachnoid spaces. No depressed calvarial fractures.Mastoid air cells clear. Old right lamina papyracea fracture/defect.Mucosal thickening noted in the sphenoid sinuses. Bilateral lensreplacements. Bilateral temporal mandibular joint arthritis.Well-corticated ossific density posterior to the right mandibular condyle,probably dystrophic or related to old injury. CT CERVICAL SPINE: There is 2 mm anterolisthesis of C5 on C6. Rightward rotation of [id number] to C2. Straightening of the cervical lordosis. Otherwise thecervical vertebral alignment, vertebral body heights, and facet alignmentare maintained. No definite acute fractures identified in the cervicalspine. Multilevel degenerative changes are evident in the cervical spinewith disc degeneration, endplate/uncovertebral osteophytes, ligamentumflavum thickening/ossification, and facet hypertrophy noted. Imagedportions of the soft tissues reveal atherosclerotic vascularcalcifications. Punctate right submandibular sialolith. IMPRESSION: CT HEAD: 1. No definite CT evidence of acute intracranial abnormality, as above. 2. Small vessel disease, old infarcts, and volume loss. CT CERVICAL SPINE: 1. No definite acute fractures identified in the cervical spine. 2. Degenerative changes. Ordered By: STEPHANIE COOK Interpreted By: Galen English MD, 11/04/2024 1:40 PM us Stephanie Cook MD CT Final Result * CT CERV SPINE WO CON (11/04/2024 1:24 PM WASTE COLLECTOR) Anatomical Region Laterality Modality Spine Computed Tomogra phy 11/04/2024 1:40 PM WASTE COLLECTOR Impressions 11/04/2024 1:46 PM WASTE COLLECTOR IMPRESSION: CT HEAD: 1. No definite CT evidence of acute intracranial abnormality, as above. 2. Small vessel disease, old infarcts, and volume loss. CT CERVICAL SPINE: 1. No definite acute fractures identified in the cervical spine. 2. Degenerative changes. Ordered By: STEPHANIE COOK Interpreted By: Galen English MD, 11/04/2024 1:40 PM Narrative 11/04/2024 1:46 PM WASTE COLLECTOR [address] [address] DATE: 11/04/2024 1:15 PM EXAMINATION: CT of the head and cervical spine without contrast CLINICAL HISTORY: Fall. COMPARISON: None TECHNIQUE: CT examinations of the head and cervical spine were performed without contrast. Axial and multiplanar images obtained. A dose lowering technique was used for this procedure, which may include, but is not limited to, dose reduction technique, automated exposure control, the use of iterative reconstruction, and ALARA (As Low As Reasonably Achievable) / Image Gently techniques. FINDINGS: CT HEAD: No acute intracranial hemorrhage, extra-axial collections, intracranial mass effect, or midline shift. 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 Tiny old lacunar infarct left basal ganglia. Patchy foci of hypodensity noted in the hemispheric white matter, likely due to small vessel disease. Intracranial vascular calcifications. No definite CT evidence of acute territorial infarction, though MRI would be more sensitive. Mild to moderate volume loss with enlargement of the ventricles and extra-axial/subarachnoid spaces. No depressed calvarial fractures. Mastoid air cells clear. Old right lamina papyracea fracture/defect. Mucosal thickening noted in the sphenoid sinuses. Bilateral lens replacements. Bilateral temporal mandibular joint arthritis. Well-corticated ossific density posterior to the right mandibular condyle, probably dystrophic or related to old injury. CT CERVICAL SPINE: There is 2 mm anterolisthesis of C5 on C6. Rightward rotation of C1 relative to C2. Straightening of the cervical lordosis. Otherwise the cervical vertebral alignment, vertebral body heights, and facet alignment are maintained. No definite acute fractures identified in the cervical spine. Multilevel degenerative changes are evident in the cervical spine with disc degeneration, endplate/uncovertebral osteophytes, ligamentum flavum thickening/ossification, and facet hypertrophy noted. Imaged portions of the soft tissues reveal atherosclerotic vascular calcifications. Punctate right submandibular sialolith. Procedure Note Galen English MD - 11/04/[address] [address] DATE: 11/04/2024 1:15 PM EXAMINATION: CT of the head and cervical spine without contrast CLINICAL HISTORY: Fall. COMPARISON: None TECHNIQUE: CT examinations of the head and cervical spine were performedwithout contrast. Axial and multiplanar images obtained. A dose lowering technique was used for this procedure, which may include,but is not limited to, dose reduction technique, automated exposurecontrol, the use of iterative reconstruction, and ALARA (As Low AsReasonably Achievable) / Image Gently techniques. FINDINGS: CT HEAD: No acute intracranial hemorrhage, extra-axial collections, intracranialmass effect, or midline shift. Old right basal ganglia infarct withassociated encephalomalacia and ex vacuo enlargement of the adjacent rightlateral ventricle. Tiny old lacunar infarct left basal ganglia. Patchyfoci of hypodensity noted in the hemispheric white matter, likely due tosmall vessel disease. Intracranial vascular calcifications. No definite CTevidence of acute territorial infarction, though MRI would be moresensitive. Mild to moderate volume loss with enlargement of the ventriclesand extra-axial/subarachnoid spaces. No depressed calvarial fractures.Mastoid air cells clear. Old right lamina papyracea fracture/defect.Mucosal thickening noted in the sphenoid sinuses. Bilateral lensreplacements. Bilateral temporal mandibular joint arthritis.Well-corticated ossific density posterior to the right mandibular condyle,probably dystrophic or related to old injury. CT CERVICAL SPINE: There is 2 mm anterolisthesis of C5 on C6. Rightward rotation of [id number] to C2. Straightening of the cervical lordosis. Otherwise thecervical vertebral alignment, vertebral body heights, and facet alignmentare maintained. No definite acute fractures identified in the cervicalspine. Multilevel degenerative changes are evident in the cervical spinewith disc degeneration, endplate/uncovertebral osteophytes, ligamentumflavum thickening/ossification, and facet hypertrophy noted. Imagedportions of the soft tissues reveal atherosclerotic vascularcalcifications. Punctate right submandibular sialolith. IMPRESSION: CT HEAD: 1. No definite CT evidence of acute intracranial abnormality, as above. 2. Small vessel disease, old infarcts, and volume loss. CT CERVICAL SPINE: 1. No definite acute fractures identified in the cervical spine. 2. Degenerative changes. Ordered By: STEPHANIE COOK Interpreted By: Galen English MD, 11/04/2024 1:40 PM us Stephanie Cook MD CT Final Result * CTA CORONARY W SCORING (11/01/2024 12:32 PM WASTE COLLECTOR) Anatomical Region Laterality Modality Chest Computed Tomogra phy, Radiographic Imaging 11/05/2024 5:09 PM WASTE COLLECTOR Addenda Addendum by Sigifredo Rivas MD on 11/08/2024 1:07 PM WASTE COLLECTOR Table formatting from the original result was not included. CT ANGIOGRAM (Cardiology Portion) Patient Name: Melissa Linton : 1945 Date of Study: 11-01-2024 Interpreting Adjusto Writer Operator: SIGIFREDO RIVAS M.D. Indication: Dyspnea on exertion History: 79-year-old female with hypertension, diabetes mellitus, hyperlipidemia, heart murmur, aortic stenosis PRE PROCEDURE DATA Baseline heart rate is 80 beats per minute. Blood pressure is 159/74 mmHg. A 20 gauge Heplock was inserted in the right antecubital vein and flushed with a 0.9 NACL. PROCEDURE DATA Baseline heart rate is 73 beats per minute. Medication totals: Metoprolol 0 mg IVP Nitroglycerin sublingual tab times 2 Isovue contrast total is 80 ml followed by a flush of 0.9 normal saline 50 ml POST PROCEDURE DATA Post procedure heart rate is 87 beats per minute. Blood pressure is 169/94 mmHg. Patient tolerated procedure well. IV access discontinued and band aide dressing applied to site. TECHNIQUE Computed tomography was performed along the axial plane with 0.75 mm slice thickness utilizing IV administration of Isovue 370. FINDINGS The coronary calcium score is 864.05. The quality of the study is good. CARDIAC STRUCTURES Left Atrium: Normal in size. Left Atrial Appendage: Cauliflower morphology. There is no apparent left atrial appendage filling defect. Left Ventricle: Cavity is normal in size. Asymmetric basal septal hypertrophy: Moderate. Left ventricular ejection fraction: 86%. Wall motion: Normal. No stigmata of prior infarction. No abnormal filling defect. Aorta: Aortic root measures 3.2cm, which is normal. Ascending aorta measures 3.4cm, which is normal. Pulmonary Arteries: Enlarged. There is no proximal filling defect. Pulmonary Vein: Four noted pulmonary veins. Two on the right and two on the left. Pericardium: Normal thickness without significant effusion or calcium present. Cardiac Valves: Thickening and calcifications in the aortic valve. No thickening and calcifications in the mitral valve. There is no mitral annular calcification. Calcification right coronary cusp. CORONARY ANATOMY Left Main: Normal. Large caliber vessel with a normal take off from the left coronary cusp that bifurcates to form a left anterior descending and a left circumflex artery. Left Anterior Descending Artery: 50% calcified plaque mid and distal LAD at the mid vessel. Large bifurcating diagonal 1 with extensive calcified and high risk feature with mid lipid cor and 80% stenosis. LAD wraps around apex. It gives off 2 diagonal branches. First diagonal: Large caliber vessel. 80% stenosis at the proximal vessel. Second diagonal: Large caliber vessel. 70% stenosis at the mid vessel. Circumflex Artery: Non-dominant. Patent with no evidence of plaque. It gives off 3 obtuse marginal branches. First obtuse marginal: Large caliber vessel. Patent with no evidence of plaque. Second obtuse marginal: Moderate caliber vessel OM2 and OM3. Patent with no evidence of plaque. Right Coronary Artery: Dominant. 60% stenosis at the proximal vessel. Calcified plaque proximal, mid, and distal RCA. Motion artifact obscures mid RCA. Posterior descending artery: Large caliber vessel. Patent with no evidence of plaque. Right posterolateral branch: Moderate caliber vessel. Patent with no evidence of plaque. AORTIC VALVE Morphology: Trileaflet ADDITIONAL NON-CARDIAC STRUCTURES AND LUNGS READ BY RADIOLOGY COLLEAGUES. IMPRESSION Stenosis: Moderate stenosis of mid left anterior descending. Severe stenosis of large D1. Moderate stenosis in mid LAD, proximal RCA and mid D2. Plaque (Calcium Score): Overall, there is a severe amount of coronary plaque. Aortic Valve Calcium Score: 220. Ejection Fraction: 86%. Modifiers: Suboptimal visualization of mid RCA. High risk plaque mid large first diagonal. Basal septal hypertrophy. Mildly dilated main pulmonary artery. Calcification of right coronary cusp and calcified plaques of descending aorta. Left heart catheterization recommended. RECOMMENDATION: CAD RADS score is 4 P1/P2/P3/P4- Consider ICA or functional assessment. Recommend aggressive risk factor modification and preventative pharmacotherapy. Consider other treatments (anti-anginal therapy) per guideline directed care. Interpreting Adjusto Writer Operator: SIGIFREDO RIAVS M.D. 11/07/24 Narrative 11/05/2024 5:12 PM WASTE COLLECTOR [address] [address] EXAMINATION: CARDIAC COMPUTED TOMOGRAPHY ANGIOGRAM, ROUTINE CORONARY CTA. LUNG OVER READ. DATE: 11/01/2024 HISTORY: 79-year old female AVS.Other nonrheumatic aortic valve disorders COMPARISON: None. TECHNIQUE: Multidetector computerized tomography coronary angiogram was obtained using retrospective ECG gating after the administration of 80 mL of Isovue-370 intravenous contrast at 5 mL/sec with 50 mL saline push according to coronary CTA protocol. ECG tube modulation was used to reduce the radiation exposure. A dose lowering technique was used for this procedure, which may include, but is not limited to, dose reduction technique, automated exposure control, the use of iterative reconstruction, and ALARA (As Low As Reasonably Achievable) / Image Gently techniques. Medications: Administered by cardiology service. Vital signs: Recorded by cardiology service. Procedure Complications/Allergic reactions: None. Coronary CT angiogram quality: Determined by cardiology service. FINDINGS: CORONARY ARTERY ANGIOGRAM AND OTHER CARDIAC FINDINGS: Interpreted by afterschool babysitter. EXTRACARDIAC FINDINGS: The visible lungs contain no suspicious lung nodule, mass, consolidation. The visualized thoracic aorta is atherosclerotic. Visualized pulmonary artery appears normal. Spondylosis. IMPRESSION: 1. Cardiac findings interpreted by afterschool babysitter. 2. No suspicious mass or consolidation in the visualized lungs. Ordered By: SIGIFREDO RIVAS Interpreted By: Cruz Rasheed MD, 11/05/2024 5:09 PM Sigifredo Rivas MD CT Edited Result - Final * CREATININE WHOLE BLOOD (11/01/2024 12:03 PM WASTE COLLECTOR) Pathologist [facility] CREATININE WHOLE BLOOD 0.8 0.60 - 1.10 mg/dL 11/01/2024 12:07 PM WASTE COLLECTOR [facility] 11/01/2024 12:0 3 PM WASTE COLLECTOR Sigifredo Rivas MD LABORATORY Final Result Performing Organization Address City/[facility]/ZIP Co de Phone Number [facility] [address] [place] [address], [place] [phone] * LIPOPROTEIN, LDL CHOL, DIRECT (10/23/2023 3:07 PM WASTE COLLECTOR) Pathologist [facility] DIRECT LDL 165 MG/DL 10/24/2023 3:[address] [facility] Comment:[phone] HIGH 10/23/2023 3:07 PM WASTE COLLECTOR Stacy Mcgee [facility] Final Result [facility] [address] [place] [address], [place] [phone] [id number] * (ABNORMAL) HEMOGLOBIN, GLYCOSYLATED (10/23/2023) HGB A1C 11.1(HOOPER) % [facility] 10/23/2023 Stacy [facility] Final Result [facility] [address] [place] [address], from Last 3 Months or Most Recently Relevant to Health Maintenance Additional Health Concerns Infection Onset Date Last Indicated ESBL - Extended Spectrum Bet a-lactamase Comment:07/23/22 +ESBL Blood 07/26/2022 07/26/2022 Insurance [facility] Advance Directives * Full Code (Latest Code Status on File) Date Activated Date Inactivated Comments 08/26/2022 6:47 PM 11/04/2024 12:43 PM * Full Code Date Activated Date Inactivated Comments 07/23/2022 9:23 PM 08/01/2022 2:03 PM * Full Code Date Activated Date Inactivated Comments 04/15/2021 1:22 PM 12/27/2021 12:57 PM * Full Code Date Activated Date Inactivated Comments 09/30/2020 7:58 PM 04/15/2021 1:22 PM * Full Code Date Activated Date Inactivated Comments 09/19/2020 5:58 PM 09/30/2020 7:58 PM Care Teams Telegraph Operator Relationship Specialty Start Date End Date Stacy Mcgee FNP [address] [place] [address] PCP - General Nurse Practitioner Family 10/28/18
--- OUTSIDE RECORDS SUMMARY | 2024-11-24 18:44 | XMS_ITS | Clinical Summary ---
Author Organization [facility] Address [address] [place] [address] Phone Care Team Providers Care Sleeve Sewer Name Role Phone Unavailable Primary Care Provider Unavailabl e Allergies Active Allergy Reactions Criticality Noted Date Comments Oxytetracycline Rash High 05/04/2013 Sucralfate Diarrhea Low 06/08/2018 Abdominal cramping Abdominal cramping Medications albuterol sulfate 90 mcg/Actuation inhaler 09/30/2021 Active amLODIPine (NORVASC) 5 mg tablet Take 10 mg by mouth daily. 05/12/2022 Active carvediloL (COREG) 3.125 mg tablet Take 3.125 mg by mouth 2 times daily. 04/15/2021 Active clonazePAM (KlonoPIN) 0.5 mg Tablet Take 0.5 mg by mouth. Active cloNIDine HCL (CATAPRES) 0.2 mg tablet TAKE 1 TABLET (0.2 MG TOTAL) BY MOUTH 2 (TWO) TIMES DAILY. 11/15/2021 Active enoxaparin (LOVENOX) 40 mg/0.4 mL injection 06/15/2022 Active fluconazole (DIFLUCAN) 100 mg tablet 06/15/2022 Active glipiZIDE (GLUCOTROL) 5 mg tablet TAKE 1 TABLET BY MOUTH EVERY MORNING BEFORE BREAKFAST. INDICATIONS: DIABETES 05/12/2022 Active hydroCHLOROthia zide (HYDRODIURIL) 12.5 mg tablet TAKE 1 TABLET (12.5 MG TOTAL) BY MOUTH DAILY. 05/06/2021 Active zolpidem (AMBIEN) 5 mg tablet Take 5 mg by mouth 1 time daily as needed. 12/17/2021 Active Active Problems Problem Noted Date Diagnosed Date Leukocytosis (leucocytosis) 06/24/2022 Chronic anemia 06/24/2022 Reactive thrombocytosis 06/24/2022 Social History Tobacco Use Types Packs/Day Years Used Date Smoking Tobacco: Never Assessed Comments Unknown Sex and Gender Information Value Date Recorded Sex Assigned at Not on file Legal Sex Female 2:53 PM LEAF STRIPPER Gender Identity Not on file Sexual Orientation Not on file Last Filed Vital Signs Vital Sign Reading Time Taken Comments Blood Pressure 145/61 06/24/2022 1:46 PM CDT Pulse 66 06/24/2022 1:46 PM CDT Temperature 36.7 C (98 F) 06/24/2022 1:46 PM CDT Respiratory Rate - - Oxygen Saturation 98% 06/24/2022 1:46 PM CDT Inhaled Oxygen Concentration - - Weight 64.9 kg (143 lb) 06/24/2022 1:46 PM CDT Height 160 cm (5' 3 ) 06/24/2022 1:46 PM CDT Body Mass Index 25.33 06/24/2022 1:46 PM CDT Plan of Treatment Health Maintenance Due Date Last Done Comments DIABETES ANNUAL FOOT EXAM 1964 DIABETES ANNUAL RETINAL EXAM 1964 DIABETES MICROALBUMIN ANNUAL SCREEN 1964 LDL CHOLESTEROL ANNUAL 1964 DTAP/TDAP/TD VACCINES (1 - Tdap) 1965 ZOSTER VACCINE (1 of 2) 1996 OSTEOPOROSIS SCREENING 2011 RSV VACCINE (60+ or ) (1 - 1-dose 75+ series) 2021 DIABETES HBA1C Q 6 MONTHS 04/20/2022 10/21/2021 INFLUENZA VACCINE (#1) 2024 06/21/2020, 2017 PNEUMOCOCCAL VACCINE 50+ YEARS Completed 10/21/2021 , 06/11/2018 Insurance [employer] PPO [facility] AETNA [facility]
--- OUTSIDE RECORDS SUMMARY | 2024-11-24 18:44 | XMS_ITS | Referral Summary ---
Author Organization [facility] Address [address] [facility] [place] [address] Care Team Providers Care Account Supervisor Name Role Phone Stacy Mcgee APRN-ISSUER Primary Care Provider [phone] Source Comments [facility],non-owned Affiliates and Associated Physician Practices is amultiple site organization consisting of ambulatory clinics and hospital sitesin [place], [place], [place] and [place]. This disclosure is being madepursuant to the Care Everywhere program and may not contain all information available regarding this patient. Last updated 18.[facility] Allergies Active Allergy Reactions Criticality Noted Date Comments Acetaminophen Unknown 10/28/2018 Codeine Unknown 05/09/2019 Oxytetracycline Rash High 05/04/2013 Sucralfate Diarrhea 06/08/2018 Abdominal cramping Medications Be aware that medications may not [...] on file Sexual Orientation Not on file Plan of Treatment Not on file Care Teams Account Supervisor Relationship Specialty Start Date End Date Stacy Mcgee APRN-ISSUER [address] [place] [address] PCP - General 11/08/20
--- OUTSIDE RECORDS SUMMARY | 2024-11-24 18:44 | XMS_ITS | Encounter Summary ---
Author Organization [facility] Address [address] [place] [address] Care Team Providers Care Director Channel Name Role Phone Stacy Mcgee Primary Care Provider [phone] Encounter Details Date Type Department Care Team (Late st Contact Info) Description 03/19/2023 Bureau Of Trade Message Enc [facility] Medical Group Family & Internal Medicine [address] [address] Stacy Mcgee FNP Formerly named [facility] [place], [place] [phone] Moms arms Social History Tobacco Use Types Packs/Day Years Used Date Smoking Tobacco: Every Day Cigarettes 0.5 50 Smokeless Tobacco: Never Comments:3-4 cigs per day Alcohol Use Standard [...] Sex Assigned at Female 10/07/2024 12:57 PM EAR NOSE AND THROAT SPECIALIST Legal Sex Female 11:50 AM EAR NOSE AND THROAT SPECIALIST Gender Identity Not on file Sexual Orientation Not on file documented as of this encounter Functional Status * RETIRED Are you deaf or do you have serious difficulty hearing Answer Date of Assessment Author Status No 07/24/2022 12:13 AM CDT Acti ve * RETIRED Are you blind or do you have serious difficulty seeing, even when wearing glasses? Answer Date of Assessment Author Status No 07/24/2022 12:13 AM CDT Acti ve * Do you have serious difficulty walking or climbing stairs? Answer Date of Assessment Author Status Yes 07/24/2022 12:13 AM CDT Nato Howe RN Active * Do you have difficulty dressing or bathing? Answer Date of Assessment Author Status No 07/24/2022 12:13 AM CDT Nato Howe RN Active * Because of a physical, mental, or emotional condition, do you have difficulty doing errands alone such as visiting a doctor's office or shopping? Answer Date of Assessment Author Status No 07/24/2022 12:13 AM CDT Nato Howe RN Active documented as of this encounter Mental Status * Because of a physical, mental, or emotional condition, do you have serious difficulty concentrating, remembering, or making decisions? Answer Entry Date Author Status No 07/24/2022 12:13 AM CDT Nato Howe RN Active documented in this encounter Plan of Treatment Upcoming Encounters Date Type Department Care Team (Late st Contact Info) Description 12/14/2024 2:00 PM CDT Office Visit [facility] Medical Group Family & Internal Medicine - [address] [address] Stacy Mcgee FNP [address] [place] [address] 12/16/2024 10:[address] [facility] Accelerator Technician [address] [place], [place] [phone] Zia Sidhu MD 3 [facility] [place] [address] [place] [address] Jerrod Teague MD Three [facility]. ROBERT [facility] [place] [address] 03/10/2025 10:45 AM CDT Office Visit [facility] [address] Zia Sidhu MD 3 [facility] [address] [place] [address] documented as of this encounter Visit Diagnoses Not on filedocumented in this encounter Additional Health Concerns Infection Onset Date Last Indicated Resolved Time ESBL - Extended Spectrum Bet a-lactamase Comment:07/23/22 +ESBL Blood 07/26/2022 07/26/2022 Assessment Noted Time PHQ-9 Depression Total Score: 0 10/21/19 22 1:38 PM EAR NOSE AND THROAT SPECIALIST documented as of this encounter Care Teams Director Channel Relationship Specialty Start Date End Date Stacy Mcgee FNP [address] [place] [address] PCP - General Nurse Practitioner Family 10/28/18 documented as of this encounter
--- OUTSIDE RECORDS SUMMARY | 2024-11-24 18:44 | XMS_ITS | Encounter Summary ---
Author Organization [facility] Address [address] [place] [address] Care Team Providers Care Drain Tiler Name Role Phone Stacy Mcgee Primary Care Provider [phone] Encounter Details Date Type Department Care Team (Late st Contact Info) Description 12/31/2022 Solarmass Message Enc [facility] Medical Group Family & Internal Medicine [address] [address] Stacy Mcgee FNP [address] [place] [phone] Adult pull ups Social History Tobacco Use Types Packs/Day Years [...] Sex Assigned at Female 10/07/2024 12:57 PM NIGHT SHIFT Legal Sex Female 11:50 AM NIGHT SHIFT Gender Identity Not on file Sexual Orientation [...] Description 12/14/2024 2:00 PM CDT Office Visit [facility] Medical Group Family & Internal Medicine - [address] [address] Stacy Mgcee FNP [address] [place] [address] 12/16/2024 10:00 AM CDT Appointment [facility] Gold Assayer [address] [place], [place] [phone] Zia Sidhu MD 3 [facility] [place] [address] [place] [phone] Jerrod Teague MD Three [facility]. ROBERT [facility] [place] [address] 03/10/2025 10:45 AM CDT Office Visit [facility] [phone] Zia Sidhu MD 3 [facility] [address] [place] [phone] documented as of this encounter Visit Diagnoses Not on filedocumented in this encounter Additional Health Concerns Infection Onset Date Last Indicated Resolved Time ESBL - Extended Spectrum Bet a-lactamase Comment:07/23/22 +ESBL Blood 07/26/2022 07/26/2022 Assessment Noted Time PHQ-9 Depression Total Score: 0 10/21/19 22 1:38 PM NIGHT SHIFT documented as of this encounter Care Teams Drain Tiler Relationship Specialty Start Date End Date Stacy Mcgee FNP [address] [place] [address] PCP - General Nurse Practitioner Family 10/28/18 documented as of this encounter
--- OUTSIDE RECORDS SUMMARY | 2024-11-24 18:44 | XMS_ITS | Encounter Summary ---
Author Organization [facility] Address [address] [place] [address] Care Team Providers Care Track Repair Supervisor Name Role Phone Stacy Mcgee TOMEKA Primary Care Provider [phone] Reason for Visit * Reason Onset Date Comments Results 11/24/2024 Encounter Details Date Type Department Care Team (Late st Contact Info) Description 11/24/2024 Telephone [facility] [address] [facility], ROBERT [address] [place] [address] Daphne Townsend APRN Three [facility]. [address] [place] [address] Results Social History Tobacco Use Types Packs/Day Years Used Date Smoking Tobacco: Every Day Cigarettes 0.3 50 Smokeless Tobacco: Never Comments:3-4 cigs per [...] Sex Assigned at Female 10/07/2024 12:57 PM POLICE DETECTIVE Legal Sex Female 11:50 AM POLICE DETECTIVE Gender Identity Not on file Sexual Orientation [...] Assessment Author Status Yes 07/24/2022 12:13 AM FELIXT Nato Howe RN Active * Do you have difficulty dressing or bathing? Answer Date of Assessment Author Status No 07/24/2022 12:13 AM FELIXT Nato Howe RN Active * Because of a physical, mental, or emotional condition, do you have difficulty doing errands alone such as visiting a doctor's office or shopping? Answer Date of Assessment Author Status No 07/24/2022 12:13 AM Nato Oconnor RN Active documented as of this encounter Mental Status * Because of a physical, mental, or emotional condition, do you have serious difficulty concentrating, remembering, or making decisions? Answer Entry Date Author Status No 07/24/2022 12:13 AM Nato Oconnor RN Active documented in this encounter Progress Notes * Carly Flores RN - 11/24/2024 2:26 PM CST Patient voiced understanding and had no further questions at this time. Carly CERDA CE DETECTIVE * Carly Flores RN - 11/24/2024 2:21 PM CST ----- Message from Daphne Townsend sent at 11/24/2024 1:42 PM POLICE DETECTIVE ----- EF stable Moderate LVH- rec good BP control Valves overall look ok Has upcoming [facility] CE DETECTIVE documented in this encounter Plan of Treatment Upcoming Encounters Date Type Department Care Team (Late st Contact Info) Description 12/14/2024 2:00 PM CDT Office Visit [facility] Medical Group Family & Internal Medicine - [place] [address] [place] [address] Stacy Mcgee FNP [address] [place] [address] 12/16/2024 10:00 AM CDT Appointment [facility] Director Of Content Marketing [address] [facility] [place] [address] Zia Sidhu MD 3 [facility] [address] [place] [phone] Jerrod Teague MD Three [facility]. ROBERT [address] [place] [address] 03/10/2025 10:45 AM CDT Office Visit [facility]-[address] [address] Zia Sidhu MD 3 [facility] [address] [place] [phone] documented as of this encounter Visit Diagnoses Not on filedocumented in this encounter Additional Health Concerns Infection Onset Date Last Indicated Resolved Time ESBL - Extended Spectrum Bet a-lactamase Comment:07/23/22 +ESBL Blood 07/26/2022 07/26/2022 Assessment Noted Time PHQ-9 Depression Total Score: 0 10/21/19 22 1:38 PM POLICE DETECTIVE documented as of this encounter Care Teams Track Repair Supervisor Relationship Specialty Start Date End Date Stacy Mcgee FNP [address] [place] [address] PCP - General Nurse Practitioner Family 10/28/18 documented as of this encounter
--- OUTSIDE RECORDS SUMMARY | 2024-11-24 18:44 | XMS_ITS | Encounter Summary ---
Author Organization [facility] Address [address] [place] [address] Care Team Providers Care Belt Weaver Name Role Phone Wayne Mcgeeanda TOMEKA Primary Care Provider [phone] Dee Walls RN Unavailable Dee Walls RN Unavailable Encounter Details Date Type Department Care Team (Late st Contact Info) Description 12/27/2021 Prep for Procedure [facility] [place] [address] [phone] Shelli Polk APNP [address] [place] [address] Social History Tobacco Use Types Packs/Day Years Used Date Smoking Tobacco: Every Day Cigarettes 0.3 30 Smokeless Tobacco: Never Comments:provider to addiction counselor , STATES SMOKES 7 CIGARETTES A DAY. Alcohol Use Standard Drinks/Week Comments No 0 (1 standard drink = 0.6 oz pur e alcohol) AUDIT-C Answer Date Recorded Frequency of Alcohol Consumption Never 10/28/2018 Average Number of Drinks Not on file 019 Frequency of Binge Drinking Not on file 03/2019 PHQ-2 Answer Date Recorded PHQ-2 Score - If the patient scores above 3, please move on to questions 3-9 0 10/21/2021 Education Answer Date Recorded What is the highest level of school you have completed or the highest degree you have received? Some college, no degree 12/27/2021 Comments No Sex and Gender Information Value Date Recorded Sex Assigned at Female 10/07/2024 12:57 PM HOTEL ADMINISTRATIVE ASSISTANT Legal Sex Female 11:50 AM HOTEL ADMINISTRATIVE ASSISTANT Gender Identity Not on file Sexual Orientation Not on file COVID-19 Exposure Response Date Recorded In the last 10 days, have yo u been in contact with someone who was confirmed or suspected to have Coronavirus/COVID-19? No / Unsure 12/27/2021 12:54 PM CDT documented as of this encounter Plan of Treatment Upcoming Encounters Date Type Department Care Team (Late st Contact Info) Description 12/14/2024 2:00 PM CDT Office Visit [facility] Medical Group Family & Internal Medicine - [address] [address] Stacy Mcgee FNP [address] [place] [address] 12/16/2024 10:00 AM CDT Appointment [facility] [place] [address] Zia Sidhu MD 3 [facility] [address] [place] [phone] Jerrod Teague MD Three [facility]. ROBERT [address] [place] [address] 03/10/2025 10:45 AM CDT Office Visit [facility] [phone] Zia Sidhu MD 3 [facility] [address] [place] [phone] documented as of this encounter Visit Diagnoses Not on filedocumented in this encounter Additional Health Concerns Infection Onset Date Last Indicated Resolved Time COVID-19 Rule Out 07/14/2022 07/14/2022 07/14/2022 8:14 AM CDT COVID-19 Rule Out 07/23/2022 07/23/2022 07/23/2022 7:20 PM CDT ESBL - Extended Spectrum Beta-lactamase Comment:07/23/22 +ESBL Blood 07/26/2022 07/26/2022 COVID-19 Rule Out 08/01/2022 08/01/2022 08/01/2022 9:31 AM HOTEL ADMINISTRATIVE ASSISTANT COVID-19 Rule Out 08/01/2022 08/01/2022 08/01/2022 11:21 AM HOTEL ADMINISTRATIVE ASSISTANT Assessment Noted Time PHQ-9 Depression Total Score: 0 10/21/19 1:38 PM HOTEL ADMINISTRATIVE ASSISTANT documented as of this encounter Care Teams Belt Weaver Relationship Specialty Start Date End Date Stacy Mcgee FNP [address] [place] [address] PCP - General Nurse Practitioner Family 10/28/18 Dee Walls RN [address] [place] [address] Human Resource Manager (Ambulatory) REGISTERED NURSE 06/04/22 07/23/22 Dee Walls RN [address] [place] [address] Human Resource Manager (Ambulatory) REGISTERED NURSE 07/24/22 09/18/22 documented as of this encounter
--- OUTSIDE RECORDS SUMMARY | 2024-11-24 18:44 | XMS_ITS | Clinical Summary ---
Author Organization [facility] Address [address] [facility] [place] [address] Care Team Providers Care Sample Box Maker Name Role Phone Stacy Mcgee APRN-LEVEL DESIGNER Primary Care Provider [phone] Source Comments [facility],non-owned Affiliates and Associated Physician Practices is amultiple site organization consisting of ambulatory clinics and hospital sitesin [place], [place], [place] and [place]. This disclosure is being madepursuant to the Care Everywhere program and may not contain all information available regarding this patient. Last updated 18.[facility] Allergies Active Allergy Reactions Criticality Noted Date [...] of insulin 10/31/2018 Vitamin D deficiency 10/31/2018 Family History Medical History Relation Name Comments Diabetes - Gestational Father CVA Mother Hypertension Mother Relation Name Status Comments Father Mother Social History Tobacco Use Types Packs/Day Years Used Date Smoking Tobacco: Former Smokeless Tobacco: Never Alcohol Use Standard Drinks/Week Comments Not Currently 0 (1 standard drink = 0.6 oz pur e alcohol) Sex and Gender Information Value Date Recorded Sex Assigned at Not on file Gender Identity Not on file Sexual Orientation Not on file Plan of Treatment Health Maintenance Due Date Last Done Comments BONE DENSITY TESTING 1945 HEPATITIS C SCREENING 08/19/1963 DIABETES-SERUM CREATININE 1964 DTAP/TDAP/TD VACCINES (1 - Tdap) 1965 DIABETES-STATIN 1986 PNEUMOCOCCAL VACCINE 50+ (1 of 1 - PCV) 1996 ZOSTER VACCINE (1 of 2) 1996 DIABETES RETINOPATHY SCREENING 01/03/2021 DIABETES-FOOT EXAM WITH MONOFILAMENT 01/03/2021 DIABETES-HGB A1C 04/14/2021 10/15/2020 Respiratory Syncytial Virus (RSV) Vaccine Pt: or over 60 yrs (1 - 1-dose 75+ series) 2021 COVID-19 VACCINE ( - 2023-2 5 season) 2024 INFLUENZA VACCINE (#1) 2024 06/11/2018 DEPRESSION SCREENING 09/21/2024 DIABETES - URINE PROTEIN SCREENING 09/21/2024 HEPATITIS B VACCINE Aged Out No longe r eligible based on patient's age to complete this topic HIB VACCINE Aged Out No longer eligi ble based on patient's age to complete this topic HPV VACCINE Aged Out No longer eligi ble based on patient's age to complete this topic MENINGOCOCCAL (Group B) VACCINE Aged Out No longer eligible based on patient's age to complete this topic MENINGOCOCCAL VACCINE Aged Out No raheel mauricio eligible based on patient's age to complete this topic Care Teams Sample Box Maker Relationship Specialty Start Date End Date Stacy Mcgee APRN-MECHELLE [address] [place] [address] PCP - General 11/08/20
[2024-11-24 18:45] VITALS: BP 139/54; PULSE 70; RESP 18; TEMP 36.4; O2SAT 100
--- OUTSIDE RECORDS SUMMARY | 2024-11-24 21:21 | XMS_ITS | Referral Summary ---
Author Organization [facility] Address [address] [place] [address] Care Team Providers Care Government Clerk Name Role Phone Stacy Mcgee APRN-PORCELAIN ENAMEL LABORER Primary Care Provider [phone] Source Comments [facility],non-owned Affiliates and Associated Physician Practices is amultiple site organization consisting of ambulatory clinics and hospital sitesin [place], [place], [place] and [place]. This disclosure is being madepursuant to the Care Everywhere program and may not contain all information available regarding this patient. Last updated 18.[facility] Allergies Active Allergy Reactions Criticality [...] of Treatment Not on file Care Teams Government Clerk Relationship Specialty Start Date End Date Stacy Mcgee APRN-PORCELAIN ENAMEL LABORER [address] [place] [address] PCP - General 11/08/20
--- OUTSIDE RECORDS SUMMARY | 2024-11-24 21:21 | XMS_ITS | Encounter Summary ---
Author Organization [facility] Address [address] [place] [address] Care Team Providers Care Stained Glass Installer Name Role Phone Stacy Mcgee Primary Care Provider [phone] Encounter Details Date Type Department Care Team (Late st Contact Info) Description 03/19/2023 BioDerm Message Enc [facility] Medical Group Family & Internal Medicine [address] [address] Stacy Mcgee FNP [facility] [place], [place] [phone] Moms arms Social History Tobacco Use Types [...] Sex Assigned at Female 10/07/2024 12:57 PM GAS TURBINE ASSEMBLER Legal Sex Female 11:50 AM GAS TURBINE ASSEMBLER Gender Identity Not on file Sexual Orientation [...] Description 12/14/2024 2:00 PM CDT Office Visit [facility] Medical Group Family & Internal Medicine - [address] [address] Stacy Mcgee FNP [address] [place] [address] 12/16/2024 10:00 AM CDT Appointment [facility] Driller And Reamer [place], [place] [phone] Zia Sidhu MD 3 [facility] [place] [address] [place] [phone] Jerrod Teague MD Three [facility]. ROBERT [facility] [place] [address] 03/10/2025 10:45 AM CDT Office Visit [facility] [phone] Zia Sidhu MD 3 [facility] [address] [place] [address] documented as of this encounter Visit Diagnoses Not on filedocumented in this encounter Additional Health Concerns Infection Onset Date Last Indicated Resolved Time ESBL - Extended Spectrum Bet a-lactamase Comment:07/23/22 +ESBL Blood 07/26/2022 07/26/2022 Assessment Noted Time PHQ-9 Depression Total Score: 0 10/21/19 22 1:38 PM GAS TURBINE ASSEMBLER documented as of this encounter Care Teams Stained Glass Installer Relationship Specialty Start Date End Date Stacy Mcgee FNP [address] [place] [address] PCP - General Nurse Practitioner Family 10/28/18 documented as of this encounter
--- OUTSIDE RECORDS SUMMARY | 2024-11-24 21:21 | XMS_ITS | Clinical Summary ---
Author Organization [facility] Address [facility] [place] [address] Care Team Providers Care Marketing Proposal Coordinator Name Role Phone Stacy Mcgee TOMEKA Primary Care Provider [phone] Allergies Active Allergy Reactions Criticality Noted Date [...] Active Blood Glucose Monitoring Suppl (ACCU-CHEK GUIDE [place]) w/Device KitIndications: Type 2 diabetes mellitus without [...] complication, without long-term current use of insulin ([facility]) Use twice a day with lantus 100 [...] ROUND CHAIR, DME,Indications :Disease of spinal cord ([facility]),Spinal stenosis of lumbar region, unspecified whether neurogenic claudication present,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 1 Device 023 Active insulin lispro, 1 Unit Dial, (HUMALOG KWIKPEN) 100 UNIT/ML injection (PEN)Indication s:Type 2 diabetes mellitus without complication, without long-term current use of insulin ([facility]) Administer 8 units subcutaneously three times daily [...] Left ear impacted cerumen 02/15/2021 Lacunar stroke ([facility]) 01/03/2021 Disease of spinal cord ([facility]) 021 Unsteadiness 01/03/2021 UTI symptoms 12/03/2020 B12 deficiency 10/17/2020 Memory deficits 10/17/2020 Dizziness 10/17/2020 Ataxia 10/17/2020 Lumbar foraminal stenosis 08/17/2020 Spinal stenosis of lumbar re gion, unspecified whether neurogenic claudication present 08/17/2020 Hip pain, chronic, right 07/13/2020 Acute cystitis without hematuria 06/21/2020 History of lumbar fusion 06/21/2020 Chronic midline low back pain with bilateral sci atica 06/21/2020 Oropharyngeal dysphagia 06/21/2020 Diabetic eye exam ([facility]) 05/08/2020 Deformity of toenail 05/08/2020 Skin lump of leg, left 05/08/2020 Lipoma of left lower extremity 05/08/2020 Mixed hyperlipidemia 05/15/2019 Anemia, unspecified type 10/31/2018 Rheumatoid arthritis involvi ng multiple sites with positive rheumatoid factor ([facility]) 10/31/2018 Weakness 10/31/2018 Vitamin D deficiency 10/31/2018 Gastroesophageal reflux dise ase, esophagitis presence not specified 10/31/2018 Type 2 diabetes mellitus wit h diabetic polyneuropathy, with long-term current use of insulin ([facility]) 10/31/2018 Hypertension, unspecified type 10/31/2018 Toenail fungus 10/31/2018 Diverticulosis of large intestine 06/14/2018 Localized primary osteoarthritis of left lower l eg 11/15/2015 Primary osteoarthritis of left knee 11/14/2015 Resolved Problems Problem Noted Date Diagnosed Date Resolved Date Pneumonia due to COVID-19 virus 10/23/2021 11/11/2024 Encounters Date Type Department Care Team Description 11/24/2024 Telephone [facility] [place] [address] [address] [place], [place] [phone] Daphne Townsend, STOCK HOLDER Results 11/21/2024 Orders Only [facility], [address] [place], [place] [id number] Sigifredo Rivas MD 11/16/2024 11:20 AM BAND SINGER - 11/16/2024 11:59 PM BAND SINGER Hospital Encounter [facility] [place] [address] Sigifredo Rivas MD Discharge Disposition: Home or Self Care (Routine Discharge) 11/16/2024 10:30 AM BAND SINGER - 11/16/2024 10:31 AM BAND SINGER Hospital Encounter [facility] [place] [address] Sigifredo Rivas MD Discharge Disposition: Home or Self Care (Routine Discharge) 11/16/2024 Telephone [facility] THREE [address] [address] Stacy Rodriguez PA-C Results 11/16/2024 Travel 11/11/2024 1:30 PM BAND SINGER Office Visit [facility] [address] Sigifredo Rivas MD Hypertension (TESTING F/UP) 11/11/2024 Travel 11/04/2024 12:59 PM BAND SINGER - 11/04/2024 3:48 PM [address] [facility] [place] [address] Stephanie Cook MD Fall Discharge Disposition: Home or Self Care (Routine Discharge) 11/04/2024 Travel 11/01/2024 11:00 AM BAND SINGER - 11/01/2024 11:59 PM BAND SINGER Hospital Encounter [place] [address] Sigifredo Rivas MD Discharge Disposition: Home or Self Care (Routine Discharge) 11/01/2024 Travel 10/13/2024 12:50 PM BAND SINGER - 10/13/2024 11:59 PM BAND SINGER Hospital Encounter [facility] [address] [place] [address] Gaby Ortiz, PT Kilzer, Stacy, LIBRARY SCIENCE PROFESSOR Generalized Weakness Discharge Disposition: Home or Self Care (Routine Discharge) 10/13/2024 Travel 10/10/2024 2:41 PM BAND SINGER - 10/10/2024 11:59 PM BAND SINGER Hospital Encounter [facility] [address] [place] [address] Gaby Ortiz, PT Everardo, Stacy, LIBRARY SCIENCE PROFESSOR Generalized Weakness Discharge Disposition: Home or Self Care (Routine Discharge) 10/10/2024 Travel 10/07/2024 12:58 PM BAND SINGER - 10/07/2024 11:59 PM BAND SINGER Hospital Encounter [facility] [address] [place] [address] Gaby Ortiz, PT Everardo, Stacy, LIBRARY SCIENCE PROFESSOR Generalized Weakness Discharge Disposition: Home or Self Care (Routine Discharge) 10/07/2024 Travel 10/04/2024 Telephone [facility] Family & Internal Medicine [address] [address] Stacy Mcgee, LIBRARY SCIENCE PROFESSOR Diabetes 10/03/2024 3:15 PM BAND SINGER - 10/03/2024 11:59 PM BAND SINGER Hospital Encounter [facility] [address] [place] [address] Gaby Ortiz, PT Everardo, Stacy, LIBRARY SCIENCE PROFESSOR Generalized Weakness Discharge Disposition: Home or Self Care (Routine Discharge) 10/03/2024 Travel 09/23/2024 12:48 PM BAND SINGER - 09/23/2024 11:59 PM BAND SINGER Hospital Encounter [facility] [address] [place] [address] Sylvia Tomlinsno, PT Everardo, Stacy, LIBRARY SCIENCE PROFESSOR Generalized Weakness Discharge Disposition: Home or Self Care (Routine Discharge) 09/23/2024 Travel 09/13/2024 9:00 AM BAND SINGER - 09/13/2024 11:59 PM BAND SINGER Hospital Encounter [facility] [address] [place] [address] Sigifredo Rivas MD Obstructive Sleep Apnea Discharge Disposition: Home or Self Care (Routine Discharge) 09/13/2024 Travel 09/12/2024 Telephone [facility], [address] [address] Sigifredo Rivas MD Medication (metoprolol) 09/09/2024 1:00 PM BAND SINGER Office Visit [facility] [phone] Sigifredo Rivas MD Hypertension (1mo) [...] Sex Assigned at Female 10/07/2024 12:57 PM BAND SINGER Legal Sex Female 11:50 AM BAND SINGER Gender Identity Not on file Sexual Orientation Not on file Last Filed Vital Signs Vital Sign Reading Time Taken Comments Blood Pressure 146/60 11/11/2024 1:16 PM BAND SINGER Pulse 80 11/11/2024 1:16 PM BAND SINGER Temperature 36.3 C (97.4 F) 11/04/2024 12:50 PM BAND SINGER Respiratory Rate 16 11/04/2024 3:00 PM BAND SINGER Oxygen Saturation 95% 11/11/2024 1:16 PM BAND SINGER Inhaled Oxygen Concentration - - Weight 58.4 kg (128 lb 12.8 oz) 11/11/2024 1:16 PM BAND SINGER Height 154.9 cm (5' 1 ) 11/11/2024 1:16 PM BAND SINGER Body Mass Index 24.34 11/11/2024 1:16 PM BAND SINGER Plan of Treatment Upcoming Encounters Date Type Department Care Team (Late st Contact Info) Description 12/14/2024 2:00 PM CDT Office Visit [facility] Medical Group Family & Internal Medicine - [address] [address] Stacy Mcgee [address] [address] 12/16/2024 10:[address] [facility] [place] [address] Sigifredo Rivas MD [address] [facility] [place] [address] [place] [phone] Jerrod Teague MD Three [facility]. [address] [place] [address] 03/10/2025 10:45 AM CDT Office Visit [facility] [phone] Sigifredo Rivas MD 3 [facility] [address] [place] [phone] Health Maintenance Due Date Last Done [...] (#1) 2024 06/21/2020, 06/11/20 18 PHQ-2 (Physician [place]) 09/21/2024 ASCVD LDL 10/23/2024 10/23/2023, 02/0 10/2023, [...] this topic Medical Devices Implanted Type Area Quality Assurance Monitor Chassis Device Identifier Shelf Expiration Date Model / Serial / Lot Stent Ureteral Pigtail 6fr 24cm Crv Taper Tip - [id number] Implanted:Qty : 1 on 07/14/2022 by Sridhar Jones MD at [facility] Stent Right: Ureter [employer] HELEN [id number] 03/10/2025 [id number] / [id number] Left Knee Procedures Procedure Name Priority Date/Time Associated Diagnosis Comments THYROID STIM HORMONE TSH Routine 11/16/2024 11:30 AM BAND SINGER Hypertension, unspecified type USE ECHOCARDIOGRAM Routine 11/16/2024 11 :27 AM BAND SINGER Aortic heart murmur SOB (shortness of breath) BASIC METABOLIC PANEL STAT 11/04/2024 2:22 PM BAND SINGER LACERATION REPAIR Routine 11/04/2024 1:[address] CERV SPINE WO CON STAT 11/04/2024 1:[address] HEAD WO CON STAT 11/04/2024 1:24 PM BAND SINGER CTA CORONARY W SCORING Routine 12:32 PM BAND SINGER Aortic heart murmur CREATININE WHOLE BLOOD Routine 12:03 PM BAND SINGER HOME SLEEP STUDY - WATCHPAT Routine 09/13/2024 9:00 AM BAND SINGER KATEY (obstructive sleep apnea) Dyspnea on exertion SOB (shortness of breath) LIPOPROTEIN, LDL CHOL, DIRECT Routine 10/23/2023 3:07 PM BAND SINGER HEMOGLOBIN, GLYCOSYLATED Routine 10/23/2023 Type 2 diabetes mellitus with diabetic polyneuropathy, with long-term current use of insulin ([facility]) from Last 3 Months or Most Recently Relevant to Health Maintenance Results * (ABNORMAL) TSH (11/16/2024 11:30 AM BAND SINGER) TSH 3.940(H) 0.358 - 3.74 uIU/ML 11/16/2024 12:34 PM BAND SINGER [facility] Comment: HIGH DOSES OF BIOTIN MAY INTERFERE WITH THIS TEST RESULT. CORRELATION TO CLINICAL HISTORY AND PRESENTATION RECOMMENDED. 11/16/2024 11:3 0 AM BAND SINGER Sigifredo Rivas MD LABORATORY Final Result [facility] [address] [place] [address], [place] [phone] * USE ECHOCARDIOGRAM (11/16/2024 11:27 AM BAND SINGER) Anatomical Region Laterality Modality Cardiac Echocardiogram 11/16/2024 10:4 7 AM BAND SINGER Narrative 11/17/2024 8:39 AM BAND SINGER Echocardiography Report Pat.Name: MELISSA LINTON Pat.ID: [id number] .Date: 11/16/2024 Percy.: [id number] EVELYN Vasquez EWDPROV EWDPROV Exam Time: 10:47:00 [...] 29 mm Right Ventricle 25 mm [place] 61 mm MMODE TA Tricuspid Annul 15.6 mm <Electronic Signature> 11/17/2024 08:39 AM Sigifredo Rivas M.D. Procedure Note Sigifredo Rivas MD - 11/17/2024 Echocardiography Report Pat.Name: MELISSA LINTON Pat.ID: [id number] St.Date: 11/16/2024 Refer.MD: [id number] EVELYN Vasquez EWDPROV EWDPROV Exam Time: 10:47:00 [...] 29 mm Right Ventricle 25 mm [place] 61 mm MMODE TA Tricuspid Annul 15.6 mm <Electronic Signature> 11/17/2024 08:39 AM Sigifredo Rivas M.D. us Sigifredo Rivas MD ECHO Final Result * (ABNORMAL) BASIC METABOLIC PANEL (11/04/2024 2:22 PM BAND SINGER) [facility] GLUCOSE 311(H) 70 - 99 MG/DL 11/04/2024 2:53 PM [facility] BUN 12 7 - 18 MG/DL 11/04/2024 2:53 PM [facility] CREATININE S/P/B 0.81 0.55 - 1.02 MG/DL 11/04/2024 2:53 PM [facility] SODIUM S/P/B 135(L) 136 - 145 MMOL/L 11/04/2024 2:53 PM [facility] POTASSIUM S/P/B 4.2 3.5 - 5.1 MMOL/L 11/04/2024 2:53 PM [facility] CHLORIDE S/P/B 103 97 - 115 MMOL/L 11/04/2024 2:53 PM [facility] CO2 26.9 21 - 32 MMOL/L 11/04/2024 2:53 PM [facility] CALCIUM S/P/B 9.8 8.5 - 10.1 MG/DL 11/04/2024 2:53 PM [facility] ANION GAP 5.1 2 - 10 MMOL/L 11/04/2024 2:53 PM [facility] BUN CREATININE RATIO 14.8 6 - 26 11/04/2024 2:53 PM [facility] GFR ESTIMATE 74(L) >90 ML/MIN/1.7 3 M2 11/04/2024 2:53 PM [facility] Comment: NOTE: eGFR is not calculated for patients <18 years of age or gender unknown. This is an estimated GFR calculation using the new CKD EPI creatinine equation without race and so does not require a correction factor for race. This estimated GFR should not be used for calculating drug doses. 11/04/2024 2:22 PM BAND SINGER Stephanie Cook MD LABORATORY Final Result [facility] [address] [place] [address], [place] [phone] * Lac Repair (11/04/2024 1:57 PM BAND SINGER) Stephanie Houston MD - 11/04/2024 1:57 PM BAND SINGER Stephanie Cook MD 11/04/2024 3:09 PM Lac [...] CT HEAD WO CON (11/04/2024 1:24 PM BAND SINGER) Anatomical Region Laterality Modality Head Computed Tomogra phy 11/04/2024 1:40 PM BAND SINGER Impressions 11/04/2024 1:46 PM BAND SINGER IMPRESSION: CT HEAD: 1. No definite CT evidence of acute intracranial abnormality, as above. 2. Small vessel disease, old infarcts, and volume loss. CT CERVICAL SPINE: 1. No definite acute fractures identified in the cervical spine. 2. Degenerative changes. Ordered By: STEPHANIE COOK Interpreted By: Galen English MD, 11/04/2024 1:40 PM Narrative 11/04/2024 1:46 PM BAND SINGER [facility] [place] [address] DATE: 11/04/2024 1:15 PM EXAMINATION: CT of [...] Procedure Note Galen English MD - 11/04/[address] [address] DATE: 11/04/2024 1:15 PM EXAMINATION: CT of [...] of C5 on C6. Rightward rotation of [id number] to C2. Straightening of the cervical lordosis. [...] CERV SPINE WO CON (11/04/2024 1:24 PM BAND SINGER) Anatomical Region Laterality Modality Spine Computed Tomogra phy 11/04/2024 1:40 PM BAND SINGER Impressions 11/04/2024 1:46 PM BAND SINGER IMPRESSION: CT HEAD: 1. No definite CT evidence of acute intracranial abnormality, as above. 2. Small vessel disease, old infarcts, and volume loss. CT CERVICAL SPINE: 1. No definite acute fractures identified in the cervical spine. 2. Degenerative changes. Ordered By: STEPHANIE COOK Interpreted By: Galen English MD, 11/04/2024 1:40 PM Narrative 11/04/2024 1:46 PM BAND SINGER [address] [address] DATE: 11/04/2024 1:15 PM EXAMINATION: CT of [...] Procedure Note Galen English MD - 11/04/[address] [address] DATE: 11/04/2024 1:15 PM EXAMINATION: CT of [...] of C5 on C6. Rightward rotation of [id number] to C2. Straightening of the cervical lordosis. [...] CTA CORONARY W SCORING (11/01/2024 12:32 PM BAND SINGER) Anatomical Region Laterality Modality Chest Computed Tomogra phy, Radiographic Imaging 11/05/2024 5:09 PM BAND SINGER Addenda Addendum by Sigifredo Rivas MD on 11/08/2024 1:07 PM BAND SINGER Table formatting from the original result was not included. CT ANGIOGRAM (Cardiology Portion) Patient Name: Melissa Linton : 1945 Date of Study: 11-01-2024 Interpreting Veterinary Virologist: SIGIFREDO RIVAS M.D. Indication: Dyspnea on exertion [...] (anti-anginal therapy) per guideline directed care. Interpreting Veterinary Virologist: SIGIFREDO RIVAS M.D. 11/07/24 Narrative 11/05/2024 5:12 PM BAND SINGER [address] [address] EXAMINATION: CARDIAC COMPUTED TOMOGRAPHY ANGIOGRAM, ROUTINE CORONARY [...] ANGIOGRAM AND OTHER CARDIAC FINDINGS: Interpreted by nutrition manager. EXTRACARDIAC FINDINGS: The visible lungs contain no suspicious lung nodule, mass, consolidation. The visualized thoracic aorta is atherosclerotic. Visualized pulmonary artery appears normal. Spondylosis. IMPRESSION: 1. Cardiac findings interpreted by nutrition manager. 2. No suspicious mass or consolidation in the visualized lungs. Ordered By: SIGIFREDO RIVAS Interpreted By: Cruz Rasheed MD, 11/05/2024 5:09 PM [address]o Rivas MD CT Edited Result - Final * CREATININE WHOLE BLOOD (11/01/2024 12:03 PM BAND SINGER) Pathologist [facility] CREATININE WHOLE BLOOD 0.8 0.60 - 1.10 mg/dL 11/01/2024 12:07 PM BAND SINGER [facility] 11/01/2024 12:0 3 PM BAND SINGER Sigifredo Rivas MD LABORATORY Final Result Performing Organization Address City/[facility]/ZIP Co de Phone Number [facility] [address] [place] [address], [place] [phone] * LIPOPROTEIN, LDL CHOL, DIRECT (10/23/2023 3:07 PM BAND SINGER) Pathologist [facility] DIRECT LDL 165 MG/DL 10/24/2023 3:13 PM BAND SINGER [facility] Comment:[phone] HIGH 10/23/2023 3:07 PM BAND SINGER Stacy Mcgee [facility] LABORATORY Final Result [facility] [address] [place] [address], [place] [phone] [id number] * (ABNORMAL) HEMOGLOBIN, GLYCOSYLATED (10/23/2023) HGB A1C 11.1(HOOPER) % [facility] 10/23/2023 Stacy ECKERT LABORATORY Final Result [facility] [address] [place] [address], from Last 3 Months or Most Recently Relevant to Health Maintenance Additional Health Concerns Infection Onset Date Last Indicated ESBL - Extended Spectrum Bet a-lactamase Comment:07/23/22 +ESBL Blood 07/26/2022 07/26/2022 Insurance [facility] Advance Directives * Full Code (Latest [...] 5:58 PM 09/30/2020 7:58 PM Care Teams Marketing Proposal Coordinator Relationship Specialty Start Date End Date Stacy Mcgee FNP [address] [place] [address] PCP - General Nurse Practitioner Family 10/28/18
--- OUTSIDE RECORDS SUMMARY | 2024-11-24 21:21 | XMS_ITS | Encounter Summary ---
Author Organization [facility] Address [address] [place] [address] Care Team Providers Care Landscape Maintenance Internship Name Role Phone Stacy Mcgee TOMEKA Primary Care Provider [phone] Reason for Visit * Reason Onset Date Comments Results 11/24/2024 Encounter Details Date Type Department Care Team (Late st Contact Info) Description 11/24/2024 Telephone [facility] [address] [place] [address] Daphne Townsend APRN [facility]. [address] [place] [address] Results Social History Tobacco Use [...] Sex Assigned at Female 10/07/2024 12:57 PM SHUTTLE DRIVER Legal Sex Female 11:50 AM SHUTTLE DRIVER Gender Identity Not on file Sexual Orientation [...] further questions at this time. Carly CERDA TLE DRIVER * Carly Flores RN - 11/24/2024 2:21 PM CST ----- Message from Daphne Townsend sent at 11/24/2024 1:42 PM SHUTTLE DRIVER ----- EF stable Moderate LVH- rec good BP control Valves overall look ok Has upcoming [facility] TLE DRIVER documented in this encounter Plan of Treatment Upcoming Encounters Date Type Department Care Team (Late st Contact Info) Description 12/14/2024 2:00 PM CDT Office Visit [facility] Family & Internal Medicine - [place] [address] [place] [phone] Stacy Mcgee FNP [address] [place] [address] 12/16/2024 10:00 AM CDT Appointment [place] [employer] [address] [facility] [place] [address] Zia Sidhu MD 3 [facility] [address] [place] [phone] Jerrod Teague MD Three [facility]. [address] [place] [address] 03/10/2025 10:45 AM CDT Office Visit [facility] [phone] Zia Sidhu MD 3 [facility] [address] [place] [phone] documented as of this encounter Visit Diagnoses Not on filedocumented in this encounter Additional Health Concerns Infection Onset Date Last Indicated Resolved Time ESBL - Extended Spectrum Bet a-lactamase Comment:07/23/22 +ESBL Blood 07/26/2022 07/26/2022 Assessment Noted Time PHQ-9 Depression Total Score: 0 10/21/19 22 1:38 PM SHUTTLE DRIVER documented as of this encounter Care Teams Landscape Maintenance Internship Relationship Specialty Start Date End Date Stacy Mcgee FNP [address] [place] [address] PCP - General Nurse Practitioner Family 10/28/18 documented as of this encounter
--- OUTSIDE RECORDS SUMMARY | 2024-11-24 21:21 | XMS_ITS | Encounter Summary ---
Author Organization [facility] Address [address] [place] [address] Care Team Providers Care Craft Manager Name Role Phone Wayne Mcgeeanda TOMEKA Primary Care Provider [phone] Dee Walls RN Unavailable Dee Walls RN Unavailable Encounter Details Date Type Department Care Team (Late st Contact Info) Description 12/27/2021 Prep for Procedure [facility] [place] [address] [phone] Shelli Polk APNP [address] [place] [address] Social History Tobacco Use Types Packs/Day Years Used Date Smoking Tobacco: Every Day Cigarettes 0.3 30 Smokeless Tobacco: Never Comments:provider to residential substance abuse counselor , STATES SMOKES 7 CIGARETTES A [...] Sex Assigned at Female 10/07/2024 12:57 PM WAITER/WAITRESS COCKTAIL LOUNGE Legal Sex Female 11:50 AM WAITER/WAITRESS COCKTAIL LOUNGE Gender Identity Not on file Sexual Orientation [...] Description 12/14/2024 2:00 PM CDT Office Visit [facility] Family & Internal Medicine - [address] [phone] Stacy Mcgee FNP [address] [place] [address] 12/16/2024 10:00 AM CDT Appointment [facility] [place] [address] Zia Sidhu MD 3 [facility] [address] [place] [phone] Jerrod Teague MD Three [facility]. ROBERT [address] [place] [address] 03/10/2025 10:45 AM CDT Office Visit [facility] [phone] Zia Sidhu MD 3 [facility] [address] [place] [phone] documented as of this encounter Visit Diagnoses Not on filedocumented in this encounter Additional Health Concerns Infection Onset Date Last Indicated Resolved Time COVID-19 Rule Out 07/14/2022 07/14/2022 07/14/2022 8:14 AM CDT COVID-19 Rule Out 07/23/2022 07/23/2022 07/23/2022 7:20 PM CDT ESBL - Extended Spectrum Beta-lactamase Comment:07/23/22 +ESBL Blood 07/26/2022 07/26/2022 COVID-19 Rule Out 08/01/2022 08/01/2022 08/01/2022 9:31 AM WAITER/WAITRESS COCKTAIL LOUNGE COVID-19 Rule Out 08/01/2022 08/01/2022 08/01/2022 11:21 AM WAITER/WAITRESS COCKTAIL LOUNGE Assessment Noted Time PHQ-9 Depression Total Score: 0 10/21/19 1:38 PM WAITER/WAITRESS COCKTAIL LOUNGE documented as of this encounter Care Teams Craft Manager Relationship Specialty Start Date End Date Stacy Mcgee FNP [address] [place] [address] PCP - General Nurse Practitioner Family 10/28/18 Dee Walls RN [address] [place] [address] Mechanical Cad Designer (Ambulatory) REGISTERED NURSE 06/04/22 07/23/22 Dee Walls RN [address] [place] [address] Mechanical Cad Designer (Ambulatory) REGISTERED NURSE 07/24/22 09/18/22 documented as of this encounter
--- OUTSIDE RECORDS SUMMARY | 2024-11-24 21:21 | XMS_ITS | Patient Health Summary ---
Author Organization [facility] Address [address] [facility] [place] [address] Care Team Providers Care Hardwood Finisher Name Role Phone Stacy Mcgee APRN-ROOFING APPRENTICE Primary Care Provider [phone] Note from [facility],non-owned Affiliates and Associated Physician Practices is amultiple site organization consisting of ambulatory clinics and hospital sitesin [place], [place], [place] and [place]. This disclosure is being madepursuant to the Care Everywhere program and may not contain all information available regarding this patient. Last updated 18.[facility] Allergies * Acetaminophen(Unknown) * Codeine(Unknown) * Oxytetracycline(Rash) [...] Sexual Orientation Not on file Care Teams Hardwood Finisher Relationship Specialty Start Date End Date Stacy Mcgee APRN-MECHELLE [address] [place] [address] PCP - General 11/08/20
--- OUTSIDE RECORDS SUMMARY | 2024-11-24 21:21 | XMS_ITS | Clinical Summary ---
Author Organization [facility] Address [address] [place] [address] Care Team Providers Care Hay Rake Operator Name Role Phone Stacy Mcgee APRN-RUSSET REPAIRER Primary Care Provider [phone] Source Comments [facility],non-owned Affiliates and Associated Physician Practices is amultiple site organization consisting of ambulatory clinics and hospital sitesin [place], [place], [place] and [place]. This disclosure is being madepursuant to the [...] age to complete this topic Care Teams Hay Rake Operator Relationship Specialty Start Date End Date Stacy Mcgee APRN-MECHELLE [address] [place] [address] PCP - General 11/08/20
--- OUTSIDE RECORDS SUMMARY | 2024-11-24 21:21 | XMS_ITS | Encounter Summary ---
Author Organization [facility] Address [address] [place] [address] Care Team Providers Care Interlocking Tower Operator Name Role Phone Stacy Mcgee Primary Care Provider [phone] Encounter Details Date Type Department Care Team (Late st Contact Info) Description 12/31/2022 [employer] Message Enc [facility] Family & Internal Medicine [address] [phone] Stacy Mcgee FNP [address] [place] [phone] Adult pull ups Social History Tobacco Use [...] Sex Assigned at Female 10/07/2024 12:57 PM DISC PAD GRINDING MACHINE FEEDER Legal Sex Female 11:50 AM DISC PAD GRINDING MACHINE FEEDER Gender Identity Not on file Sexual Orientation [...] Description 12/14/2024 2:00 PM CDT Office Visit [facility] Family & Internal Medicine - [address] [phone] Stacy Mcgee FNP [address] [place] [address] 12/16/2024 10:00 AM CDT Appointment [facility] Database Marketing Analyst [place], [place] [phone] Zia Sidhu MD 3 [facility] [place] [address] [place] [phone] Jerrod Teague MD Three [facility]. ROBERT [facility] [place] [address] 03/10/2025 10:45 AM CDT Office Visit [facility] [phone] Zia Sidhu MD 3 [facility] [address] [place] [phone] documented as of this encounter Visit Diagnoses Not on filedocumented in this encounter Additional Health Concerns Infection Onset Date Last Indicated Resolved Time ESBL - Extended Spectrum Bet a-lactamase Comment:07/23/22 +ESBL Blood 07/26/2022 07/26/2022 Assessment Noted Time PHQ-9 Depression Total Score: 0 10/21/19 22 1:38 PM DISC PAD GRINDING MACHINE FEEDER documented as of this encounter Care Teams Interlocking Tower Operator Relationship Specialty Start Date End Date Stacy Mcgee FNP [address] [place] [address] PCP - General Nurse Practitioner Family 10/28/18 documented as of this encounter
--- OUTSIDE RECORDS SUMMARY | 2024-11-24 21:21 | XMS_ITS | Clinical Summary ---
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
== END 2024-11-24 22:11 | disposition left against medical advice (07) ==
LOC: ANHED 21:19
PROVIDERS: Emergency Provider Emergency Medicine; PCP Internal Medicine Rheumatology
DX: R55 Syncope and collapse (principal)
CPT/HCPCS: 71046; 93005; 99199